=== PATIENT | male | born 1935 | race Caucasian/White ===

== ENCOUNTER → 2023-07-17 14:04 | Outpatient (REF) | payer OTHER, SELFPAY | LOC: HWRAD 14:04 | PROVIDERS: ATTENDING PHYSICIAN Family Medicine | DX: R06.02 Shortness of breath (principal) | CPT/HCPCS: 71046 ==

== ENCOUNTER → 2024-05-07 13:21 | Outpatient (REF) | payer OTHER, SELFPAY | LOC: RCS 13:21 | PROVIDERS: ATTENDING PHYSICIAN Internal Medicine Cardiovascular Disease; FAMILY PHYSICIAN Internal Medicine | DX: I50.20 Unspecified systolic (congestive) heart failure (principal); Z98.890 Other specified postprocedural states | CPT/HCPCS: 93306 ==

== ENCOUNTER → 2024-06-01 07:47 | Outpatient (REF) | payer OTHER, SELFPAY | LOC: HWRCS 07:47 | PROVIDERS: ATTENDING PHYSICIAN Internal Medicine Cardiovascular Disease; FAMILY PHYSICIAN Internal Medicine | DX: I42.8 Other cardiomyopathies (principal); I50.20 Unspecified systolic (congestive) heart failure; I48.21 Permanent atrial fibrillation | CPT/HCPCS: 78452; 93017; A9500; J2785 ==

== ENCOUNTER 2024-06-17 12:55 | Inpatient (IN) | payer OTHER, SELFPAY ==
[2024-06-17] VITALS (11 sets, daily range): BP systolic 91–136; BP diastolic 64–96; BMI 28.8; BMI 28.4
[2024-06-17 09:03] LABS: Urine Albumin 4+ (Neg - Trace); Urine Bilirubin Negative (Negative); Urine Character Bloody (Clear); Urine Color Red; Urine Glucose Negative (Negative); Urine Ketone Negative (Negative); Urine Leukocyte Negative (Negative); Urine Nitrite Negative (Negative); Urine Occult Blood 4+ (Negative); Urine Specific Gravity 1.015 (<1.030); Urine Urobilinogen Negative (Neg - 1+)
[2024-06-17 09:25] LABS: Urine Squamous Cell 0-2 /LPF (Few)
[2024-06-17 09:26] LABS: Urine Red Blood Cell >100 /HPF (0-2); Urine White Cell 0-2 /HPF (0-5)
--- NOTE | 2024-06-17 09:29 | ED.GENMED ---
History of Present Illness
General
Chief Complaint: Urinary Symptoms
Source: patient
Exam Limitations: none
Time Seen by Provider: 06/17/24 08:15
History of Present Illness
History of Present Illness:
89-year-old male with a history of prostate cancer and A-fib on Eliquis who presents with difficulty urinating. Patient admits that 2 days ago had a little bit of blood in the urine but it seemed to clear up. He saw his urologist and was put on
antibiotics. The patient states that today he then noticed blood again. No abdominal pain. On my evaluation he feels like he is comfortable. He was able to urinate on arrival. Urine at bedside is bloody
Past History
Past History
ED Past Medical History: Arrthythmia (Atrial fibrillation on Eliquis), Cancer (Prostate), CHF, HTN, Hypercholesterolemia, NIDDM and Valvular disease
ED Past Surgical History: Cardiac (Mitral valve repair) and Orthopedic
Social History
Tobacco: Non-smoker
Personal:
Living: with family
Family History
Family History: Other (No significant)
Phy Exam
Physical Exam
Physical Exam:
CONSTITUTIONAL Patient alert and oriented to person, place and time. Well-appearing. Vital signs reviewed.
HEAD atraumatic, normocephalic.
EYES eyelids normal to inspection, Extraocular muscles intact, Conjunctiva normal, Sclera normal.
NECK normal range of motion, Trachea midline, no jugular venous distention.
RESPIRATORY CHEST No respiratory distress noted, Chest expansion equal
ABDOMEN abdomen nontender, Bowel sounds normal. No distention.
BACK normal inspection, no obvious deformities
UPPER EXTREMITY range of motion normal, Motor strength normal, no cyanosis, no edema.
LOWER EXTREMITY range of motion normal, Motor strength normal, no cyanosis, no edema.
NEURO Speech normal, No focal motor deficits, Shiloh coma scale 15, Memory normal, Cranial Nerves intact to screening exam.
SKIN skin warm, dry, and normal in color.
Course
Orders/Labs/Results
Orders:
Orders
06/17/24 08:31
Urinalysis Reflex To Culture Urgent
Date Specimen was Collected: 06/17/24
Time Specimen was Collected: 08:30
Urine Microscopic Reflex Cult Urgent
06/17/24 08:33
Lucas Placement- Treatment ONCE
Reason for insertion: Acute Retention
06/17/24 08:36
Lidocaine 2% [Lidocaine Uro-Jet 2%] 1 syringe .ROUTE .STK-MED ONE
06/17/24 10:45
Complete Blood Count/With Diff Urgent
Comprehensive Metabolic Panel Urgent
Prothrombin Time Urgent
06/17/24 10:51
CBI- Treatment PRN
Solution: NSS
Abnormal Lab Results
06/17/24
08:31
Ur Occult Blood Reflex 4+ A
(Negative)
Urine RBC >100 A /HPF
(0-2)
Urine Albumin (Reflex) 4+ A
(Neg - Trace)
Vital Signs
Initial and Last Documented VS:
Initial Vital Signs
Temp Pulse Resp BP Pulse Ox
98.0 F 99 16 136/96 98
06/17/24 08:00 06/17/24 08:00 06/17/24 08:00 06/17/24 08:00 06/17/24 08:00
Last Documented Vital Signs
Temp Pulse Resp BP Pulse Ox
98.0 F 75 15 114/64 96
06/17/24 08:00 06/17/24 10:00 06/17/24 10:00 06/17/24 10:00 06/17/24 10:00
MDM/Problems Addressed
MDM/Problems Addressed:
Acute hematuria, therapeutic coagulopathy
Chronic conditions affecting care:
Atrial fibrillation
*Pulse Oximetry
Patient hypoxic: no
*Critical Care Note
Total Time (30-74mins, 75-104mins- exclusive of procedures): Not Applicable
Data Reviewed
Source: patient
Prescriptions/Medications Considered But Not Given:
Consider Kcentra but patient stable
Patient Management
Escalation/DeEscalation of care consider admission/obs:
Reassessed several times and continues to have bleeding despite hand irrigation. Initiate CBI. Stable. Check labs and admit in light of Eliquis
ED Attending Note
-
Portions of this chart may have been created with voice recognition software.� Occasional wrong word or��sound alike� substitutions may have occurred due to the inherent limitations of voice recognition software.
Discharge Plan
Departure
Patient Disposition: Admit
Date of Disposition: 06/17/24
Time of Disposition: :
Admit to: Med/Surg
Presentation/result/management discussed w/ accepting MD/DO: Hospitalist
Discharge Problem:
Hematuria, therapeutic coagulopathy
Prescriptions:
No Action
furosemide 40 MG tablet
40 mg PO .5XWEEK
carvedilol [Coreg] 25 MG tablet
25 mg PO BID
atorvastatin [Lipitor] 10 MG tablet
10 mg PO DAILY
levothyroxine 200 MCG tablet
200 mcg PO DAILY
leuprolide 1 MG/0.2 ML kit
5 mg SQ [id number]
omeprazole magnesium [Prilosec OTC] 20 MG tablet,delayed release (DR/EC)
20 mg PO DAILY PRN (Reason: heartburn)
glimepiride 2 MG tablet
2 mg PO DAILY
Januvia 50 MG tablet
50 mg PO DAILY
sacubitril-valsartan [Entresto] 1 EACH tablet
1 ea PO DAILY
spironolactone 25 mg Tablet
25 mg PO DAILY
acetaminophen [Pain Reliever ES(acetaminophn)] 500 mg Tablet
500 mg PO Q6HPRN PRN (Reason: mild pain) Qty: 1 0RF
Eliquis 2.5 mg Tablet
2.5 mg PO BID
ubiquinone
200 mg PO .ASDIRECTED
Referrals:
Vitaly Landin MD [Family Provider] -
Interventions
Interventions:
*Risk Screen - Suicide Last Done: 06/17/24 08:00
*Neglect/Abuse Screening Last Done: 06/17/24 08:00
ED- Fall Risk Assessment Last Done: 06/17/24 08:13
*ED COVID-19 Vaccine History Last Done: 06/17/24 08:12
ED-Male Genitourinary Assessment Last Done: 06/17/24 08:20
Discharge Date and Time
Print Language: [place]
[2024-06-17 11:54] LABS: % Basophils 0.4 % (0-2); % Eosinophils 2.7 % (0-6); % Immature Granulocytes 0.5 % (0-0.5); % Lymphocytes 13.4 % (20.5-51.1); % Monocytes 10.9 % (1.7-9.3); % Neutrophils 72.1 % (42.2-75.2); Absolute Eosinophils 0.2 10^3/uL (0-0.7); Absolute Lymphocytes 0.8 10^3/uL (1.2-3.4); Absolute Monocytes 0.6 10^3/uL (0.1-0.6); Absolute Neutrophils 4.1 10^3/uL (1.4-6.5); Hematocrit 37.6 % (39.0-52.0); Hemoglobin 11.8 g/dL (13.0-18.0); Mean Corp Hgb Conc. 31.4 g/dL (33.0-37.0); Mean Corpuscular Volume 89.1 fL (80.0-94.0); Mean Platelet Volume 10.8 fL (7.4-10.4); Nucleated Red Blood Cells % 0 % (-); Platelet Count 144 10^3/uL (130-400); Red Blood Cell Count 4.22 10^6/uL (4.70-6.10); Red Cell Dist. Width 14.8 % (11.5-14.5); White Blood Cell Count 5.6 10^3/uL (4.8-10.8)
[2024-06-17 11:56] LABS: ALT (SGPT) 11 U/L (0-50); AST (SGOT) 16 U/L (17-59); Albumin 3.5 g/dl (3.5-5.0); Alkaline Phosphatase 64 U/L (38-126); Blood Urea Nitrogen 49 mg/dl (9-20); Calcium 9.6 mg/dl (8.4-10.2); Carbon Dioxide 26 mmol/L (22-30); Chloride 106 mmol/L (98-107); Estimated Creatinine Clearance 47 ml/min; Glucose 111 mg/dl (70-99); Potassium 4.8 mmol/L (3.5-5.1); Sodium 137 mmol/L (135-145); Total Bilirubin 0.6 mg/dl (0.2-1.3); Total Protein 5.7 g/dl (6.3-8.2); eGFR 58.17
[2024-06-17 12:03] LABS: INR 1.28; PT 16.5 Sec (11.4-14.6)
--- NOTE | 2024-06-17 12:19 | HPS.HSE ---
Family Physician
-
Family Physician: Vitaly Landin
Chief Complaint
-
recurrent blood in urine
History of Present Illness
HPI
89M HX prostate cancer and A-fib on Eliquis seen at ER:
- presents with difficulty urinating
- 2 days ago had a little bit of blood in the urine but it seemed to clear up.
- He saw his urologist and was put on antibiotics.
- today he then noticed blood again.
- No abdominal pain.
- able to urinate on arrival.
- Urine at bedside is bloody
Medical History
Past Medical History
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
Past Surgical History: Reports Cardiac (HX MVR 2015 for MR , IDC implant )
Social History
Tobacco: Non-smoker
Personal:
Living: With Family
Family History
Family History: Not pertinent
Allergies / Home Medications
Allergies reflects when Allergies were last updated in [employer].
Home Medications with original date entered in [employer]
Allergy/Medication List:
Allergies
Allergy/AdvReac Type Severity Reaction Status Date / Time
No Known Allergies Allergy Verified 06/17/24 08:02
Home Medications
atorvastatin 10 mg tablet (Lipitor) 10 mg PO DAILY High cholesterol 05/05/17
carvedilol 25 mg tablet (Coreg) 25 mg PO BID Heart Failure 05/05/17
furosemide 40 mg tablet 40 mg PO .5XWEEK Fluid retention/Swelling 05/05/17
leuprolide 1 mg/0.2 mL subcutaneous kit 5 mg SQ [id number] Prostate Cancer 05/05/17
levothyroxine 200 mcg tablet 200 mcg PO DAILY Thyroid 05/05/17
omeprazole magnesium 20 mg tablet,delayed release (Prilosec OTC) 20 mg PO DAILY PRN heartburn 05/05/17
glimepiride 2 mg tablet 2 mg PO DAILY Diabetes 06/14/19
sacubitril 97 mg-valsartan 103 mg tablet (Entresto) 1 ea PO DAILY Heart Failure 06/14/19
sitagliptin phosphate 50 mg tablet (Januvia) 50 mg PO DAILY Diabetes 06/14/19
spironolactone 25 mg tablet 25 mg PO DAILY Heart Failure 01/26/22
acetaminophen 500 mg tablet (Pain Reliever Extra Strength (acetaminophen)) 500 mg PO Q6HPRN PRN mild pain #1 tab 02/02/22
apixaban 2.5 mg tablet (Eliquis) 2.5 mg PO BID 06/17/24
ubiquinone 200 mg PO .ASDIRECTED 06/17/24
Review of Systems
-
Constitutional: Reports No Symptoms
EENT: Reports No Symptoms
Respiratory: Reports No Symptoms
Cardiac: Reports No Symptoms
Abdomen/GI: Reports No Symptoms
: Reports Bleeding
Musculoskeletal: Reports No Symptoms
Skin: Reports No Symptoms
Neurological: Reports No Symptoms
Endocrine: Reports No Symptoms
Hematologic/Lymphatic: Reports No Symptoms
Psych: Reports No Symptoms
Physical Exam
Vital Signs
Vital Signs
Temp Pulse Resp BP Pulse Ox
98.0 F 75 15 114/64 96
06/17/24 08:00 06/17/24 10:00 06/17/24 10:00 06/17/24 10:00 06/17/24 10:00
Physical Exam
General: Well Developed, Well Nourished and No Apparent Distress
HEENT: NormoCephalic, Moist mucous membranes and Atraumatic
Respiratory: Clear
Cardiac: S1/S2 and Regular Rhythm; No Murmur or Rub
GI: Soft, Non Tender, Non Distended and Normal Bowel Sounds; No Organomegaly
Rectal: Deferred by Provider
Genito-urinary: Bloody Urine and Continuous Bladder Irrigation
Musculoskeletal: No Clubbing, No Cyanosis and No Edema
Skin: No Rash
Neuro: Nonfocal/grossly intact
Laboratory Results
-
06/17/24 11:35
06/17/24 11:35
Laboratory Results
PT 16.5 Sec (11.4-14.6) H 06/17/24 11:35
INR 1.28 06/17/24 11:35
Total Bilirubin 0.6 mg/dl (0.2-1.3) 06/17/24 11:35
AST 16 U/L (17-59) L 06/17/24 11:35
ALT 11 U/L (0-50) 06/17/24 11:35
Alkaline Phosphatase 64 U/L (38-126) 06/17/24 11:35
Data Reviewed
-
Lab Data: Labs Reviewed by me
Old Records: Reviewed
Impression/Plan
-
Reviewed VS: unremarkable except mild hypotensive 90/70 --> 115/65
Data
Laboratory Tests
02/01/22 02/02/22 06/17/24
06:59 05:42 08:31
Hgb 11.3 L 10.5 L
BUN
Creatinine 1.3
eGFR
Urine RBC >100 A
Urine WBC (Reflex) 0-2
06/17/24
11:35
Hgb 11.8 L
BUN 49 H
Creatinine 1.2
eGFR 58.17
Urine RBC
Urine WBC (Reflex)
Last hospitalist admission:
Date of Admission: 01/26/22 -Date of Discharge: 02/13/22 DC Dx: Lower GI bleed suspected diverticula
ASSESSMENT & PLAN
Persistent hematuria.
on eliquis
Hgb 11.8( baseline Hgb were low 11s)
UA not c/w UTI
- c/w CBI
- Hold Eliquis
- hold Frusemide for now
- c/w Carvedilol with hold index for SBP < 105
- hold Aldactone
- Uro consult
HX RCCa
HX prostate cancer he follows urologist
Primary urologist Dr. Lemus in [facility]
Benign HTN
- c/w Carvedilol and hold index for SBP < 105
- c/w Entresto with hold index for SBP <105
- Hold Aldactone
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
HX s/p ICD placement
Mild Pul HTN HX
S/P Mitral valve repair in 2015 for MR
- On combination of Coreg/Lasix/Entresto/asa/statin at home
- currently on hold Frusemide
- c/w Carvedilol with hold index for SBP < 105
T2DM
- c/w Glimepiride and Januvia
- add ISS low
- ADA 1800 diogenes diet
HX Prx AF
HLD
- Holding Eliquis to hematuria
- c/w APPLICATION PENETRATION TESTER Atorvastatin
Hypothyroidism
- c/w LT4 200 mcg daily
DVT Px: SCD
Code: Full code
IP TLM
--- NOTE | 2024-06-17 15:30 | PTCARENOTE ---
Received pt from ED via stretcher. Stretcher placed next to bed, pt able to stand and pivot into bed with assist x1. Telemetry placed. CBI running. Assessed and oriented to room. Pt verbalized understanding of call macario. Call macario within close
reach. Will continue to monitor.
[2024-06-17 16:53] LABS: Glucose - Point of Care 169 mg/dl (70-99)
[2024-06-17] MEDS: NOVOLOG FLEXPEN-LOW RESISTANCE 1 UNITS SC (17:53)
[2024-06-17] MEDS: COREG 25 MG PO (20:05)
[2024-06-17 21:36] LABS: Glucose - Point of Care 123 mg/dl (70-99)
[2024-06-18 03:50] VITALS: BP 130/76
[2024-06-18 05:14] VITALS: BMI 28.7
[2024-06-18 06:18] LABS: Hematocrit 38.4 % (39.0-52.0); Hemoglobin 12.4 g/dL (13.0-18.0); Mean Corp Hgb Conc. 32.3 g/dL (33.0-37.0); Mean Corpuscular Hgb 28.3 pg (27.0-31.0); Mean Corpuscular Volume 87.7 fL (80.0-94.0); Platelet Count 144 10^3/uL (130-400); Red Blood Cell Count 4.38 10^6/uL (4.70-6.10); Red Cell Dist. Width 14.6 % (11.5-14.5); White Blood Cell Count 7.8 10^3/uL (4.8-10.8)
[2024-06-18 06:21] LABS: Blood Urea Nitrogen 42 mg/dl (9-20); Calcium 9.7 mg/dl (8.4-10.2); Carbon Dioxide 28 mmol/L (22-30); Chloride 102 mmol/L (98-107); Estimated Creatinine Clearance 51 ml/min; Glucose 114 mg/dl (70-99); Potassium 4.6 mmol/L (3.5-5.1); Sodium 137 mmol/L (135-145); eGFR > 60.00
[2024-06-18 07:31] VITALS: BP 123/77
[2024-06-18 07:43] LABS: Glucose - Point of Care 127 mg/dl (70-99)
[2024-06-18] MEDS: NOVOLOG FLEXPEN-LOW RESISTANCE SC ×2 (07:59→12:16)
[2024-06-18] MEDS: SYNTHROID 200 MCG PO (07:59)
[2024-06-18] MEDS: ENTRESTO 97 MG/103 MG 1 TAB PO (08:41)
[2024-06-18] MEDS: LIPITOR 10 MG PO (08:42)
[2024-06-18] MEDS: COREG 25 MG PO (08:42)
[2024-06-18] MEDS: JANUVIA 50 MG PO (08:42)
[2024-06-18] MEDS: AMARYL 2 MG PO (08:42)
--- NOTE | 2024-06-18 10:50 | W.PN.HOSP.TC ---
Today's Communication/Plan
-
see outlined plan
await Urology input
Assessment / Plan
Assessment / Plan
Assessment:
Gross hematuria
- exacerbated by Eliquis
- holding Eliquis
- on CBI - urine clear
- Urine culture pending - UA not suggestive of UTI
- await Urology consult
Hx of RCC and prostate cancer
- planned for CT scan next week and f/u with Dr. Lemus Urology
Benign HTN
Chronic HFrEF (also hx of mild pulm HTN)
- resume Lasix/Coreg/Aldactone/Entresto
Type 2 DM
- continue home meds; SSI
- ADA diet
Hx of Parox A.Fib
- continue Coreg
- holding Eliquis
HLD - continue statin
Hypothyroidism
- continue levothyroxine daily
DVT ppx: SCDs
Code: Full
Anticipated Discharge: Within 24 hours
Subjective/Interval History
-
Date of Service: June 18, 2024
urine clear on CBI
1 small clot per RN
Objective Data
-
Labs:
Laboratory Results
06/18/24
05:13
WBC 7.8
Hgb 12.4 L
Hct 38.4 L
Plt Count 144
Sodium 137
Potassium 4.6
Chloride 102
Carbon Dioxide 28
BUN 42 H
Creatinine 1.1
Glucose 114 H
Calcium 9.7
Vital Signs:
Vital Signs
Temp Pulse Resp BP Pulse Ox
97.9 F 83 16 123/77 95
06/18/24 07:31 06/18/24 07:31 06/18/24 07:31 06/18/24 07:31 06/18/24 07:31
I&O
06/17/24 06/18/24 06/19/24
06:59 06:59 06:59
Intake Total 940 / 940
Output Total 1949
Balance -1010 / -1010
Physical Exam
-
General: No Apparent Distress
HEENT: Normocephalic and Atraumatic
Respiratory: Negative Wheezes
Cardiac: Regular Rhythm and S1/S2
GI: Soft and Nontender
Genito-urinary: No Costovertebral Tender and Lucas
Neuro: AO x 3
Hematologic / Lymphatic: No Lymphadenopathy
Psych: Calm
Data Reviewed
-
Total Time Spent with Patient (in minutes): 41
Labs: Labs Reviewed by me
--- NOTE | 2024-06-18 11:10 | CONS.URO ---
Medical History
History of Present Illness
89M HX prostate cancer s/p IMRT noted blood in urine mid-week.
- He saw his urologist, Artie Lemus, who prescribed antibiotics.
He was instructed to 'go to ER if bleeding continues' -- he presented to ED yesterday
Past Medical History
Past Medical History: Other (Arrhythmia (Prx AF on Eliquis ), CHF ([facility] HFrEF with LVEF 30 %), HTN, Hypercholesterolemia, Hypothyroidism, NIDDM, Valvular Disease (HX MVR 2016 for MR )
Allergies/Home Medications
Allergies
Allergy/AdvReac Type Severity Reaction Status Date / Time
No Known Allergies Allergy Verified 06/17/24 08:02
Home Medications
�Medication �Instructions �Recorded �Confirmed �Type
atorvastatin 10 mg tablet (Lipitor) 10 mg PO DAILY High cholesterol 05/05/17 06/17/24 History
carvedilol 25 mg tablet (Coreg) 25 mg PO BID Heart Failure 05/05/17 06/17/24 History
furosemide 40 mg tablet 40 mg PO .5XWEEK Fluid 05/05/17 06/17/24 History
retention/Swelling
leuprolide 1 mg/0.2 mL 5 mg SQ [id number] Prostate Cancer 05/05/17 06/17/24 History
subcutaneous kit
levothyroxine 200 mcg tablet 200 mcg PO DAILY Thyroid 05/05/17 06/17/24 History
omeprazole magnesium 20 mg 20 mg PO DAILY PRN heartburn 05/05/17 06/17/24 History
tablet,delayed release (Prilosec
OTC)
glimepiride 2 mg tablet 2 mg PO DAILY Diabetes 06/14/19 06/17/24 History
sacubitril 97 mg-valsartan 103 mg 1 ea PO DAILY Heart Failure 06/14/19 06/17/24 History
tablet (Entresto)
sitagliptin phosphate 50 mg tablet 50 mg PO DAILY Diabetes 06/14/19 06/17/24 History
(Januvia)
spironolactone 25 mg tablet 25 mg PO DAILY Heart Failure 01/26/22 06/17/24 History
acetaminophen 500 mg tablet (Pain 500 mg PO Q6HPRN PRN mild pain #1 02/02/22 06/17/24 Rx
Reliever Extra Strength tab
(acetaminophen))
apixaban 2.5 mg tablet (Eliquis) 2.5 mg PO BID 06/17/24 06/17/24 History
ubiquinone 200 mg PO .ASDIRECTED 06/17/24 06/17/24 History
Physical Exam
Vital Signs
Vital Signs
Temp Pulse Resp BP Pulse Ox
97.9 F 83 16 123/77 95
06/18/24 07:31 06/18/24 07:31 06/18/24 07:31 06/18/24 07:31 06/18/24 07:31
Lab / Testing Results
Laboratory Results
06/18/24 05:13
06/18/24 05:13
Physical Exam
elderly male in bed
General: Well Nourished
GI: Soft
Genito-urinary: Lucas Catheter (3-way with CBI: clear outflow)
Neuro: Awake, Alert and Oriented
Psych: Calm and Intact Judgement
Assessment / Plan
-
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
possible UTI
Rec: stop CBI and remove Lucas
pt to f/u with Dr Lemus next week
[2024-06-18 11:22] VITALS: BP 118/66
[2024-06-18 11:53] LABS: Glycohemoglobin (HgbA1c) 6.3 % (4.0-5.6)
[2024-06-18 11:57] LABS: Glucose - Point of Care 100 mg/dl (70-99)
[2024-06-18] MEDS: ALDACTONE 25 MG PO (12:12)
--- NOTE | 2024-06-18 13:24 | W.DS.TRANS ---
DC Summary - Manager Registration
-
Discharge Instructions:
Sleep Apnea Risk Intermediate
Diet Low Cholesterol,2 Gram Sodium,Diabetic, Carb
Controlled
Activity As tolerated
Bathing Restrictions None
Instructions:
Stand-Alone Forms:
Changes to Home Medications: No
Discharge Medications:
DC Medications w/original date entered in [employer]
atorvastatin 10 mg tablet (Lipitor) 10 mg PO DAILY High cholesterol 05/05/17
carvedilol 25 mg tablet (Coreg) 25 mg PO BID Heart Failure 05/05/17
furosemide 40 mg tablet 40 mg PO .5XWEEK Fluid retention/Swelling 05/05/17
leuprolide 1 mg/0.2 mL subcutaneous kit 5 mg SQ [id number] Prostate Cancer 05/05/17
levothyroxine 200 mcg tablet 200 mcg PO DAILY Thyroid 05/05/17
omeprazole magnesium 20 mg tablet,delayed release (Prilosec OTC) 20 mg PO DAILY PRN heartburn 05/05/17
glimepiride 2 mg tablet 2 mg PO DAILY Diabetes 06/14/19
sacubitril 97 mg-valsartan 103 mg tablet (Entresto) 1 ea PO DAILY Heart Failure 06/14/19
sitagliptin phosphate 50 mg tablet (Januvia) 50 mg PO DAILY Diabetes 06/14/19
spironolactone 25 mg tablet 25 mg PO DAILY Heart Failure 01/26/22
acetaminophen 500 mg tablet (Pain Reliever Extra Strength (acetaminophen)) 500 mg PO Q6HPRN PRN mild pain #1 tab 02/02/22
apixaban 2.5 mg tablet (Eliquis) 2.5 mg PO BID 06/17/24
ubiquinone 200 mg PO .ASDIRECTED 06/17/24
Home Medication Changes
Pending Results: No
Total time spent discharging patient (in min): 41
--- NOTE | 2024-06-18 14:08 | CM ---
Alert awake oriented pt who lives with his Lisbeth. He is independent in all ADLs.He uses a cane .Offered VN he declined need.
Pt said he was ready for discharge.He said he is using an Uber to get home.
No VN/SNF hx
Pharmacy [facility] [place]
PCP Dr Landin
PLAN Home no needs
== END 2024-06-18 14:11 | disposition home or self-care (01) | DRG 699 ==
LOC: 3 WEST ACU 12:55
PROVIDERS: ADMITTING PHYSICIAN Internal Medicine; ATTENDING PHYSICIAN Internal Medicine; CONSULT PHYSICIAN Specialist; EMERGENCY PHYSICIAN Emergency Medicine; FAMILY PHYSICIAN Internal Medicine
DX: N30.41 Irradiation cystitis with hematuria (principal); D68.32 Hemorrhagic disorder due to extrinsic circulating anticoagulants; I50.22 Chronic systolic (congestive) heart failure; I42.8 Other cardiomyopathies; T45.515A Adverse effect of anticoagulants, initial encounter; I48.0 Paroxysmal atrial fibrillation; I10 Essential (primary) hypertension; E78.00 Pure hypercholesterolemia, unspecified; E11.9 Type 2 diabetes mellitus without complications; E03.9 Hypothyroidism, unspecified; Z95.810 Presence of automatic (implantable) cardiac defibrillator; Z95.2 Presence of prosthetic heart valve; Z85.528 Personal history of other malignant neoplasm of kidney; Z85.46 Personal history of malignant neoplasm of prostate; Z79.84 Long term (current) use of oral hypoglycemic drugs; Z79.01 Long term (current) use of anticoagulants; Z79.890 Hormone replacement therapy
CPT/HCPCS: 51702; 51798; 80048; 80053; 81003; 81015; 82962; 83036; 85025; 85027; 85610; 87086; 99285

== ENCOUNTER → 2024-06-21 14:27 | Outpatient (REF) | payer OTHER, SELFPAY | LOC: HWRAD 14:27 | PROVIDERS: ATTENDING PHYSICIAN Urology; FAMILY PHYSICIAN Internal Medicine | DX: R31.0 Gross hematuria (principal) | CPT/HCPCS: 74176 ==

== ENCOUNTER → 2024-12-28 12:58 | Outpatient (REF) | payer OTHER, SELFPAY | LOC: RAD 12:58 | PROVIDERS: ATTENDING PHYSICIAN Internal Medicine; FAMILY PHYSICIAN Specialist | DX: R60.0 Localized edema (principal) | CPT/HCPCS: 93971 ==

== ENCOUNTER 2025-01-09 17:46 | Inpatient (IN) | payer OTHER, SELFPAY ==
[2025-01-09] VITALS (57 sets, daily range): BP systolic 55–135; BP diastolic 33–105; BMI 31.4
[2025-01-09 15:13] LABS: Hematocrit 23.0 % (39.0-52.0); Hemoglobin 7.5 g/dL (13.0-18.0); Mean Corp Hgb Conc. 32.6 g/dL (33.0-37.0); Mean Corpuscular Volume 92.7 fL (80.0-94.0); Nucleated Red Blood Cells % 0.3 % (-); Platelet Count 139 10^3/uL (130-400); Red Cell Dist. Width 17.2 % (11.5-14.5)
[2025-01-09] MEDS: ZOSYN 100 IV (15:16)
[2025-01-09 15:30] LABS: ALT (SGPT) 23 U/L (0-50); AST (SGOT) 28 U/L (17-59); Albumin 2.5 g/dl (3.5-5.0); Alkaline Phosphatase 44 U/L (38-126); Blood Urea Nitrogen 67 mg/dl (9-20); Calcium 8.5 mg/dl (8.4-10.2); Carbon Dioxide 30 mmol/L (22-30); Chloride 106 mmol/L (98-107); Estimated Creatinine Clearance 28 ml/min; Glucose 117 mg/dl (70-99); Potassium 5.6 mmol/L (3.5-5.1); Sodium 135 mmol/L (135-145); Total Protein 4.7 g/dl (6.3-8.2); eGFR 26.64
[2025-01-09] MEDS: LEVOPHED 250 IV ×2 (15:34→20:37)
[2025-01-09] MEDS: VANCOCIN 540 MG IV (15:41)
--- NOTE | 2025-01-09 16:01 | ED.GENMED ---
History of Present Illness
General
Chief Complaint: Weakness
Source: patient and family
Time Seen by Provider: 01/09/25 14:59
History of Present Illness
History of Present Illness:
Patient presents with weakness. Started this morning. Being treated for bladder CA with chemotherapy and radiation. Denies chest pain or shortness of breath. Has had ongoing diarrhea per family. Constipated per patient.
Past History
Past History
ED Past Medical History: Arrthythmia (Atrial fibrillation on Eliquis), Cancer (Prostate), CHF, HTN, Hypercholesterolemia, NIDDM and Valvular disease
ED Past Surgical History: Cardiac (Mitral valve repair) and Orthopedic
Social History
Tobacco: Non-smoker
Personal:
Living: with family
Family History
Family History: Other (No significant)
Review of Systems
Review of Systems
All Other Systems: Not applicable
Constitutional: Denies fever
Respiratory: Reports no symptoms
Cardiac: Reports no symptoms
Phy Exam
Physical Exam
Physical Exam:
GENERAL: Alert and oriented. Chronically ill-appearing. Hypotensive. Port upper chest wall
EYE: Orbits normal.
NECK: Supple, no significant adenopathy.
ENT: Pharynx without erythema
CARDIAC: Irregular irregular
LUNGS: Few rhonchi in the bases. No respiratory distress
ABDOMEN: Soft, without focal tenderness or distention
NEUROLOGICAL: Alert and oriented , grossly non-focal
SKIN: Warm and dry, no rash or lesion, no discoloration, skin intact.
MUSCULOSKELETAL: Swelling and erythematous changes in the left lower extremity with underlying hyperpigmentation changes
PSYCH: Normal and appropriate interaction.
Course
Orders/Labs/Results
Orders:
Orders
01/09/25 15:02
EKG [Electrocardiogram (*1)] Urgent
Reason for Study: Fatigue / Weakness
01/09/25 15:03
EKG- Treatment ONCE
01/09/25 15:04
IV Insert/Care/Rem.- Treatment PRN
01/09/25 15:06
Complete Blood Count/With Diff Urgent
Comprehensive Metabolic Panel Urgent
01/09/25 15:11
Lactic Acid Q4H
Comment: CANCEL 2nd LACTIC ACID IF 1st LACTIC ACID IS LESS THAN 2
Blood Culture Q30M
THOMAS Source: Blood/Venous
Specimen Description:
Blood Culture Q30M
THOMAS Source: Blood/Venous
Specimen Description:
01/09/25 15:12
Piperacillin/Tazo 4.5 Gram [Zosyn] 4.5 gram in 100 ml IV NOW
CXR Port [CR Chest Portable - 1 View] Urgent
Comment:
Reason For Exam: Hypotension/hypoxia
Reason Study Needs to be Portable: Patient Unstable
01/09/25 15:13
US Periph Venous LOWER Ext LT Urgent
Comment:
Reason For Exam: Swelling/redness
01/09/25 15:17
Type And Crossmatch [Type+Screen] Urgent
01/09/25 15:24
Vancomycin [Vancocin] 2,000 mg 0.9% Sodium Chloride 500 ml [Nss] 500 ml IV NOW
01/09/25 15:28
NORepinephrine 4 MG/250 ML [Levophed] 4 mg in 250 ml .ROUTE .STK-MED
01/09/25 15:30
NORepinephrine 4 MG/250 ML [Levophed] 4 mg in 250 ml IV NOW
Initial dose in mcg/min, then titrate:: 2
Titrate to keep:: MAP > 65 mmHg
Titrate by mcg/min:: 1-2 mcg/min
Frequency of titrations (minutes):: 5
Maximum dose in ICU in mcg/min:: 30
Maximum dose in IMU in mcg/min:: 8
Maximum dose in IVU in mcg/min:: 4
Begin to taper infusion when:: Remained at goal for 4hrs
Taper by mcg/min:: 1-2 mcg/min
Frequency of taper (minutes) if patient maintains goal:: 30
Taper to off?: Yes
If infusion off & no longer maintaining goal:: Contact Provider
01/09/25 15:36
Troponin I Urgent
01/09/25 16:19
Straight cath- Treatment ONCE
01/09/25 16:28
Urinalysis Reflex To Culture Urgent
Date Specimen was Collected: 01/09/25
Time Specimen was Collected: 16:21
Urine Microscopic Reflex Cult Urgent
Urine Culture Urgent
THOMAS Source: U
Specimen Description:
Date Specimen was Collected: 01/09/25
Time Specimen was Collected: 16:21
01/09/25 16:38
* Blood Bank Products Urgent
Blood Bank Products: *Packed RBC Leuko(PRBC's)
Quantity: 1
Transfuse Today: Yes
Reason: Anemia
IV Insert/Care/Rem.- Treatment PRN
Abnormal Lab Results
01/09/25 01/09/25 01/09/25
15:06 15:36 16:28
RBC 2.48 L 10^6/uL
(4.70-6.10)
Hgb 7.5 L g/dL
(13.0-18.0)
Hct 23.0 L %
(39.0-52.0)
MCHC 32.6 L g/dL
(33.0-37.0)
RDW 17.2 H %
(11.5-14.5)
Abs Immat Gran (auto) 0.1 H 10^3/uL
(0-0.05)
Absolute Neuts (auto) 6.6 H 10^3/uL
(1.4-6.5)
Absolute Lymphs (auto) 0.1 L 10^3/uL
(1.2-3.4)
Immature Gran % 1.0 H %
(0-0.5)
Neutrophils % 94.8 H %
(42.2-75.2)
Lymphocytes % 1.6 L %
(20.5-51.1)
Monocytes % 1.4 L %
(1.7-9.3)
Potassium 5.6 H mmol/L
(3.5-5.1)
BUN 67 H mg/dl
(9-20)
Creatinine 2.3 H mg/dL
(0.7-1.3)
Glucose 117 H mg/dl
(70-99)
Troponin I 0.105 H* ng/ml
Total Protein 4.7 L g/dl
(6.3-8.2)
Albumin 2.5 L g/dl
(3.5-5.0)
Leukocyte Esterase Rfl 1+ A
(Negative)
Urine Albumin (Reflex) 2+ A
(Neg - Trace)
01/09/25 15:06
01/09/25 15:06
Vital Signs
Initial and Last Documented VS:
Initial Vital Signs
BP
132/105
01/09/25 14:58
Last Documented Vital Signs
Temp Pulse Resp BP Pulse Ox
97.6 F 86 22 83/57 99
01/09/25 14:59 01/09/25 16:45 01/09/25 16:30 01/09/25 16:40 01/09/25 16:45
MDM/Problems Addressed
Differential Diagnosis Includes:
Patient in shock. Etiologies would include cardiogenic, septic. Highly doubt PE. Patient is on Eliquis and faithful. Leg ultrasound negative. Possibly secondary to cellulitis along with dehydration and chemo related. Hemoglobin is 7.5. Was
slightly over 8 his last visit. Not describing acute melena or GI bleed. We will transfuse 1 unit given the drop in hemoglobin. This was discussed with the patient and family. Antibiotics ordered. Pressors ordered. Blood pressure currently up
to 88/58. Multiple rechecks. Multiple family updates. They are discussing status of intubation and resuscitation issues. They have not made a decision on this
*Pulse Oximetry
SaO2: 96
Oxygen Mode of Delivery: Room air
Patient hypoxic: no
*EKG
Interpretation: abnormal
Comparison EKG: changes noted
Heart Rate: 92
Rate: normal
Rhythm: a-fib
[place]: left axis deviation
Interval: normal interval
QRS Pattern: poor R-wave progression
Ischemia: non-specific ST changes
*Office Auditor Interpretation
Rate: normal
Interpretation: abnormal
Heart Rate: 81
Rhythm: a-fib
*Critical Care Note
Total Time (30-74mins, 75-104mins- exclusive of procedures): Not Applicable (50)
Update Note
Update Note:
1600... Patient and family updated. Remains hypotensive. Anemia is likely ongoing. Suspect sepsis. Most likely source would be the left leg. Discussed CODE STATUS with patient and family. They are unsure where they would want to turn for this.
ED Attending Note
-
Portions of this chart may have been created with voice recognition software.� Occasional wrong word or��sound alike� substitutions may have occurred due to the inherent limitations of voice recognition software.
Discharge Plan
Departure
Patient Disposition: Admit
Date of Disposition: 01/09/25
Time of Disposition: 16:40
Admit to: ICU
Presentation/result/management discussed w/ accepting MD/DO: Hospitalist
Discharge Problem:
Shock/suspect septic, Cellulitis left lower extremity, Possible pneumonia/heart failure, Renal insufficiency, Bladder CA
Prescriptions:
No Action
furosemide 40 MG tablet
40 mg PO .5XWEEK
carvedilol [Coreg] 25 MG tablet
25 mg PO BID
atorvastatin [Lipitor] 10 MG tablet
10 mg PO DAILY
levothyroxine 200 MCG tablet
200 mcg PO DAILY
leuprolide 1 MG/0.2 ML kit
5 mg SQ [id number]
omeprazole magnesium [Prilosec OTC] 20 MG tablet,delayed release (DR/EC)
20 mg PO DAILY PRN (Reason: heartburn)
glimepiride 2 MG tablet
2 mg PO DAILY
Januvia 50 MG tablet
50 mg PO DAILY
sacubitril-valsartan [Entresto] 1 EACH tablet
1 ea PO DAILY
spironolactone 25 mg Tablet
25 mg PO DAILY
acetaminophen [Pain Reliever ES(acetaminophn)] 500 mg Tablet
500 mg PO Q6HPRN PRN (Reason: mild pain) Qty: 1 0RF
Eliquis 2.5 mg Tablet
2.5 mg PO BID
ubiquinone
200 mg PO .ASDIRECTED
Referrals:
Vitaly Landin MD [Family Provider, Internal Medicine]
Interventions
Interventions:
*Risk Screen - Suicide Last Done: 01/09/25 14:59
*General Assessment Last Done: 01/09/25 14:59
*Neglect/Abuse Screening Last Done: 01/09/25 14:59
*ED- Fall Risk Assessment Last Done: 01/09/25 14:59
*ED COVID-19 Vaccine History Last Done: 01/09/25 14:59
ED- Cardiac Assessment Last Done: 01/09/25 14:59
ED- Neurological Assessment Last Done: 01/09/25 14:59
ED- Pulmonary Assessment Last Done: 01/09/25 14:59
Discharge Date and Time
Print Language: FRENCH
[2025-01-09 16:13] LABS: Troponin I 0.105 ng/ml
[2025-01-09 16:46] LABS: Urine Character Clear (Clear)
[2025-01-09 17:23] LABS: Reticulocyte Count 1.2 % (0.4-2.8)
--- NOTE | 2025-01-09 17:25 | HPS.HSE ---
Family Physician
-
Family Physician: Vitaly Landin
Chief Complaint
-
Fatigue
History of Present Illness
89-year-old male with a past medical history of bladder cancer currently being treated at [facility] with both radiation and chemotherapy, permanent A-fib, heart failure with reduced ejection fraction comes to the hospital due to increased fatigue.
As per the patient's son, patient has been receiving radiation therapy and chemotherapy at [facility], his most recent appointment being this past Friday. Patient's hemoglobin levels had recently been dropping from 8.5-7.5. He has been feeling a
lot more fatigued following his chemotherapy sessions. He has been having increased shortness of breath and cough but does not report any fever or chest pain. This morning the fatigue was so bad that the patient ended up calling his son to ask him
to bring him to the hospital. He also has nausea at the time as well as feeling like fainting and ended up pressing his EMS button which got him to come to the hospital via ambulance. He has been very compliant with his medications however he has
been off of the Lasix at times due to symptomatic control. Mentions that his had around 2 to 3 weeks ago after which she has been fairly depressed but does not mention not eating or drinking. In the ED, patient was found to be
very hypotensive and was started on pressors. Was given 1 unit of blood and admitted to the ICU for further management.
Medical History
Past Medical History
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
Past Surgical History: Reports Cardiac (HX MVR 2016 for MR , IDC implant )
Social History
Tobacco: Non-smoker
Personal:
Living: With Family
Family History
Family History: Not pertinent
Allergies / Home Medications
Allergies reflects when Allergies were last updated in [employer].
Home Medications with original date entered in [employer]
Allergy/Medication List:
Allergies
Allergy/AdvReac Type Severity Reaction Status Date / Time
No Known Allergies Allergy Verified 01/09/25 14:57
Home Medications
atorvastatin 10 mg tablet (Lipitor) 10 mg PO DAILY High cholesterol 05/05/17
carvedilol 25 mg tablet (Coreg) 25 mg PO BID Heart Failure 05/05/17
furosemide 40 mg tablet 40 mg PO MOWEFR Fluid retention/Swelling 05/05/17
leuprolide 1 mg/0.2 mL subcutaneous kit 5 mg SQ [id number] Prostate Cancer 05/05/17
levothyroxine 200 mcg tablet 200 mcg PO DAILY Thyroid 05/05/17
omeprazole magnesium 20 mg tablet,delayed release (Prilosec OTC) 20 mg PO DAILY PRN heartburn 05/05/17
glimepiride 2 mg tablet 2 mg PO DAILY Diabetes 06/14/19
sitagliptin phosphate 50 mg tablet (Januvia) 50 mg PO DAILY Diabetes 06/14/19
spironolactone 25 mg tablet 25 mg PO DAILY Heart Failure 01/26/22
apixaban 2.5 mg tablet (Eliquis) 2.5 mg PO BID 01/09/25
coenzyme Q10 100 mg capsule (CoQ-10) 100 mg PO DAILY 01/09/25
lidocaine-prilocaine 2.5 %-2.5 % topical cream 1 applic topical DAILYPRN PRN port access 01/09/25
ondansetron HCl 8 mg tablet 8 mg PO Q8HPRN PRN n/v 01/09/25
prochlorperazine maleate 10 mg tablet 10 mg PO Q6HPRN PRN n/v 01/09/25
sacubitril 97 mg-valsartan 103 mg tablet (Entresto) 1 tab PO BID 01/09/25
Review of Systems
-
History Source: Patient and Family
A 12 point ROS was completed and negative except as noted: Yes
Constitutional: Reports Weight Loss and Fatigue; Denies Fever
EENT: Reports No Symptoms
Respiratory: Reports Other (Shortness of breath)
Cardiac: Reports No Symptoms
Abdomen/GI: Reports Nausea
: Reports No Symptoms
Musculoskeletal: Reports Edema (Bilateral lower extremity edema)
Skin: Reports Other (Left leg erythema)
Neurological: Reports No Symptoms
Endocrine: Reports No Symptoms
Hematologic/Lymphatic: Reports No Symptoms
Psych: Reports No Symptoms
Physical Exam
Vital Signs
Vital Signs
Temp Pulse Resp BP Pulse Ox
97.6 F 112 22 83/70 95
01/09/25 14:59 01/09/25 17:10 01/09/25 16:30 01/09/25 17:10 01/09/25 17:10
Physical Exam
General: No Apparent Distress, Appears in Distress and Appears Chronically Ill
HEENT: NormoCephalic, Anicteric, Moist mucous membranes and Atraumatic
Respiratory: Clear, Non Labored Respirations and Decreased Breath Sounds
Cardiac: S1/S2 and Irregular Rhythm
GI: Soft, Non Tender and Non Distended
Musculoskeletal: No Clubbing, No Cyanosis and Other (Bilateral lower extremity 1+ pitting edema)
Skin: Warm, Dry and Other (Left lower extremity erythema)
Neuro: Awake, Alert, Oriented and AO x 3
Psych: Calm, Intact Judgment/Insight and Other (Somnolent)
Laboratory Results
-
01/09/25 15:06
01/09/25 15:06
Laboratory Results
Lactic Acid Cancelled 01/09/25 19:15
Total Bilirubin 0.8 mg/dl (0.2-1.3) 01/09/25 15:06
AST 28 U/L (17-59) 01/09/25 15:06
ALT 23 U/L (0-50) 01/09/25 15:06
Alkaline Phosphatase 44 U/L (38-126) 01/09/25 15:06
Troponin I 0.105 ng/ml H* 01/09/25 15:36
Data Reviewed
-
Ultrasound: Report Reviewed by me, Discussed with Physician, Discussed with Patient and Discussed with Family
Lab Data: Labs Reviewed by me, Discussed with Physician, Discussed with Patient and Discussed with Family
Impression/Plan
-
Assessment:
89-year-old male with a past medical history of bladder cancer currently being treated at [facility] with both radiation and chemotherapy, permanent A-fib, heart failure with reduced ejection fraction comes to the hospital due to increased fatigue.
As per the patient's son, patient has been receiving radiation therapy and chemotherapy at [facility], his most recent appointment being this past Friday. Patient's hemoglobin levels had recently been dropping from 8.5-7.5. He has been feeling a
lot more fatigued following his chemotherapy sessions. He has been having increased shortness of breath and cough but does not report any fever or chest pain. This morning the fatigue was so bad that the patient ended up calling his son to ask him
to bring him to the hospital. He also has nausea at the time as well as feeling like fainting and ended up pressing his EMS button which got him to come to the hospital via ambulance. He has been very compliant with his medications however he has
been off of the Lasix at times due to symptomatic control. Mentions that his had around 2 to 3 weeks ago after which she has been fairly depressed but does not mention not eating or drinking. In the ED, patient was found to be
very hypotensive and was started on pressors. Was given 1 unit of blood and admitted to the ICU for further management.
PLAN:
# Circulatory shock most likely hypovolemic versus septic
- Patient has left lower extremity likely cellulitis however no leukocytosis and lactate levels normal
- Blood cultures drawn in the ED, starting vancomycin+Zosyn empirically until cultures come back
- Following up on UA, urine cultures
- Continue to trend CBC and temperatures
- Will admit to the ICU for further management, napper grinder services consulted, input appreciated
- Will continue pressors as needed to keep MAP above 65
- Holding antihypertensives and diuretics, will restart carvedilol as hypotension resolves, Lopressor 5 mg IV as needed added for heart rate above 120
# DEEDEE on chronic kidney disease
- Probably prerenal, due to sepsis
- Continue IV fluids, holding home meds including Entresto, carvedilol, spironolactone, Lasix
- Continue monitoring CMP
# Hyperkalemia
- Most likely due to DEEDEE, will give IV fluids
- Continue monitoring
# Normocytic anemia
- Hemoglobin has dropped from his previous labs 8.5 at [facility] to 7.5 today
- No recent bleeding reported, will check Hemoccult stool
- 1 unit of blood transfused in the ED
- Continue to trend the hemoglobin, transfuse as necessary to keep hemoglobin above 7
- Continue Eliquis for now as there is no concern for acute bleed
# Elevated troponin
- EKG continues to show A-fib, no concern for myocardial infarction
- Will continue to trend troponins and serial EKGs
- Most likely suspect to be nonischemic myocardial injury in the context of shock
- Continuing home Eliquis and statin and will continue to monitor on telemetry
# NIDDM
- Continue insulin sliding scale, HbA1c in the morning
- Holding home Januvia and glimepiride
# Permanent A-fib
- Continue Eliquis, holding carvedilol until blood pressure recovers
- IV Lopressor 5 mg for sustained RVR above 120
- Continue telemetry
DVT prophylaxis: Eliquis
Full code following discussion with family and patient
--- NOTE | 2025-01-09 17:26 | W.PN.UPDATE ---
Update Note
Progress Note Update
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
AICD presenting to the hospital with a complaint of weakness. Hypotensive on arrival with BP 77/56 mmHg, HR 101/min, afebrile and on room air. Labs with hemoglobin 7.5, normal WBC with neutrophilic predominance, potassium 5.6, creatinine 2.3 with
BUN 67, albumin 2.5, troponin 0.105. Urinalysis pending. ECG showed atrial fibrillation with LAFB though no acute ischemic findings. Chest x-ray showed signs consistent with mild bibasilar atelectasis and mild pulmonary interstitial edema.
Venous US of the LLE was without signs of DVT. Was given IV fluids in the ED though remained hypotensive. Was started on Levophed while in the ED. Blood and urine culture ordered, was started on IV vancomycin and cefepime empirically. Ordered 1U
PRBC in ED.
Lethargic, NAD, nontoxic. Well-nourished. Tachycardic, irregularly irregular though no murmurs, normal S1 and 2. Lungs clear bilaterally. Abdomen benign. No suprapubic tenderness or CVA tenderness. LLE with erythema and swelling though no
signs of purulence. Skin otherwise warm and dry to peripheral extremities. No focal deficits on neurologic exam
#Circulatory shock. Suspect septic etiology from nonpurulent LLE cellulitis superimposed on his GDMT and diuretics for CHF though may be hypovolemic as he has not eaten much since passed 2 weeks ago. Agree with broad-spectrum antibiotics and
cultures. Continue IV vancomycin and Zosyn empirically. Follow-up UA, urine culture and blood cultures. Trend CBC and temperature curve. Monitor LLE. Hold antihypertensives and diuretics, plan to resume carvedilol first when hemodynamics allow.
Judicious IVF. Continue Levophed with MAP goal >65, wean as appropriate. ICU consult, likely will need central venous catheter. Check procal.
#Nonoliguric DEEDEE with hyperkalemia. Suspect prerenal/septic ATN. Potassium retention with reduced excretory capacity. Will continue with judicious IV fluids and hold ARNI, carvedilol, MRA, Lasix for now. Trend UOP closely. Strict avoidance of
nephrotoxic agents
#Normocytic anemia. Unclear cause, possibly related to hemorrhagic cystitis versus AOCD versus GIB. Hgb 7.5, previous baseline closer to 12. No recent bleeding reported. Ordered 1U PRBC in ED. Check iron studies, B12, folate, reticulocyte count
added on to labs prior to blood transfusion. Check Hemoccult. Continue to trend CBC, plan for supportive transfusion if hemoglobin <7.0 or anemic symptoms present. Plan to hold DOAC if hemoglobin downtrends or he developes bleed
#Elevated troponin. No history of obstructive CAD. Suspect nonischemic myocardial injury in the context of circulatory shock as well as retention with DEEDEE, cardiomyopathy. ECG without acute ischemic findings, no chest pain reported. Will trend
serial ECG and troponins for now. Continue home statin and Eliquis. Monitor on telemetry
#NIDDM. Home regimen includes Januvia, glimepiride. Will transition to ISS with Accu-Cheks and hold oral agents for now. BG goal 140-180
#Permanent AF. Continue with Eliquis hold carvedilol for circulatory shock. Will start as needed IV Lopressor 5 mg for sustained RVR >120/min. Monitor telemetry
Diet -- No added salt
DVT PPHx -- Home DOAC for now
CODE STATUS -- Full
Dispo -- ICU, PT consulted
I have independently evaluated the patient at the bedside in the ED. I will be admitting Mk De La Paz to the ICU. He is at high risk for worsening morbidity due to circulatory shock. He will require intensive monitoring of his hemodynamic
parameters and infectious markers. He will require readjustment of his antihypertensive regimen and antimicrobial agents. I have discussed his case with the ED attending and knife blade polisher. I reviewed the case with the resident and agree with all
documentation unless otherwise specified.
Please see resident H&P for more details once available
[2025-01-09 17:36] LABS: Iron 56 ug/dl (49-181)
--- NOTE | 2025-01-09 17:40 | CM ---
CM reviewed chart and met with son bedside in ED. Pt sleeping.
Pt lives alone in 2 story home, 1 IVETTE from garage, first floor half bath, full flight to second floor bedroom and full bath.
Independent in ADLs, personal care and ambulation at baseline, uses cane, has RW. Per family has fallen several times recently.
Pt receiving chemotherapy for renal cell cancer, receiving blood in the ED.
Pt's 3 weeks ago. Family does not think he can remain at home alone, have encouraged him to live with them but he has refused.
Confirms prescription coverage.
Hx VN years ago after surgery, no hx SNF
PCP: Vitaly Ladnin
Pharmacy: [facility]
CM will continue to follow for all discharge planning needs.
[2025-01-09 17:45] LABS: Total Iron Binding Capacity 244 ug/dl (261-462)
[2025-01-09 18:03] LABS: Urine Squamous Cell >30 /LPF (Few)
[2025-01-09 18:05] LABS: Urine Red Blood Cell 0-2 /HPF (0-2); Urine White Cell 21-25 /HPF (0-5)
[2025-01-09 18:10] LABS: Ferritin 379.0 ng/ml (17.9-464.0)
[2025-01-09 18:32] LABS: Procalcitonin 1.39 ng/ml (0.0-0.25)
[2025-01-09 18:50] LABS: Folate > 20.0 ng/ml (2.76-20); Vitamin B12 249 pg/ml (239-931)
--- NOTE | 2025-01-09 20:15 | PTCARENOTE ---
Rec'd pt from ER via bed on monitor , on 4 liters nc & levo at 14 sherri; pt oriented to ICU routine, CHG bath done on adm, pt oriented, [place], cooperative, weak, Afib, Levophed gtt to keep MAP > 65- see flow sheet for titrations, weak distal pulses, +
LE edema, Left leg red,warm, scat ecchy areas over body, skin warm/dry, O2 4 liters nc, lungs decr in bases, coarse, sat 99, hypo bowel sounds, no bm, abd pbese, soft, no n/v, arleen fluids, voided jasmeet urine in urinal
[2025-01-09 20:42] LABS: Glucose - Point of Care 160 mg/dl (70-99)
[2025-01-09] MEDS: LR 1000 IV (20:55)
--- NOTE | 2025-01-09 20:55 | PHA.VAN.IN ---
Assessment
- Assessment
Renal Function: SCR Appears Elevated from baseline
Maximum Temperature: 97.6
Minimum Temperature: 97.4
Concomitant Antimicrobials: piperacillin-tazobactam
Plan
- Plan
Initial / Loading Dose: vancomycin 2000mg (19 mg/kg) 01/09 15:41
Maintenance Regimen: dose by level
Monitoring: random 01/10 am
MRSA Screen: Ordered per protocol
Pharmacokinetics Vancomycin I
- -
Patient Age: 89
Patient Sex: Male
Vancomycin Day #: 1
Indication: Skin And Soft Tissue
Requesting Provider: Dr Fabiano Arias, PGY2 Resident; Dr Pate
Pertinent Antimicrobial Allergies:
no known allergies
Height / Weight:
Height 6 ft
Actual Weight 105 kg
Pertinent Past Medical History: bladder cancer on current treatment and radiation; HFrEF
- Vital Signs / Lab Results
Temp Pulse Resp BP Pulse Ox
97.6 F 136 22 135/78 96
01/09/25 20:03 01/09/25 20:19 01/09/25 20:19 01/09/25 20:19 01/09/25 20:03
Lab Results - Hematology
01/09/25
15:06
WBC 7.0
Lab Results - Chemistry
01/09/25
15:06
BUN 67 H
Creatinine 2.3 H
Estimated Creat Clear 28
Albumin 2.5 L
01/09/25 01/09/25
15:11 19:15
Lactic Acid 1.3 Cancelled
Lab Results - Urine
01/09/25
16:28
Urine Nitrite (Reflex) Negative
Leukocyte Esterase Rfl 1+ A
Urine WBC (Reflex) 21-25 A
Ur Squamous Epith Cells >30
Urine Bacteria (Reflex) Few A
[2025-01-09] MEDS: ELIQUIS 2.5 MG PO (21:23)
--- NOTE | 2025-01-09 22:00 | W.PN.SEPSIS ---
Sepsis
Vital Signs
Temp Pulse Resp BP Pulse Ox
97.7 F 85 11 99/84 94
01/09/25 22:17 01/09/25 22:30 01/09/25 22:30 01/09/25 22:30 01/09/25 22:15
Physical Exam
Physical Exam:
A focused exam was performed after fluid resuscitation.
Capillary Refill
Bilateral Upper Extremity:
Renu Time: Less than 3 sec
Bilateral Lower Extremity:
Renu Time: Less than 3 sec
Pulse Evaluation
Bilateral Radial:
Pulse Evaluation: Present
Bilateral Dorsalis Pedis:
Pulse Evaluation: Present
[2025-01-09 22:43] LABS: INR 1.23; PT 15.8 Sec (11.4-14.6)
[2025-01-09 22:44] LABS: APTT 38.8 Sec (23.4-35.0); Hematocrit 28.5 % (39.0-52.0); Hemoglobin 9.6 g/dL (13.0-18.0)
[2025-01-09 22:49] LABS: Blood Urea Nitrogen 63 mg/dl (9-20); Calcium 8.4 mg/dl (8.4-10.2); Carbon Dioxide 28 mmol/L (22-30); Chloride 106 mmol/L (98-107); Estimated Creatinine Clearance 30 ml/min; Glucose 159 mg/dl (70-99); Magnesium 2.0 mg/dl (1.6-2.3); Potassium 5.4 mmol/L (3.5-5.1); Sodium 136 mmol/L (135-145); eGFR 29.72
[2025-01-09 23:03] LABS: Troponin I 0.074 ng/ml
[2025-01-09] MEDS: NOVOLIN R 10 UNITS IV (23:10)
[2025-01-09] MEDS: NSS 1000 IV (23:10)
[2025-01-09] MEDS: LOKELMA 10 GRAM PO (23:12)
[2025-01-09] MEDS: DEXTROSE 50% SYRINGE 25 GRAMS IV (23:12)
[2025-01-09 23:14] LABS: Glucose - Point of Care 158 mg/dl (70-99)
--- NOTE | 2025-01-09 23:15 | PTCARENOTE ---
IVF changed to NSS at 70/hr, 10 units Reg ins IV, 1 amp D50 IV, lokelma 10 gm po given for elevated K per order
[2025-01-09] MEDS: ZOSYN 50 IV (23:19)
[2025-01-10] VITALS (95 sets, daily range): BP systolic 78–129; BP diastolic 42–103; PULSE 80; O2SAT 98; BMI 30.5
[2025-01-10 00:09] LABS: Glucose - Point of Care 168 mg/dl (70-99)
[2025-01-10] MEDS: ZOFRAN 4 MG IV ×2 (00:59→13:08)
--- NOTE | 2025-01-10 01:00 | PTCARENOTE ---
zofran 4mg iv given for nausea
[2025-01-10 01:06] LABS: Glucose - Point of Care 133 mg/dl (70-99)
[2025-01-10 01:42] LABS: Potassium 5.1 mmol/L (3.5-5.1)
[2025-01-10] MEDS: LEVOPHED 250 IV ×2 (02:21→15:13)
[2025-01-10 03:03] LABS: Glucose - Point of Care 129 mg/dl (70-99)
[2025-01-10 03:48] LABS: Potassium 4.8 mmol/L (3.5-5.1)
--- NOTE | 2025-01-10 03:52 | PTCARENOTE ---
Addendum entered by Eliz Fleming RN 01/10/25 05:08:
pt w/ crackles left base, decr in bases, coarse
Original Note:
sys reviewed, pt noted to have sleep apnea- desats to 80, quickly rebounds to mid 90's
[2025-01-10 04:55] LABS: Glucose - Point of Care 169 mg/dl (70-99)
[2025-01-10] MEDS: SYNTHROID 200 MCG PO (05:07)
[2025-01-10] MEDS: ZOSYN 50 IV ×4 (05:07→23:05)
[2025-01-10 05:14] LABS: Hematocrit 27.3 % (39.0-52.0); Hemoglobin 9.1 g/dL (13.0-18.0); Mean Corp Hgb Conc. 33.3 g/dL (33.0-37.0); Mean Corpuscular Volume 93.2 fL (80.0-94.0); Nucleated Red Blood Cells % 0.3 % (-); Platelet Count 173 10^3/uL (130-400); Red Cell Dist. Width 16.9 % (11.5-14.5)
[2025-01-10 06:05] LABS: Troponin I 0.067 ng/ml
[2025-01-10 06:08] LABS: ALT (SGPT) 15 U/L (0-50); AST (SGOT) 18 U/L (17-59); Albumin 1.6 g/dl (3.5-5.0); Alkaline Phosphatase 35 U/L (38-126); Blood Urea Nitrogen 41 mg/dl (9-20); Calcium 5.7 mg/dl (8.4-10.2); Carbon Dioxide 20 mmol/L (22-30); Chloride 119 mmol/L (98-107); Estimated Creatinine Clearance 53 ml/min; Glucose 90 mg/dl (70-99); Potassium 3.8 mmol/L (3.5-5.1); Sodium 140 mmol/L (135-145); Total Protein 3.4 g/dl (6.3-8.2); eGFR 58.17
[2025-01-10] MEDS: FLEXBUMIN 100 IV (06:26)
[2025-01-10] MEDS: CALCIUM GLUCONATE 290 MG IV (06:27)
--- NOTE | 2025-01-10 06:33 | PTCARENOTE ---
Traci Gaines NP notified of critical Nelson;25%albumin/100 hung at 60/hr and 4 gm calcium gluc /250 over 1h hung per order
[2025-01-10] MEDS: LIPITOR 10 MG PO (07:09)
[2025-01-10] MEDS: ELIQUIS 2.5 MG PO ×2 (07:09→19:47)
[2025-01-10 07:23] LABS: Glucose - Point of Care 107 mg/dl (70-99)
[2025-01-10] MEDS: NOVOLOG FLEXPEN-LOW RESISTANCE SC ×2 (07:23→17:03)
--- NOTE | 2025-01-10 08:07 | W.PN.HOSP.TC ---
Addendum entered and electronically signed by Andrea Crouch MD 01/10/25 20:34:
Attending Addendum-
I saw and evaluated the patient. I reviewed the resident�s note and agree with findings and plan as documented in the resident�s note. Sub: Seen with nurse present. Patient feels weak. has mild cough and SOB. Afebrile overnight. Denies chills
urinary complaints. Full 12 point ROS reviewed and negative except as documented Exam: Vitals reviewed in chart GEN-chronically ill appearing heart irreg irreg lungs rhonchi at bases abd soft NT ND pos BS LE 2+ pitting edema B/L
Plan:
# Septic Shock
- unclear source possible PNA
- cont vancomycin+Zosyn day #2
- Follow blood and urine cultures
- Continue to trend CBC
- titrate Levophed to keep MAP above 65
- DC IVF due to volume overload
- cont care in ICU, appreciate wire tinner input
# DEEDEE
- improving with IVF
- hold home meds -Entresto, carvedilol, spironolactone, Lasix
- repeat BMP in am
# Acute Hypoxemic Respiratory Failure
- wean o2 for sats > 92%
# Hyperkalemia
- resolved
# Anemia of chronic disease
- 1 unit PRBC transfused in ED
- tx for HB < 7
- Continue Eliquis for now as there is no concern for acute bleed
- repeat CBC in am
# NIMI
- EKG - non ischemic
- trops trending down
- echo 04/2024-Normal left ventricular size with severely reduced systolic function. LVEF 20-25%
# NIDDM
- Continue insulin sliding scale
- Holding home Januvia and glimepiride
# Permanent A-fib
- Continue Eliquis, holding carvedilol
- IV Lopressor 5 mg prn
# Hypocalcemia
- corrected 7.6
- ctm
# Bladder ca
- received chemo rads 2 weeks ago
- f/u as OP with onc
# HFrEF
- not in AE
- last EF 20-25% 04/2004
- GDMT on hold reinitiate when able
# Hypothyroid- cont levothyroxine
# H/O MV Repair
# HLD- cont atorvastatin
DVT prophylaxis: Eliquis
Full code
Dispo- from home
ACP
Patient consented to discuss, was alone, time spent explanation of advance directives, changes in health status, patient�s health care wishes if the patient becomes unable to make health decisions, goals of care, code status, and prognosis, patient
AAO x 3 requesting to be full code- 16 minutes
CC Note
Due to a high probability of clinically significant, life-threatening deterioration, the patient required a high level of preparedness to intervene emergently. I personally spent this critical care time directly and personally managing the patient.
This critical care time included obtaining a history; examining the patient; ordering and review of studies and STAT labs; arranging urgent treatment with development of a management plan; evaluation of patient's response to treatment; reassessment;
and, discussions with other providers.
This critical care time was performed to assess and manage the high probability of imminent, life-threatening deterioration that could result in multi-organ failure. It was exclusive of separately billable procedures and treating other patients and
teaching time. Total time documented is also exclusive of any additional time listed that was spent in advance care planning discussion
Total critical care time: Approximately 32 minutes
Original Note:
Today's Communication/Plan
-
Continue vasopressors to maintain MAP above 65. Replete calcium. Consider supplementation of albumin since he is suffering from hypoalbuminemia. Consideration of weaning off of Levophed and switching over to midodrine when hemodynamically stable.
Follow CBC and CMP. Continue IV antibiotics.
Assessment / Plan
Assessment / Plan
Assessment/Plan:
-Circulatory shock due to hypovolemia and relative adrenal insufficiency: Unresolved
-Prerenal acute kidney injury secondary to hypovolemia and relative adrenal insufficiency: Unresolved
-Hypoalbuminemia: Unresolved
On presentation to the emergency department the patient's blood pressure was 74/44, pulse was elevated at 105, respiratory rate was 23, creatinine of 2.3, and albumin of 2.5
Levophed and titrate to maintain MAP greater than 65
Follow serum cortisol -if lower than 19 begin stress dose steroids
Blood cultures drawn�awaiting result
Serum albumin 1.6 on 01/10/2025 indicating hypoalbuminemia
Urine analysis with reflex to culture�greater than 30 squamous epithelial cells found indicating poor collection
Continue vancomycin and Zosyn
Continue to hold antihypertensives and diuretics until patient hemodynamically stable
-Acute on chronic anemia: Monitoring
On admission the patient's hemoglobin had dropped to 7.5 from his outpatient labs which were 8.5 at [facility].
Patient had no recent bleeding reported
Patient received 1 unit of PRBCs in the emergency department
Trending H&H -will transfuse again if hemoglobin dips below 7.
Keep platelets greater than 20,000
Continue Eliquis but may need to discontinue if acute bleed found
- Elevated troponin level:
Patient had a troponin of 0.105 on presentation to the emergency department possibly secondary to demand ischemia with type 2 diabetes mellitus
Trending troponin
Most recent troponin is 0.056 on 01/10/2025 with a downward trend - will discontinue trending
-Hypocalcemia: Resolved
Patient had a calcium of 5.7 on 01/10/2025
Calcium supplementation given and follow-up calcium score is 9.2 on 01/10/2025
Continue to trend
-Hyperkalemia: Resolved
Patient had a potassium of 5.6 on 01/09/2025
Potassium repleted
Potassium is 5.1 on 01/10/2025
-Type 2 diabetes mellitus:
Continue insulin sliding scale
Hemoglobin A1c is 6.4 on current outpatient management
Holding home Januvia and glimepiride
-Permanent atrial fibrillation:
Continue Eliquis, holding carvedilol until hemodynamically stable
IV Lopressor 5 mg for sustained RVR above 120
Ongoing telemetry monitoring
FULL CODE STATUS
DVT Prophylaxis: Eliquis
Imaging:
- Chest x-ray conducted on 01/09/2025:
Mild bibasilar atelectasis and/or pneumonia. Suspect mild pulmonary interstitial edema.
- Peripheral vascular ultrasound of the left lower extremity conducted on 01/09/2025:
No evidence of deep venous thrombosis in the visualized left lower extremity
Procedures: Not applicable
Anticipated Discharge: > 48 hours
Subjective/Interval History
-
Date of Service: January 10, 2025
Met with patient at the bedside. Overall, he states that he is doing better than he did yesterday. He still feels very fatigued and struggles to sit up in bed during auscultation. Kind and pleasant in conversation and updates shared at the
bedside.
Objective Data
-
Labs:
Laboratory Results
01/09/25 01/10/25 01/10/25
22:18 01:22 03:20
WBC
Hgb 9.6 L D
Hct 28.5 L
Plt Count
PT 15.8 H
INR 1.23
APTT 38.8 H
Sodium 136
Potassium 5.4 H 5.1 4.8
Chloride 106
Carbon Dioxide 28
BUN 63 H
Creatinine 2.1 H
Glucose 159 H
Calcium 8.4
Total Bilirubin
AST
ALT
Alkaline Phosphatase
01/10/25 01/10/25
04:56 12:00
WBC 6.3
Hgb 9.1 L
Hct 27.3 L
Plt Count 173 D
PT
INR
APTT
Sodium 140 Pending
Potassium 3.8 Pending
Chloride 119 H Pending
Carbon Dioxide 20 L Pending
BUN 41 H Pending
Creatinine 1.2 Pending
Glucose 90 Pending
Calcium 5.7 L* D Pending
Total Bilirubin 0.5
AST 18
ALT 15
Alkaline Phosphatase 35 L
Vital Signs:
Vital Signs
Temp Pulse Resp BP Pulse Ox
97.5 F 89 25 113/88 98
01/10/25 07:19 01/10/25 07:15 01/10/25 07:15 01/10/25 07:15 01/10/25 07:24
I&O
01/09/25 01/10/25 01/11/25
06:59 06:59 06:59
Intake Total 1517.5 / 2007.5 490 / 490
Output Total 900 / 925
Balance 617.5 / 1082.5 465 / 465
Review of Systems
-
History Source: Patient
Constitutional: Reports Fatigue
EENT: Reports No Symptoms Reported
Respiratory: Reports No Symptoms
Cardiac: Reports No Symptoms
Abdomen/GI: Reports No Symptoms
Breast: Reports No Symptoms
Genitourinary: Reports No Symptoms
Musculoskeletal: Reports No Symptoms
Skin: Reports No Symptoms
Physical Exam
-
General: Well Developed, Well Nourished, No Apparent Distress and Obese
HEENT: Normocephalic and Atraumatic
Respiratory: Decreased Breath Sounds (On the right lower lung base)
Cardiac: Regular Rhythm and S1/S2; Negative Murmur or Rub
Breast: Deferred by me
GI: Soft, Nontender, Nondistended and Normal Bowel Sounds
Musculoskeletal: No Clubbing, No Cyanosis, Edema, Right Lower Extrem (2+) and Edema, Left Lower Extrem (2+)
Skin: Warm and Dry
Neuro: Awake, Alert, Oriented and AO x 3
Psych: Calm
--- NOTE | 2025-01-10 08:18 | CON.INTV ---
Consultation
Consultation Request
Date/Time Consultation Requested: 01/09/2025 - 1713
Date/Time Consultation Performed: 01/10/2025 - 810
Requesting Provider: Dr. Arias
Performing Provider: Dr. Garcia
Reason for Consultation: Hypotension/Shock
Medical History
-
Chief Complaint: Weakness
History of Present Illness:
89-year-old male with a past medical history of chronic HFrEF, NICM, paroxysmal A-fib on Eliquis, prostate cancer, left-sided renal cell carcinoma, DM type II, hypothyroidism and GERD who presents for weakness. Per EMS, initially found to have
significant hypotension down to 66/40. He was started on fluids and oxygen via EMS and route here to the hospital. He has a history of bladder cancer and is currently receiving radiation therapy and chemotherapy at [facility] with most recent
appointment this past Friday. He has been anemic with downtrending hemoglobins. His fatigue has been increasing after his chemotherapy sessions with increased SOB + cough. Also having episodes of nausea. He pressed his EMS button while at home
and this is how he ended up here at the hospital. His recently around 2-3 weeks ago and the patient has basically been very depressed since that time and not eating or drinking. In the ER he was 74/44, afebrile, pulse rate 95,
respiratory rate 16 and saturating 86% on room air. Initial labs showed Hb 7.5, WBC 7, platelet count 139, potassium 5.6, creatinine 2.3, troponin 0.105, albumin 2.5, and urinalysis with +1 leukocyte esterase and 21�25 urine WBC. Blood cultures
collected, and CXR shows bibasilar atelectasis with possible pneumonia vs pulmonary edema. He was given Vanco/Zosyn in the ER, and 1L NS 0.9% + 1L LR, however BP remained low hence Levophed was started and he was admitted to the ICU for further
care. [employer] consulted for additional management/recommendations.
Pt was seen and evaluated this AM. Drinking this AM. IVF were stopped this AM given Hx of CHF. Heart rate 86, BP 86/63 on Levophed at 2 mcg/min, and saturating 94% on 2 L/min. Pt admits that he stopped taking care of himself about 2-3 weeks ago
after his . He is on chemo/XRT for prostate cancer, with last chemo given this past Friday. He currently denies shortness of breath, cough, BERNABE, fevers or chills. He does endorse nausea.
PMHx: NICM, paroxysmal A-fib on Eliquis, history of prostate cancer, left-sided renal cell carcinoma, right knee osteoarthritis s/p TKA (2007), DM type II, chronic HFrEF, hypothyroidism, GERD
PSHx: Right TKA (02/22/2008), mitral valve repair ([facility] -07/2017), ICD implantation (05/2019), laparoscopic cholecystectomy (02/01/2022), cataract surgery (02/2023)
Past Medical History
Past Medical History: Other (Above as per HPI)
Past Surgical History: Other (Above as per HPI)
Social History
Tobacco: Former Smoker
Alcohol: None
Drug: None
Personal:
Living: Alone
Family History
Family History: CAD (Father + mother)
Allergies / Home Medications
Allergies
Allergy/AdvReac Type Severity Reaction Status Date / Time
No Known Allergies Allergy Verified 01/09/25 14:57
Home Medications
�Medication �Instructions �Recorded �Confirmed �Last Taken �Type
atorvastatin 10 mg tablet (Lipitor) 10 mg PO DAILY High cholesterol 05/05/17 01/09/25 09/11/22 08:00 History
carvedilol 25 mg tablet (Coreg) 25 mg PO BID Heart Failure 05/05/17 01/09/25 09/11/22 18:00 History
furosemide 40 mg tablet 40 mg PO MOWEFR Fluid 05/05/17 01/09/25 09/10/22 History
retention/Swelling
leuprolide 1 mg/0.2 mL 5 mg SQ [id number] Prostate Cancer 05/05/17 01/09/25 05/08/22 History
subcutaneous kit
levothyroxine 200 mcg tablet 200 mcg PO DAILY Thyroid 05/05/17 01/09/25 09/11/22 08:00 History
omeprazole magnesium 20 mg 20 mg PO DAILY PRN heartburn 05/05/17 01/09/25 03/18/22 08:00 History
tablet,delayed release (Prilosec
OTC)
glimepiride 2 mg tablet 2 mg PO DAILY Diabetes 06/14/19 01/09/25 09/12/22 08:00 History
sitagliptin phosphate 50 mg tablet 50 mg PO DAILY Diabetes 06/14/19 01/09/25 09/11/22 08:00 History
(Januvia)
spironolactone 25 mg tablet 25 mg PO DAILY Heart Failure 01/26/22 01/09/25 09/11/22 08:00 History
apixaban 2.5 mg tablet (Eliquis) 2.5 mg PO BID 01/09/25 01/09/25 Unknown History
coenzyme Q10 100 mg capsule 100 mg PO DAILY 01/09/25 01/09/25 Unknown History
(CoQ-10)
lidocaine-prilocaine 2.5 %-2.5 % 1 applic topical DAILYPRN PRN port 01/09/25 01/09/25 Unknown History
topical cream access
ondansetron HCl 8 mg tablet 8 mg PO Q8HPRN PRN n/v 01/09/25 01/09/25 Unknown History
prochlorperazine maleate 10 mg 10 mg PO Q6HPRN PRN n/v 01/09/25 01/09/25 Unknown History
tablet
sacubitril 97 mg-valsartan 103 mg 1 tab PO BID 01/09/25 01/09/25 Unknown History
tablet (Entresto)
Review of Systems
-
History Source: Patient
All other systems: Negative unless noted
Vitals / Labs / Diagnostic Testing
Vital Signs
Temp Pulse Resp BP Pulse Ox
97.5 F 94 14 94/68 98
01/10/25 07:19 01/10/25 08:15 01/10/25 08:15 01/10/25 08:15 01/10/25 08:00
Lab Data
01/10/25 04:56
Laboratory Results
01/09/25
22:18
PT 15.8 H
INR 1.23
APTT 38.8 H
Diagnostic Testing:
Physical Exam
-
HEENT: Normocephalic and Anicteric
Cardiovascular: Irregular Rhythm (Irregularly irregular) and Peripheral Edema (+3 lower extremity pitting edema bilaterally)
Respiratory: Wheeze (negative), Rales (Bibasilar), Rhonchi (negative) and Non-Labored Respirations
GI: Soft, Distended (Abdominal obesity), Non Tender and Normal Bowel Sounds
Neurology: Awake, Alert and Tremors (negative)
Skin: Warm and Dry
General: Respiratory Distress (negative), Comfortable, Fever (negative) and Chills (negative)
Assessment
-
Assessment: 89-year-old male with a past medical history of chronic HFrEF, NICM, paroxysmal A-fib on Eliquis, prostate cancer, left-sided renal cell carcinoma, DM type II, hypothyroidism and GERD who presents for weakness. Per EMS, initially found
to have significant hypotension down to 66/40. He was started on fluids and oxygen via EMS and route here to the hospital. He has a history of bladder cancer and is currently receiving radiation therapy and chemotherapy at [facility] with most
recent appointment this past Friday. He has been anemic with downtrending hemoglobins. His fatigue has been increasing after his chemotherapy sessions with increased SOB + cough. Also having episodes of nausea. He pressed his EMS button while at
home and this is how he ended up here at the hospital. His recently around 2-3 weeks ago and the patient has basically been very depressed since that time and not eating or drinking. In the ER he was 74/44, afebrile, pulse rate
95, respiratory rate 16 and saturating 86% on room air. Initial labs showed Hb 7.5, WBC 7, platelet count 139, potassium 5.6, creatinine 2.3, troponin 0.105, albumin 2.5, and urinalysis with +1 leukocyte esterase and 21�25 urine WBC. Blood
cultures collected, and CXR shows bibasilar atelectasis with possible pneumonia vs pulmonary edema. He was given Vanco/Zosyn in the ER, and 1L NS 0.9% + 1L LR, however BP remained low hence Levophed was started and he was admitted to the ICU for
further care. [employer] services consulted for additional management/recommendations.
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
Impression:
#Circulatory shock -multifactorial from hypovolemia, and relative adrenal insufficiency
#Acute on chronic anemia (baseline Hb 10.5-12 g/dL)
#DEEDEE (baseline creatinine 1.1)
#Hypocalcemia
#DM type II
#Elevate troponin likely due to demand ischemia with type II CA
#Hypoalbuminemia
#Abnormal urinalysis (however >30 urine squamous epithelial cells indicating poor sample collection versus effect from current chemo/XRT from prostate/bladder cancer)
Plan:
- Given possible interstitial edema seen on imaging, IVF were stopped. He remains on Levophed although dose is low currently at 4 mcg/min
- Titrate vasopressors to maintain MAP >65
- Check random cortisol and if <19 then would start stress dose steroids
- Consider starting midodrine to help wean off Levophed
- Also consider supplemental albumin given his level is <2g/dL
- Replete calcium and trend iCa++ levels
- Encourage PO intake; Tx with anti-emetics prn (monitor QTc if getting Zofran)
- HR control with goal <110
- Replete electrolytes with K>4, Mg>2
- Trend sCr and UOP
- If sCr continues to rise then consult nephrology
- Continue with broad-spectrum antibiotics, currently on IV vancomycin + Zosyn
- Follow-up blood cultures and urine culture
- Follow-up MRSA screen and if negative then DC IV vancomycin
- Check sputum culture if patient can produce a decent sample
- prn nebulized bronchodilators (patient currently not bronchospastic)
- Maintain SpO2 >90-94%
- Maintain euglycemia with goal BG 140-180; HbA1c 6.4 on 01/10/2025
- Trend H/H and transfuse if needed to keep Hb>7-8g/dL; keep plt>20k, unless there is concern for bleeding then keep plt>50k
- Incentive spirometer encouraged 10x per hour for at least 4 hrs a day
- DVT ppx: Eliquis
Code status: Full code
Continue ICU level of care for this critically ill patient.
Critical care statement: A total of 38 minutes of critical care time was provided for this patient today. This includes management of unstable vital signs, evaluation of the patient at bedside, reviewing the patient's pertinent medical records
including radiographs, microbiology, laboratory evaluations, and discussion with primary team, consultants, pharmacy, nutrition, physical therapy, case management, charge nurse, critical care nursing, and respiratory therapy.
--- NOTE | 2025-01-10 08:33 | PTCARENOTE ---
Received pt @ change of shift. Pt. AAOx3, denies pain; flat affect. A fib on monitor w PVC's. +2LLE, skin warm/red; +1 RLE and b/l UE; palpable pulses. SpO2 98% on 2LNC, weaned down from 4LNC and tolerating. +BS, abd soft/round/obese; tolerating
diet. Cont b/b. Frequency w urination; urinal w in reach; jasmeet urine. R SC port w IVF, levo gtt (tapered to keep MAP >65- see flow sheet), and Ca+ rider; #20 R FA w Albumin x1 dose. Pt. assisted w active repositioning and placed in chair
position in bed. Instructed on how to report care concerns and call macario w in reach.
--- NOTE | 2025-01-10 09:39 | PHA.VAN.FU ---
Addendum entered and electronically signed by Yenny Navarro [facility] 01/10/25 15:28:
Noted Scr on repeat labs. Will change to dose by level for now. Random level ordered for 01/11 with AM labs.
Original Note:
Vancomycin Assessment / Plan
- Assessment
Renal Function: SCR Decreasing (Scr 2.3-->2.1-->1.2, repeat labs scheduled for 1200)
WBC's are: WNL
In the past 24 hrs, patient has been: Afebrile
Concomitant Antimicrobials: piperacillin/tazobactam
- Assessment - Therapeutic Drug Monitoring
Random Level: 12- drawn ~13.5 hours after vanc 2000mg loading dose
- Dosing Plan
Adjust Regimen to: Vancomycin 1500mg IV Q24h
New Regimen Predicts: AUC (450), Peak (30.6), Trough (10.3)
- Monitoring Plan
No level(s) ordered at this time: Consider levels prior to steady state.
- Follow Up
Pharmacy will continue to follow.
Vancomycin Follow UP
- -
Patient Age: 89
Patient Sex: Male
Vancomycin Day #: 2
Indication: Skin And Soft Tissue
Requesting Provider: Dr Fabiano Arias, PGY2 Resident; Dr Pate
Pertinent Antimicrobial Allergies:
no known allergies
Height / Weight:
Height 6 ft
Actual Weight 102 kg
Pertinent Past Medical History: bladder cancer on current treatment and radiation; HFrEF
- Vital Signs / Lab Results
Temp Pulse Resp BP Pulse Ox
97.5 F 94 14 94/68 98
01/10/25 07:19 01/10/25 08:15 01/10/25 08:15 01/10/25 08:15 01/10/25 08:00
Lab Results - Hematology
01/09/25 01/10/25
15:06 04:56
WBC 7.0 6.3
Lab Results - Chemistry
01/09/25 01/09/25 01/10/25
15:06 22:18 04:56
BUN 67 H 63 H 41 H
Creatinine 2.3 H 2.1 H 1.2
Estimated Creat Clear 28 30 53
Albumin 2.5 L 1.6 L
01/09/25 01/09/25
15:11 19:15
Lactic Acid 1.3 Cancelled
Lab Results - Urine
01/09/25
16:28
Urine Nitrite (Reflex) Negative
Leukocyte Esterase Rfl 1+ A
Ur Squamous Epith Cells >30
Therapeutic Drug Monitoring
Random Vancomycin 12.0 ug/ml 01/10/25 04:56
[2025-01-10] MEDS: VANCOCIN 530 MG IV (09:53)
[2025-01-10 10:20] LABS: Glycohemoglobin (HgbA1c) 6.4 % (4.0-5.6)
[2025-01-10 11:49] LABS: Glucose - Point of Care 183 mg/dl (70-99)
[2025-01-10] MEDS: NOVOLOG FLEXPEN-LOW RESISTANCE 1 UNITS SC (12:21)
--- NOTE | 2025-01-10 12:45 | PTCARENOTE ---
Pt assisted OOB to chair x 2 w RW, steady gait, generalized weakness @ approx 1000. Remains in chair @ this time; levo gtt tapered per orders to keep MAP >65- see flow sheet. Blood work drawn and sent to lab; awaiting results. Call renaldo neil w
in reach.
[2025-01-10 13:08] LABS: Blood Urea Nitrogen 50 mg/dl (9-20); Calcium 9.2 mg/dl (8.4-10.2); Carbon Dioxide 27 mmol/L (22-30); Chloride 107 mmol/L (98-107); Estimated Creatinine Clearance 39 ml/min; Glucose 157 mg/dl (70-99); Potassium 5.1 mmol/L (3.5-5.1); Sodium 136 mmol/L (135-145); eGFR 41.19
[2025-01-10 13:12] LABS: Troponin I 0.056 ng/ml
[2025-01-10] MEDS: NSS IV (13:12)
[2025-01-10 13:56] LABS: Cortisol, Random 10.8 ug/dl
[2025-01-10] MEDS: SOLU-CORTEF 50 MG IV ×3 (15:13→23:04)
--- NOTE | 2025-01-10 15:40 | CM ---
Circulatory shock. IV/pressors, IV/Solu-Cortf, IV/Zosyn. Discharge POC: Therapy recommendation for HH. Will get preference.
[2025-01-10 17:03] LABS: Glucose - Point of Care 149 mg/dl (70-99)
[2025-01-10] MEDS: TUMS CHEWABLE TABLET 400 MG PO (19:53)
--- NOTE | 2025-01-10 20:00 | PTCARENOTE ---
rec'd pt sitting on chair, family at bedside, denies pain, [place], cooperative, Afib, to keep MAP > 65 w/ levo- presently at 4 sherri, see flow sheet for titrations, + LE edeam, left lower extremitiy warm/red, weak distal pulses, O2 2 liters nc, lungs w/
crackles in bases, decr throughout, sat 99, + bowel sounds, no bm abd obese, soft, c/o indigestion- tums given w/ relief, voiding jasmeet urine using urinal
[2025-01-10 20:20] LABS: Blood Urea Nitrogen 51 mg/dl (9-20); Calcium 8.9 mg/dl (8.4-10.2); Carbon Dioxide 26 mmol/L (22-30); Chloride 105 mmol/L (98-107); Estimated Creatinine Clearance 39 ml/min; Glucose 214 mg/dl (70-99); Potassium 5.5 mmol/L (3.5-5.1); Sodium 133 mmol/L (135-145); eGFR 41.19
--- NOTE | 2025-01-10 20:35 | PTCARENOTE ---
K- 5.5 accu 253- per pharmacist ok to give d50, 1 amp d50 , 10 units reg insulin IV given, 10 gm lokelma given per order
[2025-01-10] MEDS: NOVOLIN R 10 UNITS IV (20:36)
[2025-01-10] MEDS: DEXTROSE 50% SYRINGE 25 GRAMS IV (20:37)
[2025-01-10] MEDS: LOKELMA 10 GRAM PO (20:39)
[2025-01-10 20:46] LABS: Glucose - Point of Care 253 mg/dl (70-99)
[2025-01-10 21:37] LABS: Glucose - Point of Care 294 mg/dl (70-99)
[2025-01-10 22:47] LABS: Glucose - Point of Care 303 mg/dl (70-99)
[2025-01-10 23:24] LABS: Potassium 5.4 mmol/L (3.5-5.1)
[2025-01-11] VITALS (55 sets, daily range): BP systolic 83–124; BP diastolic 39–90; PULSE 88; O2SAT 96; BMI 31.2
--- NOTE | 2025-01-11 | PTCARENOTE ---
assisted back to bed at 2300, CHG bath done, lungs w/ fine bibas crackles, decr in basesB; B Roxi Thomas of k-5.4, CHG bath done, linens changed
[2025-01-11 00:45] LABS: Glucose - Point of Care 238 mg/dl (70-99)
[2025-01-11 02:47] LABS: Glucose - Point of Care 236 mg/dl (70-99)
--- NOTE | 2025-01-11 04:00 | PTCARENOTE ---
sys reviewed, changes noted
[2025-01-11 04:10] LABS: Hematocrit 26.1 % (39.0-52.0); Hemoglobin 8.8 g/dL (13.0-18.0); Mean Corp Hgb Conc. 33.7 g/dL (33.0-37.0); Mean Corpuscular Volume 93.2 fL (80.0-94.0); Platelet Count 174 10^3/uL (130-400); Red Cell Dist. Width 16.8 % (11.5-14.5)
[2025-01-11 04:33] LABS: Blood Urea Nitrogen 48 mg/dl (9-20); Calcium 9.0 mg/dl (8.4-10.2); Carbon Dioxide 28 mmol/L (22-30); Chloride 106 mmol/L (98-107); Estimated Creatinine Clearance 42 ml/min; Glucose 201 mg/dl (70-99); Magnesium 1.8 mg/dl (1.6-2.3); Potassium 5.0 mmol/L (3.5-5.1); Sodium 137 mmol/L (135-145); eGFR 44.50
[2025-01-11] MEDS: ZOSYN 50 IV (05:25)
[2025-01-11] MEDS: SOLU-CORTEF 50 MG IV ×4 (05:25→23:55)
[2025-01-11] MEDS: SYNTHROID 200 MCG PO (05:25)
[2025-01-11] MEDS: TUMS CHEWABLE TABLET 400 MG PO ×2 (05:35→22:41)
--- NOTE | 2025-01-11 05:37 | PTCARENOTE ---
2 tabs tums given for indigestion
--- NOTE | 2025-01-11 07:19 | W.PN.HOSP.TC ---
Addendum entered and electronically signed by Andrea Crouch MD 01/11/25 20:31:
Attending Addendum-
I saw and evaluated the patient. I reviewed the resident�s note and agree with findings and plan as documented in the resident�s note. Sub: Patient feels much improved. Less weak. Afebrile overnight. Mildly SOB less cough. Denies chills urinary
complaints. Full 12 point ROS reviewed and negative except as documented Exam: Vitals reviewed in chart GEN-NAD heart irreg irreg lungs mild rhonchi at bases abd soft NT ND pos BS LE +1 pitting edema LLE mildly red not warm pulses intact
Plan:
# Septic Shock
- unclear source, possibly cellulitis vs rxn to rads and chemo
- DC vancomycin/Zosyn-> Ancef per lsat instructor
- Follow blood and urine cultures-NGTD
- Continue to trend CBC
- Levophed weaned off
- cont midodrine for now
- wean stress dose steroids quickly
- DC IVF due to volume overload
- transfer to tele
# DEEDEE
- improving with IVF
- hold home meds -Entresto, carvedilol, spironolactone, Lasix
- restart wehn able
- repeat BMP in am
# Acute Hypoxemic Respiratory Failure
- wean o2 for sats > 92%
# Hyperkalemia
- resolved
# Anemia of chronic disease
- 1 unit PRBC transfused in ED
- tx for HB < 7
- Continue Eliquis for now as there is no concern for acute bleed
- repeat CBC in am
# NIMI
- EKG - non ischemic
- trops trending down
- echo 04/2024-Normal left ventricular size with severely reduced systolic function. LVEF 20-25%
# NIDDM
- uncontrolled due to steroids
- Continue insulin sliding scale
- restart Januvia and glimepiride
# Permanent A-fib
- Continue Eliquis, holding carvedilol- restart when able
- IV Lopressor 5 mg prn
# Hypocalcemia
- corrected 7.6
- ctm
# Bladder ca
- received chemo rads 2 weeks ago
- f/u as OP with onc
# HFrEF
- not in AE
- last EF 20-25% 04/2004
- GDMT on hold reinitiate when able
# Hypothyroid- cont levothyroxine
# H/O MV Repair
# HLD- cont atorvastatin
DVT prophylaxis: Eliquis
Full code
Dispo- from home, PT OT may need SNF on [place]
Time spent coordinating care, review of plan of care with resident, personally reviewed records in EMR, med rec, consults, notes, labs, radiology, d/w nursing and lsat instructor � 52 mins
Original Note:
Today's Communication/Plan
-
Patient is hemodynamically stable off of pressors. Downgrading patient to telemetry
Continue to monitor hemodynamics, trend CBC and CMP
Patient back on room air with adequate oxygen saturation
Will restart home medications when patient approaching baseline
Antibiotic adjusted to cefazolin
Assessment / Plan
Assessment / Plan
Assessment/Plan:
-Circulatory shock due to hypovolemia and relative adrenal insufficiency: Unresolved
-Prerenal acute kidney injury secondary to hypovolemia and relative adrenal insufficiency: Unresolved
-Hypoalbuminemia: Unresolved
On presentation to the emergency department the patient's blood pressure was 74/44, pulse was elevated at 105, respiratory rate was 23, creatinine of 2.3, and albumin of 2.5
Levophed and titrate to maintain MAP greater than 65
Follow serum cortisol -if lower than 19 begin stress dose steroids
Blood cultures drawn�awaiting result
Serum albumin 1.6 on 01/10/2025 indicating hypoalbuminemia
Urine analysis with reflex to culture�greater than 30 squamous epithelial cells found indicating poor collection
Antibiotic adjusted to cefazolin sodium
Continue to hold antihypertensives and diuretics until patient hemodynamically stable -ICU level of care�appreciate lsat instructor recommendations
Creatinine continues to steadily improve. On 01/11/2025 the creatinine was 1.5 as compared to on 01/10/2025 the creatinine was 1.6 and on admission on 01/09/2025 the creatinine was 2.3
-Acute on chronic anemia: Monitoring
On admission the patient's hemoglobin had dropped to 7.5 from his outpatient labs which were 8.5 at [facility].
Patient had no recent bleeding reported
Patient received 1 unit of PRBCs in the emergency department
Trending H&H -will transfuse again if hemoglobin dips below 7.
Keep platelets greater than 20,000
Continue Eliquis but may need to discontinue if acute bleed found
- Elevated troponin level:
Patient had a troponin of 0.105 on presentation to the emergency department possibly secondary to demand ischemia with type 2 diabetes mellitus
Troponin trended downwards
Most recent troponin is 0.056 on 01/10/2025 with a downward trend - will discontinue trending
-Hypocalcemia: Resolved
Patient had a calcium of 5.7 on 01/10/2025, calcium is 9.0 on 01/11/2025
Calcium supplementation given and follow-up calcium score is 9.2 on 01/10/2025
Continue to trend
-Hyperkalemia: Resolved
Patient had a potassium of 5.6 on 01/09/2025
Potassium repleted
Potassium is 5.0 on 01/11/2025
-Type 2 diabetes mellitus:
Continue insulin sliding scale
Hemoglobin A1c is 6.4 on current outpatient management
Holding home Januvia and glimepiride
-Permanent atrial fibrillation:
Continue Eliquis, holding carvedilol until hemodynamically stable
IV Lopressor 5 mg for sustained RVR above 120
Ongoing telemetry monitoring
FULL CODE STATUS
DVT Prophylaxis: Eliquis
Imaging:
- Chest x-ray conducted on 01/09/2025:
Mild bibasilar atelectasis and/or pneumonia. Suspect mild pulmonary interstitial edema.
- Peripheral vascular ultrasound of the left lower extremity conducted on 01/09/2025:
No evidence of deep venous thrombosis in the visualized left lower extremity
Procedures: Not applicable
Anticipated Discharge: > 48 hours
Subjective/Interval History
-
Date of Service: January 11, 2025
Met with patient at the bedside. He was out of bed and waiting to eat breakfast. He is kind and pleasant in discussion and asked about the discoloration of his legs along with the swelling. Discussed how the patient received fluids during his
time in the hospital and due to the fluids that he received it possibly caused his lower extremity edema. Education provided about hemostasis and the discoloration of his legs (Hemosiderin staining) due to hemostasis. Patient has no complaints at
the present time.
Objective Data
-
Labs:
Laboratory Results
01/10/25 01/10/25 01/10/25
19:44 21:00 22:59
WBC
Hgb
Hct
Plt Count
Sodium 133 L Cancelled
Potassium 5.5 H Cancelled 5.4 H
Chloride 105 Cancelled
Carbon Dioxide 26 Cancelled
BUN 51 H Cancelled
Creatinine 1.6 H Cancelled
Glucose 214 H Cancelled
Calcium 8.9 Cancelled
01/11/25
03:50
WBC 5.9
Hgb 8.8 L
Hct 26.1 L
Plt Count 174
Sodium 137
Potassium 5.0
Chloride 106
Carbon Dioxide 28
BUN 48 H
Creatinine 1.5 H
Glucose 201 H
Calcium 9.0
Vital Signs:
Vital Signs
Temp Pulse Resp BP Pulse Ox
97.6 F 92 24 99/62 94
01/11/25 04:00 01/11/25 06:15 01/11/25 06:30 01/11/25 06:30 01/11/25 06:30
I&O
01/10/25 01/11/25 01/12/25
06:59 06:59 06:59
Intake Total 1517.5 / 2007.5 2226.4 / 2226.4
Output Total 900 / 950 1300 / 1300
Balance 617.5 / 1057.5 926.4 / 926.4
Review of Systems
-
History Source: Patient
Constitutional: Reports Fatigue
EENT: Reports No Symptoms Reported
Respiratory: Reports No Symptoms
Cardiac: Reports No Symptoms
Abdomen/GI: Reports No Symptoms
Breast: Reports No Symptoms
Genitourinary: Reports No Symptoms
Musculoskeletal: Reports No Symptoms
Skin: Reports No Symptoms
Physical Exam
-
General: Well Developed, Well Nourished, No Apparent Distress and Obese
HEENT: Normocephalic and Atraumatic
Respiratory: Decreased Breath Sounds (On the right lower lung base)
Cardiac: Regular Rhythm and S1/S2; Negative Murmur or Rub
Breast: Deferred by me
GI: Soft, Nontender, Nondistended and Normal Bowel Sounds
Musculoskeletal: No Clubbing, No Cyanosis, Edema, Right Lower Extrem (2+ skin with hemosiderin pigmentation, slightly increased redness along the medial side) and Edema, Left Lower Extrem (2+ skin with hemosiderin pigmentation)
Skin: Warm and Dry
Neuro: Awake, Alert, Oriented and AO x 3
Psych: Calm
--- NOTE | 2025-01-11 07:28 | W.PN.INTV ---
Today's Communication / Plan
Recommendations
ABx for 7 days total
Up OOB as tolerated
PT/OT
MAP>65
Continue midodrine with goal to wean off prior to discharge
Continue hydrocortisone with plans to wean off in next 48 - 72 hrs (wean as tolerated)
Stable for TRX out of ICU to telemetry. No additional recommendations at this time. [employer] [facility]/Pulmonary service will now sign off. Please reconsult if there are any additional questions/concerns, or if patient's respiratory status deteriorates.
Assessment
-
Assessment: 89-year-old male with a past medical history of chronic HFrEF, NICM, paroxysmal A-fib on Eliquis, prostate cancer, left-sided renal cell carcinoma, DM type II, hypothyroidism and GERD who presents for weakness. Per EMS, initially found
to have significant hypotension down to 66/40. He was started on fluids and oxygen via EMS and route here to the hospital. He has a history of bladder cancer and is currently receiving radiation therapy and chemotherapy at [place] with most
recent appointment this past Friday. He has been anemic with downtrending hemoglobins. His fatigue has been increasing after his chemotherapy sessions with increased SOB + cough. Also having episodes of nausea. He pressed his EMS button while at
home and this is how he ended up here at the hospital. His recently around 2-3 weeks ago and the patient has basically been very depressed since that time and not eating or drinking. In the ER he was 74/44, afebrile, pulse rate
95, respiratory rate 16 and saturating 86% on room air. Initial labs showed Hb 7.5, WBC 7, platelet count 139, potassium 5.6, creatinine 2.3, troponin 0.105, albumin 2.5, and urinalysis with +1 leukocyte esterase and 21�25 urine WBC. Blood
cultures collected, and CXR shows bibasilar atelectasis with possible pneumonia vs pulmonary edema. He was given Vanco/Zosyn in the ER, and 1L NS 0.9% + 1L LR, however BP remained low hence Levophed was started and he was admitted to the ICU for
further care. [employer] [facility] services consulted for additional management/recommendations.
Chronic conditions MEDIA SPECIALIST: NICM, paroxysmal A-fib on Eliquis, history of prostate cancer, left-sided renal cell carcinoma, right knee osteoarthritis s/p TKA (2007), DM type II, chronic HFrEF, hypothyroidism, GERD
Impression:
#Circulatory shock -multifactorial from hypovolemia, and relative adrenal insufficiency - shock state now resolved
#Acute on chronic anemia (baseline Hb 10.5-12 g/dL)
#LLE non-purulent cellulitis
#DEEDEE (baseline creatinine 1.1)
#Hypocalcemia - resolved
#DM type II
#Elevate troponin likely due to demand ischemia with type II OH
#Hypoalbuminemia
#Abnormal urinalysis (however >30 urine squamous epithelial cells indicating poor sample collection versus effect from current chemo/XRT from prostate/bladder cancer)
Plan:
- Given possible interstitial edema seen on imaging, IVF were stopped. Levophed now off since overnight
- Maintain MAP >65
- Random cortisol is 10.8 on 01/10/2025 --> suspect relative adrenal insufficiency with critical illness related corticosteroid insufficiency - stress dose steroids started
- Wean steroids as he clinically improves --> will change to 50mg IV q8hr starting tomorrow
- Start midodrine - hopefully this can be weaned off in the next few days
- Also consider supplemental albumin given his level is <2g/dL
- Replete calcium and trend iCa++ levels
- Encourage PO intake; Tx with anti-emetics prn (monitor QTc if getting Zofran)
- HR control with goal <110
- Replete electrolytes with K>4, Mg>2
- Trend sCr and UOP
- If sCr continues to rise then consult nephrology
- Continue with antibiotics --> start narrowing today from IV vancomycin + Zosyn to Ancef given low likelihood he has pneumonia and UA was poor sample (>30 sq epith cells)
- Follow-up blood cultures and urine culture
- MRSA screen negative --> DC IV vancomycin
- Check sputum culture if patient can produce a decent sample
- prn nebulized bronchodilators (patient currently not bronchospastic)
- Maintain SpO2 >90-94%
- Maintain euglycemia with goal BG 140-180; HbA1c 6.4 on 01/10/2025
- Trend H/H and transfuse if needed to keep Hb>7-8g/dL; keep plt>20k, unless there is concern for bleeding then keep plt>50k
- Incentive spirometer encouraged 10x per hour for at least 4 hrs a day
- DVT ppx: Eliquis (renally dosed)
Code status: Full code
Stable for TRX out of ICU to telemetry. No additional recommendations at this time. [employer] [facility]/Pulmonary service will now sign off. Thank you for allowing us to be involved in the care of this patient. Please reconsult if there are any
additional questions/concerns, or if patient's respiratory status deteriorates.
Total time spent today was 57 minutes for this encounter. Time includes reviewing laboratory test/imaging results, reviewing pertinent medical records, obtaining and reviewing medical history, performing an appropriate exam, ordering medications,
tests and procedures. Time also includes documentation of this encounter, coordinating patient care and communicating with other healthcare professionals. Total time does not include separately billed tests performed on this date of service.
Subjective Dataa
Subjective Data
Date of Service:
Date of Service: January 11, 2025
Chief Complaint: [employer] [facility] Follow Up
Subjective:
Patient was seen and evaluated this morning. Sitting in chair no acute distress. Current heart rate 77, BP 109/73 and saturating 97% on 2L/min. No acute overnight events reported. Patient currently denies SOB or cough.
Review of Systems
General: Other (Negative unless mentioned above)
Objective Data
Data Reviewed
Vital Signs / I&O / Oxygen:
Vital Signs
Temp Pulse Resp BP Pulse Ox
97.6 F 93 20 97/55 97
01/11/25 04:00 01/11/25 06:00 01/11/25 06:00 01/11/25 06:00 01/11/25 06:00
Intake and Output
01/09/25 01/10/25 01/11/25
06:59 06:59 06:59
Intake Total 1517.5 / 2007.5 2226.4 / 2226.4
Output Total 900 / 950 1300 / 1300
Balance 617.5 / 1057.5 926.4 / 926.4
SaO2 97
Nasal Cannula flow liters per 2
minute
Physical Exam
General: Respiratory Distress (negative), Comfortable, Chills (negative) and Sweats (negative)
HEENT: Normocephalic and Anicteric
Cardiovascular: Irregular Rhythm (Irregularly irregular) and Peripheral Edema (+2 lower extremity pitting edema bilaterally)
Respiratory: Wheeze (negative), Crackles (Bibasilar), Rhonchi (negative), Non-Labored Respirations and Other (Reduced inspiratory effort)
GI: Soft, Non Distended, Non Tender and Normal Bowel Sounds
Neurology: Awake, Alert and Tremors (negative)
Skin: Warm, Dry, Cyanosis (negative) and Jaundice (negative)
Labs/Micro/Reports
Lab Data
01/11/25 03:50
01/11/25 03:50
Microbiology
01/09/25 15:11 Blood/Venous Blood Culture - Preliminary
No Growth in 24 hours- Final report to follow
01/09/25 15:11 Blood/Venous Blood Culture - Preliminary
No Growth in 24 hours- Final report to follow
[2025-01-11 07:53] LABS: Glucose - Point of Care 190 mg/dl (70-99)
--- NOTE | 2025-01-11 07:58 | PHA.VAN.FU ---
Vancomycin Assessment / Plan
- Assessment
Renal Function: Stable
WBC's are: WNL
In the past 24 hrs, patient has been: Afebrile
Concomitant Antimicrobials: Zosyn
- Assessment - Therapeutic Drug Monitoring
Random Level: 15.8 mcg/mL (drawn 18 hours post-dose)
- Dosing Plan
Dosing by Level: Hold off on dosing today
- Monitoring Plan
Random Level: 01/12/25 with AM labs
- Follow Up
Pharmacy will continue to follow.
Vancomycin Follow UP
- -
Patient Age: 89
Patient Sex: Male
Vancomycin Day #: 3
Indication: Skin And Soft Tissue
Requesting Provider: Dr Fabiano Arias, PGY2 Resident; Dr Pate
Pertinent Antimicrobial Allergies:
no known allergies
Height / Weight:
Height 6 ft
Actual Weight 104.2 kg
Pertinent Past Medical History: bladder cancer on current treatment and radiation; HFrEF
- Vital Signs / Lab Results
Temp Pulse Resp BP Pulse Ox
97.6 F 92 24 99/62 94
01/11/25 04:00 01/11/25 06:15 01/11/25 06:30 01/11/25 06:30 01/11/25 06:30
Lab Results - Hematology
01/09/25 01/10/25 01/11/25
15:06 04:56 03:50
WBC 7.0 6.3 5.9
Lab Results - Chemistry
01/09/25 01/09/25 01/10/25
15:06 22:18 04:56
BUN 67 H 63 H 41 H
Creatinine 2.3 H 2.1 H 1.2
Estimated Creat Clear 28 30 53
Albumin 2.5 L 1.6 L
01/10/25 01/10/25 01/10/25
12:31 19:44 21:00
BUN 50 H 51 H Cancelled
Creatinine 1.6 H 1.6 H Cancelled
Estimated Creat Clear 39 39 Cancelled
Albumin
01/11/25
03:50
BUN 48 H
Creatinine 1.5 H
Estimated Creat Clear 42
Albumin
01/09/25 01/09/25
15:11 19:15
Lactic Acid 1.3 Cancelled
Microbiology Results
01/09/25 15:11 Blood Culture - Preliminary
Blood/Venous No Growth in 24 hours- Final report to follow
01/09/25 15:11 Blood Culture - Preliminary
Blood/Venous No Growth in 24 hours- Final report to follow
Therapeutic Drug Monitoring
Random Vancomycin 15.8 ug/ml 01/11/25 03:50
[2025-01-11] MEDS: ELIQUIS 2.5 MG PO ×2 (08:19→19:06)
[2025-01-11] MEDS: LIPITOR 10 MG PO (08:19)
[2025-01-11] MEDS: NOVOLOG FLEXPEN-MODERATE RESISTANCE 1 UNITS SC (08:19)
[2025-01-11] MEDS: JANUVIA 50 MG PO (10:38)
[2025-01-11] MEDS: AMARYL 2 MG PO (10:38)
[2025-01-11 11:46] LABS: Glucose - Point of Care 212 mg/dl (70-99)
[2025-01-11] MEDS: NOVOLOG FLEXPEN-MODERATE RESISTANCE 3 UNITS SC (12:43)
[2025-01-11] MEDS: ANCEF 10 IV ×2 (13:09→23:56)
[2025-01-11 16:53] LABS: Glucose - Point of Care 141 mg/dl (70-99)
[2025-01-11] MEDS: FLEXBUMIN 100 IV (16:54)
[2025-01-11] MEDS: NOVOLOG FLEXPEN-MODERATE RESISTANCE SC (16:56)
--- NOTE | 2025-01-11 17:02 | CM ---
Spoke with patient and son concerning therapy recommendation for HH. They are in agreement and preference is HH for RN, PT/OT and CLINICAL PROJECT COORDINATOR. Referral will be placed.
--- NOTE | 2025-01-11 20:19 | PTCARENOTE ---
Rec'd pt sitting on chair, son at bedside, oriented, cooperative, afib w/ occas pvc, bp stable, + edema, weak lower pulses, RA, lungs decr in bases, sat 95, + bowel sounds, abd obese, soft, no n/v, uses urinal prn
[2025-01-11 21:18] LABS: Glucose - Point of Care 182 mg/dl (70-99)
[2025-01-12] VITALS (9 sets, daily range): BP systolic 105–130; BP diastolic 68–82; BMI 31.5
--- NOTE | 2025-01-12 | PTCARENOTE ---
sys reviewed, CHG bath done, assisted to bathroom w/ rolling walker, had bm, bleeding noted when wiping- pt states he has hemmroids
2 tabs tums given at 2300 for indigestion
--- NOTE | 2025-01-12 04:30 | PTCARENOTE ---
no changes in assessment
[2025-01-12 04:56] LABS: Hematocrit 15.7 % (39.0-52.0); Hemoglobin 5.2 g/dL (13.0-18.0); Mean Corp Hgb Conc. 33.1 g/dL (33.0-37.0); Mean Corpuscular Volume 92.4 fL (80.0-94.0); Platelet Count 95 10^3/uL (130-400); Red Cell Dist. Width 16.4 % (11.5-14.5)
--- NOTE | 2025-01-12 05:10 | PTCARENOTE ---
Guille Beltre NP notified of K- 5.8
[2025-01-12 05:36] LABS: Hematocrit 24.6 % (39.0-52.0); Hemoglobin 8.1 g/dL (13.0-18.0); Mean Corp Hgb Conc. 32.9 g/dL (33.0-37.0); Mean Corpuscular Volume 90.4 fL (80.0-94.0); Platelet Count 165 10^3/uL (130-400); Red Cell Dist. Width 17.1 % (11.5-14.5)
[2025-01-12] MEDS: SYNTHROID 200 MCG PO (05:42)
[2025-01-12 05:45] LABS: ALT (SGPT) 20 U/L (0-50); AST (SGOT) 31 U/L (17-59); Albumin 3.1 g/dl (3.5-5.0); Alkaline Phosphatase 43 U/L (38-126); Blood Urea Nitrogen 47 mg/dl (9-20); Calcium 9.3 mg/dl (8.4-10.2); Carbon Dioxide 28 mmol/L (22-30); Chloride 107 mmol/L (98-107); Estimated Creatinine Clearance 46 ml/min; Glucose 153 mg/dl (70-99); Potassium 4.9 mmol/L (3.5-5.1); Sodium 137 mmol/L (135-145); Total Protein 5.2 g/dl (6.3-8.2); eGFR 48.34
--- NOTE | 2025-01-12 06:30 | PTCARENOTE ---
pt trying to climb oob, assisted to chair w/ walker, chair alarm on
[2025-01-12 07:23] LABS: Glucose - Point of Care 154 mg/dl (70-99)
--- NOTE | 2025-01-12 07:30 | PTCARENOTE ---
Received patient A&Ox3, on RA, Afib w/ PVCs, BP WNL, GI/ continent, can go to the bathroom independently w/ a walker.
[2025-01-12] MEDS: NOVOLOG FLEXPEN-MODERATE RESISTANCE 1 UNITS SC (07:58)
[2025-01-12] MEDS: SOLU-CORTEF 50 MG IV ×2 (08:13→21:04)
[2025-01-12] MEDS: AMARYL 2 MG PO (08:14)
[2025-01-12] MEDS: LIPITOR 10 MG PO (08:15)
[2025-01-12] MEDS: ELIQUIS 2.5 MG PO ×2 (08:15→19:54)
[2025-01-12] MEDS: JANUVIA 50 MG PO (08:15)
[2025-01-12] MEDS: PREPARATION H MAX STRENGTH PAIN RELIEF CREAM 1 APPLIC RECTAL (11:01)
--- NOTE | 2025-01-12 11:23 | W.PN.HOSP.TC ---
Addendum entered and electronically signed by Andrea Crouch MD 01/12/25 22:38:
Attending Addendum-
I saw and evaluated the patient. I reviewed the resident�s note and agree with findings and plan as documented in the resident�s note. Sub: Patient feels greatly improved. much less weak. Afebrile overnight. mild SOB but overall improved. Denies
chills urinary complaints. Full 12 point ROS reviewed and negative except as documented Exam: Vitals reviewed in chart GEN-NAD heart irreg irreg lungs mild rhonchi at bases abd soft NT ND pos BS LE b/l +1 pitting edema LLE discolored not warm pulses
intact
Plan:
# Multifactorial shock Hypovolemic and Septic
- possibly cellulitis
- vancomycin/Zosyn-> cont Ancef 7 day course
- blood and urine cultures-NGTD
- Continue to trend CBC
- Levophed weaned off
- cont midodrine for now
- wean stress dose steroids to off
- DC IVF due to volume overload
- transferred to tele
# DEEDEE
- resolving
- hold home meds -Entresto, carvedilol, spironolactone,
- restart Lasix
- repeat BMP in am
# Acute Hypoxemic Respiratory Failure
- wean o2 for sats > 92%
# Hyperkalemia
- resolved
# Anemia of chronic disease
- 1 unit PRBC transfused in ED
- tx for HB < 7
- Continue Eliquis for now as there is no concern for acute bleed
- repeat CBC in am
# NIMI
- EKG - non ischemic
- trops trending down
- echo 04/2024-Normal left ventricular size with severely reduced systolic function. LVEF 20-25%
# NIDDM
- uncontrolled due to steroids - DC steroids omar
- Continue insulin sliding scale
- restarted Januvia and glimepiride
# Permanent A-fib
- Continue Eliquis, holding carvedilol- restart when able
- IV Lopressor 5 mg prn
# Hypocalcemia
- corrected 7.6
- ctm
# Bladder ca, immunocompromised
- received chemo rads 2 weeks ago
- f/u as OP with onc
# HFrEF
- not in AE
- last EF 20-25% 04/2004
- GDMT on hold reinitiate slowly
- start with lasix
# Hypothyroid- cont levothyroxine
# H/O MV Repair
# HLD- cont atorvastatin
DVT prophylaxis: Eliquis
Full code
Dispo- from home, DC in 24-48hrs home with HC
Time spent coordinating care, review of plan of care with resident, personally reviewed records in EMR, med rec, consults, notes, labs, radiology, d/w nursing� 51 mins
Original Note:
Today's Communication/Plan
-
PT rec home health; possible dc tmrw
Restart PO Lasix - 40mg
Continue on tele
Assessment / Plan
Assessment / Plan
Assessment/Plan:
#Circulatory shock due to hypovolemia and relative adrenal insufficiency
- NGTD on blood and urine cultures
- S/p vancomycin and Zosyn, continue Ancef 01/11-01/17
- Continue midodrine with plan to wean off before DC
- Cortisol .: continue IV hydrocortisone 50 mg every 12 hours with last dose tonight 01/12
- PT/OT
- Continue MAP> 65
#DEEDEE, resolving
- S/p IVF
- Restart PO Lasix 40 mg (Home dose 20mg)
- Hold home carvedilol 25 mg, Entresto, and spironolactone 25 mg
- Follow BMP
#Hypoalbuminemia, resolving
- 3.2 01/12: CTM
#Anemia of chronic disease
- S/p 1u pRBC in ED; tx Hgb<7
- Continue home Eliquis 5 mg twice daily
- CTM
#NIMI
Most recent troponin is 0.056 on 01/10 with a downward trend - will discontinue trending
- Nonischemic EKG
- Echo 04/2024 showing normal left ventricular size with severely reduced systolic function and LVEF 20-25%
#Hypocalcemia
Patient had a calcium of 5.7 on 01/10, calcium is 9.0 on 01/11. Calcium supplementation given and follow-up calcium score is 9.2 on 01/10.
- Continue to trend
#Hyperkalemia
Patient had a potassium of 5.6 on 01/09, 5.0 on 01/11.
#Type 2 diabetes mellitus:
Hemoglobin A1c is 6.4 on current outpatient management
- Continue insulin sliding scale
- Holding home Januvia and glimepiride
#Permanent atrial fibrillation:
- Continue Eliquis, holding carvedilol
- s/p IV Lopressor 5 mg for sustained RVR above 120
- Ongoing telemetry monitoring
FULL CODE STATUS
DVT Prophylaxis: Eliquis
Dispo: PT rec home health
Imaging:
- Chest x-ray conducted on 01/09/2025:
Mild bibasilar atelectasis and/or pneumonia. Suspect mild pulmonary interstitial edema.
- Peripheral vascular ultrasound of the left lower extremity conducted on 01/09/2025:
No evidence of deep venous thrombosis in the visualized left lower extremity
Anticipated Discharge: Within 24 hours
Subjective/Interval History
-
Date of Service: January 12, 2025
- This morning, had a painful BM that exacerbated his chronic external hemorrhoids - ordered prep H for pain.
- Continues on tele, otherwise NAEON.
Objective Data
-
Labs:
Laboratory Results
01/12/25 01/12/25
04:09 05:08
WBC 5.3 8.2
Hgb 5.2 L* D 8.1 L D
Hct 15.7 L* 24.6 L
Plt Count 95 L D 165 D
Sodium Cancelled 137
Potassium Cancelled 4.9
Chloride Cancelled 107
Carbon Dioxide Cancelled 28
BUN Cancelled 47 H
Creatinine Cancelled 1.4 H
Glucose Cancelled 153 H
Calcium Cancelled 9.3
Total Bilirubin Cancelled 0.4
AST Cancelled 31
ALT Cancelled 20
Alkaline Phosphatase Cancelled 43
Vital Signs:
Vital Signs
Temp Pulse Resp BP Pulse Ox
97.3 F 87 33 118/68 94
01/12/25 07:26 01/12/25 10:00 01/12/25 06:00 01/12/25 08:14 01/12/25 08:06
I&O
01/11/25 01/12/25 01/13/25
06:59 06:59 06:59
Intake Total 2226.4 / 2226.4 650 / 650 480 / 480
Output Total 1300 / 1300 800 / 800
Balance 926.4 / 926.4 -150 / -150 480 / 480
Review of Systems
-
History Source: Patient
All other systems: Reviewed and negative
Musculoskeletal: Reports Edema (BLEE, 2+ on left, 1+ right)
Skin: Reports Other (left leg with erythema iso cellulitis)
Physical Exam
-
General: No Apparent Distress, Comfortable, Obese and Other (sitting up in chair eating breakfast)
HEENT: Normocephalic, Atraumatic and Moist Mucous Membranes
Respiratory: Clear to Auscultation and Non Labored Respirations
Cardiac: Irregular Rhythm (known AFib)
GI: Soft, Nontender and Nondistended
Musculoskeletal: Edema, Right Lower Extrem (1+) and Edema, Left Lower Extrem (2+)
Psych: Calm
[2025-01-12 12:04] LABS: Glucose - Point of Care 138 mg/dl (70-99)
[2025-01-12] MEDS: NOVOLOG FLEXPEN-MODERATE RESISTANCE SC ×2 (12:21→17:27)
[2025-01-12] MEDS: LASIX PO (12:22)
[2025-01-12] MEDS: ANCEF 10 IV (12:23)
--- NOTE | 2025-01-12 12:29 | PN.CDI ---
Addendum entered and electronically signed by Guido Larry MD, Resident 01/13/25 07:38:
Addressed in progress note on 01/12. Thank you.
Original Note:
CDI
- -
CDI:
Physician Documentation Request
Admit Date: 01/09/25 17:46
Dear Doctor Laron,
Patient admitted for sepsis.
01/11 [employer] Developer PN: 'He has a history of bladder cancer and is currently receiving radiation therapy and chemotherapy at [facility] with most recent appointment this past Friday...His fatigue has been increasing after his chemotherapy sessions with
increased SOB + cough.'
Based on the above, could you clarify in the progress notes, the appropriate diagnosis, if significant, that supports the above abnormalities and additional evaluation, monitoring and/or treatment rendered:
Immunocompromised
Normal immunity
Other
Use of terms such as suspected, likely, concern for, or probable (associated with a specific diagnosis that is being evaluated, monitored, or treated as if it exists) are acceptable and can be coded in the inpatient setting, when documented at the
time of discharge.
Thank you,
Juanita Beatty RN, BSN
CDI Specialist
Available via [place] text
Please use your independent medical judgment in providing your response.
[2025-01-12] MEDS: LASIX 40 MG PO (12:32)
--- NOTE | 2025-01-12 12:39 | PN.CDI ---
Addendum entered and electronically signed by Guido Larry MD, Resident 01/13/25 07:38:
Addressed in progress note on 01/12. Thank you.
Original Note:
CDI
- -
CDI:
Physician Documentation Request
Admit Date: 01/09/25 17:46
Dear Doctor Laron,
01/11 Customer Development Representative PN: 'Circulatory shock -multifactorial from hypovolemia, and relative adrenal insufficiency - shock state now resolved'
01/11 Hospitalist PN: 'Septic Shock - unclear source, possibly cellulitis vs rxn to rads and chemo...Levophed weaned off - cont midodrine for now...Circulatory shock due to hypovolemia and relative adrenal insufficiency: Unresolved'
Please clarify which of the following is the most likely etiology of the above symptoms and treatment rendered:
Shock multifactorial hypovolemic and septic
Hypovolemic shock
Septic shock
Other
Use of terms such as suspected, likely, concern for, or probable (associated with a specific diagnosis that is being evaluated, monitored, or treated as if it exists) are acceptable and can be coded in the inpatient setting, when documented at the
time of discharge.
Thank you,
Juanita Beatty RN, BSN
CDI Specialist
Available via [place] text
Please use your independent medical judgment in providing your response.
[2025-01-12 17:28] LABS: Glucose - Point of Care 100 mg/dl (70-99)
[2025-01-12] MEDS: TUMS CHEWABLE TABLET 400 MG PO (18:37)
[2025-01-12] MEDS: FLUSH (NSS) 2 FLUSH IV (21:05)
[2025-01-12 21:55] LABS: Glucose - Point of Care 112 mg/dl (70-99)
[2025-01-13] VITALS (8 sets, daily range): BP systolic 93–127; BP diastolic 55–81; PULSE 53–110; O2SAT 96; BMI 31.4
[2025-01-13] MEDS: ANCEF 10 IV ×3 (00:03→23:47)
[2025-01-13] MEDS: SYNTHROID 200 MCG PO (05:21)
[2025-01-13 06:00] LABS: Hematocrit 24.7 % (39.0-52.0); Hemoglobin 8.4 g/dL (13.0-18.0); Mean Corp Hgb Conc. 34.0 g/dL (33.0-37.0); Mean Corpuscular Volume 92.2 fL (80.0-94.0); Platelet Count 177 10^3/uL (130-400); Red Cell Dist. Width 17.3 % (11.5-14.5)
[2025-01-13 06:12] LABS: ALT (SGPT) 18 U/L (0-50); AST (SGOT) 41 U/L (17-59); Albumin 3.2 g/dl (3.5-5.0); Alkaline Phosphatase 47 U/L (38-126); Blood Urea Nitrogen 58 mg/dl (9-20); Calcium 9.7 mg/dl (8.4-10.2); Carbon Dioxide 27 mmol/L (22-30); Chloride 106 mmol/L (98-107); Estimated Creatinine Clearance 40 ml/min; Glucose 104 mg/dl (70-99); Potassium 4.5 mmol/L (3.5-5.1); Sodium 138 mmol/L (135-145); Total Protein 5.3 g/dl (6.3-8.2); eGFR 41.19
[2025-01-13] MEDS: AMARYL 2 MG PO (08:07)
[2025-01-13] MEDS: JANUVIA 50 MG PO (08:07)
[2025-01-13] MEDS: LASIX 40 MG PO (08:07)
[2025-01-13] MEDS: ELIQUIS 2.5 MG PO ×2 (08:07→20:19)
[2025-01-13] MEDS: LIPITOR 10 MG PO (08:07)
[2025-01-13 08:28] LABS: Glucose - Point of Care 102 mg/dl (70-99)
[2025-01-13] MEDS: NOVOLOG FLEXPEN-MODERATE RESISTANCE SC ×3 (08:30→17:29)
--- NOTE | 2025-01-13 09:07 | W.PN.HOSP.TC ---
Addendum entered and electronically signed by Andrea Crouch MD 01/13/25 21:56:
Attending Addendum-
I saw and evaluated the patient. I reviewed the resident�s note and agree with findings and plan as documented in the resident�s note. Sub: Patient feels good. much less weak. Afebrile overnight. 'i walked down the [place] and back and dont feel SOB'
Denies chills urinary complaints. Full 12 point ROS reviewed and negative except as documented Exam: Vitals reviewed in chart GEN-NAD heart irreg irreg lungs mild rhonchi at bases abd soft NT ND pos BS LE b/l +1 pitting edema LLE discolored not warm
pulses intact right upper chest port
Plan:
# Multifactorial shock Hypovolemic and Septic
- possibly cellulitis
- vancomycin/Zosyn-> cont Ancef 7 day course
- blood and urine cultures-NGTD
- Continue to trend CBC
- Levophed weaned off
- cont midodrine for now
- DC stress dose steroids
- DC midodrine
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
- prerenal from hypervolemia
- hold home meds -Entresto, carvedilol, spironolactone,
- cont Lasix
- repeat BMP in am
# Acute Hypoxemic Respiratory Failure
- wean o2 for sats > 92%
- check CXR
# Hyperkalemia
- resolved
# Anemia of chronic disease
- 1 unit PRBC transfused in ED
- tx for HB < 7
- Continue Eliquis for now as there is no concern for acute bleed
- repeat CBC in am
# NIMI
- EKG - non ischemic
- trops trending down
- echo 04/2024-Normal left ventricular size with severely reduced systolic function. LVEF 20-25%
# NIDDM
- better controlled off steroids
- Continue insulin sliding scale
- cont home Januvia and glimepiride
# Permanent A-fib
- Continue Eliquis, restart 1/2 dose carvedilol
# Bladder ca, immunocompromised
- received chemo rads 2 weeks ago
- f/u as OP with onc
# HFrEF
- not in AE
- last EF 20-25% 04/2004
- restart coreg 1/2 dose hold entresto and spironolactone for now
- cont lasix
# Hypothyroid- cont levothyroxine
# H/O MV Repair
# HLD- cont atorvastatin
DVT prophylaxis: Eliquis
Full code
Dispo- from home, DC in AM
Time spent coordinating care, review of plan of care with resident, personally reviewed records in EMR, med rec, consults, notes, labs, radiology, d/w nursing� 52 mins
Original Note:
Today's Communication/Plan
-
Lasix 20mg M,W,
Start home coreg 25
Stop Midodrine
Assessment / Plan
Assessment / Plan
Assessment/Plan:
#Circulatory shock due to hypovolemia and relative adrenal insufficiency
- NGTD on blood and urine cultures
- S/p vancomycin and Zosyn, continue Ancef 01/11-01/17
- Stop midodrine with plan to wean off before DC
- Cortisol 10.: continue IV hydrocortisone 50 mg every 12 hours with last dose tonight 01/12
- PT/OT
- Continue MAP> 65
#DEEDEE
Creatinine 1.6 from 1.4 ISO restarting Lasix.
- S/p IVF
- S/p PO Lasix 40mg x1 01/10; change to PO Lasix 20 mg M,W,Fri
--Follow-up CXR
- Start home carvedilol 25 mg
- Hold Entresto and spironolactone 25 mg
- Follow BMP
#Hypoalbuminemia, resolving
- 3.2 01/13: CTM
#Anemia of chronic disease
- S/p 1u pRBC in ED; tx Hgb<7
- Continue home Eliquis 2.5 mg twice daily
- CTM
#NIMI
Most recent troponin is 0.056 on 01/10 with a downward trend - will discontinue trending
- Nonischemic EKG
- Echo 04/2024 showing normal left ventricular size with severely reduced systolic function and LVEF 20-25%
#Hypocalcemia
Albumin 3.2, calcium 9.7. Corrected calcium 9.9.
- Continue to trend
#Hyperkalemia, resolved
Patient had a potassium of 5.6 on 01/09, 5.0 on 01/11, 4.5 on 01/13.
#Type 2 diabetes mellitus:
Hemoglobin A1c is 6.4 on current outpatient management
- Continue insulin sliding scale
- Home Januvia and glimepiride
#Permanent atrial fibrillation:
- Continue Eliquis, holding carvedilol
- IV Lopressor 5 mg as needed for sustained RVR above 120
- Ongoing telemetry monitoring
FULL CODE STATUS
DVT Prophylaxis: Eliquis
Dispo: PT rec home health
Anticipated Discharge: Within 24 hours
Subjective/Interval History
-
Date of Service: January 13, 2025
-This morning, he reports feeling much better than prior. He reports he woke up a few times to pee and is feeling like his belly is full of fluid. He sounds 'gurgly' when he speaks, however denies SOB or any new symptoms.
-CXR ordered
Objective Data
-
Labs:
Laboratory Results
01/13/25
05:28
WBC 7.0
Hgb 8.4 L
Hct 24.7 L
Plt Count 177
Sodium 138
Potassium 4.5
Chloride 106
Carbon Dioxide 27
BUN 58 H
Creatinine 1.6 H
Glucose 104 H
Calcium 9.7
Total Bilirubin 0.5
AST 41
ALT 18
Alkaline Phosphatase 47
Vital Signs:
Vital Signs
Temp Pulse Resp BP Pulse Ox
97.4 F 102 18 111/78 94
01/13/25 08:02 01/13/25 08:02 01/13/25 08:02 01/13/25 08:08 01/13/25 08:02
I&O
01/12/25 01/13/25 01/14/25
06:59 06:59 06:59
Intake Total 650 / 650 900 / 900
Output Total 800 / 800 450 / 450
Balance -150 / -150 450 / 450
Review of Systems
-
All other systems: Reviewed and negative
Constitutional: Reports Weight Loss
Respiratory: Reports Cough
Physical Exam
-
General: Well Developed, Well Nourished and No Apparent Distress
HEENT: Normocephalic, Atraumatic and Moist Mucous Membranes
Respiratory: Crackles and Non Labored Respirations
Cardiac: S1/S2 and Irregular Rhythm (Known A-fib)
GI: Soft, Nontender and Distended
Musculoskeletal: Edema, Right Lower Extrem (1+) and Edema, Left Lower Extrem (1+)
Skin: Warm, Dry and Other (Left leg with erythema, likely chronic discoloration)
Psych: Calm
--- NOTE | 2025-01-13 10:51 | CM ---
Addendum entered by Columba Burnett RN 01/13/25 16:04:
IMM reviewed.
Original Note:
Reviewed the chart notes and spoke with the patient at the bedside. Patient ambulate in room ad marlin. CM continues to be available to patient/family and is monitoring medical plan for needs at discharge.
Plan: Discharge to home with [facility] services.
[2025-01-13 12:16] LABS: Glucose - Point of Care 78 mg/dl (70-99)
[2025-01-13] MEDS: COREG 25 MG PO ×2 (13:18→20:19)
[2025-01-13] MEDS: FLUSH (NSS) 2 FLUSH IV (13:19)
--- NOTE | 2025-01-13 16:10 | PTCARENOTE ---
BP at 1500 vital signs 2 hours after restarting coreg is 93/56, MD and resident made aware.
[2025-01-13 17:19] LABS: Glucose - Point of Care 74 mg/dl (70-99)
[2025-01-13 21:33] LABS: Glucose - Point of Care 108 mg/dl (70-99)
[2025-01-14] MEDS: FLUSH (NSS) 2 FLUSH IV (00:01)
[2025-01-14 03:32] VITALS: BP 116/77
[2025-01-14] MEDS: SYNTHROID 200 MCG PO (05:42)
[2025-01-14 06:10] VITALS: BMI 31.3
[2025-01-14 06:15] LABS: Hematocrit 27.0 % (39.0-52.0); Hemoglobin 8.9 g/dL (13.0-18.0); Mean Corp Hgb Conc. 33.0 g/dL (33.0-37.0); Mean Corpuscular Volume 93.8 fL (80.0-94.0); Platelet Count 172 10^3/uL (130-400); Red Cell Dist. Width 18.5 % (11.5-14.5)
[2025-01-14 06:40] LABS: ALT (SGPT) 11 U/L (0-50); AST (SGOT) 42 U/L (17-59); Albumin 3.2 g/dl (3.5-5.0); Alkaline Phosphatase 50 U/L (38-126); Blood Urea Nitrogen 60 mg/dl (9-20); Calcium 9.2 mg/dl (8.4-10.2); Carbon Dioxide 29 mmol/L (22-30); Chloride 106 mmol/L (98-107); Estimated Creatinine Clearance 40 ml/min; Glucose 71 mg/dl (70-99); Potassium 4.6 mmol/L (3.5-5.1); Sodium 139 mmol/L (135-145); Total Protein 5.4 g/dl (6.3-8.2); eGFR 41.19
[2025-01-14 07:28] VITALS: BP 124/74
[2025-01-14 07:31] LABS: Glucose - Point of Care 87 mg/dl (70-99)
[2025-01-14] MEDS: NOVOLOG FLEXPEN-MODERATE RESISTANCE SC ×2 (08:24→13:18)
[2025-01-14] MEDS: JANUVIA 50 MG PO (08:24)
[2025-01-14] MEDS: ELIQUIS 2.5 MG PO (08:25)
[2025-01-14] MEDS: COREG 12.5 MG PO (08:25)
[2025-01-14] MEDS: AMARYL 2 MG PO (08:25)
[2025-01-14] MEDS: LIPITOR 10 MG PO (08:25)
[2025-01-14 11:41] VITALS: BP 110/70
[2025-01-14] MEDS: ANCEF 10 IV (13:17)
[2025-01-14 13:19] LABS: Glucose - Point of Care 107 mg/dl (70-99)
--- NOTE | 2025-01-14 13:27 | CM ---
Patient has been medically cleared for discharge to home with CLAUDY RN, PT/OT services. Patient has arranged for transport home.
--- NOTE | 2025-01-14 13:57 | W.PN.HOSP.TC ---
Addendum entered and electronically signed by Andrea Crouch MD 01/14/25 22:19:
Attending Addendum-
I saw and evaluated the patient. I reviewed the resident�s note and agree with findings and plan as documented in the resident�s note. Sub: Patient frustrated and wants to go home omar. 'i missed my radiation' Consoled and discussed need to review
plan of care and med changes. Patient very pleasant after explanation. Denies chills urinary complaints. Full 12 point ROS reviewed and negative except as documented Exam: Vitals reviewed in chart GEN-NAD heart irreg irreg lungs mild rhonchi at
bases abd soft NT ND pos BS LE b/l +1 pitting edema LLE discolored not warm pulses intact right upper chest port
Plan:
# Multifactorial shock Hypovolemic and Septic
- possibly cellulitis
- vancomycin/Zosyn->Ancef->keflex x 5 days total
- blood and urine cultures-NGTD
- Levophed weaned off
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
- likely new baseline @ 1.6
- prerenal from hypervolemia
- hold home meds -Entresto, spironolactone
- cont Lasix
- repeat BMP as OP
# Acute Hypoxemic Respiratory Failure
- weaned off o2
# Hyperkalemia
- resolved
# Anemia of chronic disease
- 1 unit PRBC transfused in ED
- tx for HB < 7
- Continue Eliquis for now as there is no concern for acute bleed
# NIMI
- EKG - non ischemic
- trops trending down
- echo 04/2024-Normal left ventricular size with severely reduced systolic function. LVEF 20-25%
# NIDDM
- better controlled off steroids
- Continue insulin sliding scale
- cont home Januvia and glimepiride
# Permanent A-fib
- Continue Eliquis, restarted 1/2 dose carvedilol
# Bladder ca, immunocompromised
- received chemo rads 2 weeks ago
- f/u as OP with onc
# HFrEF
- not in AE
- last EF 20-25% 04/2004
- restarted coreg 1/2 dose hold entresto and spironolactone for now
- cont lasix
# Hypothyroid- cont levothyroxine
# H/O MV Repair
# HLD- cont atorvastatin
DVT prophylaxis: Eliquis
Full code
Dispo- from home, DC home with son
Time spent coordinating care, DC planning, review of DC plan of care with resident, transition of care, review of records, med rec/scripts sent electronically, consults, notes, d/w consultants, nursing, and CM� 33 mins >50% of this time was devoted
to counseling and coordination of care
Original Note:
Today's Communication/Plan
-
discharge home with home health
Assessment / Plan
Assessment / Plan
Assessment/Plan:
#Circulatory shock due to hypovolemia and relative adrenal insufficiency
- NGTD on blood and urine cultures
- S/p vancomycin and Zosyn,
- Ancef 01/11-01/14, transition to PO Keflex 500mg BID through tomorrow 01/15 for a 5 day course
- Stop midodrine with plan to wean off before DC
- Cortisol 10.: s/p IV hydrocortisone 50 mg every 12 hours with last dose 01/12
- PT/OT
- Continue MAP> 65
#DEEDEE
Creatinine 1.6 from 1.4 ISO restarting Lasix.
- S/p IVF
- S/p PO Lasix 40mg x1 01/10; change to PO Lasix 40 mg M,W,Fri as per home regimen
- Carvedilol 12.5 mg BID (home dose 25 mg BID)
- Hold Entresto and spironolactone 25 mg; resume outpatient per Dr. Quarles
-- Check BMP 1 week after discharge
#Hypoalbuminemia, resolving
- CTM
#Anemia of chronic disease
- S/p 1u pRBC in ED; tx Hgb<7
- Continue home Eliquis 2.5 mg twice daily
- CTM
#NIMI
Most recent troponin is 0.056 on 01/10 with a downward trend - will discontinue trending
- Nonischemic EKG
- Echo 04/2024 showing normal left ventricular size with severely reduced systolic function and LVEF 20-25%
#Hypocalcemia
- Continue to trend
#Hyperkalemia, resolved
Patient had a potassium of 5.6 on 01/09, 5.0 on 01/11, 4.5 on 01/13.
#Type 2 diabetes mellitus:
Hemoglobin A1c is 6.4 on current outpatient management
- Continue insulin sliding scale
- Home Januvia and glimepiride
#Permanent atrial fibrillation:
- Continue Eliquis, holding carvedilol
- IV Lopressor 5 mg as needed for sustained RVR above 120
--dc on discharge
- Ongoing telemetry monitoring
FULL CODE STATUS
DVT Prophylaxis: Eliquis
Dispo: PT rec home health
Anticipated Discharge: Today
Subjective/Interval History
-
Date of Service: January 14, 2025
- This morning, Mr. De La Paz states he feels really good and ready to go home.
Objective Data
-
Labs:
Laboratory Results
01/14/25
05:53
WBC 7.6
Hgb 8.9 L
Hct 27.0 L
Plt Count 172
Sodium 139
Potassium 4.6
Chloride 106
Carbon Dioxide 29
BUN 60 H
Creatinine 1.6 H
Glucose 71
Calcium 9.2
Total Bilirubin 0.6
AST 42
ALT 11
Alkaline Phosphatase 50
Vital Signs:
Vital Signs
Temp Pulse Resp BP Pulse Ox
97.5 F 88 16 110/70 96
01/14/25 11:41 01/14/25 11:41 01/14/25 11:41 01/14/25 11:41 01/14/25 11:41
I&O
01/13/25 01/14/25 01/15/25
06:59 06:59 06:59
Intake Total 900 / 900 490 / 490
Output Total 450 / 450 150 / 150
Balance 450 / 450 340 / 340
Physical Exam
-
General: Well Developed, Well Nourished, No Apparent Distress, Comfortable and Other (sitting up in chair comfortably)
HEENT: Normocephalic, Atraumatic and Moist Mucous Membranes
Respiratory: Clear to Auscultation and Non Labored Respirations
Cardiac: Regular Rhythm and S1/S2
GI: Soft, Nontender and Nondistended
Musculoskeletal: Edema, Right Lower Extrem and Edema, Left Lower Extrem
Skin: Warm and Dry
Neuro: AO x 3
Psych: Calm
[2025-01-14 15:00] VITALS: BP 108/69
--- NOTE | 2025-01-14 17:03 | W.DCSUMMARY ---
Addendum entered and electronically signed by Andrea Crouch MD 01/14/25 22:19:
Read, reviewed, and agree. See same day progress note for additional details.
Dmitriy Crouch MD
Original Note:
Documented by User: Acacia Wynne MD, Resident 01/14/25 17:19
Discharge Summary
Discharge Data
Date of Admission: 01/09/25
Date of Discharge: 01/14/25
-
Pending Results: No
Hospital Course
Discharging Physician : Acacia Wynne
Disposition : Home with Home Health
Principal Discharge diagnosis : Circulatory/Septic shock due to hypovolemia iso chemo/rad vs cellulitis
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
radiation cystitis, s/p mitral valve repair, s/p AICD presented to the hospital with increased fatigue, nausea, SOB, and weight loss iso grievance from 's passing a few weeks prior. In the ED, he was found to be hypotensive (88/58), was started
on pressors, given 1 unit of blood (Hbg 7.5), and admitted to the ICU for further management. The cause of his septic shock was thought to be due to left leg cellulitis vs reaction to chemo/radiation. He continued to improve through hospital course,
was downgraded to the floors on 01/11, and stable for discharge on 01/14. He was discharged on new medication Keflex 500mg q6h through 01/15 (5 day total course s/p Ancef 01/11-01/14). His carvedilol dose was decreased from 25mg BID to 12.5mg BID and
Entresto + Spironolactone were held until further management by his unpaid intern Dr. Willam mckeon. See below for his hospital course by problem.
#Circulatory shock likely due to hypovolemia iso infection vs chemo/rad reaction
#Relative adrenal insufficiency
- NGTD on blood and urine cultures
- S/p vancomycin and Zosyn
- Ancef 01/11-01/14, transitioned to PO Keflex 500mg BID through 01/15 for a 5 day course total
- s/p midodrine
- Cortisol 10.8 01/10: s/p IV hydrocortisone 50 mg every 12 hours with last dose 01/12
- PT/OT
#DEEDEE
Creatinine 1.6 from 1.4 ISO restarting Lasix.
- S/p IVF
- S/p PO Lasix 40mg x1 01/10; change to PO Lasix 40 mg ,,Fri as per home regimen
- Carvedilol 12.5 mg BID (home dose 25 mg BID)
- Hold Entresto and spironolactone 25 mg; resume outpatient per Dr. Quarles
-- Check BMP 1 week after discharge
#Anemia of chronic disease
- S/p 1u pRBC in ED; tx Hgb<7
- Continue home Eliquis 2.5 mg twice daily
#NIMI
Most recent troponin is 0.056 on 01/10 with a downward trend - will discontinue trending
- Nonischemic EKG
- Echo 04/2024 showing normal left ventricular size with severely reduced systolic function and LVEF 20-25%
#Hyperkalemia, resolved
Patient had a potassium of 5.6 on 01/09, 5.0 on 01/11, 4.5 on 01/13.
#Type 2 diabetes mellitus:
Hemoglobin A1c is 6.4 on current outpatient management
- Continue insulin sliding scale
- Home Januvia and glimepiride
#Permanent atrial fibrillation:
- Continue Eliquis, holding carvedilol
- s/p IV Lopressor 5 mg as needed for sustained RVR above 120
Important imaging findings :
CXR 01/09: Mild bibasilar atelectasis and/or pneumonia. Suspect mild pulmonary interstitial edema.
Left DVU 01/09: No evidence of deep venous thrombosis in the visualized left lower extremity as described above.
CXR 01/13:
Prominence of the bilateral pulmonary vascular markings, again suggesting a mild degree of interstitial pulmonary edema.
Small right and possible trace left pleural fluid.
No pneumothorax. Bibasilar atelectasis. Stable cardiomediastinal silhouette. Stable position of a right-sided Port-A-Cath, cardiac valve prosthesis, and external defibrillator.
Discharge Plan
-
Patient Disposition: Home with Home Care
Discharge Diagnosis/Procedures: Circulatory shock due to hypovolemia and relative adrenal insufficiency
DEEDEE
Condition: Good
Diet: Low Cholesterol
Activity: As tolerated
Driving Restrictions: As prior to admission
Bathing Restrictions: None
Blood Work: BMP in a week
Other Services: VN, PT and OT
Referrals:
Vitaly Landin MD [Family Provider, Internal Medicine] - in less than 1 week
Referral Note: Follow-up with your PCP regarding this hospitalization, getting a BMP check, and restarting your home meds of Entresto and Spironolactone.
Matt Quarles MD [Active, Cardiology] - in one to two weeks
Referral Note: Follow-up with regarding your new dose of carvedilol (12.5mg BID from 25mg BID) and restarting your home meds of Entresto and Spironolactone.
Additional Discharge Medication Instructions: Take Cephalexin (antibiotic) 500 mg every 6 hours starting today through tomorrow, 01/15 (last dose tomorrow evening).
Your carvedilol dose was changed from 25mg twice daily to 12.5mg twice daily.
Take Lasix 20mg M,W,Fr.
Do not take Entresto or Spironolactone until you see Dr. Quarles and get his input.
Follow-up with Dr. Quarles in 1-2 weeks and your PCP within a week.
Prescriptions:
New
carvedilol 12.5 mg Tablet
12.5 mg PO BID 30 Days Qty: 60 0RF
furosemide 20 mg Tablet
20 mg PO MoWeFr@0800 30 Days Qty: 13 0RF
cephalexin 500 mg capsule
500 mg PO Q6H 2 Days Qty: 8 0RF
Rx Instructions:
Take Keflex 500mg every 6 hours through 01/15.
Continued
atorvastatin [Lipitor] 10 MG tablet
10 mg PO DAILY
levothyroxine 200 MCG tablet
200 mcg PO DAILY
leuprolide 1 MG/0.2 ML kit
5 mg SQ [id number]
omeprazole magnesium [Prilosec OTC] 20 MG tablet,delayed release (DR/EC)
20 mg PO DAILY PRN (Reason: heartburn)
glimepiride 2 MG tablet
2 mg PO DAILY
Januvia 50 MG tablet
50 mg PO DAILY
Eliquis 2.5 mg Tablet
2.5 mg PO BID
ondansetron HCl 8 mg tablet
8 mg PO Q8HPRN PRN (Reason: n/v)
prochlorperazine maleate 10 mg tablet
10 mg PO Q6HPRN PRN (Reason: n/v)
coenzyme Q10 [CoQ-10] 100 mg Capsule
100 mg PO DAILY
Held
spironolactone 25 mg Tablet
25 mg PO DAILY
Hold Instructions: Hold until further instructions from Dr. Quarles (cardiology)
sacubitril-valsartan [Entresto] 97-103 mg Tablet
1 tab PO BID
Hold Instructions: hold until further instructions from Dr. Quarles (cardiology)
Discontinued
furosemide 40 MG tablet
40 mg PO MOWEFR
carvedilol [Coreg] 25 MG tablet
25 mg PO BID
lidocaine-prilocaine 2.5-2.5 % cream
1 applic topical DAILYPRN PRN (Reason: port access)
Discharge Orders:
Discharge Patient (As Directed); Ordered 01/14/25
Ordered By: Acacia Wynne
Discharge Date and Time
Discharge Date/Time: 01/14/25 16:12
Print Language: MALAWIAN

Documented by User: Andrea Crouch MD 01/14/25 22:14
Discharge Summary
Discharge Data
Date of Admission: 01/09/25
Date of Discharge: 01/14/25
Discharge Plan
-
Patient Disposition: Home with Home Care
Discharge Diagnosis/Procedures: Circulatory shock due to hypovolemia and relative adrenal insufficiency
DEEDEE
Condition: Good
Diet: Low Cholesterol
Activity: As tolerated
Driving Restrictions: As prior to admission
Bathing Restrictions: None
Blood Work: BMP in a week
Other Services: VN, PT and OT
Referrals:
Vitaly Landin MD [Family Provider, Internal Medicine] - in less than 1 week
Referral Note: Follow-up with your PCP regarding this hospitalization, getting a BMP check, and restarting your home meds of Entresto and Spironolactone.
Matt Quarles MD [Active, Cardiology] - in one to two weeks
Referral Note: Follow-up with regarding your new dose of carvedilol (12.5mg BID from 25mg BID) and restarting your home meds of Entresto and Spironolactone.
Additional Discharge Medication Instructions: Take Cephalexin (antibiotic) 500 mg every 6 hours starting today through tomorrow, 01/15 (last dose tomorrow evening).
Your carvedilol dose was changed from 25mg twice daily to 12.5mg twice daily.
Take Lasix 20mg M,W,Fr.
Do not take Entresto or Spironolactone until you see Dr. Quarles and get his input.
Follow-up with Dr. Quarles in 1-2 weeks and your PCP within a week.
Prescriptions:
New
carvedilol 12.5 mg Tablet
12.5 mg PO BID 30 Days Qty: 60 0RF
furosemide 20 mg Tablet
20 mg PO MoWeFr@0800 30 Days Qty: 13 0RF
cephalexin 500 mg capsule
500 mg PO Q6H 2 Days Qty: 8 0RF
Rx Instructions:
Take Keflex 500mg every 6 hours through 01/15.
Continued
atorvastatin [Lipitor] 10 MG tablet
10 mg PO DAILY
levothyroxine 200 MCG tablet
200 mcg PO DAILY
leuprolide 1 MG/0.2 ML kit
5 mg SQ [id number]
omeprazole magnesium [Prilosec OTC] 20 MG tablet,delayed release (DR/EC)
20 mg PO DAILY PRN (Reason: heartburn)
glimepiride 2 MG tablet
2 mg PO DAILY
Januvia 50 MG tablet
50 mg PO DAILY
Eliquis 2.5 mg Tablet
2.5 mg PO BID
ondansetron HCl 8 mg tablet
8 mg PO Q8HPRN PRN (Reason: n/v)
prochlorperazine maleate 10 mg tablet
10 mg PO Q6HPRN PRN (Reason: n/v)
coenzyme Q10 [CoQ-10] 100 mg Capsule
100 mg PO DAILY
Held
spironolactone 25 mg Tablet
25 mg PO DAILY
Hold Instructions: Hold until further instructions from Dr. Quarles (cardiology)
sacubitril-valsartan [Entresto] 97-103 mg Tablet
1 tab PO BID
Hold Instructions: hold until further instructions from Dr. Quarles (cardiology)
Discontinued
furosemide 40 MG tablet
40 mg PO MOWEFR
carvedilol [Coreg] 25 MG tablet
25 mg PO BID
lidocaine-prilocaine 2.5-2.5 % cream
1 applic topical DAILYPRN PRN (Reason: port access)
Discharge Orders:
Discharge Patient (As Directed); Ordered 01/14/25
Ordered By: Acacia Wynne
Discharge Date and Time
Discharge Date/Time: 01/14/25 16:12
Print Language: MALAWIAN
== END 2025-01-14 16:12 | disposition home health service (06) | DRG 871 ==
LOC: 2 NORTH 17:46
PROVIDERS: Internal Medicine; Nurse Practitioner Family; Nurse Practitioner Primary Care; ADMITTING PHYSICIAN Internal Medicine; ATTENDING PHYSICIAN Family Medicine; EMERGENCY PHYSICIAN Emergency Medicine; FAMILY PHYSICIAN Internal Medicine; OTHER PHYSICIAN Internal Medicine Critical Care Medicine
PROC: 30233N1 Transfusion of Nonautologous Red Blood Cells into Peripheral Vein, Percutaneous Approach (ICD-10-PCS; 2025-01-09)
DX: A41.9 Sepsis, unspecified organism (principal); J96.01 Acute respiratory failure with hypoxia; R57.1 Hypovolemic shock; R65.21 Severe sepsis with septic shock; I42.8 Other cardiomyopathies; I50.22 Chronic systolic (congestive) heart failure; I48.21 Permanent atrial fibrillation; N17.9 Acute kidney failure, unspecified; L03.116 Cellulitis of left lower limb; C64.2 Malignant neoplasm of left kidney, except renal pelvis; N30.40 Irradiation cystitis without hematuria; E27.40 Unspecified adrenocortical insufficiency; I5A Non-ischemic myocardial injury (non-traumatic); D84.9 Immunodeficiency, unspecified; C67.9 Malignant neoplasm of bladder, unspecified; E03.9 Hypothyroidism, unspecified; I12.9 Hypertensive chronic kidney disease with stage 1 through stage 4 chronic kidney disease, or unspecified chronic kidney disease; N18.32 Chronic kidney disease, stage 3b; C61 Malignant neoplasm of prostate; D63.0 Anemia in neoplastic disease; E87.5 Hyperkalemia; E83.51 Hypocalcemia; E11.22 Type 2 diabetes mellitus with diabetic chronic kidney disease; E88.09 Other disorders of plasma-protein metabolism, not elsewhere classified; E86.1 Hypovolemia; E78.00 Pure hypercholesterolemia, unspecified; Y84.2 Radiological procedure and radiotherapy as the cause of abnormal reaction of the patient, or of later complication, without mention of misadventure at the time of the procedure; Z96.651 Presence of right artificial knee joint; Z95.810 Presence of automatic (implantable) cardiac defibrillator; Z87.891 Personal history of nicotine dependence; Z79.899 Other long term (current) drug therapy; Z79.890 Hormone replacement therapy; Z79.84 Long term (current) use of oral hypoglycemic drugs; Z79.01 Long term (current) use of anticoagulants
CPT/HCPCS: 71045; 80048; 80053; 80202; 81003; 81015; 82330; 82533; 82607; 82728; 82746; 82962; 83036; 83540; 83550; 83605; 83735; 84100; 84132; 84145; 84484; 85014; 85018; 85025; 85027; 85045; 85610; 85730; 86850; 86900; 86901; 86920; 87040; 87070; 87086; 93005; 93971; 96365; 96375; 97110; 97116; 97163; 97167; 97535; 99291; P9016; P9047

== ENCOUNTER 2025-01-19 18:05 | Inpatient (IN) | payer OTHER, SELFPAY ==
[2025-01-19 14:35] VITALS: BP 121/82
--- NOTE | 2025-01-19 15:16 | ED.GENMED ---
History of Present Illness
General
Chief Complaint: Breathing Problem
Source: patient and family
Exam Limitations: none
Time Seen by Provider: 01/19/25 15:07
Nursing documentation reviewed up to this point in time: agreed with
History of Present Illness
History of Present Illness:
Note:
CHIEF COMPLAINT(S)
Shortness of breath and edema.
HISTORY OF PRESENT ILLNESS
The patient is an 89-year-old male with a history of cancer treatment, presenting with shortness of breath and lower extremity edema. The patient reported undergoing chemotherapy and radiation therapy, during which they experienced an infection.
Since the recent discharge from the hospital about a week ago, the symptoms, including difficulty breathing and swelling, have worsened. The patient notes significant fluid buildup, especially in the legs, which was observed to have edema.
Upon arrival in the emergency department, the patient had an oxygen saturation of 83% on room air, which improved to 100% with supplemental oxygen. Positional changes, such as leaning forward and transitioning from sitting to standing, have become
notably challenging. The patient has difficulty lying flat due to dyspnea.
The patients medication includes Furosemide (Lasix) with a dosing schedule of 40 mg on Mondays and Fridays, and 20 mg on other days. The patient confirmed being discharged with this regimen last Friday.
Additional discomfort is noted in the left leg, which corresponds with visible leg swelling. The patient underwent a recent chest X-ray before the current visit, and a follow-up X-ray is ordered for comparison. A blood test will also be performed to
assess the need to address the fluid overload further. The plan to access the patients existing port for these procedures is in place.
PAST MEDICAL AND SURIGICAL HISTORY
History of cancer treatment with chemotherapy and radiation.
ADDITIONAL HISTORY OBTAINED FROM SOURCES OTHER THAN THE PATIENT
According to the patients family member, the patients condition has deteriorated since discharge, with increased shortness of breath and weakness.
SOCIAL DETERMINANTS AFFECTING HEALTH
The patient has recently lost their spouse about a month ago, and a family member has been staying with the patient to offer support and care.
PHYSICAL EXAM
General: Alert, no acute distress.
Skin: Warm, dry.
Head: Normocephalic, atraumatic.
Neck: Supple, trachea midline.
Eye, Ears, Nose, Mouth, and Throat: Oral mucosa moist.
Cardiovascular: Normal peripheral perfusion, moderate bilateral edema noted.
Respiratory: Respirations are non-labored with supplemental oxygen.
Gastrointestinal : Abdomen nondistended.
Back: Normal range of motion, Normal alignment.
Musculoskeletal: Normal range of motion, reduced strength noted.
Neurological: Alert and oriented to person, place, time, and situation, No focal neurological deficit observed.
Psychiatric: Cooperative, appropriate mood & affect.
PROBLEM LIST
Acute Problems:
- Shortness of breath
- Bilateral lower extremity edema
Chronic Problems:
- History of cancer treatment (chemotherapy and radiation)
PLAN
1. Administer supplemental oxygen to maintain adequate oxygenation.
2. Perform blood tests and a chest X-ray to assess fluid overload and compare with prior imaging.
3. Hospital admission for oxygen level monitoring and fluid management.
4. Access existing port for necessary interventions.
5. Family support and counseling regarding recent familial loss and continued care at home.
DIFFERENTIAL DIAGNOSIS
The Differential Diagnosis includes, in no particular order and is not limited to:
1. Congestive heart failure
2. Pulmonary edema
3. Chronic obstructive pulmonary disease exacerbation
4. Pneumonia
5. Pleural effusion
6. Deep vein thrombosis
7. Anemia
8. Medication side effects (e.g., cardiotoxicity from chemotherapy)
9. Renal insufficiency
10. Malnutrition or cachexia related to cancer therapy
Note:
EKG
My independent EKG interpretation is:
- Time of EKG: Not specified
- Rhythm: Atrial fibrillation
- Heart Rate: Not specified
- [place]: Left axis deviation
- Notable Intervals: Not specified
- Abnormalities Observed:
- Non-specific intraventricular conduction block
- Left ventricular hypertrophy (LVH)
- No ischemic changes detected
CARE-UPDATE
01/19/25 - 16:35
- Bilateral pulmonary edema noted.
- Differential diagnosis includes domestic health syndrome (DHS) and potential foreign or overland factors.
Disposition:
SUMMARY OF ENCOUNTER
The patient, an 89-year-old male with a history of cancer treatment, presented to the emergency department with shortness of breath and bilateral lower extremity edema, which worsened since his recent hospital discharge. Upon arrival, the patient�s
oxygen saturation was 83% on room air but improved to 100% with supplemental oxygen. Positional changes were particularly challenging for the patient, and he reported difficulty lying flat due to dyspnea. Considering these symptoms and recent
deterioration condition, the patient was assessed for potential fluid overload and other complications. The diagnosis of congestive heart failure exacerbation and atrial fibrillation was made. Management included continuation of supplemental oxygen
and diuretics for fluid management. The plan involved following up with the hospitalist team for further evaluation and management given the complex history of overlapping cardiac and oncological issues.
DISPOSITION
Admit.
ASSESSMENT
The patient is experiencing a suspected congestive heart failure exacerbation with atrial fibrillation.
PLAN
1. Continue diuretics for diuresis to manage fluid overload.
2. Administer supplemental oxygen at 2 liters via nasal cannula.
3. Admit to hospital for further evaluation and management by the hospitalist team.
INDEPENDENT REVIEW OF LABS AND INTERPRETATION OF TESTS
- My independent EKG interpretation indicates atrial fibrillation and left ventricular hypertrophy.
- Bilateral pulmonary edema noted from imaging studies.
MEDICATION RECONCILIATION
- Furosemide (Lasix) was ordered for management of fluid overload.
- Continue current home medications unless contraindicated during hospital stay.
MEDICAL DECISION MAKING
Number and Complexity of Problems Addressed: Chronic conditions affecting care include a history of cancer treatment. Differential diagnosis considerations are congestive heart failure, pulmonary edema, COPD exacerbation, pneumonia, pleural
effusion, deep vein thrombosis, anemia, medication side effects, renal insufficiency, and malnutrition/cachexia related to cancer therapy.
Data:
Category 1
- Independent EKG interpretation indicating atrial fibrillation and LVH.
- Reviewed imaging findings indicating bilateral pulmonary edema.
Category 2
- Clinical information obtained from the patient�s family member assisting with the history.
CRITICAL CARE TIME
I provided 30 minutes of critical care time. Due to a high probability of clinically significant, life-threatening deterioration, the patient required my highest level of preparedness to intervene emergently. I personally spent this critical care
time directly managing the patient. This critical care time included obtaining a history; examining the patient; reviewing pulse oximetry; ordering and reviewing studies; arranging urgent treatment and developing of a management plan; evaluation of
patients response to treatment; frequent reassessment; and discussions with other providers. This critical care time was performed to assess and manage the high probability of imminent, life-threatening deterioration that could result in multiorgan
failure. It was exclusive of separately billable procedures.
DIAGNOSIS
- Congestive Heart Failure Exacerbation, ICD-10 I50.9
- Atrial Fibrillation, ICD-10 I48.91
Past History
Past History
ED Past Medical History: Arrthythmia (Atrial fibrillation on Eliquis), Cancer (Prostate), CHF, HTN, Hypercholesterolemia, NIDDM and Valvular disease
ED Past Surgical History: Cardiac (Mitral valve repair) and Orthopedic
Social History
Tobacco: Non-smoker
Personal:
Living: with family
Family History
Family History: Other (No significant)
Phy Exam
Physical Exam
Physical Exam:
.
Scores
Heart Failure Risk
Heart Failure Risk Score: Yes
History of Stroke or TIA: No
History of intubation for respiratory distress: No
Heart rate on ED arrival >/= 110: No
SaO2 <90% on arrival on room air: Yes
HR >/=110 during 3min walk test (or too ill to perform test): Yes
ECG has acute ischemic changes: No
Urea >/=12mmol/L (BUN 33.6mg/dL): Yes
Serum CO2>/=35mmol/L: No
Troponin I or T elevated to [place] Level (0.4mg/dL): No
NT-proBNP >/=5,000ng/L (5,000pg/ml): Yes
HF Risk Score: 5
Admission Status: VERY HIGH RISK 39.8% Consider admission to hospital
Course
Orders/Labs/Results
Orders:
Orders
01/19/25 Dinner
2000 calorie (17 carb) Diabetic
At Your Request: Full Participation
Diabetic Diet: Sodium, 2 Gram
01/19/25 15:08
Electrocardiogram (*1) Stat
Reason for Study: Other
Other Reason for Exam: pneumonia
Cardiac Monitoring- Treatment ONCE
EKG- Treatment ONCE
IV Insert/Care/Rem.- Treatment PRN
CR Chest - 2 Views Urgent
Comment:
Reason For Exam: short of breath
01/19/25 15:46
Complete Blood Count/With Diff Urgent
Comprehensive Metabolic Panel Urgent
NT-proBNP Urgent
Troponin I Urgent
01/19/25 16:00
Heparin Pf [Heparin Lock Flush] 500 unit IV PER PROTOCOL
01/19/25 16:32
Furosemide [Lasix] 40 mg IV NOW STA
01/19/25 17:07
Admit/Transfer Patient As Directed
Co-Sign Provider:
Level of Care: Inpatient admission
Assign to:: Telemetry
Physician / Group: Htay
Diagnosis: CHF
Reason for Telemetry: Acute Heart Failure
Date to Stop Telemetry: 01/22/25
Time to Stop Telemetry: 11:00
Reason for Hospitalization: IV diuretics
Expected length of stay greater than two midnights?: Yes
ELOS- Estimated Length of Stay in days: 3
I certify the patient meets the requirements for IP care: Yes
01/19/25 17:08
PRN Pain Medication Management As Directed
May give lesser potent ordered pain med per pt: Yes
preference::
Protocol:: Medication orders for pain may be administered in a
manner that supports deferring to patient preference
when the pt is:
- Requesting an ordered lesser potent pain medication.
Least to most potent pain medications are defined
as: acetaminophen < NSAID < tramadol < opioids
(morphine, oxycodone, hydromorphone).
- Requesting a lesser dose of the same medication IF
ORDERED.
- Requesting a less intrusive route of administration
if both routes are prescribed by the provider (PO <
IV).
01/19/25 17:09
Code Status As Directed
Resuscitation Status: Full Code
01/19/25 18:33
Dextrose 50%-Water [Dextrose 50% Syringe] 12.5 grams IV [id number] PRN
Glucagon [GlucaGen] 1 mg IM PRN PRN
01/19/25 18:33
CARDIOLOGY CONSULT Routine
Consulting Provider: Antony Retana
Was physician already notified: Yes
HF DIETARY CONSULT Routine
HF EDUCATOR CONSULT Routine
Comment:
Activity As Directed
Activity Level: Out of Bed-Early Mobility
Bedside Glucose Monitoring As Directed
Frequency: AC&HS
Additional Instructions:: Change to q6h if pt on TPN, tube feeding or not eating
Intake/ Output As Directed
Frequency: Per unit guidelines
Patient Education As Directed
Type: CHF folder
Comment: give on admission. Document in Interdisciplinary Education record
Sleep Apnea Assessment by RN As Directed
Comment:
Physician Instructions:
Vital Signs As Directed
Frequency: Other
Additional Instructions:: Q12 or per unit guidelines if more frequent.
Weight As Directed
Frequency: Daily
Type of Scale: Standing Scale
Comment: Daily morning weight. If unable to stand, use balanced bed scale.
Weight As Directed
Frequency: Once
Type of Scale: Standing Scale
Comment: Upon Admission. If unable to stand, use balanced bed scale.
O2 Therapy [RESP] Routine
Titrate/Wean O2 to maintain O2 sat greater than (%): 92
Pulse Ox/cont/shift [RESP] Routine
Quantity: 1
Special Instructions: Daily pulse oximetry at rest. If greater than 92% at rest also obtain pulse oximetry
while ambulating as tolerated.
Ot Eval And Treat Routine
Pt Eval And Treat Routine
Activity Level: Out of Bed-Early Mobility
01/19/25 18:56
Pantoprazole [Protonix] 40 mg PO DAILYPRN PRN
01/19/25 20:00
Apixaban [Eliquis] 2.5 mg PO BID
Carvedilol [Coreg] 12.5 mg PO BID
01/19/25 21:00
Furosemide [Lasix] 40 mg IV ONCE ONE
01/20/25 06:00
Basic Metabolic Panel IN AM
Complete Blood Count/No Diff IN AM
Glycohemoglobin (HgbA1c) IN AM
Magnesium IN AM
01/20/25 07:30
Insulin Aspart Corrective Low [Novolog Flexpen-Low Resistance] See Protocol SC AC
01/20/25 08:00
Atorvastatin [Lipitor] 10 mg PO DAILY
Furosemide [Lasix] 40 mg IV BID AT 0800,1600
Levothyroxine [Synthroid] 200 mcg PO DAILY
Sitagliptin Phosphate [Januvia] 50 mg PO DAILY
01/21/25 06:00
Basic Metabolic Panel IN AM
01/22/25 06:00
Basic Metabolic Panel IN AM
01/22/25 11:00
DC Protocol for Telemetry ONCE
Abnormal Lab Results
01/19/25
15:46
RBC 2.85 L 10^6/uL
(4.70-6.10)
Hgb 8.8 L g/dL
(13.0-18.0)
Hct 27.9 L %
(39.0-52.0)
MCV 97.9 H fL
(80.0-94.0)
MCHC 31.5 L g/dL
(33.0-37.0)
RDW 21.8 H %
(11.5-14.5)
MPV 10.5 H fL
(7.4-10.4)
Abs Immat Gran (auto) 0.1 H 10^3/uL
(0-0.05)
Absolute Lymphs (auto) 0.2 L 10^3/uL
(1.2-3.4)
Absolute Monos (auto) 1.0 H 10^3/uL
(0.1-0.6)
Immature Gran % 2.0 H %
(0-0.5)
Lymphocytes % 3.9 L %
(20.5-51.1)
Monocytes % 16.9 H %
(1.7-9.3)
Carbon Dioxide 33 H mmol/L
(22-30)
BUN 40 H mg/dl
(9-20)
Glucose 181 H mg/dl
(70-99)
Total Protein 5.6 L g/dl
(6.3-8.2)
Albumin 3.4 L g/dl
(3.5-5.0)
01/19/25 15:46
01/19/25 15:46
Vital Signs
Initial and Last Documented VS:
Initial Vital Signs
Temp Pulse Resp BP Pulse Ox
97.6 F 104 20 121/82 83
01/19/25 14:35 01/19/25 14:35 01/19/25 14:35 01/19/25 14:35 01/19/25 14:35
Last Documented Vital Signs
Temp Pulse Resp BP Pulse Ox
97.3 F 99 18 125/82 95
01/19/25 19:34 01/19/25 20:21 01/19/25 19:34 01/19/25 20:21 01/19/25 19:34
*Pulse Oximetry
SaO2: 100
Nasal Cannula flow liters per minute: 6
Oxygen Mode of Delivery: Room air
Patient hypoxic: yes
*Critical Care Note
Total Time (30-74mins, 75-104mins- exclusive of procedures): Not Applicable
ED Attending Note
-
Portions of this chart may have been created with voice recognition software.� Occasional wrong word or��sound alike� substitutions may have occurred due to the inherent limitations of voice recognition software.
Discharge Plan
Departure
Patient Disposition: Admit
Date of Disposition: 01/19/25
Time of Disposition: 16:34
Admit to: Telemetry
Presentation/result/management discussed w/ accepting MD/DO: Hospitalist
Patient with high blood pressure during this ER visit?: Yes
Condition: Fair
Discharge Problem:
Acute exacerbation of CHF (congestive heart failure), Hypoxia, Atrial fibrillation
Interventions
Interventions:
*Risk Screen - Suicide Last Done: 01/19/25 14:35
*General Assessment Last Done: 01/19/25 14:35
*ED COVID-19 Vaccine History Last Done: 01/19/25 19:34
*Nursing Disposition Last Done: 01/19/25 17:51
ED- Cardiac Assessment Last Done: 01/19/25 15:15
ED- Pulmonary Assessment Last Done: 01/19/25 15:15
Discharge Date and Time
Discharge Date/Time: 01/19/25 17:52
[2025-01-19 16:11] LABS: Hematocrit 27.9 % (39.0-52.0); Hemoglobin 8.8 g/dL (13.0-18.0); Mean Corp Hgb Conc. 31.5 g/dL (33.0-37.0); Mean Corpuscular Volume 97.9 fL (80.0-94.0); Nucleated Red Blood Cells % 0 % (-); Platelet Count 180 10^3/uL (130-400); Red Cell Dist. Width 21.8 % (11.5-14.5)
[2025-01-19 16:17] LABS: ALT (SGPT) 12 U/L (0-50); AST (SGOT) 23 U/L (17-59); Albumin 3.4 g/dl (3.5-5.0); Alkaline Phosphatase 63 U/L (38-126); Blood Urea Nitrogen 40 mg/dl (9-20); Calcium 9.2 mg/dl (8.4-10.2); Carbon Dioxide 33 mmol/L (22-30); Chloride 104 mmol/L (98-107); Glucose 181 mg/dl (70-99); Potassium 4.1 mmol/L (3.5-5.1); Sodium 139 mmol/L (135-145); Total Protein 5.6 g/dl (6.3-8.2); eGFR 52.84
[2025-01-19 16:25] LABS: Anisocytosis 1+; Macrocytosis 2+; Normal RBC Morphology No; Troponin I 0.027 ng/ml
[2025-01-19 16:26] LABS: Basophilic Stippling Occasional; Microcytosis 1+; Ovalocytes 1+
[2025-01-19 16:29] LABS: Hypochromasia 1+
--- NOTE | 2025-01-19 16:41 | HPS.HSE ---
Family Physician
-
Family Physician: Vitaly Landin
Chief Complaint
-
Edema
History of Present Illness
Patient is a 89 y/o male past medical history of CHF, A-fib, HTN, DM, Bladder Cancer and recent hospitalization who presents with edema. Patient was admitted from Jan 09- with multifactorial shock associated with DEEDEE. During that
hospitalization he received IVFs as well as a blood transfusion. Initially his diuretics were held. At time of discharge his Entresto and spironolactone remained on hold, and his Lasix dose was decreased to 20mg MWF. Patient reports he has gained
about 15lbs from his prior weight. He reports dyspnea on exertion as well as orthopnea. He has also noted worsen lower extremity edema and some swelling of his hands. He reports slight cough. He denies fevers, sweats or chills. He denies any
chest pains.
Medical History
Past Medical History
Past Medical History: Reports Other
Additional Past Medical History:
Chronic HFrEF
Non-Ischemic Cardiomyopathy
Permanent Atrial Fibrillation
Essential Hypertension
Hyperlipidemia
Diabetes Mellitus, Type II
CKD Stage IIIB
Anemia of Chronic Disease
Hypothyroidism
Left Renal Cell Carcinoma
Prostate Cancer
Bladder Cancer
Past Surgical History: Reports Other
Additional Past Surgical History:
ICD
Mitral Valve Repair
Right Knee Replacement
Hernia Repair
Cholecystectomy
Social History
Tobacco: Non-smoker
Personal:
Living: Alone
Family History
Family History: Not pertinent
Allergies / Home Medications
Allergies reflects when Allergies were last updated in [facility].
Home Medications with original date entered in [facility]
Allergy/Medication List:
Allergies
Allergy/AdvReac Type Severity Reaction Status Date / Time
No Known Allergies Allergy Verified 01/09/25 14:57
Home Medications
atorvastatin 10 mg tablet (Lipitor) 10 mg PO DAILY High cholesterol 05/05/17
leuprolide 1 mg/0.2 mL subcutaneous kit 5 mg SQ [id number] Prostate Cancer 05/05/17
levothyroxine 200 mcg tablet 200 mcg PO DAILY Thyroid 05/05/17
omeprazole magnesium 20 mg tablet,delayed release (Prilosec OTC) 20 mg PO DAILYPRN PRN heartburn 05/05/17
glimepiride 2 mg tablet 2 mg PO DAILY Diabetes 06/14/19
sitagliptin phosphate 50 mg tablet (Januvia) 50 mg PO DAILY Diabetes 06/14/19
spironolactone 25 mg tablet 25 mg PO DAILY Heart Failure 01/26/22
Held on 01/14/25. Instructions: Hold until further instructions from Dr. Quarles (cardiology)
apixaban 2.5 mg tablet (Eliquis) 2.5 mg PO BID Blood Clot Prevention/Tx 01/09/25
coenzyme Q10 100 mg capsule (CoQ-10) 100 mg PO DAILY Supplement 01/09/25
ondansetron HCl 8 mg tablet 8 mg PO Q8HPRN PRN n/v 01/09/25
prochlorperazine maleate 10 mg tablet 10 mg PO Q6HPRN PRN n/v 01/09/25
sacubitril 97 mg-valsartan 103 mg tablet (Entresto) 1 tab PO BID Heart Disease/Condition 01/09/25
Held on 01/14/25. Instructions: hold until further instructions from Dr. Quarles (cardiology)
carvedilol 12.5 mg tablet 12.5 mg PO BID 30 days #60 tabs 01/14/25
furosemide 20 mg tablet 20 mg PO MoWeFr@0800 30 days #13 tabs 01/14/25
Review of Systems
-
A 12 point ROS was completed and negative except as noted: Yes
Constitutional: Denies Fever or Chills
Respiratory: Reports Cough and Trouble Breathing
Cardiac: Denies Chest Pain or Palpitations
Abdomen/GI: Denies Abdominal Pain, Nausea or Vomiting
Physical Exam
Vital Signs
Vital Signs
Temp Pulse Resp BP Pulse Ox
97.6 F 97 19 121/82 100
01/19/25 14:35 01/19/25 15:30 01/19/25 15:30 01/19/25 14:35 01/19/25 15:30
Physical Exam
General: Comfortable and Conversant
HEENT: Anicteric, Moist mucous membranes and Oxygen (Nasal Cannula)
Respiratory: Rales (Bilaterally), Non Labored Respirations and Decreased Breath Sounds (Right base)
Cardiac: S1/S2, Irregular Rhythm and Murmur; No Tachycardia
GI: Soft, Non Tender and Other (Protuberant)
Rectal: Deferred by Provider
Musculoskeletal: No Clubbing, No Cyanosis and Other (+3 pitting edema bilateral lower extremities)
Skin: Warm and Dry
Neuro: Awake, Alert, Oriented and Nonfocal/grossly intact
Psych: Calm
Laboratory Results
-
01/19/25 15:46
01/19/25 15:46
Laboratory Results
Total Bilirubin 0.5 mg/dl (0.2-1.3) 01/19/25 15:46
AST 23 U/L (17-59) 01/19/25 15:46
ALT 12 U/L (0-50) 01/19/25 15:46
Alkaline Phosphatase 63 U/L (38-126) 01/19/25 15:46
Troponin I 0.027 ng/ml 01/19/25 15:46
Data Reviewed
-
Diagnostic Radiology: Report Reviewed by me
Lab Data: Labs Reviewed by me
Old Records: Reviewed
Impression/Plan
-
Acute Hypoxic Respiratory Insufficiency secondary to Acute on Chronic HFrEF
-Consult Cardiology
-Continue supplemental oxygen
-Continue Lasix 40mg IV BID
-Monitor Is&Os and Daily Weights
CKD Stage IIIB
-Patient with recent DEEDEE
-Monitor renal function with increased diuretics
-Entresto and Spironolactone remain on hold - Consider resuming base on renal function
-Consult Nephrology
Permanent Atrial Fibrillation
-Continue Eliquis for anticoagulation
-Continue Coreg for rate control
Essential Hypertension
-Continue Coreg
Diabetes Mellitus, Type II
-HgbA1c 6.4 - Dec 2024
-Continue Januvia
-Hold Glipizide
-Monitor sugars and continue coverage insulin
Anemia of Chronic Disease
-Hgb stable from prior hospitalization
-Continue to trend
Hypothyroidism
-Continue levothyroxine
Bladder Cancer
-Patient has not received chemotherapy or radiation since before his prior admission on Spet 21
HX Left Renal Cell Carcinoma
HX Prostate Cancer on Leuprolide
DVT proph: Eliquis
Code Status: Full Code
--- NOTE | 2025-01-19 16:42 | W.PN.UPDATE ---
Update Note
Progress Note Update
This note serves as an addendum to the H&P by acting teacher Becky MUNOZ
HPI
89M HFrEF due to NICM with LVEF 25%), Perm AF on Eliquis,,L RCCaon chemotherapy and XRT at [place], prostate CA on leuprolide, XRT cystitis , hypothyroidism, T2DM,s/p mitral valve repair, s/p AICD seen at ER , sent in by CBC card AP:
- SoB and [place] edema + Wt gain 15 lbs
- undergoing chemotherapy and XRT before the last admission ( 01/09/25 - 01/14/25 )
- Just DC'd on 01/14 since SoB and edema worsened with significant fluid buildup, especially in the legs
- at ER POx 83% which improved to 100% with supplemental O2 6 L
- difficulty lying flat due to dyspnea
- Medication includes Furosemide (Lasix) with a dosing schedule of 40 mg on Mondays and Fridays, and 20 mg on other days.
PHX; see above
Relevant VS
Temp Pulse Resp BP Pulse Ox
97.6 F 97 19 121/82 100
01/19/25 14:35 01/19/25 15:30 01/19/25 15:30 01/19/25 14:35 01/19/25 15:30
01/19/25
14:39 01/19/25
15:16
SaO2 84 100
Nasal Cannula flow liters per minute 6 6
Selected Entries
06/18/24
01/10/25
01/14/25
Actual Weight 95.765 kg 102 kg 104.689 kg
PE
Obese
Gen: looks chronically ill
HEENT: anicteric
Neck: supple
Lungs:fine rales at the base
Cor: irrgegular
Abdomen:�obese
[employer]CHITECT: lethargic
MS: b/llEx edema
Relevant Data
01/14/25 01/19/25
05:53 15:46
WBC 7.6 5.9
Hgb 8.9 L 8.8 L
Plt Count 180
01/14/25 01/19/25
05:53 15:46
Carbon Dioxide 29 33 H
BUN 60 H 40 H
Creatinine 1.6 H 1.3
eGFR 41.19 52.84
AST 23
ALT 12
Troponin I 0.027
Dgc-B-Qanjpnuqmuw Pept > 87811
Albumin 3.4 L
TTE 04/2024: LVEF 20-25%
Last hospitalist admission: Date of Admission: 01/09/25 - Date of Discharge: 01/14/25
DC Dx: Circulatory shock due to hypovolemia and relative adrenal insufficiency, DEEDEE
ASSESSMENT & PLAN
Anasarca due to volume overload - Gained about 16 lbs over last 6 - 7 months
Decompensated chr HFrEF -Underlying severe LV disfunction with EF 20-25 of NIMI
Acute hypoxic RF - currently wean down to 3 L from 6 L
HX s/p ICD placement
Mild Pul HTN HX
S/P Mitral valve repair in 2015 for MR
- agree IV Lasix 40 BID
- On GDMT : Entresto and Spranolactone were on hold due to DEEDEE since last admission , cont Coreg/Lasix
- c/w Carvedilol with hold index for SBP < 105
- daily Wt, IOs and BMP
Perm AF
- c/w [employer] Eliquis and carvedilol
Anemia of chronic disease
- Observe Hgb
T2DM
- Hold Glimepiride
- c/w Januvia
- add ISS low
HX RC Ca
HX prostate cancer he follows urologist
Primary urologist Dr. Lemus in [facility]
Hypothyroidism
- c/w LT4 200 mcg daily
DVT Px: Eliquis
Full code per Son at bed side
IP TLM
[2025-01-19 16:43] VITALS: BP 121/107
[2025-01-19] MEDS: LASIX 40 MG IV ×2 (16:44→20:21)
[2025-01-19 17:10] VITALS: BP 100/87
[2025-01-19 18:58] LABS: Glucose - Point of Care 120 mg/dl (70-99)
[2025-01-19 19:34] VITALS: BP 125/82; BMI 31.1
[2025-01-19] MEDS: ELIQUIS 2.5 MG PO (20:20)
[2025-01-19] MEDS: COREG 12.5 MG PO (20:20)
[2025-01-19 21:05] LABS: Glucose - Point of Care 167 mg/dl (70-99)
[2025-01-19 23:43] VITALS: BP 129/69
[2025-01-20] VITALS (8 sets, daily range): BP systolic 108–136; BP diastolic 61–86; PULSE 78–86; O2SAT 94–99; BMI 30.1
[2025-01-20 05:49] LABS: Hematocrit 27.9 % (39.0-52.0); Hemoglobin 8.7 g/dL (13.0-18.0); Mean Corp Hgb Conc. 31.2 g/dL (33.0-37.0); Mean Corpuscular Volume 102.2 fL (80.0-94.0); Platelet Count 182 10^3/uL (130-400); Red Cell Dist. Width 22.2 % (11.5-14.5)
[2025-01-20 06:03] LABS: Blood Urea Nitrogen 41 mg/dl (9-20); Calcium 9.2 mg/dl (8.4-10.2); Carbon Dioxide 34 mmol/L (22-30); Chloride 103 mmol/L (98-107); Estimated Creatinine Clearance 45 ml/min; Glucose 137 mg/dl (70-99); Magnesium 1.5 mg/dl (1.6-2.3); Potassium 4.4 mmol/L (3.5-5.1); Sodium 140 mmol/L (135-145); eGFR 48.34
[2025-01-20 07:37] LABS: Glucose - Point of Care 108 mg/dl (70-99)
[2025-01-20] MEDS: NOVOLOG FLEXPEN-LOW RESISTANCE SC ×2 (07:56→12:01)
--- NOTE | 2025-01-20 08:32 | VNURNOTE ---
Chart reviewed. Patient is current with [facility]. Will continue to follow hospital course and DC plans.
[2025-01-20] MEDS: COREG PO ×3 (09:05→19:47)
[2025-01-20] MEDS: SYNTHROID PO (09:06)
[2025-01-20] MEDS: ELIQUIS PO (09:06)
[2025-01-20] MEDS: LIPITOR PO (09:06)
[2025-01-20] MEDS: JANUVIA PO (09:06)
[2025-01-20] MEDS: LASIX 40 MG IV ×2 (09:11→15:48)
[2025-01-20] MEDS: MAGNESIUM SULFATE 100 IV (09:12)
--- NOTE | 2025-01-20 10:16 | CON.CAR ---
Consultation
Consultation Request
Date/Time Consultation Requested: 01/21/2024 at 8:00AM
Date/Time Consultation Performed: 01/21/2024 10:20
Requesting Provider: Hospital
Performing Provider: Dr. Tolentino
Reason for Consultation: I told CHF
Medical History
-
History of Present Illness:
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
89-year-old history of nonischemic cardiomyopathy, HFrEF, mitral valve repair ([facility]), permanent atrial fibrillation, CAD,, history of left renal cell carcinoma, prostate CA , recent hospitalization with multifactorial shock suspected
to be related to reaction to chemotherapy, cellulitis and hypovolemia. At that time patient had DEEDEE and was taken off Entresto, spironolactone and Lasix. Patient was discharged from the hospital on 01/14. Patient was seen in our office yesterday
and has had significant weight gain increased lower extremity edema and hypoxemia. Patient had now admitted to the hospitalist service with acute on chronic left heart failure. Patient currently in no distress in bed on nasal cannula oxygen. He
denies having shortness of breath but appears a bit short of breath at the end of a sentence. No complaints of chest pain. No palpitations.
Echocardiogram 04/2024 ejection fraction 20 to 25%, reduced RV function, mitral valve repair and trace mitral regurgitation dilated aorta 4.8 cm
PMH
Cardiomyopathy with severely reduced left ventricular function. Ejection fraction 20 to 25%
Right ventricular dysfunction
Dilated aorta. Ascending aorta 4.8 cm by echo 05/07/2024
Permanent atrial fibrillation
Mitral valve repair
HFrEF
Subcutaneous ICD
CAD
Prostate CA
Renal cell CA
Hypertension
Diabetes
CKD
Hypothyroid
Anemia
Chest x-ray 01/19/2025 mild subtle ground glass opacity in mid to lower lung zones small bilateral effusions mild vascular prominence suspicious for CHF
Allergies / Home Medications
Allergy/AdvReac Type Severity Reaction Status Date / Time
No Known Allergies Allergy Verified 01/09/25 14:57
�Medication �Instructions �Recorded �Confirmed �Type
atorvastatin 10 mg tablet (Lipitor) 10 mg PO DAILY High cholesterol 05/05/17 01/19/25 History
leuprolide 1 mg/0.2 mL 5 mg SQ [id number] Prostate Cancer 05/05/17 01/19/25 History
subcutaneous kit
levothyroxine 200 mcg tablet 200 mcg PO DAILY Thyroid 05/05/17 01/19/25 History
omeprazole magnesium 20 mg 20 mg PO DAILYPRN PRN heartburn 05/05/17 01/19/25 History
tablet,delayed release (Prilosec
OTC)
glimepiride 2 mg tablet 2 mg PO DAILY Diabetes 06/14/19 01/19/25 History
sitagliptin phosphate 50 mg tablet 50 mg PO DAILY Diabetes 06/14/19 01/19/25 History
(Januvia)
spironolactone 25 mg tablet 25 mg PO DAILY Heart Failure 01/26/22 01/19/25 History
Held on 01/14/25.
Instructions: Hold until
further instructions from
Willam (cardiology)
apixaban 2.5 mg tablet (Eliquis) 2.5 mg PO BID Blood Clot 01/09/25 01/19/25 History
Prevention/Tx
coenzyme Q10 100 mg capsule 100 mg PO DAILY Supplement 01/09/25 01/19/25 History
(CoQ-10)
ondansetron HCl 8 mg tablet 8 mg PO Q8HPRN PRN n/v 01/09/25 01/19/25 History
prochlorperazine maleate 10 mg 10 mg PO Q6HPRN PRN n/v 01/09/25 01/19/25 History
tablet
sacubitril 97 mg-valsartan 103 mg 1 tab PO BID Heart 01/09/25 01/19/25 History
tablet (Entresto) Disease/Condition
Held on 01/14/25.
Instructions: hold until
further instructions from
Willam (cardiology)
carvedilol 12.5 mg tablet 12.5 mg PO BID 30 days #60 tabs 01/14/25 01/19/25 Rx
furosemide 20 mg tablet 20 mg PO MoWeFr@0800 30 days #13 01/14/25 01/19/25 Rx
tabs
Review of Systems
-
All other systems: Negative unless noted
Physical Exam
Vital Signs
Temp Pulse Resp BP Pulse Ox
98.6 F 82 18 130/82 91
01/20/25 07:50 01/20/25 07:50 01/20/25 07:50 01/20/25 07:50 01/20/25 07:50
Lab Results
01/20/25 05:08
01/20/25 05:08
Troponin I 0.027 ng/ml 01/19/25 15:46
Dbz-N-Piqzzjklepa Pept > 68977 pg/ml 01/19/25 15:46
Physical Exam
General: Other (Appears tired but awake alert cooperative following commands. Appears to be short of breath at the end of a sentence)
HEENT: Normocephalic, Anicteric and Other (External ear and oral exam unremarkable)
Respiratory: Other (Fine crackles at bases no wheezes or rhonchi)
Cardiac: Irregular Rhythm
GI: Soft, Non Tender, Non Distended and Normal Bowel Sounds
Musculoskeletal: No Clubbing, No Cyanosis and Edema (Bilateral lower extremity edema extending up through the thighs. Patient also has some mild upper extremity edema)
Neuro: Awake and Alert
Psych: Calm
Impression / Plan
-
Acute on chronic left heart failure
- Patient likely has biventricular failure. Previous echo 05/07/2024 with EF 20 to 25% and dilated RV with reduced right ventricular function.
- Decompensation likely due to combination of underlying cardiomyopathy, DEEDEE and discontinuation of medication and diuretics.
- Diuresis with IV Lasix with close monitoring of renal function.
- Will continue to assess the ability to reinitiate GDMT based on renal function and BP
.
Cardiomyopathy. Nonischemic by history. Last EF 20 to 25%
- Additional management as outlined above
.
Subcutaneous ICD.
- Note this is a subcutaneous ICD which does not provide pacing support.
.
Atrial fibrillation -permanent
- Continue rate control and anticoagulation
.
History of MV repair. Trace MR by last echo
.
CKD. Patient with recent hospitalization with DEEDEE which has since improved. Creatinine currently 1.4 it appears baseline is 1.2-1.3. Monitor closely with diuresis and consider reinitiation of Entresto
--- NOTE | 2025-01-20 10:18 | W.PN.HOSP.TC ---
Addendum entered and electronically signed by Andrea Crouch MD 01/20/25 21:16:
Attending Addendum-
I saw and evaluated the patient. I reviewed the resident�s note and agree with findings and plan as documented in the resident�s note. Sub: feels fatigued and SOB. Denies cough CP palps fevers chills. Full 12 point ROS reviewed and negative except
as documented Exam: Vitals reviewed in chart GEN-NAD heart irreg irreg lungs crackles at bases B/L abd soft NT ND pos BS LE 2+ pitting edema Neuro AAO x 3
Plan:
#Acute Hypoxic Respiratory Insufficiency
- secondary to AE HFrEF
- wean o2 for sats > 92%
#Acute on Chronic HFrEF
- cont IV lasix BID
- has ICD
- daily weights strict I and Os
- lexiscan 05/2024- EF 25%
- repeat echo 01/20
- appreciate cards input
- cont GDMT- Coreg, Entresto, spironolactone
# Hypomagnesemia- replete
#CKD Stage IIIB
-baseline cr @ 1.5
-Monitor renal function with increased diuretics
-restart Entresto and Spironolactone
-nephrology input appreciated
#Permanent Atrial Fibrillation
-Continue Eliquis for anticoagulation
-Continue Coreg for rate control
#Diabetes Mellitus, Type II
-HgbA1c 6.4 - Dec 2024
-Continue Januvia
-Hold Glipizide
-Monitor sugars and continue coverage insulin
#Anemia of Chronic Disease
-Hgb stable from prior hospitalization
-Continue to trend
#Hypothyroidism
-Continue levothyroxine
# HLD- cont atorvastatin
#Bladder Cancer
-Patient has not received chemotherapy or radiation since before his prior admission on Jan 09
HX Left Renal Cell Carcinoma
HX Prostate Cancer on Leuprolide
DVT proph: Eliquis
Time spent coordinating care, review of plan of care with resident, personally reviewed records in EMR, med rec, consults, notes, labs, radiology, d/w nursing � 53 mins
Original Note:
Today's Communication/Plan
-
IV Lasix 40mg BID
F/u echo
CTW O2 AT
Assessment / Plan
Assessment / Plan
Mr. De La Paz is an 89-year-old male with HFrEF due to nonischemic cardiomyopathy (LVEF 25%), CKD 3B, permanent AF on Eliquis,, left renal cell carcinoma on chemotherapy and radiation at [facility] (last in 12/2024), prostate cancer on leuprolide,
hypothyroidism, NIDDM, radiation cystitis, s/p mitral valve repair, s/p AICD presented to the hospital with BL LE edema and orthopnea. Patient was admitted from Jan 09- with multifactorial shock associated with DEEDEE. Cardiology and Nephrology
following.
#Acute Hypoxic Respiratory Insufficiency secondary to Acute on Chronic HFrEF
s/p ICD placement and MV repair in 2015. Last echo 04/2024 - 20-25% EF. CXR 01/19 showing volume overload vs acute HF. proBNP 50033. Trop x1 0.027. EKG unchanged from prior. Currently on 3L NC from 6L NC in ED. Not on home O2. Unsure per cards re: dry
weight, plan to dig in records and confirm goal weight.
- Cardiology consulted, follows with Dr. Quarles OP
-- IV Lasix 40mg BID��
-- On GDMT : Entresto and Spranolactone were on hold due to DEEDEE since last admission
--- If patient renal function remain stable with diuresis, then we would look to try to optimize GDMT by re-initiating Entresto.
-- Continue Carvedilol 12.5mg with hold index for SBP < 105
-- daily Wt, IOs and BMP
-Continue supplemental oxygen
- Follow-up echo
#DEEDEE on CKD Stage IIIB
Patient with recent DEEDEE last hospitalization. Baseline Cr unknown, likely new baseline 1.2. Cr today 1.4.
- Nephro consulted for further recs
- Monitor renal function with increased diuretics
- Entresto and Spironolactone remain on hold
-- Consider resuming base on renal function
#Permanent AF
- Continue Eliquis for anticoagulation
- Continue Coreg for rate control
#Essential Hypertension
- Continue Coreg
#Anemia of chronic disease
- CTM
#Diabetes Mellitus, Type II
- HgbA1c 6.4 - Dec 2024
- Continue Januvia
- Hold Glipizide
- POC and ISS low
#Hypothyroidism
- Home Levothyrxine 200 mcg daily
#History of Left Renal Cell Carcinoma
#History of Prostate Cancer on Leuprolide
Primary�urologist Dr. Lemus in [facility]
Patient has not received chemotherapy or radiation since before his prior admission on Spet 21
DVT proph: Eliquis
Code Status: Full Code
Anticipated Discharge: 24 - 48 hours
Subjective/Interval History
-
Date of Service: January 20, 2025
- This morning, on 3L NC, feels SOB and exhausted. States he needs to get the water off of him.
Objective Data
-
Labs:
Laboratory Results
01/20/25
05:08
WBC 6.8
Hgb 8.7 L
Hct 27.9 L
Plt Count 182
Sodium 140
Potassium 4.4
Chloride 103
Carbon Dioxide 34 H
BUN 41 H
Creatinine 1.4 H
Glucose 137 H
Calcium 9.2
Vital Signs:
Vital Signs
Temp Pulse Resp BP Pulse Ox
98.6 F 82 18 130/82 91
01/20/25 07:50 01/20/25 07:50 01/20/25 07:50 01/20/25 07:50 10/02/25 07:50
I&O
01/19/25 01/20/25 01/21/25
06:59 06:59 06:59
Intake Total 0 / 0
Output Total 425 / 425
Balance -425 / -425
Review of Systems
-
History Source: Patient
All other systems: Reviewed and negative
Constitutional: Reports Fatigue, Sleep Disturbance and Weakness
Respiratory: Reports Trouble Breathing
Abdomen/GI: Reports Bloated
Physical Exam
-
General: Well Nourished, Respiratory Distress, Appears Chronically Ill, Obese and Other (on 3L NC, eyes closed but answering appropriately)
HEENT: Normocephalic, Atraumatic and Moist Mucous Membranes
Respiratory: Crackles and Non Labored Respirations (on 3L NC)
Cardiac: S1/S2 and Irregular Rhythm (known AFib)
GI: Soft, Nontender and Distended
Musculoskeletal: Edema, Right Lower Extrem (1+) and Edema, Left Lower Extrem (1+)
Skin: Warm and Dry
Neuro: AO x 3
Psych: Intact Judgement/Insight
[2025-01-20] MEDS: JANUVIA 50 MG PO (11:32)
[2025-01-20] MEDS: LIPITOR 10 MG PO (11:33)
[2025-01-20] MEDS: ELIQUIS 2.5 MG PO ×2 (11:33→19:55)
[2025-01-20] MEDS: SYNTHROID 200 MCG PO (11:34)
[2025-01-20 11:59] LABS: Glucose - Point of Care 116 mg/dl (70-99)
--- NOTE | 2025-01-20 13:10 | PTOTSP ---
Speech Therapy Swallowing Assessment
Patient tolerated oral trials this am without overt signs of aspiration. However, patient with risk factors for dysphagia including acute on chronic CHF.
Recommend
1. Regular solids and thin liquids -
2. Meds whole in applesauce
3. Aspiration precautions. Feed only when alert. Fully upright with any oral intake.
4. Oral care at least 3x/daily.
ST will follow up to assess for diet tolerance and determine need for instrumental testing.
--- NOTE | 2025-01-20 13:55 | W.CON.NEPH ---
Consultation
-
Date/Time Consultation Requested: January 20, 2025 7:30 AM
Date/Time Consultation Performed: January 20, 2025 2:00
Requesting Provider:
Performing Provider: Dr. Lizarraga
Reason for Consultation: Chronic kidney disease
Medical History
-
Chief Complaint: Chronic kidney disease stage IIIb
History of Present Illness:
Mr. De La Paz is an 89-year-old male with HFrEF due to nonischemic cardiomyopathy (LVEF 25%), maintained on lasix 20mg three times a week,CKD 3B 2.3 01/09/23, permanent AF on Eliquis,, left renal cell carcinoma on chemotherapy and radiation at [facility] (last in 12/2024), prostate cancer on leuprolide, hypothyroidism, NIDDM, radiation cystitis, s/p mitral valve repair, s/p AICD presented to the hospital with BL LE edema and orthopnea. Patient was admitted from Jan 09- with multifactorial
shock associated with DEEDEE. Patient was sent to the emergency room yesterday with significant weight gain and increased lower extremity edema and hypoxia. Nephrology was consulted for his creatinine of 1.4 which is his baseline in the setting of
congestive heart failure.
Past Medical History
Cardiomyopathy with severely reduced left ventricular function. Ejection fraction 20 to 25%
Right ventricular dysfunction
Dilated aorta. Ascending aorta 4.8 cm by echo 05/07/2024
Permanent atrial fibrillation
Mitral valve repair
HFrEF
Subcutaneous ICD
CAD
Prostate CA
Renal cell CA
Hypertension
Diabetes
CKD
Hypothyroid
Anemia
ICD
Mitral Valve Repair
Right Knee Replacement
Hernia Repair
Cholecystectomy
Social History
Tobacco: Non-Smoker
Personal:
Living: Alone
Family History
Family History: Not Pertinent
Allergies / Home Medications
Allergy/AdvReac Type Severity Reaction Status Date / Time
No Known Allergies Allergy Verified 01/09/25 14:57
�Medication �Instructions �Recorded �Confirmed �Type
atorvastatin 10 mg tablet (Lipitor) 10 mg PO DAILY High cholesterol 05/05/17 01/19/25 History
leuprolide 1 mg/0.2 mL 5 mg SQ [id number] Prostate Cancer 05/05/17 01/19/25 History
subcutaneous kit
levothyroxine 200 mcg tablet 200 mcg PO DAILY Thyroid 05/05/17 01/19/25 History
omeprazole magnesium 20 mg 20 mg PO DAILYPRN PRN heartburn 05/05/17 01/19/25 History
tablet,delayed release (Prilosec
OTC)
glimepiride 2 mg tablet 2 mg PO DAILY Diabetes 06/14/19 01/19/25 History
sitagliptin phosphate 50 mg tablet 50 mg PO DAILY Diabetes 06/14/19 01/19/25 History
(Januvia)
spironolactone 25 mg tablet 25 mg PO DAILY Heart Failure 01/26/22 01/19/25 History
Held on 01/14/25.
Instructions: Hold until
further instructions from
Willam (cardiology)
apixaban 2.5 mg tablet (Eliquis) 2.5 mg PO BID Blood Clot 01/09/25 01/19/25 History
Prevention/Tx
coenzyme Q10 100 mg capsule 100 mg PO DAILY Supplement 01/09/25 01/19/25 History
(CoQ-10)
ondansetron HCl 8 mg tablet 8 mg PO Q8HPRN PRN n/v 01/09/25 01/19/25 History
prochlorperazine maleate 10 mg 10 mg PO Q6HPRN PRN n/v 01/09/25 01/19/25 History
tablet
sacubitril 97 mg-valsartan 103 mg 1 tab PO BID Heart 01/09/25 01/19/25 History
tablet (Entresto) Disease/Condition
Held on 01/14/25.
Instructions: hold until
further instructions from
Willam (cardiology)
carvedilol 12.5 mg tablet 12.5 mg PO BID 30 days #60 tabs 01/14/25 01/19/25 Rx
furosemide 20 mg tablet 20 mg PO MoWeFr@0800 30 days #13 01/14/25 01/19/25 Rx
tabs
Review of Systems
-
History Source: Patient
All other systems: Negative unless noted
Constitutional: Weight Gain
Respiratory: Cough and Trouble Breathing
Musculoskeletal: Edema
Physical Exam
Vital Signs
Vital Signs
Temp Pulse Resp BP Pulse Ox
98.6 F 90 20 117/64 96
01/20/25 11:15 01/20/25 11:15 01/20/25 11:15 01/20/25 12:22 01/20/25 11:15
Lab Results
01/20/25 05:08
01/20/25 05:08
WBC 6.8 10^3/uL (4.8-10.8) 01/20/25 05:08
RBC 2.73 10^6/uL (4.70-6.10) L 01/20/25 05:08
Hgb 8.7 g/dL (13.0-18.0) L 01/20/25 05:08
Hct 27.9 % (39.0-52.0) L 01/20/25 05:08
Plt Count 182 10^3/uL (130-400) 01/20/25 05:08
Sodium 140 mmol/L (135-145) 01/20/25 05:08
Potassium 4.4 mmol/L (3.5-5.1) 01/20/25 05:08
Chloride 103 mmol/L (98-107) 01/20/25 05:08
Carbon Dioxide 34 mmol/L (22-30) H 01/20/25 05:08
BUN 41 mg/dl (9-20) H 01/20/25 05:08
Creatinine 1.4 mg/dL (0.7-1.3) H 01/20/25 05:08
eGFR 48.34 01/20/25 05:08
Glucose 137 mg/dl (70-99) H 01/20/25 05:08
Calcium 9.2 mg/dl (8.4-10.2) 01/20/25 05:08
Phc-P-Cwoyngulftj Pept > 37651 pg/ml 01/19/25 15:46
Albumin 3.4 g/dl (3.5-5.0) L 01/19/25 15:46
Physical Exam
General: Awake alert and orient x 3, mild respiratory distress, obese
HEENT: Normocephalic, Anicteric and Other (External ear and oral exam unremarkable)
Neck: No thyromegaly no carotid bruit
Respiratory: Other (Fine crackles at bases no wheezes or rhonchi) with normal lung excursion
Cardiac: Irregular irregular rhythm
GI: Soft, Non Tender, Non Distended and Normal Bowel Sounds
Musculoskeletal: No Clubbing, No Cyanosis a (Bilateral lower +2 extremity edema extending up through the thighs. Patient also has some mild upper extremity edema)
Neuro: Cranial nerves II through XII appear to be grossly intact no asterixis
Psych: Calm. Answers questions
Vascular: +1 pedal +1 radial pulse
Data Reviewed
-
Radiology: Image Personally Visualized and interpreted (Chest x-ray personally reviewed: Bilateral effusions congestive heart failure)
Labs: Labs Reviewed by me ([facility] CBC urinalysis)
Old Records: Reviewed (Reviewed old records in EMR from 01/09/2025 creatinine 2.3)
Assessment/Plan
-
Impression:
Congestive heart failure decompensation
Cardiomyopathy EF of 20 to 25%
CKD stage III A (1.4)
Diabetes with associated proteinuria
Atrial fibrillation
History of mitral valve repair
Plan:
- Diurese with IV Lasix for decompensated congestive heart failure
-Creatinine at baseline
-Hemodynamically stable
-Accurate I's and O's check postvoid bladder scan if urine output faltered
[2025-01-20 16:52] LABS: Glucose - Point of Care 160 mg/dl (70-99)
[2025-01-20] MEDS: NOVOLOG FLEXPEN-LOW RESISTANCE 1 UNITS SC (17:26)
[2025-01-20] MEDS: ENTRESTO 97 MG/103 MG 1 TAB PO (19:55)
[2025-01-20 21:12] LABS: Glucose - Point of Care 197 mg/dl (70-99)
[2025-01-21] VITALS (8 sets, daily range): BP systolic 89–121; BP diastolic 52–69; PULSE 74–100; O2SAT 97
[2025-01-21 05:36] LABS: Blood Urea Nitrogen 42 mg/dl (9-20); Calcium 9.0 mg/dl (8.4-10.2); Carbon Dioxide 37 mmol/L (22-30); Chloride 102 mmol/L (98-107); Estimated Creatinine Clearance 43 ml/min; Glucose 126 mg/dl (70-99); Potassium 4.7 mmol/L (3.5-5.1); Sodium 140 mmol/L (135-145); eGFR 52.84
[2025-01-21 07:34] LABS: Glucose - Point of Care 129 mg/dl (70-99)
--- NOTE | 2025-01-21 08:13 | W.PN.CD ---
Today's Communication / Plan
-
hold am lasix and meds
monitor bp and check orthostatic vs this afternoon
hopefully will tolerate pm lasix
tubigrips
Impression / Plan
-
Acute on chronic left heart failure
- Patient likely has biventricular failure. Previous echo 05/07/2024 with EF 20 to 25% and dilated RV with reduced right ventricular function.
- Decompensation likely due to combination of underlying cardiomyopathy, DEEDEE and discontinuation of medication and diuretics.
- This am, bp is low when sitting up in chair. Will hold am meds and lasix
-check formal orthostatic as he is still volume overloaded and would likely benefit from pm lasix if able
-tubigrips
-new oxygen requirement, may need it on discharge.
- Will continue to assess the ability to reinitiate GDMT based on renal function and BP
.
Cardiomyopathy. Nonischemic by history. Last EF 20 to 25%--> 35-40%, PASP 59
- Additional management as outlined above
.
Subcutaneous ICD.
- Note this is a subcutaneous ICD which does not provide pacing support.
.
Atrial fibrillation -permanent
- Continue rate control and anticoagulation
.
History of MV repair. Trace MR by last echo
.
CKD. Patient with recent hospitalization with DEEDEE which has since improved. Creatinine currently 1.4 it appears baseline is 1.2-1.3. Monitor closely with diuresis and consider reinitiation of Entresto
Subjective:
He is feeling ok, no sob, no cp. No dizziness, he is feeling better.
TTE 01/20/2025:
1. Ejection fraction is 35-40% by Sutton's method of discs. Left ventricular wall motion is diffusely hypokinetic.
2. Right ventricular systolic function is at the lower limits of normal. The right ventricular cavity size is moderately dilated.
3. Severely dilated right atrium.
4. Right atrial size is severely dilated.
5. Aortic valve sclerosis of multiple aortic cusps; but no aortic stenosis.
6. Status post mitral valve repair. Mean gradient 4 mmHg. Trace mitral regurgitation.
7. Moderate tricuspid regurgitation. Estimated pulmonary artery pressure of 59 mmHg assuming a right atrial pressure of 15 mmHg.
8. Compared to a prior transthoracic echocardiogram study from 05/07/2024, there is a slight improvement in LVEF (previously 20-25%). Slightly progressive tricuspid regurgitation is noted with a significant increase in PASP (previously 20-25 mmHg).
Physical Exam
Vital Signs/Labs
Vital Signs
Temp Pulse Resp BP Pulse Ox
100.2 F 100 18 121/64 92
01/21/25 03:02 01/21/25 03:02 01/21/25 03:02 01/21/25 03:02 01/21/25 03:02
01/20/25 01/21/25 01/22/25
06:59 06:59 06:59
Actual Weight 222 lb 221 lb
01/20/25 05:08
01/21/25 04:27
Magnesium 1.5 mg/dl (1.6-2.3) L 01/20/25 05:08
01/19/25
15:46
Qxe-P-Icxdhhnrlvx Pept > 77569
LAB Results
01/19/25
15:46
Troponin I 0.027
Physical Exam
Constitutional: No acute distress
Cardiovascular: Rhythm/rate is irregular, Pedal edema present (1+ bl), JVD present, Systolic murmur present, Diastolic murmur present and S1S2 is normal
Respiratory: Respiratory effort normal, Lungs clear to auscul., Wheeze Absent, Crackles Absent, Rhonchi Absent and Other (decreased on both sides)
Neuro/Psych: AO x 3
Data Reviewed
-
Date of Service: January 21, 2025
Medical Decision Making: Review of Case with other Provider (Dr Crouch holding nurse Annetta horan, checking orhtostatics prior to next dose. )
[2025-01-21] MEDS: NOVOLOG FLEXPEN-LOW RESISTANCE SC ×2 (08:19→16:57)
[2025-01-21] MEDS: SYNTHROID 200 MCG PO (08:24)
[2025-01-21] MEDS: ELIQUIS 2.5 MG PO (08:25)
[2025-01-21] MEDS: DESENEX/MITRAZOL/ZEASORB 1 APPLIC TOPICAL ×2 (08:25→20:43)
[2025-01-21] MEDS: LIPITOR 10 MG PO (08:25)
[2025-01-21] MEDS: JANUVIA 50 MG PO (08:25)
[2025-01-21 08:26] LABS: Magnesium 1.9 mg/dl (1.6-2.3)
[2025-01-21] MEDS: LASIX IV (08:55)
[2025-01-21] MEDS: ENTRESTO 97 MG/103 MG PO (08:55)
[2025-01-21] MEDS: COREG PO (08:55)
--- NOTE | 2025-01-21 09:08 | W.PN.HOSP.TC ---
Addendum entered and electronically signed by Andrea Crouch MD 01/21/25 20:15:
Attending Addendum-
I saw and evaluated the patient. I reviewed the resident�s note and agree with findings and plan as documented in the resident�s note. Sub: Complains of [place]. Denies cough CP palps fevers chills. Full 12 point ROS reviewed and negative except as
documented Exam: Vitals reviewed in chart GEN-NAD heart irreg irreg lungs crackles at bases B/L abd soft NT ND pos BS LE 2+ pitting edema Neuro AAO x 3
Plan:
#Acute Hypoxic Respiratory Insufficiency
- secondary to AE HFrEF
- wean o2 for sats > 92%
#Acute on Chronic HFrEF
- cont IV lasix BID (help due to low BP in am)
- add diamox
- has ICD
- daily weights strict I and Os
- lexiscan 05/2024- EF 25%
- echo 01/20-Ejection fraction is 35-40% Left ventricular wall motion is diffusely hypokinetic.
-Status post mitral valve repair
-significant increase in PASP
- appreciate cards input
- cont GDMT- Coreg, Entresto, spironolactone
- appreciate cards and nephro input
#CKD Stage IIIB
-baseline cr @ 1.5
-Monitor renal function with increased diuretics
-nephrology input appreciated
#Permanent Atrial Fibrillation
-increase Eliquis and continue Coreg
#Diabetes Mellitus, Type II
-HgbA1c 6.4 - Dec 2024
-Continue Januvia
-Hold Glipizide
-Monitor sugars and continue coverage insulin
#Anemia of Chronic Disease
-Hgb stable from prior hospitalization
-Continue to trend
#Hypothyroidism-Continue levothyroxine
#HLD- cont atorvastatin
#Bladder Cancer-Patient has not received chemotherapy or radiation since before his prior admission on Jan 09
HX Left Renal Cell Carcinoma
HX Prostate Cancer on Leuprolide
HX MV repair
DVT proph: Eliquis
CODE-Full
Dispo-eventual DC to SNF (from home)
Time spent coordinating care, review of plan of care with resident, personally reviewed records in EMR, med rec, consults, notes, labs, radiology, d/w nursing and cards � 53 mins
Original Note:
Today's Communication/Plan
-
am meds and lasix held iso hypotension
PT recommending SNF; CM aware
Continue diuresing this pm
Follow-up orthostatics
Restarted Entresto and Spironolactone
Assessment / Plan
Assessment / Plan
Mr. De La Paz is an 89-year-old male with HFrEF due to nonischemic cardiomyopathy (LVEF 25%), CKD 3B, permanent AF on Eliquis,, left renal cell carcinoma on chemotherapy and radiation at [place] (last in 12/2024), prostate cancer on leuprolide,
hypothyroidism, NIDDM, radiation cystitis, s/p mitral valve repair, s/p AICD presented to the hospital with BL LE edema and orthopnea. Patient was admitted from Jan 09- with multifactorial shock associated with DEEDEE. Cardiology and Nephrology
following.
#Acute Hypoxic Respiratory Insufficiency secondary to Acute on Chronic HFrEF
s/p ICD placement and MV repair in 2015. Last echo 04/2024 - 20-25% EF. CXR 01/19 showing volume overload vs acute HF. proBNP 53195. Trop x1 0.027. EKG unchanged from prior. Currently on 3L NC from 6L NC in ED. Not on home O2. Unsure per cards re: dry
weight, plan to dig in records and confirm goal weight.
- Cardiology consulted, follows with Dr. Quarles OP
-- IV Lasix 40mg BID��
---am dose held iso hypotension
-- Tubigrips
-- On GDMT:
--- Restarted Entresto and Spranolactone today given good kidney function
-- Continue Carvedilol 12.5mg with hold index for SBP < 105
-- daily Wt, IOs and BMP
- Continue supplemental oxygen
- Follow-up orthostatics
- Echo 01/20 as above
#DEEDEE on CKD Stage IIIB
Patient with recent DEEDEE last hospitalization. Baseline Cr unknown, likely new baseline 1.2. Cr today 1.4.
- Nephro consulted for further recs
- Monitor renal function with increased diuretics
- Entresto and Spironolactone remain on hold
-- Consider resuming base on renal function
#Permanent AF
- Increase Eliquis from 2.5mg to 5mg po BID
- Continue Coreg for rate control
#Essential Hypertension
- Continue Coreg
#Anemia of chronic disease
- CTM
#Diabetes Mellitus, Type II
- HgbA1c 6.4 - Dec 2024
- Continue Januvia
- Hold Glipizide
- POC and ISS low
#Hypothyroidism
- Home Levothyrxine 200 mcg daily
#History of Left Renal Cell Carcinoma
#History of Prostate Cancer on Leuprolide
Primary�urologist Dr. Lemus in [facility]
Patient has not received chemotherapy or radiation since before his prior admission on Spet 21
DVT proph: Eliquis
Code Status: Full Code
Dispo: PT recs skilled rehab SNF
Anticipated Discharge: 24 - 48 hours
Subjective/Interval History
-
Date of Service: January 21, 2025
- This morning, hypotensive and as such, am lasix and meds were held per cards
- He was sitting in chair eating breakfast and conversant this morning. He reports feeling a lot better since admission and having a reduction in extremity edema. He reports his dry weight is 210lbs.
- PT recommending SNF and patient is amenable to it.
Objective Data
-
Labs:
Laboratory Results
01/21/25 01/21/25
04:27 08:47
WBC Pending
Hgb Pending
Hct Pending
Plt Count Pending
Sodium 140
Potassium 4.7
Chloride 102
Carbon Dioxide 37 H
BUN 42 H
Creatinine 1.3
Glucose 126 H
Calcium 9.0
Vital Signs:
Vital Signs
Temp Pulse Resp BP Pulse Ox
100.2 F 100 18 121/64 92
01/21/25 03:02 01/21/25 03:02 01/21/25 03:02 01/21/25 03:02 01/21/25 03:02
I&O
01/20/25 01/21/25 01/22/25
06:59 06:59 06:59
Intake Total 0 / 0 780 / 780
Output Total 425 / 425 800 / 800
Balance -425 / -425 -20 / -20
Physical Exam
-
General: Well Developed, Well Nourished, Conversant and Other (sitting in chair eating breakfast with NC)
HEENT: Normocephalic, Atraumatic and Moist Mucous Membranes
Respiratory: Crackles and Non Labored Respirations
Cardiac: S1/S2 and Irregular Rhythm (known AFib)
GI: Soft and Nontender
Musculoskeletal: Edema, Left Upper Extrem and Edema, Right Lower Extrem
Skin: Warm and Dry
Neuro: AO x 3
Psych: Calm and Intact Judgement/Insight
[2025-01-21 10:23] LABS: Hematocrit 28.8 % (39.0-52.0); Hemoglobin 8.9 g/dL (13.0-18.0); Mean Corp Hgb Conc. 30.9 g/dL (33.0-37.0); Mean Corpuscular Volume 100.3 fL (80.0-94.0); Platelet Count 206 10^3/uL (130-400); Red Cell Dist. Width 22.0 % (11.5-14.5)
[2025-01-21 11:48] LABS: Glucose - Point of Care 163 mg/dl (70-99)
[2025-01-21] MEDS: NOVOLOG FLEXPEN-LOW RESISTANCE 1 UNITS SC (11:56)
--- NOTE | 2025-01-21 12:15 | CM ---
Addendum entered by Bernadine Caputo 01/21/25 16:42:
[facility] from [facility] just called; they are unable to accept SNF referral
[facility] referral has not been reviewed yet; Case Management will follow up on Friday
Original Note:
Met with patient at bedside; spoke with patient's son, Óscar via phone
IMM benefit explained; form signed @ 1210
Pharmacy verified: [facility]
Lives alone; multilevel home; recently ; half bath 1st floor; 2nd floor bath w/ shower
PLOF: ambulated with cane or rolling walker; driving; independent w/ personal care; Home Health Aid assists w/ ADLs and in the home 6 hours/day - 3 times/week
NO SNF or recent Home Health utilization history
PT recommends SNF when stable for discharged; patient and son agreeable; list of SNF options reviewed; preferences: #1 [facility]; #2 [facility]
Plan: Discharge to SNF when medically stable via ambulance; pending bed availability and Authorization approval
[2025-01-21] MEDS: LASIX 40 MG IV (16:40)
--- NOTE | 2025-01-21 16:40 | W.PN.NEPH.PH ---
Today's Communication / Plan
-
diamox course and cont lasix
Assessment/Plan
-
Impression:
Congestive heart failure decompensation
Cardiomyopathy EF of 20 to 25%
CKD stage III A (1.4)
Diabetes with associated proteinuria
Atrial fibrillation
History of mitral valve repair
Plan:
- Diurese with IV Lasix for decompensated congestive heart failure
-Creatinine at baseline 1.3
evolving met alkalosis-will give course of diamox
-Hemodynamically stable
echo noted EF 35-40%mod TR wiht PHTN
-Accurate I's and O's check postvoid bladder scan if urine output faltered
-
-
Date of Service: January 21, 2025
CC / HPI / ROS
-
Chief Complaint:
CKD
History of Present Illness:
cr stable 1.3
bicarb up at 37
wt no change
bp soft, no orthostatics
Review of Systems:
no cp or sob at rest
no n/v
Labs
-
Labs:
WBC 6.3 10^3/uL (4.8-10.8) 01/21/25 10:07
RBC 2.87 10^6/uL (4.70-6.10) L 01/21/25 10:07
Hgb 8.9 g/dL (13.0-18.0) L 01/21/25 10:07
Hct 28.8 % (39.0-52.0) L 01/21/25 10:07
Plt Count 206 10^3/uL (130-400) 01/21/25 10:07
Sodium 140 mmol/L (135-145) 01/21/25 04:27
Potassium 4.7 mmol/L (3.5-5.1) 01/21/25 04:27
Chloride 102 mmol/L (98-107) 01/21/25 04:27
Carbon Dioxide 37 mmol/L (22-30) H 01/21/25 04:27
BUN 42 mg/dl (9-20) H 01/21/25 04:27
Creatinine 1.3 mg/dL (0.7-1.3) 01/21/25 04:27
eGFR 52.84 01/21/25 04:27
Glucose 126 mg/dl (70-99) H 01/21/25 04:27
Calcium 9.0 mg/dl (8.4-10.2) 01/21/25 04:27
Hpx-A-Paflcjmlrsb Pept > 80920 pg/ml 01/19/25 15:46
Albumin 3.4 g/dl (3.5-5.0) L 01/19/25 15:46
Physical Exam
-
Vital Signs:
Vital Signs
Temp Pulse Resp BP Pulse Ox
97.6 F 85 18 107/61 94
01/21/25 15:30 01/21/25 15:30 01/21/25 15:30 01/21/25 15:30 01/21/25 15:30
Cardiovascular:: Regular rate and rhythm
Respiratory:: Bilateral: Coarse
Lung Excursion:: Normal
Abdomen:: Nontender and Soft
Extremity Edema:: +2: Bilateral:
Lucas Catheter: No
[2025-01-21 16:55] LABS: Glucose - Point of Care 133 mg/dl (70-99)
[2025-01-21] MEDS: DIAMOX 125 MG PO (16:58)
[2025-01-21] MEDS: COREG 12.5 MG PO (20:41)
[2025-01-21] MEDS: ELIQUIS 5 MG PO (20:42)
[2025-01-21] MEDS: ENTRESTO 97 MG/103 MG 1 TAB PO (20:42)
[2025-01-21 21:07] LABS: Glucose - Point of Care 162 mg/dl (70-99)
[2025-01-22] VITALS (8 sets, daily range): BP systolic 87–109; BP diastolic 50–70; PULSE 80–90; BMI 30.3
[2025-01-22 04:28] LABS: Blood Urea Nitrogen 44 mg/dl (9-20); Calcium 8.8 mg/dl (8.4-10.2); Carbon Dioxide 37 mmol/L (22-30); Chloride 100 mmol/L (98-107); Estimated Creatinine Clearance 40 ml/min; Glucose 128 mg/dl (70-99); Potassium 4.3 mmol/L (3.5-5.1); Sodium 138 mmol/L (135-145); eGFR 48.34
[2025-01-22 07:23] LABS: Glucose - Point of Care 122 mg/dl (70-99)
--- NOTE | 2025-01-22 07:51 | W.PN.HOSP.TC ---
Today's Communication/Plan
-
Per cards, stop coreg and start Toprol; midodrine trial
Hypotensive this am, cardiac meds and IV lasix skipped; reattempt this evening
Nephro completed 1 diamox course for met alk
Assessment / Plan
Assessment / Plan
Mr. De La Paz is an 89-year-old male with HFrEF due to nonischemic cardiomyopathy (LVEF 25%), CKD 3B, permanent AF on Eliquis,, left renal cell carcinoma on chemotherapy and radiation at [place] (last in 12/2024), prostate cancer on leuprolide,
hypothyroidism, NIDDM, radiation cystitis, s/p mitral valve repair, s/p AICD presented to the hospital with BL LE edema and orthopnea. Patient was admitted from Jan 09- with multifactorial shock associated with DEEDEE. Cardiology and Nephrology
following.
#Acute Hypoxic Respiratory Insufficiency secondary to Acute on Chronic HFrEF
s/p ICD placement and MV repair in 2015. Last echo 04/2024 - 20-25% EF. CXR 01/19 showing volume overload vs acute HF. proBNP 00380. Trop x1 0.027. EKG unchanged from prior. Currently on 3L NC from 6L NC in ED. Not on home O2. Unsure per cards re: dry
weight, plan to dig in records and confirm goal weight.
- Cardiology consulted, follows with Dr. Quarles OP
-- IV Lasix 40mg BID��
---01/21 and 01/22 am dose held iso hypotension
---DC Carvedilol 6.25mg BID and start Toprol XL 12.5mg qhs
---Midodrine trial
-- Tubigrips
-- On GDMT:
--- Hold Entresto
--- Continue Spironolactone today given good kidney function
-- STOP Carvedilol 12.5mg with hold index for SBP < 105
-- daily Wt, IOs and BMP
- Continue supplemental oxygen; on 2LNC 01/22, HU
- Echo 01/20 as above
#DEEDEE on CKD Stage IIIB
Patient with recent DEEDEE last hospitalization. Baseline Cr 1.3. 01/22 Cr 1.4.
- Nephro consulted for further recs
--Diurese with IV Lasix for decompensated congestive heart failure
--Course of diamox for evolving met alkalosis
--Accurate I's and O's check postvoid bladder scan if urine output faltered
- Monitor renal function with increased diuretics
- Stop Entresto 1 tab daily
- Continue Spironolactone 25mg daily
#Permanent AF
- Increased Eliquis from 2.5mg to 5mg po BID 01/21
- DC Coreg 01/22 per cards
- Start Toprol XL 12.5 qhs
#Essential Hypertension
Multiple episodes of hypotension this hospitalization with fluid overload. Cardiology consulted. Stopped Coreg on 01/22.
- DC Coreg 01/22 per cards
- Start Toprol XL 12.5 qhs
#Anemia of chronic disease
- CTM
#Diabetes Mellitus, Type II
- HgbA1c 6.4 - Dec 2024
- Continue Januvia
- Hold Glipizide
- POC and ISS low
#Hypothyroidism
- Home Levothyrxine 200 mcg daily
#History of Left Renal Cell Carcinoma
#History of Prostate Cancer on Leuprolide
Primary�urologist Dr. Lemus in [facility]
Patient has not received chemotherapy or radiation since before his prior admission on Spet
DVT proph: Eliquis
Code Status: Full Code
Dispo: PT recs skilled rehab SNF - earliest possible bed at [facility] would be on Wednesday 01/24 per CM
Anticipated Discharge: > 48 hours (pending diuresis, O2 weaning, to [facility] )
Subjective/Interval History
-
Date of Service: January 22, 2025
- Hypotensive to SBP 90s without symptoms this am, nurse held morning lasix and cardiac meds. I spoke with cardiology -- per orders, they dc'd his Coreg 6.25mg BID and added Toprol XL 12.5 qhs. I held Entresto -- cards updated for more recs.
- On 2LNC, unable to wean further at this time. Doesn't have any new complaints this morning.
Objective Data
-
Labs:
Laboratory Results
01/22/25
03:38
Sodium 138
Potassium 4.3
Chloride 100
Carbon Dioxide 37 H
BUN 44 H
Creatinine 1.4 H
Glucose 128 H
Calcium 8.8
Vital Signs:
Vital Signs
Temp Pulse Resp BP Pulse Ox
98.5 F 81 18 92/53 93
01/22/25 03:47 01/22/25 04:35 01/22/25 03:47 01/22/25 04:35 01/22/25 03:47
I&O
01/21/25 01/22/25 01/23/25
06:59 06:59 06:59
Intake Total 780 / 780 480 / 480
Output Total 800 / 800 900 / 900
Balance -20 / -20 -420 / -420
Physical Exam
-
General: Well Developed, Well Nourished, No Apparent Distress, Comfortable, Conversant and Other (sitting in chair eating breakfast, 2L NC)
HEENT: Normocephalic, Atraumatic and Moist Mucous Membranes
Respiratory: Crackles (at BL lung bases)
Cardiac: S1/S2 and Irregular Rhythm (known AFib)
GI: Soft, Nontender and Nondistended
Musculoskeletal: Edema, Right Lower Extrem (2+) and Edema, Left Lower Extrem (2+)
Skin: Warm and Dry
Neuro: AO x 3
Psych: Calm and Intact Judgement/Insight
[2025-01-22] MEDS: NOVOLOG FLEXPEN-LOW RESISTANCE SC ×2 (08:42→16:46)
--- NOTE | 2025-01-22 09:09 | W.PN.CD ---
Addendum entered and electronically signed by Alexandro Moore MD 01/22/25 13:21:
Patient seen and evaluated personally. I agree with the plan of care and documentation as below.
89-year-old gentleman with severe MR status post mitral valve repair, luminal coronary artery disease and nonischemic cardiomyopathy with permanent A-fib and has a history of subcutaneous ICD placement with LVEF of 20 to 25% presented with
biventricular failure with fluid overload. We are trying to diurese for his acute hypoxic respiratory failure. Hypotension is limiting aggressive diuresis. At this time we will hold patient's Coreg, Entresto and spironolactone. I would start him
on midodrine and increase as tolerated. We will give Lasix if blood pressure allows.
Original Note:
Today's Communication / Plan
-
Carvedilol has had to be held due to blood pressure limitations. Changed to metoprolol succinate 12.5 mg every afternoon with holding parameters.
Diuresis per nephrology.
Treatment has been limited due to hypotension. Trial of midodrine.
Impression / Plan
-
I/P: 89M with MVP with severe MR (surgical repair at [facility]), luminal coronary artery disease, nonischemic cardiomyopathy, HFrEF, permanent atrial fibrillation, SQ ICD, and memory impairment who presented to the outpatient cardiology office in
acute on chronic heart failure. He was referred to the ER.
Primary anatomic pathologist: Dr. Quarles
Acute hypoxic respiratory failure, in the setting of decompensated HFrEF
- Trend SaO2 with diuresis
- This may be a chronic issue and he may require oxygen at discharge
HFrEF, acute on chronic - severe requiring hospitalization
Nonischemic cardiomyopathy
- Patient likely has biventricular failure. Previous echo 05/07/2024 with EF 20 to 25% and dilated RV with reduced right ventricular function.
- Decompensation likely due to combination of underlying cardiomyopathy, DEEDEE and discontinuation of medication and diuretics.
- Diuresis challenging with orthostatic hypotension in the setting of severe volume overload - Tubigrips added
- GDMT as tolerated:
-CARLOS ALBERTO/ARB/ARNI: Can consider the reinitiation of sacubitril/valsartan pending renal function
-SGLT2 inhibitor: Can consider if approved by nephrology
-Aldosterone agonist: Limited by BP/renal function
-Beta cameron: Carvedilol 12.5 mg has needed to be held due to hypotension, transitioned to Metoprolol succinate 12.5mg HS with holding parameters
-Isosorbide/Hydralazine:�Not currently indicated
-ICD: Implanted (SQ ICD)
- Trend daily weight, I/O, BMP with diuresis
- Heart failure occasion
Orthostatic hypotension
- Improved yesterday afternoon, he was able to get afternoon dose of furosemide after morning dose had to be held
Subcutaneous ICD
- Note this is a subcutaneous ICD which does not provide pacing support.
Atrial fibrillation, permanent
- Continue rate control with carvedilol
- Oral Anticoagulation: Apixaban 5 mg twice daily (age 89, creatinine <1.5)
- [id number]: Score at least 6 (Heart failure, HTN, age 75 or more, Diabetes Mellitus, Vascular disease)
Severe MR s/p surgical repair, MG 4 mmHg by TTE
CKD, stage IIIa
- Nephrology following, evolving metabolic alkalosis, course of Diamox
- Baseline creatinine ~1.3
Type 2 diabetes mellitus, with proteinuria, per primary/nephrology
Anemia of chronic disease
Subjective:
He is feeling ok, no sob, no cp. No dizziness, he is feeling better.
DATA:
TTE 01/20/2025:
1. Ejection fraction is 35-40% by Sutton's method of discs. Left ventricular wall motion is diffusely hypokinetic.
2. Right ventricular systolic function is at the lower limits of normal. The right ventricular cavity size is moderately dilated.
3. Severely dilated right atrium.
4. Right atrial size is severely dilated.
5. Aortic valve sclerosis of multiple aortic cusps; but no aortic stenosis.
6. Status post mitral valve repair. Mean gradient 4 mmHg. Trace mitral regurgitation.
7. Moderate tricuspid regurgitation. Estimated pulmonary artery pressure of 59 mmHg assuming a right atrial pressure of 15 mmHg.
8. Compared to a prior transthoracic echocardiogram study from 05/07/2024, there is a slight improvement in LVEF (previously 20-25%). Slightly progressive tricuspid regurgitation is noted with a significant increase in PASP (previously 20-25 mmHg).
Physical Exam
Vital Signs/Labs
Vital Signs
Temp Pulse Resp BP Pulse Ox
97.7 F 80 18 97/69 95
01/22/25 07:44 01/22/25 07:44 01/22/25 07:44 01/22/25 07:44 01/22/25 07:44
01/21/25 01/22/25 01/23/25
06:59 06:59 06:59
Actual Weight 100.244 kg 101.406 kg
01/21/25 10:07
01/22/25 03:38
Magnesium 1.9 mg/dl (1.6-2.3) 01/21/25 04:27
01/19/25
15:46
Osc-R-Uanjvfposes Pept > 39173
LAB Results
01/19/25
15:46
Troponin I 0.027
Physical Exam
Constitutional: No acute distress and Comfortable
EENT: Anicteric and Moist mucous membranes
Cardiovascular: Rhythm/rate is irregular, Pedal edema present and S1S2 is normal
Respiratory: Respiratory effort normal and Crackles Present
GI: Soft, Distention absent, Flat, Non tender and Normal bowel sounds
Neuro/Psych: Alert and Oriented
Other: Skin (Warm and dry)
Data Reviewed
-
Date of Service: January 22, 2025
Medical Tests (PFT, Pathology etc): Report Reviewed by me
Labs: Labs Reviewed by me
Old Records: Reviewed
[2025-01-22] MEDS: ENTRESTO 97 MG/103 MG PO (09:21)
[2025-01-22] MEDS: LASIX IV (09:21)
[2025-01-22] MEDS: JANUVIA 50 MG PO (09:22)
[2025-01-22] MEDS: ELIQUIS 5 MG PO ×2 (09:22→21:27)
[2025-01-22] MEDS: LIPITOR 10 MG PO (09:22)
[2025-01-22] MEDS: DESENEX/MITRAZOL/ZEASORB 1 APPLIC TOPICAL ×2 (09:22→21:14)
[2025-01-22] MEDS: SYNTHROID 200 MCG PO (09:22)
[2025-01-22] MEDS: COREG PO (09:25)
[2025-01-22 12:07] LABS: Glucose - Point of Care 251 mg/dl (70-99)
[2025-01-22] MEDS: NOVOLOG FLEXPEN-LOW RESISTANCE 3 UNITS SC (12:42)
[2025-01-22] MEDS: LASIX 40 MG IV (16:32)
[2025-01-22 16:41] LABS: Glucose - Point of Care 132 mg/dl (70-99)
--- NOTE | 2025-01-22 17:01 | W.PN.NEPH.PH ---
Today's Communication / Plan
-
cont lasix, add diamox
Assessment/Plan
-
Impression:
Congestive heart failure decompensation
Cardiomyopathy EF of 20 to 25%
CKD stage III A (1.4)
Diabetes with associated proteinuria
Atrial fibrillation
History of mitral valve repair
Plan:
-Creatinine at baseline 1.4
met alkalosis-course of diamox
-Hemodynamically stable
cont lasix still need more vol off
Bp soft, off spironolactone, entresto, coreg changed to metoprolol
prn midodrine per cards
echo noted EF 35-40%mod TR wiht PHTN
-
-
Date of Service: January 22, 2025
CC / HPI / ROS
-
Chief Complaint:
CKD
History of Present Illness:
cr stable 1.4
bicarb no change at 37
wt is uup
bp soft,
Review of Systems:
no cp or sob at rest
no n/v
Labs
-
Labs:
WBC 6.3 10^3/uL (4.8-10.8) 01/21/25 10:07
RBC 2.87 10^6/uL (4.70-6.10) L 01/21/25 10:07
Hgb 8.9 g/dL (13.0-18.0) L 01/21/25 10:07
Hct 28.8 % (39.0-52.0) L 01/21/25 10:07
Plt Count 206 10^3/uL (130-400) 01/21/25 10:07
Sodium 138 mmol/L (135-145) 01/22/25 03:38
Potassium 4.3 mmol/L (3.5-5.1) 01/22/25 03:38
Chloride 100 mmol/L (98-107) 01/22/25 03:38
Carbon Dioxide 37 mmol/L (22-30) H 01/22/25 03:38
BUN 44 mg/dl (9-20) H 01/22/25 03:38
Creatinine 1.4 mg/dL (0.7-1.3) H 01/22/25 03:38
eGFR 48.34 01/22/25 03:38
Glucose 128 mg/dl (70-99) H 01/22/25 03:38
Calcium 8.8 mg/dl (8.4-10.2) 01/22/25 03:38
Yya-D-Zimdrjoadvs Pept > 04411 pg/ml 01/19/25 15:46
Albumin 3.4 g/dl (3.5-5.0) L 01/19/25 15:46
Physical Exam
-
Vital Signs:
Vital Signs
Temp Pulse Resp BP Pulse Ox
98.5 F 80 18 102/53 93
01/22/25 15:22 01/22/25 16:32 01/22/25 15:22 01/22/25 16:32 01/22/25 15:22
Cardiovascular:: Regular rate and rhythm
Respiratory:: Bilateral: Coarse
Lung Excursion:: Normal
Abdomen:: Nontender and Soft
Extremity Edema:: +2: Bilateral:
Lucas Catheter: No
[2025-01-22 21:15] LABS: Glucose - Point of Care 201 mg/dl (70-99)
[2025-01-22] MEDS: DIAMOX 125 MG PO (21:27)
[2025-01-22] MEDS: TOPROL XL 12.5 MG PO (21:27)
[2025-01-23] VITALS (10 sets, daily range): BP systolic 92–115; BP diastolic 57–88; BMI 30.3
[2025-01-23] MEDS: LASIX 40 MG IV ×2 (05:43→17:43)
[2025-01-23 06:32] LABS: Hematocrit 28.9 % (39.0-52.0); Hemoglobin 8.9 g/dL (13.0-18.0); Mean Corp Hgb Conc. 30.8 g/dL (33.0-37.0); Mean Corpuscular Volume 98.6 fL (80.0-94.0); Platelet Count 209 10^3/uL (130-400); Red Cell Dist. Width 21.4 % (11.5-14.5)
[2025-01-23 06:40] LABS: ALT (SGPT) < 10 U/L (0-50); AST (SGOT) 14 U/L (17-59); Albumin 2.9 g/dl (3.5-5.0); Alkaline Phosphatase 67 U/L (38-126); Blood Urea Nitrogen 45 mg/dl (9-20); Calcium 8.7 mg/dl (8.4-10.2); Carbon Dioxide 35 mmol/L (22-30); Chloride 100 mmol/L (98-107); Estimated Creatinine Clearance 52 ml/min; Glucose 134 mg/dl (70-99); Potassium 4.4 mmol/L (3.5-5.1); Sodium 138 mmol/L (135-145); Total Protein 5.1 g/dl (6.3-8.2); eGFR 58.17
[2025-01-23 08:13] LABS: Glucose - Point of Care 129 mg/dl (70-99)
--- NOTE | 2025-01-23 08:18 | W.PN.UPDATE ---
Update Note
Progress Note Update
I have independently evaluated the patient at the bedside. I reviewed the case with the resident and agree with all documentation unless otherwise specified.
AFVSS on 3 L O2, blood pressure slightly better today. Weight stable, only net -300 mL overnight. Denies any complaints including chest pain or shortness of breath
AO x 4, NAD, chronically ill frail appearing. Irregularly irregular rhythm without tachycardia, no murmur or gallop, normal S1-2, unable to assess JVD. Reduced sounds at bilateral bases, otherwise CTA and nonlabored. 2+ LE edema, palpable pulses.
Distal extremities slightly cool. No obvious FND
#Acute hypoxemic respiratory insufficiency due to BiV heart failure (LVEF 35%). Nonischemic cardiomyopathy. GDMT with beta-cameron; currently holding ARNI, MRA. Currently on IV Lasix twice daily and acetazolamide per nephrology. Will continue
with diuretics as blood pressure allows. Check albumin level, consider Lasix with albumin if low to try and optimize diuresis. May need to consider RHC and possibly milrinone. Trend BMP, I's and O's, daily weights. Monitor telemetry. Wean
oxygen for SpO2 goal >90%
#Acute metabolic encephalopathy. Differentials include low flow cardiac state versus hospital delirium. Intermittently with confusion though appears mentating adequately at time of my eval today. May need to check RHC as above. Continue with
delirium precautions for now. Monitor MSE and avoid sedating agent
#Hypotension. Discussed with cardiology, will hold off on ARNI, carvedilol, MRA and trial midodrine as needed. Continue with diuresis as tolerated as per above
Diet -- Na-restricted
Thromboprophylaxis -- Eliquis
CODE STATUS -- Full
Disposition -- SNF when medically stable, likely >48 hours. Upgrade to IMU today
GOC -- Patient wants to remain full code, has capacity to make this decision. If encephalopathy worsens will need to defer to his son on further goals of care. Son at bedside provided updates
[2025-01-23] MEDS: NOVOLOG FLEXPEN-LOW RESISTANCE SC (08:19)
--- NOTE | 2025-01-23 08:32 | W.PN.CD ---
Today's Communication / Plan
-
- Diuresis
- Midodrine 5 mg BID
- Will assess need for RHC tomorrow.
Impression / Plan
-
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
acute on chronic heart failure. He was referred to the ER.
Primary salvager: Dr. Quarles
Acute hypoxic respiratory failure, in the setting of decompensated HFrEF
- Trend SaO2 with diuresis
- This may be a chronic issue and he may require oxygen at discharge
HFrEF, acute on chronic - severe requiring hospitalization
Nonischemic cardiomyopathy
- Patient likely has biventricular failure. Previous echo 05/07/2024 with EF 20 to 25% and dilated RV with reduced right ventricular function.
- ECHO 01/20/25: LVEF 35%. Severe RV dilation.
- Decompensation likely due to combination of underlying cardiomyopathy, DEEDEE and discontinuation of medication and diuretics.
- Diuresis challenging with orthostatic hypotension in the setting of severe volume overload - Tubigrips added
- Holding GDMT at this time due to hypotension. Will give more Midodrine to improve BP for diuresis.
- If unable to diurese, may need RHC to assess the CO/CI to assess need for inotrope
- Will assess need for RHC tomorrow.
- GDMT as tolerated:
-CARLOS ALBERTO/ARB/ARNI: Can consider the reinitiation of sacubitril/valsartan pending renal function
-SGLT2 inhibitor: Can consider if approved by nephrology
-Aldosterone agonist: Limited by BP/renal function
-Beta cameron: Carvedilol 12.5 mg has needed to be held due to hypotension, transitioned to Metoprolol succinate 12.5mg HS with holding parameters
-Isosorbide/Hydralazine:�Not currently indicated
-ICD: Implanted (SQ ICD)
- Trend daily weight, I/O, BMP with diuresis
- Heart failure occasion
Orthostatic hypotension
- Difficult to assess today due to waxing and waning mentation.
Acute delirium
- Acute delirium on baseline dementia.
-
Subcutaneous ICD
- Note this is a subcutaneous ICD which does not provide pacing support.
Atrial fibrillation, permanent
- Continue rate control with carvedilol
- Oral Anticoagulation: Apixaban 5 mg twice daily (age 89, creatinine <1.5)
- [id number]: Score at least 6 (Heart failure, HTN, age 75 or more, Diabetes Mellitus, Vascular disease)
Severe MR s/p surgical repair, MG 4 mmHg by TTE
CKD, stage IIIa
- Nephrology following, evolving metabolic alkalosis, course of Diamox
- Baseline creatinine ~1.3
Type 2 diabetes mellitus, with proteinuria, per primary/nephrology
Anemia of chronic disease
Subjective:
Waxing and waning mentation. Diuresis for now.
DATA:
TTE 01/20/2025:
1. Ejection fraction is 35-40% by Sutton's method of discs. Left ventricular wall motion is diffusely hypokinetic.
2. Right ventricular systolic function is at the lower limits of normal. The right ventricular cavity size is moderately dilated.
3. Severely dilated right atrium.
4. Right atrial size is severely dilated.
5. Aortic valve sclerosis of multiple aortic cusps; but no aortic stenosis.
6. Status post mitral valve repair. Mean gradient 4 mmHg. Trace mitral regurgitation.
7. Moderate tricuspid regurgitation. Estimated pulmonary artery pressure of 59 mmHg assuming a right atrial pressure of 15 mmHg.
8. Compared to a prior transthoracic echocardiogram study from 05/07/2024, there is a slight improvement in LVEF (previously 20-25%). Slightly progressive tricuspid regurgitation is noted with a significant increase in PASP (previously 20-25 mmHg).
Physical Exam
Vital Signs/Labs
Vital Signs
Temp Pulse Resp BP Pulse Ox
98.4 F 99 30 105/78 97
01/23/25 03:42 01/23/25 05:43 01/23/25 03:42 01/23/25 05:43 01/23/25 04:17
01/22/25 01/23/25 01/24/25
06:59 06:59 06:59
Actual Weight 101.406 kg 101.35 kg
01/23/25 06:03
01/23/25 06:03
Magnesium 1.9 mg/dl (1.6-2.3) 01/21/25 04:27
01/19/25
15:46
[id number] Pept > 43525
Physical Exam
Constitutional: No acute distress, Comfortable and Confusion
EENT: Anicteric and Moist mucous membranes
Cardiovascular: Rhythm & rate is regular and Pedal edema is absent
Respiratory: Respiratory effort normal, Lungs clear to auscul. and Wheeze Absent
GI: Soft, Non tender and Normal bowel sounds
Neuro/Psych: Alert and Oriented
Data Reviewed
-
Date of Service: January 23, 2025
Medical Decision Making: Reviewed Test Results, Test Interpretation and Review of Case with other Provider
Labs: Labs Reviewed by me
Old Records: Reviewed
[2025-01-23] MEDS: DIAMOX 125 MG PO ×2 (08:45→20:49)
[2025-01-23] MEDS: ELIQUIS 5 MG PO ×2 (08:45→20:48)
[2025-01-23] MEDS: LIPITOR 10 MG PO (08:45)
[2025-01-23] MEDS: JANUVIA 50 MG PO (08:45)
[2025-01-23] MEDS: SYNTHROID 200 MCG PO (08:46)
[2025-01-23] MEDS: DESENEX/MITRAZOL/ZEASORB 1 APPLIC TOPICAL ×2 (08:46→23:01)
[2025-01-23 10:05] LABS: Albumin 3.1 g/dl (3.5-5.0)
--- NOTE | 2025-01-23 10:27 | W.PN.HOSP.TC ---
Today's Communication/Plan
-
Transferred to IMU iso waxing/waning AMS and unstable BP + need for diuresis
f/u UA, CXR
Speech to eval for swallowing; diet changed to puree until then
Per cards, continue midodrine trial, possible right heart cath tomorrow, sarthak if inotrope need
Assessment / Plan
Assessment / Plan
Mr. De La Paz is an 89-year-old male with HFrEF due to nonischemic cardiomyopathy (LVEF 25%), CKD 3B, permanent AF on Eliquis,, left renal cell carcinoma on chemotherapy and radiation at [facility] (last in 12/2024), prostate cancer on leuprolide,
hypothyroidism, NIDDM, radiation cystitis, s/p mitral valve repair, s/p AICD presented to the hospital with BL LE edema and orthopnea. Patient was admitted from Jan 09- with multifactorial shock associated with DEEDEE. Cardiology and Nephrology
following.
#Acute Hypoxic Respiratory Insufficiency secondary to Acute on Chronic HFrEF
#AMS 2/2 acute hypoxic respiratory insufficiency vs aspiration vs delirium
s/p ICD placement and MV repair in 2015. Last echo 04/2024 - 20-25% EF. CXR 01/19 showing volume overload vs acute HF. proBNP 90175. Trop x1 0.027. EKG unchanged from prior. Currently on 3L NC from 6L NC in ED. Not on home O2. Unsure per cards re: dry
weight, plan to dig in records and confirm goal weight. On 01/23 morning, nursing concerned about AMS and worsening SOB. On exam, Mr. De La Paz in and out of confusion, answering questions appropriately but unable to keep eyes open. Son at bedside
endorsing this is new. CXR, UA, and transfer to IMU initiated. Cardiology updated, they recommend continuing with diuresis and Midodrine. If need for inotropes, they will take him for a RHC tomorrow 01/24.
- Cardiology consulted, follows with Dr. Willam SHOEMAKER
-- IV Lasix 40mg BID��Albumin 12.5% today with pm Lasix
---10 and 10/ am dose held iso hypotension
---DC Carvedilol 6.25mg BID and start Toprol XL 12.5mg qhs 01/22
---Midodrine trial 01/22; BP improved s/p 1 dose
----If needing inotrope like milrinone, cardiology to perform right heart cath tomorrow 01/24
-- Tubigrips
-- On GDMT:
--- Hold Entresto
--- Continue Spironolactone today given good kidney function
-- Daily Wt, IOs and BMP
- Continue supplemental oxygen; on 3LNC 01/23, HU
- Echo 01/20 as above
- F/u CXR and UA
-- c/f aspiration, speech eval requested again; diet changed to puree until eval completed
- Transfer to IMU
#DEEDEE on CKD Stage IIIB
Patient with recent DEEDEE last hospitalization. Baseline Cr 1.3. 01/22 Cr 1.4.
- Nephro consulted for further recs; updated, f/u recs
--Diurese with IV Lasix for decompensated congestive heart failure
--Course of diamox for evolving met alkalosis
--Accurate I's and O's check postvoid bladder scan if urine output faltered
- Monitor renal function with increased diuretics
- Stop Entresto 1 tab daily
- Continue Spironolactone 25mg daily
#Permanent AF
- Increased Eliquis from 2.5mg to 5mg po BID 01/21
- DC Coreg 01/22 per cards
- Start Toprol XL 12.5 qhs
#Essential Hypertension
Multiple episodes of hypotension this hospitalization with fluid overload. Cardiology consulted. Stopped Coreg on 01/22.
- DC Coreg 01/22 per cards
- Start Toprol XL 12.5 qhs
#Anemia of chronic disease
- CTM
#Diabetes Mellitus, Type II
- HgbA1c 6.4 - Dec 2024
- Continue Januvia
- Hold Glipizide
- POC and ISS low
#Hypothyroidism
- Home Levothyroxine 200 mcg daily
#History of Left Renal Cell Carcinoma
#History of Prostate Cancer on Leuprolide
Primary�urologist Dr. Lemus in [facility]
Patient has not received chemotherapy or radiation since before his prior admission on Jan 09
DVT proph: Eliquis
Code Status: Full Code; Patient has capacity and reiterated this today. Son at bedside updated.
Dispo: PT recs skilled rehab SNF - earliest possible bed at [facility] would be on Wednesday 01/24 per CM
Anticipated Discharge: > 48 hours
Subjective/Interval History
-
Date of Service: January 23, 2025
- ON, nursing concerned about AMS, reporting that he tried to pull out his port. This morning, he's fatigued, in and out of sleep, son is at bedside, concerned and endorsing that the AMS is new for his dad.
- A&Ox3 and answering questions appropriately but unable to keep eyes open, on 3LNC, slumped over. 2+ pitting edema waist down. He would like to stay Full Code.
- Blood pressure improved from yesterday s/p 1 midodrine dose. Able to get his cardiac meds and IV Lasix this morning per nursing. Cardiology updated; pt transferred to IMU. CXR, UA, and Albumin check ordered.
Objective Data
-
Labs:
Laboratory Results
01/23/25
06:03
WBC 5.4
Hgb 8.9 L
Hct 28.9 L
Plt Count 209
Sodium 138
Potassium 4.4
Chloride 100
Carbon Dioxide 35 H
BUN 45 H
Creatinine 1.2
Glucose 134 H
Calcium 8.7
Total Bilirubin 0.7
AST 14 L
ALT < 10
Alkaline Phosphatase 67
Vital Signs:
Vital Signs
Temp Pulse Resp BP Pulse Ox
98.2 F 84 18 103/63 98
01/23/25 07:09 01/23/25 08:45 01/23/25 07:09 01/23/25 08:45 01/23/25 07:09
I&O
01/22/25 01/23/25 01/24/25
06:59 06:59 06:59
Intake Total 480 / 480 780 / 780
Output Total 900 / 900 1150 / 1150
Balance -420 / -420 -370 / -370
[2025-01-23 13:04] LABS: Glucose - Point of Care 199 mg/dl (70-99)
[2025-01-23] MEDS: NOVOLOG FLEXPEN-LOW RESISTANCE 1 UNITS SC ×2 (13:52→17:42)
--- NOTE | 2025-01-23 15:03 | PTOTSP ---
ST Re-Evaluation
It is difficult to discern to what extent pt is protecting his airway with PO intake given the minimal PO trials that he accepted during this evaluation. However, given the pt's recent upgrade to the IMU for increased respiratory concerns, coarse
upper airway prior to PO intake, weak throat clearing response, weak coughing when prompted (despite verbal encouragement), and the clinical signs observed during this re-evaluation, would recommend pt remain NPO at this time with only critical meds
in puree at this time. HAND ASSEMBLER will continue to follow-up at a high frequency to re-evaluation pt's candidacy for PO diet re-initiation.
It is important to note that during this re-evaluation, RN was in the room during part of the exam, inquiring about pt's overall emotional disposition. Pt admitted to his sadness about his passing. It is difficult to differentiate if pt's
current cognitive and physical presentation of reduced level of alertness, cooperation, participation, and strength that is negatively contributing to his airway protection for PO intake is 2/2 acute encephalopathy vs grief/sadness, or a combination
of both. Consider psych consult for more information/differentiation.
--- NOTE | 2025-01-23 15:10 | VATNOTE ---
Patient self d/c'd port access/dressing for second time today in 12hrs. Discussed care with primary RN, decision made to place peripheral access.
--- NOTE | 2025-01-23 15:27 | W.PN.UPDATE ---
Update Note
Progress Note Update
Reassessed Mr. De La Paz at 3:15pm. He was alert and oriented sitting up in bed eating pudding. From this morning, he was much improved in terms of mentation and cognition. He asked what the plan was and if his son had been updated. I reassured him
that I spoke to his son at bedside this morning and would call him with another update today. He also underwent a CLOTH FINISHING RANGE OPERATOR swallow eval and speech recommended he remains NPO at this time with only critical meds in puree at this time. I have placed this
order and updated Mr. De La Paz about this. We will also consult psych for more differentiation on his symptoms and acute cognitive decline iso having lost his less than a month ago/grieving currently vs acute encephalopathy 2/2 hypoxia.
--- NOTE | 2025-01-23 15:57 | W.PN.NEPH.PH ---
Today's Communication / Plan
-
cont Lasix and diamox
Assessment/Plan
-
Impression:
Congestive heart failure decompensation
Cardiomyopathy EF of 20 to 25%
CKD stage III A (1.4)
Diabetes with associated proteinuria
Atrial fibrillation
History of mitral valve repair
Plan:
noted events moved to U
-Creatinine at baseline 1.2
met alkalosis improving cont course of diamox
Bp soft , prn midodrine
cont lasix still need more vol off
off spironolactone, entresto, coreg changed to metoprolol
echo noted EF 35-40%mod TR wiht PHTN
considering RHC per cards
-
-
Date of Service: January 23, 2025
CC / HPI / ROS
-
Chief Complaint:
CKD
History of Present Illness:
cr stable 1.2
bicarb better at 35
wt no cahnge
bp soft,
Review of Systems:
no cp or sob at rest
no n/v
waxing waning MS today
eating during visit
Labs
-
Labs:
WBC 5.4 10^3/uL (4.8-10.8) 01/23/25 06:03
RBC 2.93 10^6/uL (4.70-6.10) L 01/23/25 06:03
Hgb 8.9 g/dL (13.0-18.0) L 01/23/25 06:03
Hct 28.9 % (39.0-52.0) L 01/23/25 06:03
Plt Count 209 10^3/uL (130-400) 01/23/25 06:03
Sodium 138 mmol/L (135-145) 01/23/25 06:03
Potassium 4.4 mmol/L (3.5-5.1) 01/23/25 06:03
Chloride 100 mmol/L (98-107) 01/23/25 06:03
Carbon Dioxide 35 mmol/L (22-30) H 01/23/25 06:03
BUN 45 mg/dl (9-20) H 01/23/25 06:03
Creatinine 1.2 mg/dL (0.7-1.3) 01/23/25 06:03
eGFR 58.17 01/23/25 06:03
Glucose 134 mg/dl (70-99) H 01/23/25 06:03
Calcium 8.7 mg/dl (8.4-10.2) 01/23/25 06:03
Mcz-P-Ssduftvvhrf Pept > 08506 pg/ml 01/19/25 15:46
Albumin 3.1 g/dl (3.5-5.0) L 01/23/25 09:15
Physical Exam
-
Vital Signs:
Vital Signs
Temp Pulse Resp BP Pulse Ox
97.4 F 81 26 92/57 97
01/23/25 12:18 01/23/25 12:45 01/23/25 12:45 01/23/25 12:25 01/23/25 12:45
Cardiovascular:: Regular rate and rhythm
Respiratory:: Bilateral: Coarse
Lung Excursion:: Normal
Abdomen:: Nontender and Soft
Extremity Edema:: +2: Bilateral:
Lucas Catheter: No
--- NOTE | 2025-01-23 16:04 | CM ---
Following up on Patient. RN Stated that patient came to the IMU due to high BP and OIL DISTRIBUTOR TENDER made him NPO so will perform a swallow study tomorrow. KIMANI Nicholas saw referrals made for SNF.
PLAN: SNF when ready.
--- NOTE | 2025-01-23 17:06 | PTCARENOTE ---
Patient transferred to IMU level of care due to low BPs and need for continued diuresis, decreased LOC. Pt arrived, he is drowsy but arousable-it has been a challenge to determine if he is drowsy or withdrawn and ignoring staff at times. When spoken
to and given simple directions the pt will follow them appropriately, but then shortly after arriving to unit he de-accessed his Subq port and removed all his monitoring wires. He tells me he 'doesn't want to be here'. He is inconsistent in telling
me which hospital he is at. He can tell me that his 2 weeks ago, he was 66 years, he has one living son and one son. He admits to feeling sad and unsure of his future living alone. Emotional support provided and pt
encouraged to share feelings.
[2025-01-23 17:42] LABS: Glucose - Point of Care 164 mg/dl (70-99)
[2025-01-23] MEDS: FLEXBUMIN 50 IV (17:44)
--- NOTE | 2025-01-23 19:45 | PTCARENOTE ---
Patient received lying in bed with eyes closed. Rouses easily to name called. Oriented to self, place and event. Disoriented to time. See cut off machine helper charted on worklist flowsheet. BUL clear anteriorly. Bilateral bases diminished with fine
crackles. RML and RLL with intermittent wheezes. S1S2 irregular, Afib on CM with occasional PVCs. Abdomen obese, round and soft, non tender. Male Purewick catheter in place with large amount clear yellow urine output. Mild generalized edema. BLE
edema 2+, stasis dermatitis discoloration. Skin pale, warm and dry. Oral mucous membranes dry. Oral care rendered. Patient is very withdrawn with poor eye contact. Answers questions but is not conversational. Meds crushed and given in applesauce,
aspiration precautions with HOB up 90 degrees. Repositioned every 2 hours. Bed in low and locked position, bed alarm on, call macario within reach.
[2025-01-23] MEDS: TOPROL XL 12.5 MG PO (20:47)
[2025-01-24] VITALS (38 sets, daily range): BP systolic 93–132; BP diastolic 49–111; BMI 29.0
[2025-01-24] MEDS: NOVOLOG FLEXPEN-LOW RESISTANCE 1 UNITS SC (00:12)
[2025-01-24 00:20] LABS: Glucose - Point of Care 152 mg/dl (70-99)
[2025-01-24 06:06] LABS: Glucose - Point of Care 135 mg/dl (70-99)
[2025-01-24] MEDS: NOVOLOG FLEXPEN-LOW RESISTANCE SC ×2 (06:16→13:19)
--- NOTE | 2025-01-24 07:23 | PTCARENOTE ---
Report given verbally to oncoming shelbie, Shelbie GUERIN. Questions answered.
[2025-01-24] MEDS: ELIQUIS 5 MG PO ×2 (08:03→19:53)
[2025-01-24] MEDS: JANUVIA 50 MG PO (08:03)
[2025-01-24] MEDS: SYNTHROID 200 MCG PO (08:04)
[2025-01-24] MEDS: LASIX 40 MG IV (08:04)
[2025-01-24] MEDS: DESENEX/MITRAZOL/ZEASORB 1 APPLIC TOPICAL ×2 (08:04→19:54)
[2025-01-24] MEDS: DIAMOX 125 MG PO (08:04)
[2025-01-24] MEDS: LIPITOR 10 MG PO (08:04)
--- NOTE | 2025-01-24 08:09 | W.PN.CD ---
Today's Communication / Plan
-
RHC today
diuresis as able
Impression / Plan
-
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
acute on chronic heart failure. He was referred to the ER.
Primary marine pipe welder: Dr. Quarles
Acute hypoxic respiratory failure, in the setting of decompensated HFrEF
- Trend SaO2 with diuresis
- This may be a chronic issue and he may require oxygen at discharge
HFrEF, acute on chronic - severe requiring hospitalization
Nonischemic cardiomyopathy
- Patient likely has biventricular failure. Previous echo 05/07/2024 with EF 20 to 25% and dilated RV with reduced right ventricular function.
- ECHO 01/20/25: LVEF 35%. Severe RV dilation.
- Decompensation likely due to combination of underlying cardiomyopathy, DEEDEE and discontinuation of medication and diuretics.
- Diuresis challenging with orthostatic hypotension in the setting of severe volume overload - Tubigrips added
- BP BORDERLINE midodrine prn
- If unable to diurese, may need RHC to assess the CO/CI to assess need for inotrope
- RHC today
- GDMT as tolerated:
-CARLOS ALBERTO/ARB/ARNI: likely would not tolerate cont to reassess
-SGLT2 inhibitor: Can consider if approved by nephrology
-Aldosterone agonist: Limited by BP/renal function
-Beta cameron: Carvedilol 12.5 mg has needed to be held due to hypotension, transitioned to Metoprolol succinate 12.5mg HS with holding parameters
-Isosorbide/Hydralazine:�Not currently indicated
-ICD: Implanted (SQ ICD)
- Trend daily weight, I/O, BMP with diuresis
- Heart failure occasion
Orthostatic hypotension
- ongoing
Acute delirium
- improving
-
Subcutaneous ICD
- Note this is a subcutaneous ICD which does not provide pacing support.
Atrial fibrillation, permanent
- Continue rate control with carvedilol
- Oral Anticoagulation: Apixaban 5 mg twice daily (age 89, creatinine <1.5)
- [id number]: Score at least 6 (Heart failure, HTN, age 75 or more, Diabetes Mellitus, Vascular disease)
Severe MR s/p surgical repair, MG 4 mmHg by TTE
CKD, stage IIIa
- Nephrology following, evolving metabolic alkalosis, course of Diamox
- Baseline creatinine ~1.3
Type 2 diabetes mellitus, with proteinuria, per primary/nephrology
Anemia of chronic disease
Subjective:
Diuresis; RHC today
DATA:
TTE 01/20/2025:
1. Ejection fraction is 35-40% by Sutton's method of discs. Left ventricular wall motion is diffusely hypokinetic.
2. Right ventricular systolic function is at the lower limits of normal. The right ventricular cavity size is moderately dilated.
3. Severely dilated right atrium.
4. Right atrial size is severely dilated.
5. Aortic valve sclerosis of multiple aortic cusps; but no aortic stenosis.
6. Status post mitral valve repair. Mean gradient 4 mmHg. Trace mitral regurgitation.
7. Moderate tricuspid regurgitation. Estimated pulmonary artery pressure of 59 mmHg assuming a right atrial pressure of 15 mmHg.
8. Compared to a prior transthoracic echocardiogram study from 05/07/2024, there is a slight improvement in LVEF (previously 20-25%). Slightly progressive tricuspid regurgitation is noted with a significant increase in PASP (previously 20-25 mmHg).
Physical Exam
Vital Signs/Labs
Vital Signs
Temp Pulse Resp BP Pulse Ox
97.4 F 84 15 97/65 100
01/24/25 07:34 01/24/25 06:00 01/24/25 06:00 01/24/25 08:03 01/24/25 06:00
1001/24/25 01/25/25
06:59 06:59 06:59
Actual Weight 223 lb 7 oz 220 lb 10.923 oz
Magnesium 1.9 mg/dl (1.6-2.3) 01/21/25 04:27
01/19/25
15:46
Gzx-[id number]-Luqydqxucye Pept > 30538
Physical Exam
Constitutional: No acute distress and Confusion (appears mildly confused )
EENT: Anicteric
Cardiovascular: Rhythm/rate is irregular and Pedal edema present
Respiratory: Respiratory effort normal and Lungs clear to auscul.
GI: Soft
Neuro/Psych: Alert and Oriented
Data Reviewed
-
Date of Service: January 24, 2025
EKG: Tracing Personally Visualized and interpreted (af)
Echo: Report Reviewed by me
Labs: Labs Reviewed by me
[2025-01-24 09:07] LABS: Hematocrit 31.0 % (39.0-52.0); Hemoglobin 9.7 g/dL (13.0-18.0); Mean Corp Hgb Conc. 31.3 g/dL (33.0-37.0); Mean Corpuscular Volume 100.6 fL (80.0-94.0); Nucleated Red Blood Cells % 0 % (-); Platelet Count 211 10^3/uL (130-400); Red Cell Dist. Width 21.1 % (11.5-14.5)
[2025-01-24 09:59] LABS: ALT (SGPT) < 10 U/L (0-50); AST (SGOT) 15 U/L (17-59); Albumin 3.3 g/dl (3.5-5.0); Alkaline Phosphatase 68 U/L (38-126); Blood Urea Nitrogen 39 mg/dl (9-20); Calcium 9.1 mg/dl (8.4-10.2); Carbon Dioxide 38 mmol/L (22-30); Chloride 97 mmol/L (98-107); Estimated Creatinine Clearance 47 ml/min; Glucose 125 mg/dl (70-99); Potassium 4.5 mmol/L (3.5-5.1); Sodium 139 mmol/L (135-145); Total Protein 5.4 g/dl (6.3-8.2); eGFR 58.17
--- NOTE | 2025-01-24 09:59 | W.PN.HOSP.TC ---
Addendum entered and electronically signed by Ga Castro MD 01/24/25 17:33:
Seen and examined the patient independently. Plan formulated with the resident-agree. See changes in my documentation.
89-year-old male with shortness of breath and left lower extremity edema and 15 pound weight gain. Patient was admitted to [facility] from 01/09/2025 to 01/14/2025 for septic shock, hypovolemia and cellulitis
Echo 01-20-25-EF 35 to 40%. LV wall motion is diffusely hypokinetic. RV SF is at lower limits of normal. RV is moderately dilated. Severe LA dilated RA, status post MVR, trace MR, moderate TR, PA pressure 59 mmHg
Chest x-ray 01/23/2025-persistent congestive changes likely CHF, atelectasis
Patient was seen earlier today. Late documentation
Cardiovascular stones most appreciated
Chest clear to auscultation
Pedal edema
# Acute hypoxic respiratory failure due to CHF
Wean oxygen as tolerated
# Acute on chronic HFrEF
Nonischemic cardiomyopathy
proBNP-
Continue Lasix 40 mg IV twice daily
Hypotension
History of for diuresis status post albumin supplementation
Coreg switched to Toprol-XL on 01/22/2025
Continue midodrine
Goal-directed medical therapy difficult secondary to hypotension-hold Entresto. Continue spironolactone. Renal function has to stabilize before considering SGLT2 inhibitors
Cardiology following
Cardiac cath-severely elevated filling pressures wedge pressure 26 mmHg. Indicative of pulmonary vascular congestion.
[place]-Mohsen catheter still in-monitor pressures
Bumex drip started. Inotropic agents considered
# Encephalopathy secondary to hypoxia
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
Nephrology consulted and following as patient needs dialysis
Course of Diamox for metabolic alkalosis
# Permanent atrial fibrillation-continue Toprol and Eliquis
# History of mitral valve repair at [facility] in 2018 and ICD placement
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
# Orthostatic hypotension-Midodrine
# Nonobstructive coronary disease
# Type 2 diabetes-hemoglobin A1c 6.23 December 2024. Continue Januvia, hold glipizide. Continue sliding scale coverage
# Hypothyroidism-continue levothyroxine 200 mcg daily
# Hyperlipidemia-continue statin
# History of renal cell carcinoma on the left side-on chemotherapy and radiation treatment at [place] last treatment was December 2024
# History of prostate cancer. Follows up with Dr. eLmus in [place]-continue leuprolide
# Anemia of chronic disease
# Cognitive impairment
# GERD-continue PPI
# Hypoalbuminemia
# DVT prophylaxis-on Eliquis
# Full code
Part of this note was created using voice recognition system. Occasional wrong word or��sound alike� substitutions may have inadvertently occurred due to the inherent limitations of voice recognition software. If noted kindly bring it to my
attention for correction.
Original Note:
Today's Communication/Plan
-
RHC at 12:10pm today; follow-up cardiology plan
speech to re-evaluate after RHC; update diet accordingly
Assessment / Plan
Assessment / Plan
Mr. De La Paz is an 89-year-old male with HFrEF due to nonischemic cardiomyopathy (LVEF 25%), CKD 3B, permanent AF on Eliquis,, left renal cell carcinoma on chemotherapy and radiation at [place] (last in 12/2024), prostate cancer on leuprolide,
hypothyroidism, NIDDM, radiation cystitis, s/p mitral valve repair, s/p AICD presented to the hospital with BL LE edema and orthopnea. Patient was admitted from Jan 09- with multifactorial shock associated with DEEDEE. Cardiology and Nephrology
following.
CXR 01/23:
Relatively stable examination. Persistent congestive changes, likely congestive heart failure. Mild right perihilar atelectasis.
#Acute Hypoxic Respiratory Insufficiency secondary to Acute on Chronic HFrEF
#AMS 2/2 acute hypoxic respiratory insufficiency vs aspiration vs delirium
s/p ICD placement and MV repair in 2015. Last echo 04/2024 - 20-25% EF. CXR 01/19 showing volume overload vs acute HF. proBNP 33731. Trop x1 0.027. EKG unchanged from prior. Currently on 3L NC from 6L NC in ED. Not on home O2. Unsure per cards re: dry
weight, plan to dig in records and confirm goal weight. On 01/23 morning, nursing concerned about AMS and worsening SOB. On exam, Mr. De La Paz in and out of confusion, answering questions appropriately but unable to keep eyes open. Son at bedside
endorsing this is new. CXR, UA, and transfer to IMU initiated. Cardiology updated, they recommend continuing with diuresis and Midodrine. If need for inotropes, they will take him for a RHC tomorrow 01/24.
- Cardiology consulted, follows with Dr. Willam SHOEMAKER
-- IV Lasix 40mg BID��Albumin 12.5% 01/23 with pm Lasix
---01/21 and 01/22 am dose held iso hypotension
---DC Carvedilol 6.25mg BID and start Toprol XL 12.5mg qhs 01/22
---Midodrine trial 01/22; BP improved s/p 1 dose; static since then
----Cardiology to perform right heart cath today 01/24; follow-up for updated plan
-- Tubigrips
-- On GDMT:
--- Hold Entresto
--- Continue Spironolactone today given good kidney function
-- Daily Wt, IOs and BMP
- Continue supplemental oxygen; on 2LNC 01/24, HU
- Echo 01/20 as above
CXR as above
-- c/f aspiration, speech eval requested again; diet changed to puree until eval completed
- Transfer to IMU 01/23
#DEEDEE on CKD Stage IIIB, resolving
Patient with recent DEEDEE last hospitalization. Baseline Cr 1.3. 01/24 Cr 1.3.
- Nephro consulted for further recs
--Diurese with IV Lasix for decompensated congestive heart failure
--Course of diamox for evolving met alkalosis
--Accurate I's and O's check postvoid bladder scan if urine output faltered
- Monitor renal function with increased diuretics
- Stop Entresto 1 tab daily
- Continue Spironolactone 25mg daily
#AMS, resolving
- psych consulted
#Permanent AF
- Increased Eliquis from 2.5mg to 5mg po BID 01/21
- DC Coreg 01/22 per cards
- Start Toprol XL 12.5 qhs
#Essential Hypertension
Multiple episodes of hypotension this hospitalization with fluid overload. Cardiology consulted. Stopped Coreg on 01/22.
- DC Coreg 01/22 per cards
- Start Toprol XL 12.5 qhs
#Anemia of chronic disease
- CTM
#Diabetes Mellitus, Type II
- HgbA1c 6.4 - Dec 2024
- Continue Januvia
- Hold Glipizide
- POC and ISS low
#Hypothyroidism
- Home Levothyroxine 200 mcg daily
#History of Left Renal Cell Carcinoma
#History of Prostate Cancer on Leuprolide
Primary�urologist Dr. Lemus in [facility]
Patient has not received chemotherapy or radiation since before his prior admission on Jan 09
DVT proph: Eliquis
Code Status: Full Code; Patient has capacity and reiterated this today. Son at bedside updated.
Dispo: PT recs skilled rehab SNF - earliest possible bed at [facility] would be on Wednesday 01/24 per CM
Anticipated Discharge: > 48 hours
Subjective/Interval History
-
Date of Service: January 24, 2025
- This morning, he's laying in bed, sitting up and asleep on 2L NC. Awake upon hearing my voice but right back to sleep. RHC scheduled for 12:10pm today.
Objective Data
-
Labs:
Laboratory Results
10/06/25
08:50
WBC 5.0
Hgb 9.7 L
Hct 31.0 L
Plt Count 211
Sodium Pending
Potassium Pending
Chloride Pending
Carbon Dioxide Pending
BUN Pending
Creatinine Pending
Glucose Pending
Calcium Pending
Total Bilirubin Pending
AST Pending
ALT Pending
Alkaline Phosphatase Pending
Vital Signs:
Vital Signs
Temp Pulse Resp BP Pulse Ox
97.4 F 84 15 97/65 100
01/24/25 07:34 01/24/25 06:00 01/24/25 06:00 01/24/25 08:03 01/24/25 06:00
I&O
01/23/25 01/24/25 01/25/25
06:59 06:59 06:59
Intake Total 780 / 780 410 / 410
Output Total 1150 / 1150 2550 / 2550
Balance -370 / -370 -2140 / -2140
Physical Exam
-
General: Well Developed, No Apparent Distress, Comfortable and Other (laying asleep in bed on 2LNC)
HEENT: Normocephalic, Atraumatic and Moist Mucous Membranes
Respiratory: Clear to Auscultation
Cardiac: S1/S2 and Irregular Rhythm (known AFib)
GI: Soft and Nontender
Musculoskeletal: Edema, Right Lower Extrem and Edema, Left Lower Extrem
Skin: Warm and Dry
Psych: Calm and Intact Judgement/Insight
--- NOTE | 2025-01-24 10:46 | W.PN.NEPH.PH ---
Today's Communication / Plan
-
diurese
Assessment/Plan
-
Impression:
Congestive heart failure decompensation
Cardiomyopathy EF of 20 to 25%
CKD stage III A (1.4)
Diabetes with associated proteinuria
Atrial fibrillation
History of mitral valve repair
Plan:
follow alkalosis, may need diamox again
follow BMP
continue IV lasix
off spironolactone, entresto, coreg changed to metoprolol
continue midodrine
for RHC
-
-
Date of Service: January 24, 2025
CC / HPI / ROS
-
Chief Complaint:
CKD
History of Present Illness:
cr stable 1.2
bicarb better at 39
wt lower
BP low, on midodrine
diuresing with IV lasix for decompensated HF
Review of Systems:
no cp or sob at rest
no n/v
Labs
-
Labs:
WBC 5.0 10^3/uL (4.8-10.8) 01/24/25 08:50
RBC 3.08 10^6/uL (4.70-6.10) L 01/24/25 08:50
Hgb 9.7 g/dL (13.0-18.0) L 01/24/25 08:50
Hct 31.0 % (39.0-52.0) L 01/24/25 08:50
Plt Count 211 10^3/uL (130-400) 01/24/25 08:50
Sodium 139 mmol/L (135-145) 01/24/25 08:50
Potassium 4.5 mmol/L (3.5-5.1) 01/24/25 08:50
Chloride 97 mmol/L (98-107) L 01/24/25 08:50
Carbon Dioxide 38 mmol/L (22-30) H 01/24/25 08:50
BUN 39 mg/dl (9-20) H 01/24/25 08:50
Creatinine 1.2 mg/dL (0.7-1.3) 01/24/25 08:50
eGFR 58.17 01/24/25 08:50
Glucose 125 mg/dl (70-99) H 01/24/25 08:50
Calcium 9.1 mg/dl (8.4-10.2) 01/24/25 08:50
Qya-A-Qyppmansrma Pept > 50013 pg/ml 01/19/25 15:46
Albumin 3.3 g/dl (3.5-5.0) L 01/24/25 08:50
Physical Exam
-
Vital Signs:
Vital Signs
Temp Pulse Resp BP Pulse Ox
97.4 F 84 15 97/65 100
01/24/25 07:34 01/24/25 06:00 01/24/25 06:00 01/24/25 08:03 01/24/25 06:00
Cardiovascular:: Regular rate and rhythm
Respiratory:: Bilateral: Coarse
Lung Excursion:: Normal
Abdomen:: Nontender and Soft
Bowel Sounds:: Normal
Extremity Edema:: +2: Bilateral:
--- NOTE | 2025-01-24 12:02 | ITS.CL.CATH ---
Sap Data Analyst - Catheterization
Cardiac Catheterization
Procedure Report:
RIGHT HEART CATHETERIZATION
Date of Procedure: 01/24/2025
Referring: Issa Cm M.D.
INDICATION: Hypoxic respiratory failure, concern for cardiogenic shock.
ACCESS:
8 [place] right internal jugular vein using a modified Seldinger technique with a micropuncture kit under ultrasound guidance.
CATHETERS:
7.5 [place]-Mohsen.
PROCEDURE:
The patient was prepped and draped in standard sterile fashion. The area for right internal jugular venous access was anesthetized with 1% lidocaine. The right internal jugular vein was identified on ultrasound and punctured using a micropuncture
needle. The micropuncture wire was inserted into the right IJ and into the SVC under fluoroscopic guidance. The needle was removed and a micropuncture sheath was advanced over the micropuncture wire. The inner dilator and wire were withdrawn,
leaving the outer dilator in place. A 0.035 wire was advanced into the right atrium under fluoroscopic guidance and the outer micropuncture sheath was removed. A 8 [place] sheath was inserted into the right internal jugular vein and sutured in
place. A 7.5 [place]-Mohsen catheter was advanced through the sheath into the superior vena cava. An SVC oxygen saturation was drawn. The balloon wedge catheter was advanced into the pulmonary artery and a pulmonary artery oxygen saturation was
drawn. Arterial oxygen saturation was assumed from pulse oximetry. Cardiac output was calculated using both the Justine equation and thermodilution. The PA, wedge, RV and RA pressures were measured. The [place]-Mohsen catheter was locked in place using
the sterile cover.
Weight (kg): 99.8
PA (s/d/x mmHg): 53/21/32
PCWP (a/v/x mmHg): 3233/
RV (s/x mmHg): 56/15
RA (a/v/x mmHg): 17//16
Ao (s/d/x mmHg): 100/61/76 (non-invasive)
SVC SvO2 (%): 71.2
IVC SvO2 (%): Not obtained.
RA SvO2 (%): Not obtained.
RV SvO2 (%): Not obtained.
PA SvO2 (%): 64.9
SaO2 (%): 98.0 (assumed, on 4 L nasal cannula)
Hbg (g/dL): 9.7
Justine
CO (liters/minute): 6.35
CI (liters/minute/m2): 2.86
Thermodilution
CO (liters/minute): 3.92
CI (liters/minute/m2): 1.77
TPG (mmHg): 6
PVR (Wang Units): 1.53
AVO2 Difference (Volume %): 4.37
Cardiac Power Output (tucker): 0.66 (MAP * CO)/451 (normal 0.5 - 0.7; 0.4 - 0.6 in the elderly)
Cardiac Power Index (tucker/m2): 0.30 (MAP * CI)/451
Cesar: 2 (PAs-PAd)/RA
Radiation (mGy): 16.62
DAP (cm2.Gy): 2.1353
Fluoroscopy time (minutes): 1.0
CONCLUSION:
1. Severely elevated filling pressures (PCWP = 26 mmHg at 99.8 kg).
2. Persistent hypoxic respiratory failure requiring supplemental oxygen (4 L nasal cannula).
3. Discrepant cardiac index, 1.77 L/min/m� by thermodilution, 2.86 L/min/m� by Justine equation. Given persistent oxygen requirement, the Justine equation is questionable and is accuracy.
4. Mild, postcapillary pulmonary hypertension (mean PA = 32 mmHg, PCWP = 26 mmHg, cardiac output = 3.92 L/min/m�, PVR = 1.53 Wang units), WHO group 2.
5. Probably normal cardiac power output 0.66 W).
6. Normal Cesar.
RECOMMENDATIONS:
1. Expectant management after right heart catheterization via right internal jugular approach.
2. Discontinue furosemide 40 mg IV daily. Start bumetanide 0.5 mg/h drip.
3. Consider addition of inotropic agents, such as milrinone 0.125 mcg/kg/min to improve forward flow and decongest the lungs.
Copy to: Issa Cm M.D., Vitaly Landin M.D.
Arnulfo Weinstein D.O., [facility], FACP
--- NOTE | 2025-01-24 13:00 | PTCARENOTE ---
Assumed care of patient post cath. Patient is drowsy but wakes up to verbal stimuli and answers appropriately. [place] Mohsen catheter in place at 55, 8 Chinese sheath with 7.5 Chinese [place] Mohsen.
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
Patient is in NSR with good blood pressures, easily palpable pulses.
Patient is on 4L NC with diminished lung sounds in the bases.
Abdomen is soft and nontender, positive bowel sounds
Male purewick in place from previous place, light yellow urine output with 600ml out at time of arrival
IVs c/d/i and patent
skin assessed, foam placed on coccyx
[2025-01-24 13:04] LABS: Glucose - Point of Care 127 mg/dl (70-99)
[2025-01-24] MEDS: NSS 500 VEN SHEATH (13:48)
[2025-01-24] MEDS: BUMEX 100 IV (13:48)
--- NOTE | 2025-01-24 13:52 | CON.INTV ---
Consultation
Consultation Request
Date/Time Consultation Requested: 01/24/2025
Date/Time Consultation Performed: 01/24/2025
Requesting Provider: Dr. Castro
Performing Provider: Dr. Oscar Wilkins
Reason for Consultation: Acute hypoxemic respiratory failure due to acute on chronic heart failure
Medical History
-
Chief Complaint: Exertional/Edema
History of Present Illness:
89-year-old man with nonischemic cardiomyopathy-heart failure with reduced ejection fraction, mitral valve repair, permanent atrial fibrillation, coronary artery disease, history of left renal cell carcinoma, prostate cancer, recently admitted to
the hospital with shock which was due to multiple mechanisms including septic and cardiogenic. During that hospital stay he was taken off cardiac medications due to acute kidney injury.
He was discharged from the hospital 01/14/2025.
Due to worsening edema, weight gain and shortness of breath he was sent to the hospital for reevaluation.
Most recent echocardiogram showed ejection fraction 20 to 25%.
He was admitted on 01/20/2025.
To my evaluation in the critical care unit he offers no complaints. Denies cough, wheezing, phlegm production. Does have shortness of breath with activity but at rest mostly asymptomatic.
Past Medical History
Past Medical History: Other (See assessment and plan)
Past Surgical History: Other (Above as per HPI)
Social History
Tobacco: Former Smoker
Alcohol: None
Drug: None
Personal:
Living: Alone
Family History
Family History: CAD (Father + mother)
Allergies / Home Medications
Allergies
Allergy/AdvReac Type Severity Reaction Status Date / Time
No Known Allergies Allergy Verified 01/09/25 14:57
Home Medications
�Medication �Instructions �Recorded �Confirmed �Last Taken �Type
atorvastatin 10 mg tablet (Lipitor) 10 mg PO DAILY High cholesterol 05/05/17 01/19/25 01/19/25 History
leuprolide 1 mg/0.2 mL 5 mg SQ [id number] Prostate Cancer 05/05/17 01/19/25 05/08/22 History
subcutaneous kit
levothyroxine 200 mcg tablet 200 mcg PO DAILY Thyroid 05/05/17 01/19/25 01/19/25 History
omeprazole magnesium 20 mg 20 mg PO DAILYPRN PRN heartburn 05/05/17 01/19/25 03/18/22 08:00 History
tablet,delayed release (Prilosec
OTC)
glimepiride 2 mg tablet 2 mg PO DAILY Diabetes 06/14/19 01/19/25 01/19/25 History
sitagliptin phosphate 50 mg tablet 50 mg PO DAILY Diabetes 06/14/19 01/19/25 01/19/25 History
(Januvia)
spironolactone 25 mg tablet 25 mg PO DAILY Heart Failure 01/26/22 01/19/25 09/11/22 08:00 History
Held on 01/14/25.
Instructions: Hold until
further instructions from
Willam (cardiology)
apixaban 2.5 mg tablet (Eliquis) 2.5 mg PO BID Blood Clot 01/09/25 01/19/25 01/19/25 History
Prevention/Tx
coenzyme Q10 100 mg capsule 100 mg PO DAILY Supplement 01/09/25 01/19/25 01/19/25 History
(CoQ-10)
ondansetron HCl 8 mg tablet 8 mg PO Q8HPRN PRN n/v 01/09/25 01/19/25 Unknown History
prochlorperazine maleate 10 mg 10 mg PO Q6HPRN PRN n/v 01/09/25 01/19/25 Unknown History
tablet
sacubitril 97 mg-valsartan 103 mg 1 tab PO BID Heart 01/09/25 01/19/25 Unknown History
tablet (Entresto) Disease/Condition
Held on 01/14/25.
Instructions: hold until
further instructions from
Willam (cardiology)
carvedilol 12.5 mg tablet 12.5 mg PO BID 30 days #60 tabs 01/14/25 01/19/25 01/19/25 Rx
furosemide 20 mg tablet 20 mg PO MoWeFr@0800 30 days #13 01/14/25 01/19/25 01/19/25 Rx
tabs
Review of Systems
Vitals / Labs / Diagnostic Testing
Vital Signs
Temp Pulse Resp BP Pulse Ox
98 F 71 17 113/49 98
01/24/25 12:55 01/24/25 11:00 01/24/25 11:00 01/24/25 10:00 01/24/25 12:13
Lab Data
01/24/25 08:50
01/24/25 08:50
Diagnostic Testing:
Physical Exam
-
HEENT: Normocephalic
Cardiovascular: Irregular Rhythm and Peripheral Edema (Lower extremities)
Respiratory: Rales
GI: Soft and Non Distended
Neurology: Awake, Alert, Oriented and No Motor Deficits
Skin: Warm and Other
Assessment
-
Assessment: 89-year-old male with a past medical history of chronic HFrEF, NICM, paroxysmal A-fib on Eliquis, prostate cancer, left-sided renal cell carcinoma, DM type II, hypothyroidism and GERD who presents for weight gain, lower extremity
swelling, hypoxemia. Diagnosed with acute on chronic heart failure. Due to limitations with hemodynamics and renal insufficiency, right heart catheterization was performed on 01/24/2025. Confirmed ongoing volume overload-transferred to the
critical care unit for PA catheter management and diuretics drip on 01/24/2025.
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
, right knee osteoarthritis s/p TKA (2007), DM type II, chronic HFrEF, hypothyroidism, GERD.
Subcutaneous ICD, history of mitral valve repair, chronic kidney disease.
Discharged from the hospital 01/14/2025dmission for shock/heart failure.
Impression:
# Acute hypoxemic respiratory failure due to acute on chronic heart failure with reduced ejection fraction.(Biventricular)
Chest x-ray 01/23/2025: Reviewed persistent changes consistent with heart failure.
Echocardiogram 01/20/2025 reviewed: LVEF 35-40 %. Moderately RV dilatation. Reduced RV function. Moderate TR. Estimated pulmonary pressure 59 mmHg.
Cardiac catheterization report: 01/24/2025-pulmonary capillary wedge pressure 26/cardiac output 6.35/cardiac index 2.86 Justine
# Chronic kidney disease
# Anemia of chronic disease
#Toxic metabolic encephalopathy-improved
Plan:
-
Critically ill: Acute on chronic heart failure with reduced ejection fraction/right ventricular dysfunction:
Continue with goal-directed medical therapy per cardiology
Right heart catheterization noted with persistent indication of pulmonary vascular congestion due to heart failure-increased pulmonary capillary wedge pressure-despite diuresis, patient was having issues also with hemodynamics and inability to
titrate medications.
Transferred to the critical care unit for more aggressive diuresis.
-
Hemodynamic monitoring in the ICU: Will follow pulmonary artery catheter pressures.
Bumex drip started
Patient already on midodrine
At this point not on inotropes.
Daily weights
Follow electrolytes and renal function
-
- HR control with goal <110
- Replete electrolytes with K>4, Mg>2
- Trend sCr and UOP
Patient does have chronic kidney disease: During this hospital stay due to metabolic alkalosis with diuresis he has received acetazolamide
Nephrology continues to follow
-Continue oxygen supplementation to maintain pulse ox above 90%. Currently on 3 L.
-Usually not on oxygen therapy.
-Patient did have episode of delirium during this hospital stay. Improved-during my evaluation following commands and appears appropriate.
- Maintain euglycemia with goal BG 140-180; HbA1c 6.4 on 01/10/2025
- Trend H/H and transfuse if needed to keep Hb>7-8g/dL; keep plt>20k, unless there is concern for bleeding then keep plt>50k
- Incentive spirometer encouraged 10x per hour for at least 4 hrs a day
-Low-sodium diet
-Aspiration precaution
- DVT ppx: Eliquis (renally dosed)
Code status: Full code.
Prognosis is guarded
Total time spent today was 36 minutes for this encounter. Time includes reviewing laboratory test/imaging results, reviewing pertinent medical records, obtaining and reviewing medical history, performing an appropriate exam, ordering medications,
tests and procedures. Time also includes documentation of this encounter, coordinating patient care and communicating with other healthcare professionals. Total time does not include separately billed tests performed on this date of service.
--- NOTE | 2025-01-24 14:29 | CON.MD ---
Consultation - Medical
-
patient seen chart reviewed. this consult done today january 24 2025. patient is an 89 year old male with a host of serious medical illnesses see pmh below. he was admitted w c.o sob weakness lower extremity edema and found to be in heart failure.
he is currently undergoing chemo and radiation for gu cancer. he lost his of 64 years on december 16. he admitted he was grieving her loss and for that reason and that reason alone felt depressed. she had been dx with uterine ca and he feels
they missed a recurrence. her cancer had become untreatable and she . he was never depressed before although in the wake of one of his son's dying in a mva he struggled for a time. he was very aware of the medical illnesses he was being
treated for. he told me he wants to get well and return to his home and has been thinking of ways he could make his life easier eg a stair climber....having meals delivered. he did not sound like a man to me who has given up on life despite his
very significant loss. he was down for cath this am and was tf to icu as he has a ale.
past psych hx none
past medical hx patient here for cardiac illness hx chf a fib has a debillator hx thn hld dm gu cancer (kidney bladder prostate) ckd anemia hypothyroid hx mitral valve repair cholyahrf cardiomyopathy speech eval had him npo diet has since been
advanced
fh denied
substance abuse denied
social [place]. 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 had kids two sons one . has grands but son is div and his ex turned the kids against his family. 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 he and maintained an active social life. misses that
mse alert xo3 cooperative and pleasant. speech and thought process nl affect appropriate mood is sad and wistful no si aver intelligence no psychosis insight judgment good cognition seemed okay
dx bereavement
plan do not feel patient would benefit at this point from antidepressants. he is actively grieving having just lost his . he is also physically well and likely grieving the loss of health. would offer support. he seems to be thinking about his
future at this point which is a good thing and would continue to encourage interactions with those who remain in his [place]. will talk with him in the am and offer support
--- NOTE | 2025-01-24 16:16 | PTCARENOTE ---
Patient seen by speech therapist, cleared for regular diet and thin liquids. Patient is resting comfortably in bed. Bumex drip started at 1400. No change in assessment.
[2025-01-24] MEDS: NOVOLOG FLEXPEN-LOW RESISTANCE 5 UNITS SC (16:41)
[2025-01-24 16:51] LABS: Glucose - Point of Care 354 mg/dl (70-99)
[2025-01-24] MEDS: TOPROL XL 12.5 MG PO (21:50)
[2025-01-24 22:01] LABS: Glucose - Point of Care 183 mg/dl (70-99)
[2025-01-24] MEDS: NOVOLOG FLEXPEN 1 UNITS SC (22:04)
--- NOTE | 2025-01-24 22:32 | PTCARENOTE ---
Received patient at start of shift. Patient aaox 3, [place] b/l, affect flat, pleasant. Right IJ swan intact, good waveform, patient afib on the monitor with occasional PVCs. Positive pedal and radial pulses, +1 generalized anasarca. Lung sounds
diminished throughout, pox 99% on 4L o2 nc. Breathing shallow, no johns noted. BS active x4, patient had large, soft, brown bm earlier this shift with assist of bedpan. Male purewick intact, patient putting out large amounts of clear, yellow urine.
Foam on sacrum c/d/i, skin intact. Patient continues on Bumex gtt to right fa IV. Patient able to make needs known, call macario within reach. Will continue to monitor patient closely.
[2025-01-25] VITALS (32 sets, daily range): BP systolic 90–135; BP diastolic 56–96; BMI 28.3
--- NOTE | 2025-01-25 00:22 | PTCARENOTE ---
Patient removed o2 earlier, pox decreased to 88%. O2 n/c reapplied, patient rebounded quickly and pox currently 96%. Assessment otherwise unchanged. Will continue to monitor.
[2025-01-25] MEDS: NSS 500 VEN SHEATH ×2 (02:26→17:54)
[2025-01-25 03:43] LABS: Hematocrit 31.4 % (39.0-52.0); Hemoglobin 9.9 g/dL (13.0-18.0); Mean Corp Hgb Conc. 31.5 g/dL (33.0-37.0); Mean Corpuscular Volume 95.7 fL (80.0-94.0); Nucleated Red Blood Cells % 0 % (-); Platelet Count 220 10^3/uL (130-400); Red Cell Dist. Width 20.5 % (11.5-14.5)
[2025-01-25 03:52] LABS: INR 1.60; PT 19.2 Sec (11.4-14.6)
[2025-01-25 03:53] LABS: APTT 38.7 Sec (23.4-35.0)
[2025-01-25 04:07] LABS: Magnesium 1.6 mg/dl (1.6-2.3)
[2025-01-25 04:08] LABS: ALT (SGPT) < 10 U/L (0-50); AST (SGOT) 16 U/L (17-59); Albumin 3.2 g/dl (3.5-5.0); Alkaline Phosphatase 77 U/L (38-126); Blood Urea Nitrogen 42 mg/dl (9-20); Calcium 8.9 mg/dl (8.4-10.2); Chloride 93 mmol/L (98-107); Estimated Creatinine Clearance 37 ml/min; Glucose 148 mg/dl (70-99); Potassium 4.2 mmol/L (3.5-5.1); Sodium 137 mmol/L (135-145); Total Protein 5.4 g/dl (6.3-8.2); eGFR 44.50
--- NOTE | 2025-01-25 04:08 | PTCARENOTE ---
Patient assessment unchanged. Patient was incontinent of second bm this am. Hygiene provided. Call macario within reach, will continue to monitor patient closely.
[2025-01-25 04:19] LABS: Carbon Dioxide 38 mmol/L (22-30)
[2025-01-25] MEDS: SYNTHROID 200 MCG PO (06:09)
--- NOTE | 2025-01-25 07:39 | W.PN.HOSP.TC ---
Addendum entered and electronically signed by Ga Castro MD 01/27/25 14:59:
correction-
'Nephrology consulted and following as patient needs dialysis' should read as
'Nephrology consulted and following as patient needs diuresis'
Addendum entered and electronically signed by Ga Castro MD 01/25/25 17:39:
Seen and examined the patient independently. Plan formulated with the resident-agree. See changes in my documentation.
89-year-old male with shortness of breath and left lower extremity edema and 15 pound weight gain. Patient was admitted to [facility] from 01/09/2025 to 01/14/2025 for septic shock, hypovolemia and cellulitis
Echo 01-20-25-EF 35 to 40%. LV wall motion is diffusely hypokinetic. RV SF is at lower limits of normal. RV is moderately dilated. Severe LA dilated RA, status post MVR, trace MR, moderate TR, PA pressure 59 mmHg
Chest x-ray 01/23/2025-persistent congestive changes likely CHF, atelectasis
Patient was seen earlier today. Late documentation
Cardiovascular stones most appreciated
Chest clear to auscultation
Pedal edema
# Acute hypoxic respiratory failure due to CHF
Wean oxygen as tolerated
# Acute on chronic HFrEF
Nonischemic cardiomyopathy
proBNP-
Continue Lasix 40 mg IV twice daily
Hypotension
History of for diuresis status post albumin supplementation
Coreg switched to Toprol-XL on 01/22/2025
Continue midodrine
Goal-directed medical therapy difficult secondary to hypotension-hold Entresto. Continue spironolactone. Renal function has to stabilize before considering SGLT2 inhibitors
Cardiology following
Cardiac cath-severely elevated filling pressures wedge pressure 26 mmHg. Indicative of pulmonary vascular congestion. But at the same time [place]-Mohsen reading was not aligning with this.
[place]Mohsen catheter still in-PA diastolic pressures 11. But readings have been not consistent.
Cardiac output somewhat improved, cardiac index improved
Bumex drip started. changed to PO Bumex
# Encephalopathy secondary to hypoxia
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
Nephrology consulted and following as patient needs dialysis
Course of Diamox for metabolic alkalosis
# Permanent atrial fibrillation-continue Toprol and Eliquis
# History of mitral valve repair at [facility] in 2018 and ICD placement
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
# Orthostatic hypotension-Midodrine
# Nonobstructive coronary disease
# Type 2 diabetes-hemoglobin A1c 6.23 December 2024. Continue Januvia, hold glipizide. Continue sliding scale coverage
# Hypothyroidism-continue levothyroxine 200 mcg daily
# Hyperlipidemia-continue statin
# History of renal cell carcinoma on the left side-on chemotherapy and radiation treatment at [facility] last treatment was December 2024
# History of prostate cancer. Follows up with Dr. Lemus in [place]-continue leuprolide
# Anemia of chronic disease
# Cognitive impairment
# GERD-continue PPI
# Hypoalbuminemia
# DVT prophylaxis-on Eliquis
# Full code
Discussed with stringing machine operator and cardiology
Total Critical Care Time 35 minutes. I was immediately available to the patient and staff. I personally examined, reviewed labs, diagnostic images/reports, interpretations, treatment plans, discussed patient care with other providers , entered
orders as appropriate and documented the medical record.
Part of this note was created using voice recognition system. Occasional wrong word or��sound alike� substitutions may have inadvertently occurred due to the inherent limitations of voice recognition software. If noted kindly bring it to my
attention for correction.
Original Note:
Today's Communication/Plan
-
DC IV Bumex, start PO Bumex 1mg
2L NC, HU
Assessment / Plan
Assessment / Plan
Mr. De La Paz is an 89-year-old male with HFrEF due to nonischemic cardiomyopathy (LVEF 25%), CKD 3B, permanent AF on Eliquis,, left renal cell carcinoma on chemotherapy and radiation at [facility] (last in 12/2024), prostate cancer on leuprolide,
hypothyroidism, NIDDM, radiation cystitis, s/p mitral valve repair, s/p AICD presented to the hospital with BL LE edema and orthopnea. Patient was admitted from Jan 09- with multifactorial shock associated with DEEDEE. Cardiology and Nephrology
following.
CXR 01/23:
Relatively stable examination. Persistent congestive changes, likely congestive heart failure. Mild right perihilar atelectasis.
#Acute Hypoxic Respiratory Insufficiency secondary to Acute on Chronic HFrEF, resolving
s/p ICD placement and MV repair in 2015. Last echo 04/2024 - 20-25% EF. CXR 01/19 showing volume overload vs acute HF. proBNP 69001. Trop x1 0.027. EKG unchanged from prior. Currently on 3L NC from 6L NC in ED. Not on home O2. Unsure per cards re: dry
weight, plan to dig in records and confirm goal weight. On 01/23 morning, nursing concerned about AMS and worsening SOB. On exam, Mr. De La Paz in and out of confusion, answering questions appropriately but unable to keep eyes open. Son at bedside
endorsing this is new. CXR, UA, and transfer to IMU initiated. Cardiology updated, they recommend continuing with diuresis and Midodrine. Given static diuresis, cardiology performed RHC on 01/24 (report above). IV Lasix was stopped and IV Bumex was
started with marked improvement in Mr. De La Paz's SOB and a 6kg water weight loss (~5L off in 24 hrs). He was weaned from 4L NC to 2L NC. 01/25 am, per cards, dc'd IV Bumex and transitioned to PO 1 mg daily.
- Cardiology consulted, follows with Dr. Willam SHOEMAKER
-- s/p IV Lasix 40mg BID��Albumin 12.5% 01/23 with pm Lasix
--- 01/21 and 01/22 am dose held iso hypotension
-- DC Carvedilol 6.25mg BID and start Toprol XL 12.5mg qhs 01/22
-- Midodrine trial 01/22; BP improved s/p 1 dose
-- s/p right heart cath 01/24
--- IV Lasix stopped, IV Bumex 0.5mg/hr started 01/24
--- 01/25 D/C bumetanide gtt; Start bumetanide 1 mg PO daily; Consider investigating primary pulmonary disease component.
--- If he tolerates transition to PO bumetanide, will d/c [place]Mohsen catheter tomorrow.
-- Tubigrips
-- GDMT: Hold Entresto and Spironolactone
-- Daily Wt, IOs and BMP
- Continue supplemental oxygen; HU
- Echo and CXR as above
-- c/f aspiration, speech eval requested again; rec'd NPO prior to RHC; cleared for diabetic diet with thin liquids
#DEEDEE on CKD Stage IIIB
Patient with recent DEEDEE last hospitalization. Baseline Cr 1.3. 01/25 Cr 1.5.
- Nephro consulted for further recs
--Diamox for evolving met alkalosis
--Accurate I's and O's check postvoid bladder scan if urine output faltered
- Monitor renal function with increased diuretics
- Hold Entresto 1 tab daily and Spironolactone 25mg daily
#AMS 2/2 acute hypoxic respiratory insufficiency vs aspiration vs delirium, resolved
- psych consulted
-- rec CTM
#Permanent AF
- Increased Eliquis from 2.5mg to 5mg po BID 01/21
- DC Coreg 01/22 per cards
- Start Toprol XL 12.5 qhs
#Essential Hypertension
Multiple episodes of hypotension this hospitalization with fluid overload. Cardiology consulted. Stopped Coreg on 01/22.
- DC Coreg 01/22 per cards
- Start Toprol XL 12.5 qhs
#Anemia of chronic disease
- CTM
#Diabetes Mellitus, Type II
- HgbA1c 6.4 - Dec 2024
- Continue Januvia
- Hold Glipizide
- POC and ISS low
#Hypothyroidism
- Home Levothyroxine 200 mcg daily
#History of Left Renal Cell Carcinoma
#History of Prostate Cancer on Leuprolide
Primary�urologist Dr. Lemus in [facility]
Patient has not received chemotherapy or radiation since before his prior admission on Jan 09
DVT proph: Eliquis
Code Status: Full Code; Patient has capacity and reiterated this today. Son at bedside updated.
Diet: Diabetic with thin liquids
Dispo: PT recs skilled rehab SNF
Anticipated Discharge: 24 - 48 hours
Subjective/Interval History
-
Date of Service: January 25, 2025
- s/p IV Bumex; 6L UO ON, 4-->2LNC, wt 100kg-->94kg (baseline), this morning, alert and sitting up in bed eating breakfast. No acute complaints nor symptoms per him.
Objective Data
-
Labs:
Laboratory Results
01/25/25
03:26
WBC 6.8
Hgb 9.9 L
Hct 31.4 L
Plt Count 220
PT 19.2 H
INR 1.60
APTT 38.7 H
Sodium 137
Potassium 4.2
Chloride 93 L
Carbon Dioxide 38 H
BUN 42 H
Creatinine 1.5 H
Glucose 148 H
Calcium 8.9
Total Bilirubin 0.9
AST 16 L
ALT < 10
Alkaline Phosphatase 77
Vital Signs:
Vital Signs
Temp Pulse Resp BP Pulse Ox
98.1 F 98 17 90/58 100
01/25/25 04:09 01/25/25 06:00 01/25/25 06:00 01/25/25 06:00 01/25/25 06:00
I&O
01/24/25 01/25/2501/26/25
06:59 06:59 06:59
Intake Total 410 / 410 1534 / 1534
Output Total 2550 / 2550 5650 / 5650
Balance -2140 / -2140 -4116 / -4116
Physical Exam
-
General: Well Developed, Well Nourished, No Apparent Distress, Comfortable, Conversant and Other (sitting up in bed on 2LNC eating breakfast)
HEENT: Normocephalic, Atraumatic, Moist Mucous Membranes and PERRLA
Respiratory: Clear to Auscultation
Cardiac: S1/S2 and Irregular Rhythm (known AFib)
GI: Soft, Nontender and Nondistended
Musculoskeletal: No Clubbing, No Cyanosis and No Edema
Skin: Warm and Dry
Neuro: AO x 3
Psych: Calm and Intact Judgement/Insight
[2025-01-25 07:51] LABS: Glucose - Point of Care 162 mg/dl (70-99)
--- NOTE | 2025-01-25 07:58 | W.PN.CD ---
Today's Communication / Plan
-
D/C bumetanide gtt.
Start bumetanide 1 mg PO daily.
Consider investigating primary pulmonary disease component.
Midodrine PRN.
If he tolerates transition to PO bumetanide, we will d/c Opp-Mohsen catheter tomorrow.
Impression / Plan
-
Impression/Plan: 89M with MVP with severe MR (surgical repair at [facility]), luminal coronary artery disease, nonischemic cardiomyopathy, HFrEF, permanent atrial fibrillation, SQ ICD, and memory impairment who presented to the outpatient cardiology
office in acute on chronic heart failure. He was referred to the ER.
Primary director home: Dr. Quarles
#Acute hypoxic respiratory failure
-In the setting of decompensated HFrEF, though he is now diuresed aggressively with persistent O2 requirement.
-We may need to reassess primary pulmonary disease component.
-This may be a chronic issue and he may require oxygen at discharge.
#Nonischemic cardiomyopathy/HFrEF
-Acute on chronic.
-Severe requiring hospitalization.
-Patient likely has left ventricular failure. Previous echo 05/07/2024 with EF 20 to 25% and dilated RV with reduced right ventricular function (but Cesar is 2).
-ECHO 01/20/25: LVEF 35%. Severe RV dilation.
-Decompensation likely due to combination of underlying cardiomyopathy, DEEDEE and discontinuation of medication and diuretics.
-Diuresis challenging with orthostatic hypotension in the setting of severe volume overload - Tubigrips added.
-RHC showed borderline CI (1.77 by thermo) with severe filling pressure elevation.
- GDMT as tolerated:
-Diuretics: Furosemide changed to bumetanide gtt to avoid peaks/valley's of blood pressure with bolus dosing. Acetazolamide given previously. D/C gtt today and start bumetanide 1 mg daily.
-Beta cameron: Metoprolol succinate 12.5mg HS with holding parameters.
-CARLOS ALBERTO/ARB/ARNI: Likely would not tolerate due to hypotension. Continue to reassess.
-SGLT2 inhibitor: Can consider if approved by nephrology.
-Aldosterone agonist: Limited by BP/renal function.
-Isosorbide/Hydralazine: Not currently indicated.
-ICD: Subcutaneous ICD implanted, does not provide pacing support.
-If he tolerates transition to PO bumetanide, we will discontinue his Opp-Mohsen catheter tomorrow.
#Orthostatic hypotension
-Chronic, stable.
-Midodrine PRN. Patient given a dose on the evening of 01/24/2025.
#Acute delirium
-Improving.
#Atrial fibrillation, permanent
-Rate control with carvedilol.
-[id number]: Score at least 6 (Heart failure, HTN, age 75 or more, Diabetes Mellitus, Vascular disease).
-Oral Anticoagulation: Apixaban 5 mg twice daily (age 89, creatinine <1.5).
#Severe MR
-Chronic, stable.
-s/p surgical repair.
-Mean gradient 4 mmHg by TTE.
#CKD, stage IIIa
-Nephrology following, evolving metabolic alkalosis, course of Diamox.
-Baseline creatinine ~1.3.
-Creatinine up to 1.5 today.
-D/C bumetanide gtt today. Start bumetanide 1 mg PO daily.
#Type 2 diabetes mellitus
-Chronic, with proteinuria.
-Management per primary/nephrology.
#Anemia of chronic disease
#Dispo
-ICU.
-Full code.
-Depending on the patient's trajectory, it may be appropriate to consider a GOC discussion. Inability to tolerate GDMT (or the removal of previously tolerated GDMT therapy is an ominous sign).
Critical Care Time = 40 minutes.
Subjective/Interval History:
RHC showed borderline CI, severe filling pressure elevation.
Furosemide discontinued. Bumetanide gtt started at 0.5 mg/hour.
Weight down 2.6 kg from yesterday.
BP holding.
PAd now in the high single digits, low double digits.
CI improved to 1.87 L/min/m2.
Remains on 4LNC.
DATA:
TTE 01/20/2025:
1. Ejection fraction is 35-40% by Sutton's method of discs. Left ventricular wall motion is diffusely hypokinetic.
2. Right ventricular systolic function is at the lower limits of normal. The right ventricular cavity size is moderately dilated.
3. Severely dilated right atrium.
4. Right atrial size is severely dilated.
5. Aortic valve sclerosis of multiple aortic cusps; but no aortic stenosis.
6. Status post mitral valve repair. Mean gradient 4 mmHg. Trace mitral regurgitation.
7. Moderate tricuspid regurgitation. Estimated pulmonary artery pressure of 59 mmHg assuming a right atrial pressure of 15 mmHg.
8. Compared to a prior transthoracic echocardiogram study from 05/07/2024, there is a slight improvement in LVEF (previously 20-25%). Slightly progressive tricuspid regurgitation is noted with a significant increase in PASP (previously 20-25 mmHg).
RHC, 01/24/2025:
CONCLUSION:
1. Severely elevated filling pressures (PCWP = 26 mmHg at 99.8 kg).
2. Persistent hypoxic respiratory failure requiring supplemental oxygen (4 L nasal cannula).
3. Discrepant cardiac index, 1.77 L/min/m� by thermodilution, 2.86 L/min/m� by Justine equation. Given persistent oxygen requirement, the Justine equation is questionable and is accuracy.
4. Mild, postcapillary pulmonary hypertension (mean PA = 32 mmHg, PCWP = 26 mmHg, cardiac output = 3.92 L/min/m�, PVR = 1.53 Wang units), WHO group 2.
5. Probably normal cardiac power output 0.66 W).
6. Normal Cesar.
Physical Exam
Vital Signs/Labs
Vital Signs
Temp Pulse Resp BP Pulse Ox
36.7 C 98 17 90/58 100
01/25/25 04:09 01/25/25 06:00 01/25/25 06:00 01/25/25 06:00 01/25/25 06:00
01/23/25 01/24/25 01/25/25
11:59 11:59 11:59
Actual Weight 101.35 kg 100.1 kg 94.4 kg
01/25/25 03:26
01/25/25 03:26
PT 19.2 Sec (11.4-14.6) H 01/25/25 03:26
INR 1.60 01/25/25 03:26
APTT 38.7 Sec (23.4-35.0) H 01/25/25 03:26
Magnesium 1.6 mg/dl (1.6-2.3) 01/25/25 03:26
01/19/25
15:46
Ftm-N-Shiykifessi Pept > [id number]
Physical Exam
Constitutional: No acute distress and Comfortable
EENT: Anicteric, Moist mucous membranes and Other (Opp-Mohsen catheter in the RIJ.)
Cardiovascular: Rhythm/rate is irregular, S1S2 is normal and Murmur/rub/gallop absent
Respiratory: Respiratory effort normal, Lungs clear to auscul., Wheeze Absent, Crackles Absent and Rhonchi Absent
GI: Soft, Distention absent, Flat, Non tender and Normal bowel sounds
Neuro/Psych: AO x 3
Other: Cath Site (Right IJ access site is C/D/I, under tegaderm.)
Data Reviewed
-
Date of Service: January 25, 2025
Medical Decision Making: Reviewed Test Results, Independent Historian Assessment and Test Interpretation
EKG: Tracing Personally Visualized and interpreted and Report Reviewed by me
Echo: Report Reviewed by me
X-Ray/CT/US/MRI/NUC/PET: Image Personally Visualized and interpreted and Report Reviewed by me
Medical Tests (PFT, Pathology etc): Image Personally Visualized and interpreted and Report Reviewed by me
Labs: Labs Reviewed by me
Old Records: Reviewed
--- NOTE | 2025-01-25 08:00 | PTCARENOTE ---
Assumed care of patient who is resting comfortably in bed. Hand-off drip validation done with off-going nurse. Patient is aox3, fc, butcher, afebrile. Patient is in A-fib with rates around 80s-90s, occassional PVCs, with acceptable blood pressures.
Pulses easily palpable. Generalized trace edema. Page-Mohsen catheter in place @ 55. Patient is maintaining sats on 2L NC, lungs diminished in the bases. Abdomen is soft/nontender. Positive bowel sounds. Eating breakfast with no swallowing issues.
Patient has clear yellow urine. Foam in place on coccyx. IVs c/d/i. Skin c/d/i.
--- NOTE | 2025-01-25 08:00 | W.PN.INTV ---
Today's Communication / Plan
Recommendations
- Bumetanide 1mg PO daily
- Trend I&Os
- Continue midodrine 5mg bid
- Trend pulmonary artery catheter pressures, likely remove catheter tmrw
- Wean off O2 NC as tolerated, maintaining O2 sat>90%
- Incentive spirometry
- Cardiology consulted, appreciate recs
- Eliquis
- Downgrade tomorrow once cath removed
Assessment
-
Mk De La Paz is an 89yo M with a pmh notable for non-ischemic cardiomyopathy, HFrEF, paroxysmal A-fib (on eliquis), CAD (s/p ICD placement), MV repair, prostate cancer (on leuprolide), left-sided renal cell carcinoma (chemo/radiation at [facility]), T2DM, hypothyroidism and GERD who presented 01/19 with weight gain, JACQUELYN, & hypoxemia, found to have acute on chronic HFrEF, now s/p right heart catheterization (01/24/2025), which confirmed volume overload. Pt was transferred to the
critical care unit for PA catheter management and diuretics drip on 01/24. Plan as below.
Of note, patient was recently admitted (discharged 01/14/25) for septic shock was thought to be due to left leg cellulitis vs reaction to chemo/radiation. He was discharged on new medication Keflex 500mg q6h through 01/15 (5 day total course s/p Ancef
01/11-01/14). His carvedilol dose was decreased from 25mg BID to 12.5mg BID and Entresto + Spironolactone were held until further management by his principal hardware architect Dr. Quarles outpatient.
#Acute hypoxemic respiratory failure, elevated R-sided heart pressures
#Acute on chronic HFrEF (LVEF 35-40%)
Echo 01/20: 'LVEF 35-40 %. Moderately RV dilatation. Reduced RV function. Moderate TR. Estimated pulmonary pressure 59 mmHg.' CXR 01/23: persistent changes consistent with heart failure. RHC (01/24): 'pulmonary capillary wedge pressure 26/cardiac
output 6.35/cardiac index 2.86' Pt was discharged on 01/14 with instructions to decrease carvedilol from 25mg > 12.5mg bid, hold spironolactone, hold entresto, continue lasix 20mg daily.
Today: Fluid balance -4116mL; weight 94.4kg (dry weight ~94kg). BP 90/58, HR 98, RR 17, O2 sat >95% on 2L. Bumex IV converted to PO.
- Bumetanide 1mg PO daily
- Daily I&Os
- HR control with goal <110
- Continue midodrine 5mg bid
- Trend pulmonary artery catheter pressures, likely remove catheter tmrw
- Wean off O2 NC as tolerated, maintaining O2 sat>90%
- Incentive spirometry
- Cardiology consulted, appreciate recs
#Chronic kidney disease IIIa/b.
Known hx of CKD IIIa/b. eGFR 40-50 range. Pt developed metabolic alkalosis in s/o diuresis this admission. S/p acetazolamide. Cr baseline unknown, seemingly ~1.2.
Cr: 1.3>>1.5
- Trend Cr
- Replete electrolytes with K>4, Mg>2
- Nephrology consulted, appreciate recs
#Anemia of chronic disease
Hgb 8.8 on admission. MCV 95.7, RDW 20.5%. Plt 220. Ferritin 379.
Today: Hgb > 9.9
- Trend H&H, transfuse if hgb<7
#Chronic
- Afib: eliquis
- GERD: pantoprazole PRN
- Hypothyroid: levothyroxine
- T2DM (HbA1c 6.4 on 01/10/2025): glimepiride (holding), januvia (continuing) + insulin aspart
- Prostate ca: leuprolide
- Left-sided renal cell carcinoma: chemo/radiation at [facility]
- CAD: 10mg lipitor daily
#Global
- DVT ppx: eliquis (renal dose)
- Diet: low sodium diet w aspiration precaution
- Code: full
- Dispo: ICU level care today, downgrade tomorrow
Subjective Dataa
Subjective Data
Date of Service:
Date of Service: January 25, 2025
Chief Complaint: Diamond Sander Follow Up
Subjective:
Eating breakfast, sitting up in bed. Conversant. Denies SOB or CP.
Review of Systems
General: Satisfactory Appetite
Cardiopulmonary: Dyspnea (denies)
GI: Abdominal Pain (denies) and Nausea (denies)
Genitourinary: Lucas
Objective Data
Data Reviewed
Vital Signs / I&O / Oxygen:
Vital Signs
Temp Pulse Resp BP Pulse Ox
98.1 F 98 17 90/58 100
01/25/25 04:09 01/25/25 06:00 01/25/25 06:00 01/25/25 06:00 01/25/25 06:00
Intake and Output
01/24/25 01/25/25 01/26/25
06:59 06:59 06:59
Intake Total 410 / 410 1534 / 1534
Output Total 2550 / 2550 5650 / 5650
Balance -2140 / -2140 -4116 / -4116
SaO2 100
Nasal Cannula flow liters per 4
minute
Physical Exam
General: Comfortable and Good Appetite
HEENT: Normocephalic, Anicteric and Moist Mucous Membranes
Cardiovascular: S1-S2, Regular Rhythm and Peripheral Edema (none )
Respiratory: Clear, Non-Labored Respirations and Other (O2 NC )
GI: Soft, Non Distended and Non Tender
Neurology: Awake, Alert and Oriented
Skin: Warm, Dry and Good Color
Labs/Micro/Reports
Lab Data
01/25/25 03:26
01/25/25 03:26
Laboratory Results
01/25/25
03:26
PT 19.2 H
INR 1.60
APTT 38.7 H
[2025-01-25] MEDS: NOVOLOG FLEXPEN-MODERATE RESISTANCE 1 UNITS SC ×2 (08:43→17:00)
[2025-01-25] MEDS: BUMEX 1 MG PO (08:44)
[2025-01-25] MEDS: DESENEX/MITRAZOL/ZEASORB 1 APPLIC TOPICAL ×2 (08:44→20:22)
[2025-01-25] MEDS: JANUVIA 50 MG PO (08:45)
[2025-01-25] MEDS: LIPITOR 10 MG PO (08:45)
[2025-01-25] MEDS: ELIQUIS 5 MG PO ×2 (08:45→20:23)
--- NOTE | 2025-01-25 10:43 | PTCARENOTE ---
CO/CI numbers from 10:25am from 8:17am, numbers did not save from monitor.
--- NOTE | 2025-01-25 11:15 | W.PN.NEPH.PH ---
Today's Communication / Plan
-
po bumex
Assessment/Plan
-
Impression:
Congestive heart failure decompensation
Cardiomyopathy EF of 20 to 25%
CKD stage III A (1.4)
Diabetes with associated proteinuria
Atrial fibrillation
History of mitral valve repair
Plan:
follow alkalosis, no diamox today
follow BMP
switch to po bumex
off spironolactone, entresto
continue midodrine
-
-
Date of Service: January 25, 2025
CC / HPI / ROS
-
Chief Complaint:
CKD
History of Present Illness:
cr up to 1.5
bicarb stable 38
wt lower
BP low, on midodrine
diuresing with IV lasix for decompensated HF
weights down
Review of Systems:
no cp or sob at rest
no n/v
Labs
-
Labs:
WBC 6.8 10^3/uL (4.8-10.8) 01/25/25 03:26
RBC 3.28 10^6/uL (4.70-6.10) L 01/25/25 03:26
Hgb 9.9 g/dL (13.0-18.0) L 01/25/25 03:26
Hct 31.4 % (39.0-52.0) L 01/25/25 03:26
Plt Count 220 10^3/uL (130-400) 01/25/25 03:26
Sodium 137 mmol/L (135-145) 01/25/25 03:26
Potassium 4.2 mmol/L (3.5-5.1) 01/25/25 03:26
Chloride 93 mmol/L (98-107) L 01/25/25 03:26
Carbon Dioxide 38 mmol/L (22-30) H 01/25/25 03:26
BUN 42 mg/dl (9-20) H 01/25/25 03:26
Creatinine 1.5 mg/dL (0.7-1.3) H 01/25/25 03:26
eGFR 44.50 01/25/25 03:26
Glucose 148 mg/dl (70-99) H 01/25/25 03:26
Calcium 8.9 mg/dl (8.4-10.2) 01/25/25 03:26
Phosphorus 4.1 mg/dl (2.5-4.5) 01/25/25 03:26
Tns-Q-Ozonfnmwzhj Pept > 26896 pg/ml 01/19/25 15:46
Albumin 3.2 g/dl (3.5-5.0) L 01/25/25 03:26
Physical Exam
-
Vital Signs:
Vital Signs
Temp Pulse Resp BP Pulse Ox
97.9 F 87 15 98/66 97
01/25/25 08:12 01/25/25 10:30 01/25/25 10:30 01/25/25 10:30 01/25/25 10:30
Cardiovascular:: Regular rate and rhythm
Respiratory:: Bilateral: Coarse
Lung Excursion:: Normal
Abdomen:: Nontender and Soft
Bowel Sounds:: Normal
Extremity Edema:: None: Bilateral:
[2025-01-25] MEDS: NOVOLOG FLEXPEN-MODERATE RESISTANCE 5 UNITS SC (11:50)
[2025-01-25 12:00] LABS: Glucose - Point of Care 262 mg/dl (70-99)
--- NOTE | 2025-01-25 12:05 | PTCARENOTE ---
Patient resting comfortably in bed. No pain at this time. No change in assessment.
[2025-01-25] MEDS: MAGNESIUM SULFATE 100 IV (12:23)
--- NOTE | 2025-01-25 16:06 | W.PN.UPDATE ---
Update Note
Progress Note Update
patient seen chart reviewed. discussed with nursing. the patient was tired but he had eaten every morsel on his tray which was in front of him and he was happy with the diet change...pureed food delivered yesterday which i witnessed he did not find
appetizing and sent back!) he talked to me about his life prior to his 's . they were very active and he is acutely aware of missing her as he goes through this latest health ordeal. his son is attentive and he is in touch every day...his
brother called when i was here...he has some nieces and nephews who keep in touch. i asked him if there were activities he might do here in hospital to keep him engaged but we could not come up with much. he used to read the [employer] every day
.....there is in the record some mention of memory impairement. i checked with the two nurses who have cared for him today and yesterday. none see significant memory impairment nor did i. i would not say he is at the top of his cognitive form
given his weakened physical state but for his age it is my impression that his memory is not too bad. i do think he lacks energy secondary to medical and that slows him up significantly and he may appear to be suffering from memory issues but it
is not clear to me that there is a dementia process here. will continue to visit with him to offer support.
--- NOTE | 2025-01-25 16:12 | PTCARENOTE ---
Patient resting comfortably in bed. No complaints of pain at this time. No change in assessment.
--- NOTE | 2025-01-25 16:44 | CM ---
Midodrine, Transitioned IV to PO Bumex, following BMP, PA cath in place. Discharge POC: SNF. Referrals previously forwarded. Peer to Peer active...Obs offered.
[2025-01-25 16:54] LABS: Glucose - Point of Care 186 mg/dl (70-99)
--- NOTE | 2025-01-25 21:00 | PTCARENOTE ---
Pt A&O x3, no c/o pain, ROTHMAN helping turn in bed. Afebrile, Afib on monitor. Palpable pulses, trace edema. RIJ swan with cordis and KVO infusing. CO 4.44, CI 2.03. Bumex gtt off, changed to PO. 2L nc, 98%. 90% on room air. Right lower lobe crackles,
otherwise diminished throughout. Tolerating regular diet, great appetite. Critical I&Os. Sacral foam. Will monitor.
[2025-01-25 21:39] LABS: Glucose - Point of Care 182 mg/dl (70-99)
[2025-01-25] MEDS: TOPROL XL 12.5 MG PO (23:00)
[2025-01-25] MEDS: NOVOLOG FLEXPEN 2 UNITS SC (23:58)
[2025-01-26] VITALS (21 sets, daily range): BP systolic 84–128; BP diastolic 50–79; PULSE 104; O2SAT 95; BMI 28.5
--- NOTE | 2025-01-26 02:55 | W.PN.UPDATE ---
Addendum entered and electronically signed by FREDY Esqueda 01/26/25 03:03:
Patient pulled out�all of�his cordis and half of his swam. DC rest of malposition swan at 0250. Chest�xray�ordered�to rule/out�pneumothorax.
Original Note:
Update Note
Progress Note Update
Patient pulled out all of his cordis and hafl of his swam. Pulled rest of malposition swan at 0250. Chest ordered to rule out pneumothorax.
[2025-01-26 03:39] LABS: Hematocrit 31.2 % (39.0-52.0); Hemoglobin 10.1 g/dL (13.0-18.0); Mean Corp Hgb Conc. 32.4 g/dL (33.0-37.0); Mean Corpuscular Volume 95.1 fL (80.0-94.0); Nucleated Red Blood Cells % 0 % (-); Platelet Count 189 10^3/uL (130-400); Red Cell Dist. Width 20.8 % (11.5-14.5)
[2025-01-26 03:56] LABS: ALT (SGPT) 11 U/L (0-50); AST (SGOT) 18 U/L (17-59); Albumin 3.2 g/dl (3.5-5.0); Alkaline Phosphatase 79 U/L (38-126); Blood Urea Nitrogen 52 mg/dl (9-20); Calcium 8.7 mg/dl (8.4-10.2); Carbon Dioxide 39 mmol/L (22-30); Chloride 94 mmol/L (98-107); Estimated Creatinine Clearance 35 ml/min; Glucose 165 mg/dl (70-99); Potassium 4.0 mmol/L (3.5-5.1); Sodium 137 mmol/L (135-145); Total Protein 5.2 g/dl (6.3-8.2); eGFR 41.19
--- NOTE | 2025-01-26 04:00 | PTCARENOTE ---
Ectopy seen on monitor. Pt found picking at ale and ale dressing. Line noticeably pulled out some from previous location. PROPERTY INSPECTOR William called to bedside to continue taking ale out. Patient reinforced on importance of not pulling lines/tubes.
Xray completed as ordered.
[2025-01-26] MEDS: SYNTHROID 200 MCG PO (06:21)
[2025-01-26 06:46] LABS: Magnesium 1.8 mg/dl (1.6-2.3)
[2025-01-26 07:34] LABS: Glucose - Point of Care 145 mg/dl (70-99)
--- NOTE | 2025-01-26 08:00 | W.PN.CD ---
Today's Communication / Plan
-
Maintain bumetanide 1 mg PO daily.
Daily weights.
Pulmonary disease work up.
He is on maximum tolerated GDMT and requiring midodrine.
Adjust apixaban.
Ambulate/PT/OT.
Impression / Plan
-
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
office in acute on chronic heart failure. He was referred to the ER.
Primary promotional model: Dr. Quarles
#Acute hypoxic respiratory failure
-In the setting of decompensated HFrEF, though he is now diuresed aggressively with persistent O2 requirement.
-Significant improvement in filling pressures and CI with diuresis, but some hypoxia remains. Clearly this is not all related to heart failure.
-Reassess primary pulmonary disease component.
-This may be a chronic issue and he may require oxygen at discharge.
#Nonischemic cardiomyopathy/HFrEF
-Chronic.
-Severe requiring hospitalization.
-ECHO 01/20/25: LVEF 35%. Severe RV dilation.
-Diuresis challenging with orthostatic hypotension in the setting of severe volume overload - Tubigrips added.
-RHC showed borderline CI (1.77 by thermo) with severe filling pressure elevation.
-GDMT as tolerated:
-Diuretics: Bumetanide 1 mg PO daily.
-Beta cmaeron: Metoprolol succinate 12.5mg HS with holding parameters.
-CARLOS ALBERTO/ARB/ARNI: Likely would not tolerate due to hypotension. Continue to reassess.
-SGLT2 inhibitor: Can consider if approved by nephrology.
-Aldosterone agonist: Limited by BP/renal function.
-Isosorbide/Hydralazine: Not currently indicated.
-ICD: Subcutaneous ICD implanted, does not provide pacing support.
-He appears as compensated as he will ever be.
#Orthostatic hypotension
-Chronic, stable.
-Midodrine PRN. Patient given a dose on the evening of 01/24/2025.
#Acute delirium
-Improving.
#Atrial fibrillation, permanent
-Rate control with carvedilol.
-[id number]: Score at least 6 (Heart failure, HTN, age 75 or more, Diabetes Mellitus, Vascular disease).
-Oral Anticoagulation: Apixaban 2.5 mg twice daily (age 89, creatinine >1.5).
#Severe MR
-Chronic, stable.
-s/p surgical repair.
-Mean gradient 4 mmHg by TTE.
#CKD, stage IIIa
-Nephrology following, evolving metabolic alkalosis, course of Diamox.
-Baseline creatinine ~1.3.
-Creatinine up to 1.6 today.
#Type 2 diabetes mellitus
-Chronic, with proteinuria.
-Management per primary/nephrology.
#Anemia of chronic disease
#Dispo
-ICU.
-Full code.
-Depending on the patient's trajectory, it may be appropriate to consider a GOC discussion. Inability to tolerate GDMT (or the removal of previously tolerated GDMT therapy is an ominous sign).
Critical Care Time = 42 minutes.
Subjective/Interval History:
Patient pulled [place]-Mohsen.
Transitioned to PO bumetanide yesterday.
Weight up 0.9 kg from yesterday.
Patient continues to have transient hypotension.
CI up to 2.3 before losing access.
Cr 1.6 today.
DATA:
TTE 01/20/2025:
1. Ejection fraction is 35-40% by Sutton's method of discs. Left ventricular wall motion is diffusely hypokinetic.
2. Right ventricular systolic function is at the lower limits of normal. The right ventricular cavity size is moderately dilated.
3. Severely dilated right atrium.
4. Right atrial size is severely dilated.
5. Aortic valve sclerosis of multiple aortic cusps; but no aortic stenosis.
6. Status post mitral valve repair. Mean gradient 4 mmHg. Trace mitral regurgitation.
7. Moderate tricuspid regurgitation. Estimated pulmonary artery pressure of 59 mmHg assuming a right atrial pressure of 15 mmHg.
8. Compared to a prior transthoracic echocardiogram study from 05/07/2024, there is a slight improvement in LVEF (previously 20-25%). Slightly progressive tricuspid regurgitation is noted with a significant increase in PASP (previously 20-25 mmHg).
[facility], 01/24/2025:
CONCLUSION:
1. Severely elevated filling pressures (PCWP = 26 mmHg at 99.8 kg).
2. Persistent hypoxic respiratory failure requiring supplemental oxygen (4 L nasal cannula).
3. Discrepant cardiac index, 1.77 L/min/m� by thermodilution, 2.86 L/min/m� by Justine equation. Given persistent oxygen requirement, the Justine equation is questionable and is accuracy.
4. Mild, postcapillary pulmonary hypertension (mean PA = 32 mmHg, PCWP = 26 mmHg, cardiac output = 3.92 L/min/m�, PVR = 1.53 Wnag units), WHO group 2.
5. Probably normal cardiac power output 0.66 W).
6. Normal Cesar.
Physical Exam
Vital Signs/Labs
Vital Signs
Temp Pulse Resp BP Pulse Ox
36.8 C 93 17 85/74 95
01/26/25 07:17 01/26/25 06:15 01/26/25 06:15 01/26/25 06:00 01/26/25 06:15
01/24/25 01/25/25 01/26/25
11:59 11:59 11:59
Actual Weight 100.1 kg 94.4 kg 95.3 kg
01/26/25 03:14
01/26/25 03:14
PT 19.2 Sec (11.4-14.6) H 01/25/25 03:26
INR 1.60 01/25/25 03:26
APTT 38.7 Sec (23.4-35.0) H 01/25/25 03:26
Magnesium 1.8 mg/dl (1.6-2.3) 01/26/25 03:14
01/19/25
15:46
Gsu-X-Zirbjrwbath Pept > 62645
Physical Exam
Constitutional: No acute distress and Comfortable
EENT: Anicteric and Moist mucous membranes
Cardiovascular: Rhythm & rate is regular, Pedal edema is absent, JVD pressure is normal, S1S2 is normal and Murmur/rub/gallop absent
Respiratory: Respiratory effort normal, Lungs clear to auscul., Wheeze Absent, Crackles Absent and Rhonchi Absent
GI: Soft, Distention absent, Flat, Non tender and Normal bowel sounds
Neuro/Psych: AO x 3
Other: Cath Site (Right IJ site is C/D/I.)
Data Reviewed
-
Date of Service: January 26, 2025
Medical Decision Making: Reviewed Test Results, Independent Historian Assessment and Test Interpretation
EKG: Tracing Personally Visualized and interpreted and Report Reviewed by me
Echo: Report Reviewed by me
X-Ray/CT/US/MRI/NUC/PET: Image Personally Visualized and interpreted and Report Reviewed by me
Medical Tests (PFT, Pathology etc): Image Personally Visualized and interpreted and Report Reviewed by me
Labs: Labs Reviewed by me
Old Records: Reviewed
--- NOTE | 2025-01-26 08:29 | W.PN.INTV ---
Today's Communication / Plan
Recommendations
- Columbia-Mohsen catheter out (pulled out by patient), no need to replace
- Downgrade to telemetry today
- Continue p.o. Bumex 1 mg daily
- Continue midodrine
- Continue to monitor renal function
- Continue to monitor I's and O's and daily weights
- Cardiology and nephrology following, appreciate recs
Assessment
-
Mk De La Paz is an 89yo M with a pmh notable for non-ischemic cardiomyopathy, HFrEF, paroxysmal A-fib (on eliquis), CAD (s/p ICD placement), MV repair, prostate cancer (on leuprolide), left-sided renal cell carcinoma (chemo/radiation at [facility]), T2DM, hypothyroidism and GERD who presented 01/19 with weight gain, JACQUELYN, & hypoxemia, found to have acute on chronic HFrEF, now s/p right heart catheterization (01/24/2025), which confirmed volume overload. Pt was transferred to the
critical care unit for PA catheter management and diuretics drip on 01/24. Plan as below.
Of note, patient was recently admitted (discharged 01/14/25) for septic shock was thought to be due to left leg cellulitis vs reaction to chemo/radiation. He was discharged on new medication Keflex 500mg q6h through 01/15 (5 day total course s/p Ancef
01/11-01/14). His carvedilol dose was decreased from 25mg BID to 12.5mg BID and Entresto + Spironolactone were held until further management by his home day care provider Dr. Quarles outpatient.
#Acute hypoxemic respiratory failure, elevated R-sided heart pressures
#Acute on chronic HFrEF (LVEF 35-40%)
Echo 01/20: 'LVEF 35-40 %. Moderately RV dilatation. Reduced RV function. Moderate TR. Estimated pulmonary pressure 59 mmHg.' CXR 01/23: persistent changes consistent with heart failure. RHC (01/24): 'pulmonary capillary wedge pressure 26/cardiac
output 6.35/cardiac index 2.86' Pt was discharged on 01/14 with instructions to decrease carvedilol from 25mg > 12.5mg bid, hold spironolactone, hold entresto, continue lasix 20mg daily. Bumex IV converted to p.o. on 01/25.
Today: Fluid balance +200ml; weight 95.3kg (dry weight ~94kg). AVSS, O2 sat >95% on 2L. Patient pulled out Columbia-Mohsen catheter overnight 01/25. CXR without evidence of pneumothorax.
- Bumetanide 1mg PO daily
- Daily I&Os
- HR control with goal <110
- Continue midodrine 5mg bid
- Wean off O2 NC as tolerated, maintaining O2 sat>90%
- Incentive spirometry
- Cardiology consulted, appreciate recs
#Chronic kidney disease IIIa/b.
Known hx of CKD IIIa/b. eGFR 40-50 range. Pt developed metabolic alkalosis in s/o diuresis this admission. S/p acetazolamide. Cr baseline unknown, seemingly ~1.2.
Cr: 1.3>>1.5>1.6
- Trend Cr
- Replete electrolytes with K>4, Mg>2
- Nephrology consulted, appreciate recs
#Anemia of chronic disease, improving
Hgb 8.8 on admission. MCV 95.7, RDW 20.5%. Plt 220. Ferritin 379.
Today: Hgb 8.8> 9.9>10.1
- Trend H&H, transfuse if hgb<7
#Chronic
- Afib: eliquis
- GERD: pantoprazole PRN
- Hypothyroid: levothyroxine
- T2DM (HbA1c 6.4 on 01/10/2025): glimepiride (holding), januvia (continuing) + insulin aspart
- Prostate ca: leuprolide
- Left-sided renal cell carcinoma: chemo/radiation at [facility]
- CAD: 10mg lipitor daily
#Global
- DVT ppx: eliquis (renal dose)
- Diet: low sodium diet w aspiration precaution
- Code: full
- Dispo: Downgrade to telemetry
Subjective Dataa
Subjective Data
Date of Service:
Date of Service: January 26, 2025
Chief Complaint: Pharmacy Innovation Assistant Follow Up
Subjective:
Patient sitting up in bed, watching TV. Had just finished eating his breakfast. Denies any chest pain, shortness of breath, abdominal discomfort, leg swelling. States that the edema in his lower extremities has improved. States that he does not
remember pulling out the Columbia-Mohsen catheter last night. States that he does not know that he even had a catheter.
Review of Systems
General: Satisfactory Appetite
Cardiopulmonary: Dyspnea (None) and Edema (None)
GI: Abdominal Pain (None), Nausea (None) and Vomiting (None)
Objective Data
Data Reviewed
Vital Signs / I&O / Oxygen:
Vital Signs
Temp Pulse Resp BP Pulse Ox
98.2 F 93 17 85/74 95
01/26/25 07:17 01/26/25 06:15 01/26/25 06:15 01/26/25 06:00 01/26/25 06:15
Intake and Output
01/25/25 01/26/25 01/27/25
06:59 06:59 06:59
Intake Total 1534 / 1566 2452 / 2452
Output Total 5650 / 5650 2300 / 2300 200 / 200
Balance -4116 / -4084 152 / 152 -200 / -200
SaO2 95
Nasal Cannula flow liters per 2
minute
Physical Exam
General: Comfortable and Good Appetite
HEENT: Normocephalic, Anicteric and Moist Mucous Membranes
Cardiovascular: S1-S2, Regular Rhythm, Peripheral Edema (none ) and Other (Bandaging in right supraclavicular area at location of prior Columbia-Mohsen catheter; no surrounding erythema or edema)
Respiratory: Clear, Non-Labored Respirations and Other (O2 NC )
GI: Soft, Non Distended and Non Tender
Neurology: Awake, Alert and Oriented
Skin: Warm, Dry and Good Color
Labs/Micro/Reports
Lab Data
01/26/25 03:14
01/26/25 03:14
[2025-01-26] MEDS: JANUVIA 50 MG PO (08:58)
[2025-01-26] MEDS: ELIQUIS 5 MG PO (08:58)
[2025-01-26] MEDS: BUMEX 1 MG PO (08:58)
[2025-01-26] MEDS: LIPITOR 10 MG PO (08:58)
[2025-01-26] MEDS: DESENEX/MITRAZOL/ZEASORB 1 APPLIC TOPICAL ×2 (08:59→22:08)
[2025-01-26] MEDS: NOVOLOG FLEXPEN-HIGH RESISTANCE 1 UNITS SC (08:59)
--- NOTE | 2025-01-26 09:51 | W.PN.HOSP.TC ---
Addendum entered and electronically signed by Ga Castro MD 01/27/25 14:59:
correction-
'Nephrology consulted and following as patient needs dialysis' should read as
'Nephrology consulted and following as patient needs diuresis'
Addendum entered and electronically signed by Ga Castro MD 01/26/25 14:41:
Seen and examined the patient independently. Plan formulated with the resident-agree. See changes in my documentation.
89-year-old male with shortness of breath and left lower extremity edema and 15 pound weight gain. Patient was admitted to [facility] from 01/09/2025 to 01/14/2025 for septic shock, hypovolemia and cellulitis
Echo 01-20-25-EF 35 to 40%. LV wall motion is diffusely hypokinetic. RV SF is at lower limits of normal. RV is moderately dilated. Severe LA dilated RA, status post MVR, trace MR, moderate TR, PA pressure 59 mmHg
Chest x-ray 01/23/2025-persistent congestive changes likely CHF, atelectasis
Patient was seen earlier today. Late documentation
Cardiovascular stones most appreciated
Chest clear to auscultation
Pedal edema
# Acute hypoxic respiratory failure due to CHF
Wean oxygen as tolerated
# Acute on chronic HFrEF
Nonischemic cardiomyopathy
proBNP-over 27K
Continue Lasix 40 mg IV twice daily
Hypotension
History of for diuresis status post albumin supplementation
Coreg switched to Toprol-XL on 01/22/2025
Continue midodrine
Goal-directed medical therapy difficult secondary to hypotension-hold Entresto. Continue spironolactone. Renal function has to stabilize before considering SGLT2 inhibitors
Cardiology following
Cardiac cath-severely elevated filling pressures wedge pressure 26 mmHg. Indicative of pulmonary vascular congestion. But at the same time Silverhill-Mohsen reading was not aligning with this.
[place]-Mohsen catheter Out
Bumex drip changed to PO Bumex
# Encephalopathy secondary to hypoxia
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
Nephrology consulted and following as patient needs dialysis
S/P a Course of Diamox for metabolic alkalosis
# Permanent atrial fibrillation-continue Toprol and Eliquis
# History of mitral valve repair at [facility] in 2018 and ICD placement
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
# Orthostatic hypotension-Midodrine
# Nonobstructive coronary disease
# Type 2 diabetes-hemoglobin A1c 6.23 December 2024. Continue Januvia, hold Glimepiride. SGLT2 inhibitor expensive, we will see if the generic is covered. Continue sliding scale coverage if it is not covered we will consider starting glipizide 2.5
mg daily.
# Hypothyroidism-continue levothyroxine 200 mcg daily
# Hyperlipidemia-continue statin
# History of renal cell carcinoma on the left side-on chemotherapy and radiation treatment at [place] last treatment was December 2024
# History of prostate cancer. Follows up with Dr. Lemus in [place]-continue leuprolide
# Anemia of chronic disease
# Cognitive impairment
# GERD-continue PPI
# Hypoalbuminemia
# DVT prophylaxis-on Eliquis
# Full code
Discussed with embedded software manager
Part of this note was created using voice recognition system. Occasional wrong word or��sound alike� substitutions may have inadvertently occurred due to the inherent limitations of voice recognition software. If noted kindly bring it to my
attention for correction.
Original Note:
Today's Communication/Plan
-
Downgrade to tele from ICU
f/u nephro about SGLT2i iso high POC
Continue to wean O2 AT
Assessment / Plan
Assessment / Plan
Mr. De La Paz is an 89-year-old male with HFrEF due to nonischemic cardiomyopathy (LVEF 25%), CKD 3B, permanent AF on Eliquis,, left renal cell carcinoma on chemotherapy and radiation at [place] (last in 12/2024), prostate cancer on leuprolide,
hypothyroidism, NIDDM, radiation cystitis, s/p mitral valve repair, s/p AICD presented to the hospital with BL LE edema and orthopnea. Patient was admitted from Jan 09- with multifactorial shock associated with DEEDEE. Cardiology and Nephrology
following.
CXR 01/23:
Relatively stable examination. Persistent congestive changes, likely congestive heart failure. Mild right perihilar atelectasis.
#Acute Hypoxic Respiratory Insufficiency secondary to Acute on Chronic HFrEF, resolving
s/p ICD placement and MV repair in 2015. Last echo 04/2024 - 20-25% EF. CXR 01/19 showing volume overload vs acute HF. proBNP 77921. Trop x1 0.027. EKG unchanged from prior. Currently on 3L NC from 6L NC in ED. Not on home O2. Unsure per cards re: dry
weight, plan to dig in records and confirm goal weight. On 01/23 morning, nursing concerned about AMS and worsening SOB. On exam, Mr. De La Paz in and out of confusion, answering questions appropriately but unable to keep eyes open. Son at bedside
endorsing this is new. CXR, UA, and transfer to IMU initiated. Cardiology updated, they recommend continuing with diuresis and Midodrine. Given static diuresis, cardiology performed RHC on 01/24 (report above). IV Lasix was stopped and IV Bumex was
started with marked improvement in Mr. De La Paz's SOB and a 6kg water weight loss (~5L off in 24 hrs). He was weaned from 4L NC to 2L NC. 01/25 am, per cards, dc'd IV Bumex and transitioned to PO 1 mg daily.
- Cardiology consulted, follows with Dr. Willam SHOEMAKER
-- s/p IV Lasix 40mg BID��Albumin 12.5% 01/23 with pm Lasix
--- 01/21 and 01/22 am dose held iso hypotension
-- DC Carvedilol 6.25mg BID and start Toprol XL 12.5mg qhs 01/22
-- Midodrine trial 01/22; BP improved s/p 1 dose
-- s/p right heart cath 01/24 and Schwann catheter
---Downgrade to tele from ICU 01/26
--- IV Lasix stopped, IV Bumex 0.5mg/hr started 01/24, dc'd 01/25
--- Continue bumetanide 1 mg PO daily
-- Tubigrips
-- GDMT: Hold Entresto and Spironolactone
-- Daily Wt, IOs and BMP
- Continue supplemental oxygen; HU
- Echo and CXR as above
-- c/f aspiration, speech eval requested again; rec'd NPO prior to RHC; diabetic diet with thin liquids
#DEEDEE on CKD Stage IIIB
Patient with recent DEEDEE last hospitalization. Baseline Cr 1.3. 01/26 Cr 1.6.
- Nephro consulted for further recs
--Diamox for evolving met alkalosis
--Accurate I's and O's check postvoid bladder scan if urine output faltered
- Monitor renal function with increased diuretics
- Hold Entresto 1 tab daily and Spironolactone 25mg daily
- Awaiting Nephro recs for SGLT2i
#AMS 2/2 acute hypoxic respiratory insufficiency vs aspiration vs delirium, resolved
- psych consulted
-- Rec CTM
#Permanent AF
- Increased Eliquis from 2.5mg to 5mg po BID 01/21
- DC Coreg 01/22 per cards
- Start Toprol XL 12.5 qhs
#Essential Hypertension
Multiple episodes of hypotension this hospitalization with fluid overload. Cardiology consulted. Stopped Coreg on 01/22.
- DC Coreg 01/22 per cards
- Start Toprol XL 12.5 qhs
#Anemia of chronic disease
- CTM
#Diabetes Mellitus, Type II
POC been high this admission compared to prior. Unclear why. Pharmacy med review requested. Nephro consulted for SGLT2i consideration.
- HgbA1c 6.4 - Dec 2024
- Continue Januvia
- Hold Glipizide
- POC and ISS high
#Hypothyroidism
- Home Levothyroxine 200 mcg daily
#History of Left Renal Cell Carcinoma
#History of Prostate Cancer on Leuprolide
Primary�urologist Dr. Lemus in [facility]
Patient has not received chemotherapy or radiation since before his prior admission on Jan 09
DVT proph: Eliquis
Code Status: Full Code; Patient has capacity and reiterated this today. Son at bedside updated.
Diet: Diabetic with thin liquids
Dispo: PT recs skilled rehab SNF
Anticipated Discharge: 24 - 48 hours
Subjective/Interval History
-
Date of Service: January 26, 2025
- Overnight, he pulled out his Schwann and cordis. This morning, laying in bed sleeping. Awake on arousal and orientedx3. Does not remember last night. No complaints this morning. Continues on 2L NC.
Objective Data
-
Labs:
Laboratory Results
01/26/25
03:14
WBC 7.2
Hgb 10.1 L
Hct 31.2 L
Plt Count 189
Sodium 137
Potassium 4.0
Chloride 94 L
Carbon Dioxide 39 H
BUN 52 H
Creatinine 1.6 H
Glucose 165 H
Calcium 8.7
Total Bilirubin 0.7
AST 18
ALT 11
Alkaline Phosphatase 79
Vital Signs:
Vital Signs
Temp Pulse Resp BP Pulse Ox
98.2 F 99 18 107/66 97
01/26/25 07:17 01/26/25 09:30 01/26/25 09:30 01/26/25 09:04 01/26/25 09:30
I&O
01/25/25 01/26/25 01/27/25
06:59 06:59 06:59
Intake Total 1534 / 1566 2452 / 2452
Output Total 5650 / 5650 2300 / 2300 200 / 200
Balance -4116 / -4084 152 / 152 -200 / -200
Physical Exam
-
General: Well Developed, Well Nourished, No Apparent Distress, Comfortable, Conversant and Other (laying in bed, 2LNC)
HEENT: Normocephalic, Atraumatic, Moist Mucous Membranes and PERRLA
Respiratory: Clear to Auscultation and Non Labored Respirations
Cardiac: S1/S2 and Irregular Rhythm (known AFib)
GI: Soft, Nontender and Nondistended
Musculoskeletal: No Clubbing, No Cyanosis and No Edema
Skin: Warm and Dry
Neuro: AO x 3
Psych: Calm and Intact Judgement/Insight
--- NOTE | 2025-01-26 12:19 | W.PN.NEPH.PH ---
Today's Communication / Plan
-
diamox, keep bumex po
follow labs
Assessment/Plan
-
Impression:
Congestive heart failure decompensation
Cardiomyopathy EF of 20 to 25%
CKD stage III A (1.4)
Diabetes with associated proteinuria
Atrial fibrillation
History of mitral valve repair
Plan:
cr slightly up with diuresis at 1.6
cont po bumex for now, CXR is better
met alkalosis -dose diamox
remain off spironolactone, entresto
BP soft, continue midodrine
-
-
Date of Service: January 26, 2025
CC / HPI / ROS
-
Chief Complaint:
CKD
History of Present Illness:
cr up to 1.6
bicarb up at 39
wt slightly up today
BP soft, on midodrine
diuresing with po bumex for decompensated HF
Review of Systems:
no cp or sob at rest
no n/v
Labs
-
Labs:
WBC 7.2 10^3/uL (4.8-10.8) 01/26/25 03:14
RBC 3.28 10^6/uL (4.70-6.10) L 01/26/25 03:14
Hgb 10.1 g/dL (13.0-18.0) L 01/26/25 03:14
Hct 31.2 % (39.0-52.0) L 01/26/25 03:14
Plt Count 189 10^3/uL (130-400) 01/26/25 03:14
Sodium 137 mmol/L (135-145) 01/26/25 03:14
Potassium 4.0 mmol/L (3.5-5.1) 01/26/25 03:14
Chloride 94 mmol/L (98-107) L 01/26/25 03:14
Carbon Dioxide 39 mmol/L (22-30) H 01/26/25 03:14
BUN 52 mg/dl (9-20) H 01/26/25 03:14
Creatinine 1.6 mg/dL (0.7-1.3) H 01/26/25 03:14
eGFR 41.19 01/26/25 03:14
Glucose 165 mg/dl (70-99) H 01/26/25 03:14
Calcium 8.7 mg/dl (8.4-10.2) 01/26/25 03:14
Phosphorus 4.2 mg/dl (2.5-4.5) 01/26/25 03:14
Pmg-A-Cvzkcgtlugs Pept > 80285 pg/ml 01/19/25 15:46
Albumin 3.2 g/dl (3.5-5.0) L 01/26/25 03:14
Physical Exam
-
Vital Signs:
Vital Signs
Temp Pulse Resp BP Pulse Ox
98.2 F 99 18 107/66 97
01/26/25 07:17 01/26/25 09:30 01/26/25 09:30 01/26/25 09:04 01/26/25 09:30
Cardiovascular:: Regular rate and rhythm
Respiratory:: Bilateral: Coarse
Lung Excursion:: Normal
Abdomen:: Nontender and Soft
Bowel Sounds:: Normal
Extremity Edema:: None: Bilateral:
Lucas Catheter: No
[2025-01-26] MEDS: NOVOLOG FLEXPEN-HIGH RESISTANCE 2 UNITS SC ×2 (12:28→18:48)
--- NOTE | 2025-01-26 12:30 | PTCARENOTE ---
OOB with 2 assist and walker to chair at 1200. Attempted to wean off O2. SpO2 84-85% on room air while asleep. Now 94% on 1L NC.
[2025-01-26 12:39] LABS: Glucose - Point of Care 182 mg/dl (70-99)
[2025-01-26] MEDS: DIAMOX 125 MG PO ×2 (14:03→23:39)
--- NOTE | 2025-01-26 14:12 | W.PN.UPDATE ---
Update Note
Progress Note Update
patient seen chart reviewed. spoke with nursing. mr chavira had a difficult night. nursing tells me that he actually apologized for pulling out his ale not really understanding what he had removed or why. he also told me he was sorry and had no
idea why that happened. nursing reports since waking this am he had been back to his normal cognitively and is quite pleasant and cooperative and is being tf to fourth floor later today. i did find him much the same as he was yesterday. again
eating with gusto. he has a great appetite and admits as much. he remains forward thinking hoping he will go home soon at the same time acknowledging it will be hard for him without his . i continue to feel he is not in need of psychotropic
meds but he will need the support of family at [place]. psych will sign off.
--- NOTE | 2025-01-26 14:45 | PTCARENOTE ---
Pt's son, Óscar, notified about room change. Report given to 4th floor RN. Pt was OOB in chair for 1hr 45min and ambulated with PT/OT.
--- NOTE | 2025-01-26 15:31 | CM ---
Inpatient originally declined, Peer to Peer and overturned. Now inpatient. Transferred to Room 418-1. Patient pulled off PA catheter last night, On O2, will need O2 assessment and walk test prior to discharge, I/O, daily weights, Midodrine.
Discharge POC: SNF. Referrals previously forwarded.
[2025-01-26 17:44] LABS: Glucose - Point of Care 169 mg/dl (70-99)
[2025-01-26 21:19] LABS: Glucose - Point of Care 230 mg/dl (70-99)
[2025-01-26] MEDS: TOPROL XL PO (22:04)
[2025-01-26] MEDS: ELIQUIS 2.5 MG PO (22:08)
[2025-01-27] VITALS (8 sets, daily range): BP systolic 96–140; BP diastolic 59–73; PULSE 81; O2SAT 93; BMI 28.0
--- NOTE | 2025-01-27 02:24 | PTCARENOTE ---
Late note due to pt care:
2207: Pt VS reassessed prior to med administration. SBP found to be outside of metoprolol admin. med blessing. Provider made aware of held med and question about diamox. See mar and EMR for details.
2210: Pt was found to be on 6L NC. Pt was broguh back down to 2L NC ( as reported by off going RN). Spo2 checked and found to be @ 85%. Pt returned to 6L resulting in Spo2 @ 91%. Provider made aware of increased O2 demand.
2339: Diamox given per provider. VS checked prior to admin. BP 101/64 HR 90.
0158: Pt's tele showing in HR in 100-110s with short episodes in the 120s. BP 96/59. Provider informed. No new orders at this time.
--- NOTE | 2025-01-27 03:32 | PTCARENOTE ---
Assumed care of pt at this time. Pt resting in bed, O2 7L NC in place, sat 95%. Pt has been Afib 90's-110's on the monitor and EKG done at this time also shows AFib.
--- NOTE | 2025-01-27 03:45 | PTCARENOTE ---
House HUMAN RESOURCES MANAGER MANUFACTURING up to floor and made aware of pt's status - last BP 113/61, HR 90-110's, and HUMAN RESOURCES MANAGER [employer]FA[employer]ING saw EKG. Per HUMAN RESOURCES MANAGER [employer]UFACTURING, will notify her if HR sustains in the 120's.
--- NOTE | 2025-01-27 04:03 | PTCARENOTE ---
Resp therapy asked to add humidification to O2 - RT states he put O2 down to 6L w/ humidification and O2 sat is 92-93% at this time.
[2025-01-27] MEDS: SYNTHROID 200 MCG PO (05:52)
[2025-01-27 07:42] LABS: Glucose - Point of Care 154 mg/dl (70-99)
[2025-01-27 08:12] LABS: Hematocrit 28.3 % (39.0-52.0); Hemoglobin 9.1 g/dL (13.0-18.0); Mean Corp Hgb Conc. 32.2 g/dL (33.0-37.0); Mean Corpuscular Volume 96.6 fL (80.0-94.0); Nucleated Red Blood Cells % 0 % (-); Platelet Count 184 10^3/uL (130-400); Red Cell Dist. Width 20.5 % (11.5-14.5)
[2025-01-27 08:59] LABS: ALT (SGPT) 11 U/L (0-50); AST (SGOT) 17 U/L (17-59); Albumin 3.1 g/dl (3.5-5.0); Alkaline Phosphatase 72 U/L (38-126); Blood Urea Nitrogen 59 mg/dl (9-20); Calcium 8.5 mg/dl (8.4-10.2); Carbon Dioxide 37 mmol/L (22-30); Chloride 93 mmol/L (98-107); Estimated Creatinine Clearance 33 ml/min; Glucose 141 mg/dl (70-99); Potassium 3.6 mmol/L (3.5-5.1); Sodium 135 mmol/L (135-145); Total Protein 5.3 g/dl (6.3-8.2); eGFR 38.30
[2025-01-27] MEDS: NOVOLOG FLEXPEN-HIGH RESISTANCE 2 UNITS SC (09:34)
[2025-01-27] MEDS: GLUCOTROL XL (EXTENDED RELEASE) 2.5 MG PO (09:36)
[2025-01-27] MEDS: ELIQUIS 2.5 MG PO ×2 (09:41→21:13)
[2025-01-27] MEDS: LIPITOR 10 MG PO (09:41)
[2025-01-27] MEDS: BUMEX 1 MG PO (09:42)
[2025-01-27] MEDS: JANUVIA 50 MG PO (09:45)
--- NOTE | 2025-01-27 09:48 | W.PN.HOSP.TC ---
Addendum entered and electronically signed by Ga Castro MD 01/27/25 14:58:
Seen and examined the patient independently. Plan formulated with the resident-agree. See changes in my documentation.
89-year-old male with shortness of breath and left lower extremity edema and 15 pound weight gain. Patient was admitted to [facility] from 01/09/2025 to 01/14/2025 for septic shock, hypovolemia and cellulitis
Echo 01-20-25-EF 35 to 40%. LV wall motion is diffusely hypokinetic. RV SF is at lower limits of normal. RV is moderately dilated. Severe LA dilated RA, status post MVR, trace MR, moderate TR, PA pressure 59 mmHg
Chest x-ray 01/23/2025-persistent congestive changes likely CHF, atelectasis
Patient was seen earlier today.
Cardiovascular stones most appreciated
Chest clear to auscultation
Pedal edema, better
# Acute hypoxic respiratory failure due to CHF
Wean oxygen as tolerated
# Acute on chronic HFrEF
Nonischemic cardiomyopathy
proBNP-more than 27K
Hypotension improved
Coreg switched to Toprol-XL on 01/22/2025
Continue midodrine
Goal-directed medical therapy difficult secondary to hypotension-hold Entresto and aldactone SGLT2 inhibitors is expensive
Cardiac cath-severely elevated filling pressures wedge pressure 26 mmHg. Indicative of pulmonary vascular congestion. But at the same time [place]ev[place]-Mohsen reading was not aligning with this.
Vevay-Mohsen catheter out
Cardiac output somewhat improved, cardiac index improved
Bumex drip changed to PO Bumex
# Encephalopathy secondary to hypoxia- Improved
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
Nephrology consulted and following as patient needs diuresis
Course of Diamox for metabolic alkalosis
Creat up, Will hold tomorrow am Bumex.
# Permanent atrial fibrillation-continue Toprol and Eliquis
# History of mitral valve repair at [facility] in 2018 and ICD placement
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
# Orthostatic hypotension-Midodrine
# Nonobstructive coronary disease
# Type 2 diabetes-hemoglobin A1c 6.23 December 2024. Continue Januvia, start glipizide. Continue sliding scale coverage
# Hypothyroidism-continue levothyroxine 200 mcg daily
# Hyperlipidemia-continue statin
# History of renal cell carcinoma on the left side-on chemotherapy and radiation treatment at [place] last treatment was December 2024
# History of prostate cancer. Follows up with Dr. Lemus in [place]-continue leuprolide
# Anemia of chronic disease
# Cognitive impairment
# GERD-continue PPI
# Hypoalbuminemia
# DVT prophylaxis-on Eliquis
# Full code
Part of this note was created using voice recognition system. Occasional wrong word or��sound alike� substitutions may have inadvertently occurred due to the inherent limitations of voice recognition software. If noted kindly bring it to my
attention for correction.
Original Note:
Today's Communication/Plan
-
wean O2 AT
Glipizide XL 2.5mg 01/27
Assessment / Plan
Assessment / Plan
Mr. De La Paz is an 89-year-old male with HFrEF due to nonischemic cardiomyopathy (LVEF 35-40%), CKD 3B, permanent AF on Eliquis,, left renal cell carcinoma on chemotherapy and radiation at [place] (last in 12/2024), prostate cancer on leuprolide,
hypothyroidism, NIDDM, radiation cystitis, s/p mitral valve repair, s/p AICD presented to the hospital with BL LE edema and orthopnea. Patient was admitted from Jan 09- with multifactorial shock associated with DEEDEE. Cardiology and Nephrology
following.
CXR 01/23:
Relatively stable examination. Persistent congestive changes, likely congestive heart failure. Mild right perihilar atelectasis.
#Acute Hypoxic Respiratory Insufficiency secondary to Acute on Chronic HFrEF, resolving
s/p ICD placement and MV repair in 2015. Last echo 04/2024 - 20-25% EF. CXR 01/19 showing volume overload vs acute HF. proBNP 18902. Trop x1 0.027. EKG unchanged from prior. Currently on 3L NC from 6L NC in ED. Not on home O2. Unsure per cards re: dry
weight, plan to dig in records and confirm goal weight. On 01/23 morning, nursing concerned about AMS and worsening SOB. On exam, Mr. De La Paz in and out of confusion, answering questions appropriately but unable to keep eyes open. Son at bedside
endorsing this is new. CXR, UA, and transfer to IMU initiated. Cardiology updated, they recommend continuing with diuresis and Midodrine. Given static diuresis, cardiology performed RHC on 01/24 (report above). IV Lasix was stopped and IV Bumex was
started with marked improvement in Mr. De La Paz's SOB and a 6kg water weight loss (~5L off in 24 hrs). He was weaned from 4L NC to 2L NC. 01/25 am, per cards, dc'd IV Bumex and transitioned to PO 1 mg daily.
- Cardiology consulted, follows with Dr. Willam SHOEMAKER
-- s/p IV Lasix 40mg BID��Albumin 12.5% 01/23 with pm Lasix
--- 01/21 and 01/22 am dose held iso hypotension
-- DC Carvedilol 6.25mg BID and start Toprol XL 12.5mg qhs 01/22
-- Midodrine trial 01/22; BP improved s/p 1 dose
-- s/p right heart cath 01/24 and Schwann catheter
---Downgrade to tele from ICU 01/26
--- IV Lasix stopped, IV Bumex 0.5mg/hr started 01/24, dc'd 01/25
--- Continue bumetanide 1 mg PO daily
-- Tubigrips
-- GDMT: Hold Entresto and Spironolactone
-- Daily Wt, IOs and BMP
- Continue supplemental oxygen; HU
- Echo and CXR as above
-- c/f aspiration, speech eval requested again; rec'd NPO prior to RHC; diabetic diet with thin liquids
#DEEDEE on CKD Stage IIIB
Patient with recent DEEDEE last hospitalization. Baseline Cr 1.3. 01/26 Cr 1.6, 01/27 Cr 1.7.
- Nephro consulted for further recs, appreciate recs
--Diamox for evolving met alkalosis
--Accurate I's and O's check postvoid bladder scan if urine output faltered
- Monitor renal function with increased diuretics
- Hold Entresto 1 tab daily and Spironolactone 25mg daily
#AMS 2/2 acute hypoxic respiratory insufficiency vs aspiration vs delirium, resolved
- psych consulted
-- Rec CTM
#Permanent AF
- Increased Eliquis from 2.5mg to 5mg po BID 01/21
- DC Coreg 01/22 per cards
- Start Toprol XL 12.5 qhs
#Essential Hypertension
Multiple episodes of hypotension this hospitalization with fluid overload. Cardiology consulted. Stopped Coreg on 01/22.
- DC Coreg 01/22 per cards
- Start Toprol XL 12.5 qhs
#Anemia of chronic disease
- CTM
#Diabetes Mellitus, Type II
POC been high this admission compared to prior. Unclear why. Pharmacy med review requested. Nephro consulted for SGLT2i consideration; no update. Start Glipizide XL 2.5mg daily 01/27.
- HgbA1c 6.4 - Dec 2024
- Continue Januvia
- Start Glipizide XL 2.5mg 01/27
- Dc'd home glimepiride 2mg daily
- POC and ISS high
#Hypothyroidism
- Home Levothyroxine 200 mcg daily
#History of Left Renal Cell Carcinoma
#History of Prostate Cancer on Leuprolide
Primary�urologist Dr. Lemus in [facility]
Patient has not received chemotherapy or radiation since before his prior admission on Jan 09
DVT proph: Eliquis
Code Status: Full Code; Patient has capacity and reiterated this today. Son at bedside updated.
Diet: Diabetic with thin liquids
Dispo: PT recs skilled rehab SNF
Anticipated Discharge: 24 - 48 hours (pending creatinine downtrend)
Subjective/Interval History
-
Date of Service: January 27, 2025
- This morning, sleeping comfortably in bed with 2L NC, had already eaten breakfast. He feels some fluid in belly but otherwise NAEON.
Objective Data
-
Labs:
Laboratory Results
01/27/25
06:38
WBC 6.1
Hgb 9.1 L
Hct 28.3 L
Plt Count 184
Sodium 135
Potassium 3.6
Chloride 93 L
Carbon Dioxide 37 H
BUN 59 H
Creatinine 1.7 H
Glucose 141 H
Calcium 8.5
Total Bilirubin 1.0
AST 17
ALT 11
Alkaline Phosphatase 72
Vital Signs:
Vital Signs
Temp Pulse Resp BP Pulse Ox
97.9 F 102 14 116/73 92
01/27/25 03:36 01/27/25 03:36 01/27/25 03:36 01/27/25 03:36 01/27/25 04:15
I&O
01/26/25 01/27/25 01/28/25
06:59 06:59 06:59
Intake Total 2452 / 2452 240 / 240
Output Total 2300 / 2300 200 / 200
Balance 152 / 152 40 / 40
Physical Exam
-
General: Well Developed, Well Nourished, No Apparent Distress, Comfortable and Other (on 2L NC)
HEENT: Normocephalic, Atraumatic and Moist Mucous Membranes
Respiratory: Clear to Auscultation
Cardiac: S1/S2 and Irregular Rhythm (AFib)
GI: Soft, Nontender, Normal Bowel Sounds and Distended
Musculoskeletal: No Clubbing, No Cyanosis and No Edema
Neuro: AO x 3
Psych: Calm and Intact Judgement/Insight
[2025-01-27] MEDS: DESENEX/MITRAZOL/ZEASORB 1 APPLIC TOPICAL ×2 (09:52→21:18)
--- NOTE | 2025-01-27 09:58 | W.PN.PUL3 ---
Today's Communication / Plan
-
Doing well, weaning O2 down, encouraged IS
Reconsult PT
Remains on IV diuresis, follow daily weights/IOs
Encouraged OOB to chair
No further recs from our standpoint, we will sign off at this time-pls call with questions
Assessment
-
89yo M with a pmh notable for non-ischemic cardiomyopathy, HFrEF, paroxysmal A-fib (on eliquis), CAD (s/p ICD placement), MV repair, prostate cancer (on leuprolide), left-sided renal cell carcinoma (chemo/radiation at [facility]), T2DM,
hypothyroidism and GERD who presented 01/19 with weight gain, JACQUELYN, & hypoxemia, found to have acute on chronic HFrEF, now s/p right heart catheterization (01/24/2025), which confirmed volume overload. Pt was transferred to the critical care unit for
PA catheter management and diuretics drip on 01/24. Transferred to floors 01/26/25.
Acute hypoxemic respiratory failure, elevated R-sided heart pressures
Acute on chronic HFrEF (LVEF 35-40%)
Chronic kidney disease IIIa/b.
Anemia of chronic disease, improving
Conditions present [employer]
Chronic Afib: eliquis
GERD: pantoprazole PRN
Hypothyroid: levothyroxine
T2DM (HbA1c 6.4 on 01/10/2025): glimepiride (holding), januvia (continuing) + insulin aspart
Prostate ca: leuprolide
Left-sided renal cell carcinoma: chemo/radiation at [facility]
CAD
HLD: 10mg lipitor daily
Plan
Currently 92% on 6L NC
Weaning O2 as tolerated
Eventual home O2 eval
Of note, patient was recently admitted (discharged 01/14/25) for septic shock was thought to be due to left leg cellulitis vs reaction to chemo/radiation. He was discharged on new medication Keflex 500mg q6h through 01/15 (5 day total course s/p Ancef
01/11-01/14). His carvedilol dose was decreased from 25mg BID to 12.5mg BID and Entresto + Spironolactone were held until further management by his breakfast host Dr. Quarles outpatient.
HF: Pt was discharged on 01/14 with instructions to decrease carvedilol from 25mg > 12.5mg bid, hold spironolactone, hold entresto, continue lasix 20mg daily. Bumex IV converted to p.o. on 01/25.
Today: Fluid balance +200ml; weight 95.3kg (dry weight ~94kg). AVSS, O2 sat >95% on 2L. Patient pulled out [place]-Mohsen catheter overnight 01/25. CXR without evidence of pneumothorax.
- Bumetanide 1mg PO daily
- Daily I&Os
- HR control with goal <110
- Continue midodrine 5mg bid
- Wean off O2 NC as tolerated, maintaining O2 sat>90%
- Incentive spirometry
- Cardiology consulted, appreciate recs
Known hx of CKD IIIa/b. eGFR 40-50 range. Pt developed metabolic alkalosis in s/o diuresis this admission. S/p acetazolamide. Cr baseline unknown, seemingly ~1.2.
Cr: 1.3>>1.5>1.6
- Trend Cr
- Replete electrolytes with K>4, Mg>2
- Nephrology consulted, appreciate recs
Hgb 8.8 on admission. MCV 95.7, RDW 20.5%. Plt 220. Ferritin 379.
Today: Hgb 8.8> 9.9>10.1
- Trend H&H, transfuse if hgb<7
- DVT ppx: eliquis (renal dose)
- Diet: low sodium diet w aspiration precaution
- Code: full
Diagnostic Data
Chest X-Ray: 01/26/25- No pneumothorax. Mild right lower lobe atelectasis versus scarring. Improved. Pneumonia not excluded. Tiny loculated right pleural effusion. Improved.
CXR 01/23: persistent changes consistent with heart failure.
Duplex 01/09/25- 1. No evidence of deep venous thrombosis in the visualized left lower extremity as described above.
CT Scan:
Echo: 01/20: LVEF 35-40 %. Moderately RV dilatation. Reduced RV function. Moderate TR. Estimated pulmonary pressure 59 mmHg.
RHC (01/24): pulmonary capillary wedge pressure 26/cardiac output 6.35/cardiac index 2.86
PFT's:
Reports and relevant images were personally reviewed.
Total time spent on this consultation/encounter __51__ minutes which includes review of history, physical exam, medications, laboratory data, personal review of imaging, extensive review of outpatient records, discussion with care team and
respiratory therapy.
Subjective Data
-
Date of Service:
Date of Service: January 27, 2025
Chief Complaint: Pulmonary Follow Up
Subjective:
Improving, transfer to floors
Remains on 6L, weaning down
No new complaints
Feels weak overall
Objective Data
Data Reviewed
Vital Signs / I&O / Oxygen:
Vital Signs
Temp Pulse Resp BP Pulse Ox
97.9 F 102 14 116/73 92
01/27/25 03:36 01/27/25 03:36 01/27/25 03:36 01/27/25 03:36 01/27/25 04:15
Intake and Output
01/26/25 01/27/25 01/28/25
06:59 06:59 06:59
Intake Total 2452 / 2452 240 / 240
Output Total 2300 / 2300 200 / 200
Balance 152 / 152 40 / 40
SaO2 92
Nasal Cannula flow liters per 6
minute
Physical Exam
General: Comfortable and Other (NAD)
HEENT: Normocephalic, Anicteric and Moist Mucous Membranes
Cardiovascular: S1-S2 and Regular Rhythm
Respiratory: Clear and Non-Labored Respirations
GI: Soft, Non Distended and Non Tender
Neurology: Awake, Alert, Oriented and No Motor Deficits
Skin: Warm, Dry and Good Color
Labs/Micro/Reports
Lab Data
01/27/25 06:38
01/27/25 06:38
[2025-01-27] MEDS: DIAMOX 125 MG PO (10:34)
--- NOTE | 2025-01-27 10:40 | CM ---
Addendum entered by Ping Bal 01/27/25 15:10:
CM spoke with sonÓscar, discussed [facility] able to accept, likely stable for d.c tomorrow. Patient and son agreeable to [facility].
TT to therapy for updated PT/OT notes for auth.
Ambulance forms on chart.
Plan; [facility] tomorrow, will require auth, ambulance transport
Original Note:
CM reviewed chart, care ongoing.
CM spoke with sonÓscar, discussed [facility] declined, [facility] inquiring about radiation/chemo.
Per son, chemo has been stopped, radiation currently on hold as patient is too weak.
Updates to SNFs to check bed availability, patient will require insurance auth.
CM will continue to follow for all discharge planning needs.
Plan; SNF pending accepting facility, will need auth. Updated referrals placed.
--- NOTE | 2025-01-27 10:50 | W.PN.CD ---
Today's Communication / Plan
-
-Continue Bumex 80 mg PO daily.
-No further cardiac recommendations at this time; outpatient follow-up with Cardiology.
Impression / Plan
-
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
office in acute on chronic heart failure. He was referred to the ER.
Primary associate professor of theology: Dr. Quarles
#Acute hypoxic respiratory failure
-In the setting of decompensated HFrEF, though he is now diuresed aggressively with persistent O2 requirement.
-Significant improvement in filling pressures and CI with diuresis, but some hypoxia remains. Clearly this is not all related to heart failure.
-Reassess primary pulmonary disease component.
-This may be a chronic issue and he may require oxygen at discharge.
#Nonischemic cardiomyopathy/HFrEF (EF 35-40%)
-Chronic.
-Severe requiring hospitalization.
-ECHO 01/20/25: LVEF 35%. Severe RV dilation.
-Diuresis challenging with orthostatic hypotension in the setting of severe volume overload - Tubigrips added.
-RHC showed borderline CI (1.77 by thermo) with severe filling pressure elevation.
-GDMT as tolerated:
-Diuretics: Bumetanide 1 mg PO daily.
-Beta cameron: Metoprolol succinate 12.5mg HS with holding parameters.
-CARLOS ALBERTO/ARB/ARNI: Likely would not tolerate due to hypotension. Continue to reassess.
-SGLT2 inhibitor: Can consider if approved by nephrology.
-Aldosterone agonist: Limited by BP/renal function.
-Isosorbide/Hydralazine: Not currently indicated.
-ICD: Subcutaneous ICD implanted, does not provide pacing support.
-He appears as compensated as he will ever be.
-Continue Bumex 80 mg PO daily.
#Orthostatic hypotension
-Chronic, stable.
-Continue Midodrine PRN.
#Acute delirium
-Improved; Psychiatry was consulted.
#Atrial fibrillation, permanent
-Remains rate controlled with carvedilol.
-[id number]: Score at least 6 (Heart failure, HTN, age 75 or more, Diabetes Mellitus, Vascular disease).
-Oral Anticoagulation: Apixaban 2.5 mg twice daily (age 89, creatinine >1.5).
#Severe MR
-Chronic, stable.
-s/p surgical repair.
-Mean gradient 4 mmHg by TTE.
-Continue to monitor as outpatient.
#CKD, stage IIIa
-Nephrology following, evolving metabolic alkalosis, course of Diamox.
-Baseline creatinine ~1.3.
-Recommendations as per Nephrology.
#Type 2 diabetes mellitus
-Chronic, with proteinuria.
-Management per primary/nephrology.
#Anemia of chronic disease
DATA:
TTE 01/20/2025:
1. Ejection fraction is 35-40% by Sutton's method of discs. Left ventricular wall motion is diffusely hypokinetic.
2. Right ventricular systolic function is at the lower limits of normal. The right ventricular cavity size is moderately dilated.
3. Severely dilated right atrium.
4. Right atrial size is severely dilated.
5. Aortic valve sclerosis of multiple aortic cusps; but no aortic stenosis.
6. Status post mitral valve repair. Mean gradient 4 mmHg. Trace mitral regurgitation.
7. Moderate tricuspid regurgitation. Estimated pulmonary artery pressure of 59 mmHg assuming a right atrial pressure of 15 mmHg.
8. Compared to a prior transthoracic echocardiogram study from 05/07/2024, there is a slight improvement in LVEF (previously 20-25%). Slightly progressive tricuspid regurgitation is noted with a significant increase in PASP (previously 20-25 mmHg).
[facility], 01/24/2025:
CONCLUSION:
1. Severely elevated filling pressures (PCWP = 26 mmHg at 99.8 kg).
2. Persistent hypoxic respiratory failure requiring supplemental oxygen (4 L nasal cannula).
3. Discrepant cardiac index, 1.77 L/min/m� by thermodilution, 2.86 L/min/m� by Justine equation. Given persistent oxygen requirement, the Justine equation is questionable and is accuracy.
4. Mild, postcapillary pulmonary hypertension (mean PA = 32 mmHg, PCWP = 26 mmHg, cardiac output = 3.92 L/min/m�, PVR = 1.53 Wang units), WHO group 2.
5. Probably normal cardiac power output 0.66 W).
6. Normal Cesar.
Physical Exam
Vital Signs/Labs
Vital Signs
Temp Pulse Resp BP Pulse Ox
98.4 F 87 16 110/62 98
01/27/25 07:30 01/27/25 07:30 01/27/25 07:30 01/27/25 07:30 01/27/25 07:30
01/26/25 01/27/25 01/28/25
06:59 06:59 06:59
Actual Weight 95.3 kg 93.525 kg
01/27/25 06:38
01/27/25 06:38
PT 19.2 Sec (11.4-14.6) H 01/25/25 03:26
INR 1.60 01/25/25 03:26
APTT 38.7 Sec (23.4-35.0) H 01/25/25 03:26
Magnesium 1.8 mg/dl (1.6-2.3) 01/26/25 03:14
01/19/25
15:46
Ubf-W-Qjnegqpdnnw Pept > 85940
Physical Exam
Constitutional: No acute distress and Comfortable
EENT: Anicteric
Cardiovascular: Rhythm & rate is regular, Pedal edema present (Trace), Systolic murmur present (/) and S1S2 is normal
Respiratory: Respiratory effort normal and Rhonchi Present (Bibasilar)
GI: Soft
Neuro/Psych: AO x 3
Other: Skin (Warm, dry)
Data Reviewed
-
Date of Service: January 27, 2025
Echo: Report Reviewed by me (01/20/2025: LVEF 35-40%.)
Labs: Labs Reviewed by me
[2025-01-27 11:59] LABS: Glucose - Point of Care 239 mg/dl (70-99)
[2025-01-27] MEDS: NOVOLOG FLEXPEN-HIGH RESISTANCE 4 UNITS SC (12:31)
[2025-01-27 16:36] LABS: Glucose - Point of Care 139 mg/dl (70-99)
[2025-01-27] MEDS: NOVOLOG FLEXPEN-HIGH RESISTANCE 1 UNITS SC (16:42)
--- NOTE | 2025-01-27 17:40 | W.PN.NEPH.PH ---
Today's Communication / Plan
-
follow labs
cotn bumex
Assessment/Plan
-
Impression:
Congestive heart failure decompensation
Cardiomyopathy EF of 20 to 25%
CKD stage III A (1.4)
Diabetes with associated proteinuria
Atrial fibrillation
History of mitral valve repair
Plan:
cr slightly up with diuresis at 1.7
cont po bumex for now, CXR is better
met alkalosis improving wiht diamox
remain off spironolactone, entresto
BP soft, continue midodrine
-
-
Date of Service: January 27, 2025
CC / HPI / ROS
-
Chief Complaint:
CKD
History of Present Illness:
cr up to 1.7
bicarb down to 37
wt down today
BP soft, on midodrine
diuresing with po bumex for decompensated HF
Review of Systems:
no cp or sob at rest
no n/v
Labs
-
Labs:
WBC 6.1 10^3/uL (4.8-10.8) 01/27/25 06:38
RBC 2.93 10^6/uL (4.70-6.10) L 01/27/25 06:38
Hgb 9.1 g/dL (13.0-18.0) L 01/27/25 06:38
Hct 28.3 % (39.0-52.0) L 01/27/25 06:38
Plt Count 184 10^3/uL (130-400) 01/27/25 06:38
Sodium 135 mmol/L (135-145) 01/27/25 06:38
Potassium 3.6 mmol/L (3.5-5.1) 01/27/25 06:38
Chloride 93 mmol/L (98-107) L 01/27/25 06:38
Carbon Dioxide 37 mmol/L (22-30) H 01/27/25 06:38
BUN 59 mg/dl (9-20) H 01/27/25 06:38
Creatinine 1.7 mg/dL (0.7-1.3) H 01/27/25 06:38
eGFR 38.30 01/27/25 06:38
Glucose 141 mg/dl (70-99) H 01/27/25 06:38
Calcium 8.5 mg/dl (8.4-10.2) 01/27/25 06:38
Phosphorus 4.2 mg/dl (2.5-4.5) 01/26/25 03:14
Vcv-W-Obrwfuwlces Pept > 90738 pg/ml 01/19/25 15:46
Albumin 3.1 g/dl (3.5-5.0) L 01/27/25 06:38
Physical Exam
-
Vital Signs:
Vital Signs
Temp Pulse Resp BP Pulse Ox
97.8 F 91 20 118/67 93
01/27/25 15:00 01/27/25 15:00 01/27/25 15:00 01/27/25 15:00 01/27/25 15:00
Cardiovascular:: Regular rate and rhythm
Respiratory:: Bilateral: Coarse
Lung Excursion:: Normal
Abdomen:: Nontender and Soft
Bowel Sounds:: Normal
Extremity Edema:: +1: Bilateral:
Lucas Catheter: No
[2025-01-27] MEDS: TOPROL XL 12.5 MG PO (21:17)
[2025-01-27 21:28] LABS: Glucose - Point of Care 197 mg/dl (70-99)
[2025-01-28] VITALS: BP 114/73
[2025-01-28 03:14] VITALS: BP 101/64
[2025-01-28 06:00] VITALS: BMI 27.9
[2025-01-28] MEDS: SYNTHROID 200 MCG PO (06:24)
[2025-01-28 07:00] VITALS: BP 96/59
[2025-01-28 07:58] LABS: Glucose - Point of Care 153 mg/dl (70-99)
[2025-01-28] MEDS: NOVOLOG FLEXPEN-HIGH RESISTANCE 2 UNITS SC ×2 (07:58→12:47)
[2025-01-28] MEDS: DESENEX/MITRAZOL/ZEASORB 1 APPLIC TOPICAL (07:59)
[2025-01-28] MEDS: ELIQUIS 2.5 MG PO (07:59)
[2025-01-28] MEDS: LIPITOR 10 MG PO (07:59)
[2025-01-28] MEDS: GLUCOTROL XL (EXTENDED RELEASE) 2.5 MG PO (08:00)
[2025-01-28] MEDS: JANUVIA 50 MG PO (08:00)
[2025-01-28 08:52] LABS: Hematocrit 29.4 % (39.0-52.0); Hemoglobin 9.1 g/dL (13.0-18.0); Mean Corp Hgb Conc. 31.0 g/dL (33.0-37.0); Mean Corpuscular Volume 96.7 fL (80.0-94.0); Nucleated Red Blood Cells % 0 % (-); Platelet Count 174 10^3/uL (130-400); Red Cell Dist. Width 20.4 % (11.5-14.5)
[2025-01-28 09:24] LABS: ALT (SGPT) 12 U/L (0-50); AST (SGOT) 22 U/L (17-59); Albumin 3.2 g/dl (3.5-5.0); Alkaline Phosphatase 76 U/L (38-126); Blood Urea Nitrogen 58 mg/dl (9-20); Calcium 8.7 mg/dl (8.4-10.2); Carbon Dioxide 36 mmol/L (22-30); Chloride 95 mmol/L (98-107); Estimated Creatinine Clearance 37 ml/min; Glucose 137 mg/dl (70-99); Potassium 3.3 mmol/L (3.5-5.1); Sodium 136 mmol/L (135-145); Total Protein 5.4 g/dl (6.3-8.2); eGFR 44.50
--- NOTE | 2025-01-28 09:55 | W.PN.HOSP.TC ---
Addendum entered and electronically signed by Ga Castro MD 01/28/25 14:00:
Seen and examined the patient independently. Plan formulated with the resident-agree. See changes in my documentation.
89-year-old male with shortness of breath and left lower extremity edema and 15 pound weight gain. Patient was admitted to [facility] from 01/09/2025 to 01/14/2025 for septic shock, hypovolemia and cellulitis
Echo 01-20-25-EF 35 to 40%. LV wall motion is diffusely hypokinetic. RV SF is at lower limits of normal. RV is moderately dilated. Severe LA dilated RA, status post MVR, trace MR, moderate TR, PA pressure 59 mmHg
Chest x-ray 01/23/2025-persistent congestive changes likely CHF, atelectasis
He was sitting in a chair and feeling well.
Overnight oxygen saturations noted however he is on 3 L now. He may have sleep apnea
Cardiovascular stones most appreciated
Chest clear to auscultation
Pedal edema, better
# Acute hypoxic respiratory failure due to CHF
Wean oxygen as tolerated-currently on 3 L
# Acute on chronic HFrEF
Nonischemic cardiomyopathy
proBNP-more than 27K
Hypotension improved
Coreg switched to Toprol-XL on 01/22/2025
Continue midodrine
Goal-directed medical therapy difficult secondary to hypotension-hold Entresto and aldactone SGLT2 inhibitors is expensive
Cardiac cath-severely elevated filling pressures wedge pressure 26 mmHg. Indicative of pulmonary vascular congestion. But at the same time [place]Mohsen reading was not aligning with this.
[place]-Mohsen catheter out
Cardiac output somewhat improved, cardiac index improved
Bumex drip changed to PO Bumex
# Encephalopathy secondary to hypoxia- Improved
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
Nephrology consulted and following as patient needs diuresis
Course of Diamox for metabolic alkalosis
Bumex 1 mg daily restarted
Creatinine base is 1.3 today is 1.5
Repeat labs in the rehab
# Permanent atrial fibrillation-continue Toprol and Eliquis
# History of mitral valve repair at [facility] in 2018 and ICD placement
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
# Orthostatic hypotension-Midodrine
# Nonobstructive coronary disease
# Type 2 diabetes-hemoglobin A1c 6.23 December 2024. Continue Januvia, started glipizide. Continue sliding scale coverage
# Hypothyroidism-continue levothyroxine 200 mcg daily
# Hyperlipidemia-continue statin
# History of renal cell carcinoma on the left side-on chemotherapy and radiation treatment at [facility] last treatment was December 2024. Patient has radiation to finish when he gets stronger
# History of prostate cancer. Follows up with Dr. Lemus in [place]-continue leuprolide
# Anemia of chronic disease
# Cognitive impairment
# GERD-continue PPI
# Hypoalbuminemia
# DVT prophylaxis-on Eliquis
# Full code
Case discussed with nephrology at bedside
Discussed with case management
Discussed with his son regarding all the medicines changes. He stated that patient is supposed to follow-up with [facility] when he is stronger to complete the radiation treatments.
Discussed about discharge today
Total discharge coordination time more than 30 minutes
Part of this note was created using voice recognition system. Occasional wrong word or��sound alike� substitutions may have inadvertently occurred due to the inherent limitations of voice recognition software. If noted kindly bring it to my
attention for correction.
Original Note:
Today's Communication/Plan
-
bumex 1mg PO daily
DC to [place] today
wean off 3LNC at [facility]
Assessment / Plan
Assessment / Plan
Mr. De La Paz is an 89-year-old male with HFrEF due to nonischemic cardiomyopathy (LVEF 35-40%), CKD 3B, permanent AF on Eliquis,, left renal cell carcinoma on chemotherapy and radiation at [facility] (last in 12/2024), prostate cancer on leuprolide,
hypothyroidism, NIDDM, radiation cystitis, s/p mitral valve repair, s/p AICD presented to the hospital with BL LE edema and orthopnea. Patient was admitted from Jan 09- with multifactorial shock associated with DEEDEE. Cardiology and Nephrology
following.
CXR 01/23:
Relatively stable examination. Persistent congestive changes, likely congestive heart failure. Mild right perihilar atelectasis.
#Acute Hypoxic Respiratory Insufficiency secondary to Acute on Chronic HFrEF, resolving
s/p ICD placement and MV repair in 2015. Last echo 04/2024 - 20-25% EF. CXR 01/19 showing volume overload vs acute HF. proBNP 15983. Trop x1 0.027. EKG unchanged from prior. Currently on 3L NC from 6L NC in ED. Not on home O2. Unsure per cards re: dry
weight, plan to dig in records and confirm goal weight. On 01/23 morning, nursing concerned about AMS and worsening SOB. On exam, Mr. De La Paz in and out of confusion, answering questions appropriately but unable to keep eyes open. Son at bedside
endorsing this is new. CXR, UA, and transfer to IMU initiated. Cardiology updated, they recommend continuing with diuresis and Midodrine. Given static diuresis, cardiology performed RHC on 01/24 (report above). IV Lasix was stopped and IV Bumex was
started with marked improvement in Mr. De La Paz's SOB and a 6kg water weight loss (~5L off in 24 hrs). He was weaned from 4L NC to 2L NC. 01/25 am, per cards, dc'd IV Bumex and transitioned to PO 1 mg daily.
- Cardiology consulted, follows with Dr. Willam SHOEMAKER
-- s/p IV Lasix 40mg BID��Albumin 12.5% 01/23 with pm Lasix
--- 01/21 and 01/22 am dose held iso hypotension
-- DC Carvedilol 6.25mg BID and start Toprol XL 12.5mg qhs 01/22
-- Midodrine trial 01/22; BP improved s/p 1 dose
-- s/p right heart cath 01/24 and Schwann catheter
---Downgrade to tele from ICU 01/26
--- IV Lasix stopped, IV Bumex 0.5mg/hr started 01/24, dc'd 01/25
--- Continue bumetanide 1 mg PO daily
-- Tubigrips
-- GDMT: Hold Entresto and Spironolactone
-- Daily Wt, IOs and BMP
- Continue supplemental oxygen; on 3L NC, HU at [facility]
- Echo and CXR as above
-- c/f aspiration, speech eval requested again; rec'd NPO prior to RHC; diabetic diet with thin liquids
#DEEDEE on CKD Stage IIIB
Patient with recent DEEDEE last hospitalization. Baseline Cr 1.3. 01/26 Cr 1.6, 01/27 Cr 1.7, 01/28 Cr 1.5.
- Nephro consulted for further recs, rec continuing Bumex 1mg PO
--s/p Diamox for evolving met alkalosis
--Accurate I's and O's check postvoid bladder scan if urine output faltered
- Monitor renal function with increased diuretics
- Hold Entresto 1 tab daily and Spironolactone 25mg daily
#AMS 2/2 acute hypoxic respiratory insufficiency vs aspiration vs delirium, resolved
- psych consulted
-- Rec CTM
#Permanent AF
- Increased Eliquis from 2.5mg to 5mg po BID 01/21
- DC Coreg 01/22 per cards
- Toprol XL 12.5 qhs
#Essential Hypertension
Multiple episodes of hypotension this hospitalization with fluid overload. Cardiology consulted. Stopped Coreg on 01/22.
- DC Coreg 01/22 per cards
- Toprol XL 12.5 qhs
#Anemia of chronic disease
- CTM
#Diabetes Mellitus, Type II
POC been high this admission compared to prior. Unclear why. Pharmacy med review requested. Nephro consulted for SGLT2i consideration; no update. Start Glipizide XL 2.5mg daily 01/27.
- HgbA1c 6.4 - Dec 2024
- Continue Januvia
- Start Glipizide XL 2.5mg 01/27
- Dc'd home glimepiride 2mg daily
- POC and ISS high
#Hypothyroidism
- Home Levothyroxine 200 mcg daily
#History of Left Renal Cell Carcinoma
#History of Prostate Cancer on Leuprolide
Primary�urologist Dr. Lemus in [facility]
Patient has not received chemotherapy or radiation since before his prior admission on Jan 09
DVT proph: Eliquis
Code Status: Full Code; Patient has capacity and reiterated this today. Son at bedside updated.
Diet: Diabetic with thin liquids
Dispo: PT recs skilled rehab [facility], [place] to [facility] today
Anticipated Discharge: Within 24 hours
Subjective/Interval History
-
Date of Service: January 28, 2025
- This morning, he's sleeping comfortably in bed on 4L NC. Upon wakening, he states he feels good and ready to go to SNF when able.
Objective Data
-
Labs:
Laboratory Results
01/28/25
07:39
WBC 6.3
Hgb 9.1 L
Hct 29.4 L
Plt Count 174
Sodium 136
Potassium 3.3 L
Chloride 95 L
Carbon Dioxide 36 H
BUN 58 H
Creatinine 1.5 H
Glucose 137 H
Calcium 8.7
Total Bilirubin 1.2
AST 22
ALT 12
Alkaline Phosphatase 76
Vital Signs:
Vital Signs
Temp Pulse Resp BP Pulse Ox
98.0 F 81 18 96/59 93
01/28/25 07:00 01/28/25 07:00 01/28/25 07:00 01/28/25 07:00 01/28/25 07:00
I&O
01/27/25 01/28/25 01/29/25
06:59 06:59 06:59
Intake Total 240 / 240 484 / 484
Output Total 200 / 200
Balance 40 / 40 484 / 484
Physical Exam
-
General: Well Developed, Well Nourished, No Apparent Distress, Comfortable, Appears Chronically Ill and Other (on 3L NC)
HEENT: Normocephalic, Atraumatic and Moist Mucous Membranes
Respiratory: Clear to Auscultation
Cardiac: Regular Rhythm and S1/S2
GI: Soft, Nontender and Nondistended
Musculoskeletal: No Clubbing, No Cyanosis and No Edema
Skin: Warm
Neuro: AO x 3
Psych: Calm and Intact Judgement/Insight
[2025-01-28] MEDS: KCL 40 MEQ PO (10:12)
[2025-01-28 10:36] VITALS: BP 102/57; PULSE 75; O2SAT 92
[2025-01-28 10:44] VITALS: BP 102/57; PULSE 73; O2SAT 93
[2025-01-28 11:00] VITALS: BP 101/62
--- NOTE | 2025-01-28 12:33 | W.PN.NEPH.PH ---
Today's Communication / Plan
-
cont po bumex
Assessment/Plan
-
Impression:
Congestive heart failure decompensation
Cardiomyopathy EF of 20 to 25%
CKD stage III A (1.4)
Diabetes with associated proteinuria
Atrial fibrillation
History of mitral valve repair
Plan:
continue bumex
follow BMP
for SNF
-
-
Date of Service: January 28, 2025
CC / HPI / ROS
-
Chief Complaint:
CKD
History of Present Illness:
Cr 1.5 better
O2 sat stable
BP soft, stable on midodrine
diuresing with po bumex for decompensated HF
Review of Systems:
no cp or sob at rest
no n/v
Labs
-
Labs:
WBC 6.3 10^3/uL (4.8-10.8) 01/28/25 07:39
RBC 3.04 10^6/uL (4.70-6.10) L 01/28/25 07:39
Hgb 9.1 g/dL (13.0-18.0) L 01/28/25 07:39
Hct 29.4 % (39.0-52.0) L 01/28/25 07:39
Plt Count 174 10^3/uL (130-400) 01/28/25 07:39
Sodium 136 mmol/L (135-145) 01/28/25 07:39
Potassium 3.3 mmol/L (3.5-5.1) L 01/28/25 07:39
Chloride 95 mmol/L (98-107) L 01/28/25 07:39
Carbon Dioxide 36 mmol/L (22-30) H 01/28/25 07:39
BUN 58 mg/dl (9-20) H 01/28/25 07:39
Creatinine 1.5 mg/dL (0.7-1.3) H 01/28/25 07:39
eGFR 44.50 01/28/25 07:39
Glucose 137 mg/dl (70-99) H 01/28/25 07:39
Calcium 8.7 mg/dl (8.4-10.2) 01/28/25 07:39
Phosphorus 4.2 mg/dl (2.5-4.5) 01/26/25 03:14
Gqr-Z-Oaqomvzglwd Pept > 72835 pg/ml 01/19/25 15:46
Albumin 3.2 g/dl (3.5-5.0) L 01/28/25 07:39
Physical Exam
-
Vital Signs:
Vital Signs
Temp Pulse Resp BP Pulse Ox
98.0 F 81 18 96/59 93
01/28/25 07:00 01/28/25 07:00 01/28/25 07:00 01/28/25 07:00 01/28/25 07:00
Cardiovascular:: Regular rate and rhythm
Respiratory:: Bilateral: Coarse
Lung Excursion:: Normal
Abdomen:: Nontender and Soft
Bowel Sounds:: Normal
Extremity Edema:: +1: Bilateral:
[2025-01-28 12:41] LABS: Glucose - Point of Care 192 mg/dl (70-99)
--- NOTE | 2025-01-28 13:13 | CM ---
Addendum entered by Ping Bal 01/28/25 13:30:
Patient scheduled for 2:30 p.m. transport, son Óscar updated.
Sharon at [facility] updated with transport time.
Original Note:
CM reviewed, patient for d.c today
CM spoke with [facility], auth approved 01/28-02/01, NRD 02/01, call for updated [phone], auth #[id number], ambulance auth #[id number].
KIMANI spoke with MARY Herrera at [facility], provided auth.
Patient seen bedside, aware of plan for d/c, will require ambulance transport, remains on O2.
IMM verbally reviewed, provided with copy, placed in chart.
Plan; [facility], ambulance transport
[facility]
Report: [phone]
[2025-01-28] MEDS: BUMEX 1 MG PO (13:47)
--- NOTE | 2025-01-28 16:35 | W.DCSUMMARY ---
Discharge Summary
Discharge Data
Date of Admission: 01/19/25
Date of Discharge: 01/28/25
-
Pending Results: No
Hospital Course
Discharging Physician : Ga Rothman
Disposition : [facility] ([place]
Principal Discharge diagnosis : Acute hypoxic respiratory failure 2/2 HFrEF, DEEDEE on CKD3A
Chronic Discharge diagnosis :
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
Non-Ischemic Cardiomyopathy
Permanent Atrial Fibrillation
Essential Hypertension
Hyperlipidemia
Diabetes Mellitus, Type II
CKD Stage IIIB
Anemia of Chronic Disease
Hypothyroidism
Left Renal Cell Carcinoma
Prostate Cancer
Bladder Cancer
Hospital Course : Mr. De La Paz is an 89 with PMH as above and a recent hospitalization 01/09-01/14 for multifactorial shock and DEEDEE who presented with LE edema, 15lb weight gain, and orthopnea. At time of discharge during the prior hospitalization,
his Entresto and spironolactone remained on hold, and his Lasix dose was decreased to 20mg MWF. His hospital course by problem is below. He was discharged to [facility] ([place] on 3LNC and with new medications Bumex 1mg daily, glipizide XL 2.5mg daily,
metop succ 12.5mg hs, midodrine 5mg BID, miralax and senna. His coreg, lasix, glimperide, entresto, and spironolactone were dc'd. He was instructed to follow up with his PCP within a week and has scheduled follow-up with Cardiology on 02/04 at
1:40pm. His oxygen will need to be weaned to RA at [facility].
1. Acute Hypoxic Respiratory Insufficiency secondary to Acute on Chronic HFrEF
s/p ICD placement and MV repair in 2015. Last echo 01/20 35-40% EF. CXR 01/19 showing volume overload vs acute HF. proBNP 22726. Trop x1 0.027. EKG unchanged from prior. Not on home O2. Dry weight: 210lbs. Cardiology following given inability to
sufficiently diurese with IV Lasix and hypotension. Given static diuresis, cardiology performed RHC on 01/24 (report below). IV Lasix was stopped and IV Bumex was started with marked improvement in Mr. De La Paz's SOB and a 6kg water weight loss (~5L
off in 24 hrs). He was weaned from 4L NC to 3L NC. Of note, he is more prone to desat overnight than during the day.
- Cardiology consulted, follows with Dr. Willam SHOEMAKER
-- s/p IV Lasix 40mg BID��Albumin 12.5% 01/23 with pm Lasix
-- DC'd home Carvedilol 6.25mg BID
-- Start Toprol XL 12.5mg qhs and Midodrine BID 01/22
-- s/p right heart cath 01/24 and Schwann catheter; moved up to ICU d/t Schwann, downgraded to tele 01/26
-- IV Bumex 0.5mg/hr started 01/24-01/25, 6kg weight loss in 24 hours
--- Continue bumetanide 1 mg PO daily
-- GDMT: HOLD Entresto and Spironolactone
- Continue supplemental oxygen; on 3L NC, HU at SNF
-- c/f aspiration, speech eval requested again; diabetic diet with thin liquids
2. DEEDEE on CKD Stage IIIB
Patient with recent DEEDEE last hospitalization. Baseline Cr 1.3. 01/26 Cr 1.6, 01/27 Cr 1.7, 01/28 Cr 1.5.
- Nephro consulted for further recs, rec continuing Bumex 1mg PO and CMP check 1 week after discharge
--s/p Diamox for evolving met alkalosis
- Hold Entresto 1 tab daily and Spironolactone 25mg daily
3. AMS 2/2 acute hypoxic respiratory insufficiency vs aspiration vs delirium, resolved
- Psych consulted
-- Rec CTM, no need for intervention at this time
4. Permanent AF
- Increased Eliquis from 2.5mg to 5mg po BID 01/21
- DC Coreg 01/22 per cards
- Toprol XL 12.5 qhs
5. Essential Hypertension
Multiple episodes of hypotension this hospitalization with fluid overload. Cardiology consulted. Stopped Coreg on 01/22.
- DC Coreg 01/22 per cards
- Toprol XL 12.5 qhs
6. Anemia of chronic disease
- CTM
7. Diabetes Mellitus, Type II
POC been high this admission compared to prior. Unclear why. Pharmacy med review requested. Insurance doesn't cover SGLT2i.
- HgbA1c 6.4 - Dec 2024
- Continue Januvia
- Start Glipizide XL 2.5mg 01/27
- Dc'd home glimepiride 2mg daily
- POC and ISS high
8. Hypothyroidism
- Home Levothyroxine 200 mcg daily
9. History of Left Renal Cell Carcinoma
#History of Prostate Cancer on Leuprolide
Primary�urologist Dr. Lemus in [facility]
Patient has not received chemotherapy or radiation since before his prior admission on Jan 09
Important imaging findings :
CXR 01/28:
Hazy bibasilar opacities most consistent with small pleural effusions and/or airspace consolidation/atelectasis.
Cardiomegaly.
CXR 01/26:
Lines tubes as described above.
No pneumothorax.
Mild right lower lobe atelectasis versus scarring. Improved. Pneumonia not excluded.
Tiny loculated right pleural effusion. Improved.
CXR 01/23:
Relatively stable examination. Persistent congestive changes, likely congestive heart failure. Mild right perihilar atelectasis.
Echo 01/20:
1. Ejection fraction is 35-40% by Sutton's method of discs. Left ventricular wall motion is diffusely hypokinetic.
2. Right ventricular systolic function is at the lower limits of normal. The right ventricular cavity size is moderately dilated.
3. Severely dilated right atrium.
4. Right atrial size is severely dilated.
5. Aortic valve sclerosis of multiple aortic cusps; but no aortic stenosis.
6. Status post mitral valve repair. Mean gradient 4 mmHg. Trace mitral regurgitation.
7. Moderate tricuspid regurgitation. Estimated pulmonary artery pressure of 59 mmHg assuming a right atrial pressure of 15 mmHg.
8. Compared to a prior transthoracic echocardiogram study from 05/07/2024, there is a slight improvement in LVEF (previously 20-25%). Slightly progressive tricuspid regurgitation is noted with a significant increase in PASP (previously 20-25 mmHg).
Procedure findings :
CONCLUSION:
1. Severely elevated filling pressures (PCWP = 26 mmHg at 99.8 kg).
2. Persistent hypoxic respiratory failure requiring supplemental oxygen (4 L nasal cannula).
3. Discrepant cardiac index, 1.77 L/min/m� by thermodilution, 2.86 L/min/m� by Justine equation. Given persistent oxygen requirement, the Justine equation is questionable and is accuracy.
4. Mild, postcapillary pulmonary hypertension (mean PA = 32 mmHg, PCWP = 26 mmHg, cardiac output = 3.92 L/min/m�, PVR = 1.53 Wang units), WHO group 2.
5. Probably normal cardiac power output 0.66 W).
6. Normal Cesar.
RECOMMENDATIONS:
1. Expectant management after right heart catheterization via right internal jugular approach.
2. Discontinue furosemide 40 mg IV daily. Start bumetanide 0.5 mg/h drip.
3. Consider addition of inotropic agents, such as milrinone 0.125 mcg/kg/min to improve forward flow and decongest the lungs.
Arnulfo Weinstein D.O., FACC, FACP
Discharge Plan
-
Patient Disposition: Intermediate/SNF
Discharge Diagnosis/Procedures: Acute hypoxic respiratory failure 2/2 HFrEF
DEEDEE on CKD3A
T2D
Non-Ischemic Cardiomyopathy
Permanent Atrial Fibrillation
Essential Hypertension
Hyperlipidemia
Diabetes Mellitus, Type II
CKD Stage IIIB
Anemia of Chronic Disease
Hypothyroidism
Left Renal Cell Carcinoma
Prostate Cancer
Bladder Cancer
Condition: Good
Diet: 2 Gram Sodium and Diabetic, Carb Controlled
Additional Diets: 50 ounce fluid restriction
Activity: As tolerated
Driving Restrictions: As prior to admission
Bathing Restrictions: None
Blood Work: CBC w diff and CMP in one week. BMP 3-4 days
Specialty Instructions: Weigh Daily- Call MD for wt gain/loss 3 lbs overnight/5 lbs in 1 week
Activity Restrictions/Additional Instructions:
Follow-up with Ovi Hernandez for renal cell carcinoma
Elastic compression stockings for both legs
Workup of anemia. Follow-up with PCP
Incentive spirometry to be used.
Wean Oxygen as tolerated
We recommend that you get sleep study as outpatient. Follow-up with lung doctor to get this completed
Instructions: *CBC Heart Failure Instructions
Referrals:
Jemal Garcia MD [Active, Pulmonary Medicine]
Referral Note: Sleep study
Elvira Castro CRNP [Specified Professional Personl, Cardiology] - 02/04/25 1:40 pm
Vitaly Landin MD [Family Provider, Internal Medicine] - in less than 1 week
Referral Note: Follow-up regarding this hospitalization, weight check for fluid retention, and creatinine.
Additional Discharge Medication Instructions: Stop glimepiride. Stop spironolactone, Entresto, Lasix, carvedilol. Your heart medicines will be reviewed with lead programmer analyst next admission to see if anything needs to be restarted
Prescriptions:
New
midodrine 5 mg Tablet
5 mg PO BID 60 Days Qty: 120 0RF
glipizide 2.5 mg Tablet Extended Release 24hr
2.5 mg PO DAILY 60 Days Qty: 60 0RF
bumetanide 1 mg Tablet
1 mg PO DAILY 60 Days Qty: 60 0RF
sennosides-docusate sodium [Senna Plus] 8.6-50 mg Tablet
1 tab PO DAILYPRN PRN (Reason: constipation) 60 Days Qty: 60 0RF
polyethylene glycol 3350 17 gram Powder In Packet
17 g PO DAILYPRN PRN (Reason: constipation) 60 Days Qty: 100 0RF
metoprolol succinate 25 mg Tablet Extended Release 24 Hr
12.5 mg PO HS 60 Days Qty: 30 0RF
Continued
atorvastatin [Lipitor] 10 MG tablet
10 mg PO DAILY
levothyroxine 200 MCG tablet
200 mcg PO DAILY
leuprolide 1 MG/0.2 ML kit
5 mg SQ [id number]
omeprazole magnesium [Prilosec OTC] 20 MG tablet,delayed release (DR/EC)
20 mg PO DAILYPRN PRN (Reason: heartburn)
Januvia 50 MG tablet
50 mg PO DAILY
Eliquis 2.5 mg Tablet
2.5 mg PO BID
ondansetron HCl 8 mg tablet
8 mg PO Q8HPRN PRN (Reason: n/v)
prochlorperazine maleate 10 mg tablet
10 mg PO Q6HPRN PRN (Reason: n/v)
coenzyme Q10 [CoQ-10] 100 mg Capsule
100 mg PO DAILY
Discontinued
glimepiride 2 MG tablet
2 mg PO DAILY
spironolactone 25 mg Tablet
25 mg PO DAILY
sacubitril-valsartan [Entresto] 97-103 mg Tablet
1 tab PO BID
carvedilol 12.5 mg Tablet
12.5 mg PO BID 30 Days Qty: 60 0RF
furosemide 20 mg Tablet
20 mg PO MoWeFr@0800 30 Days Qty: 13 0RF
Discharge Orders:
Discharge Patient (As Directed); Ordered 01/28/25
Ordered By: Ga Castro
Discharge Date and Time
Discharge Date/Time: 01/28/25 14:51
Print Language: MOROCCAN
--- NOTE | 2025-01-31 11:27 | W.HF.CON ---
Heart Failure
- LV Function
Left ventricular function study result: LV Ejection fraction </= 35%
Ejection Fraction Percentage: 35
- ARNI
Patient already on ARNI: No
Heart Failure ARNI Contraindication: Acute Renal Failure, Hypotension
- ACEI/ARB
Patient already on ACEI/ARB: No
Heart Failure ACEI/ARB Contraindication: Acute Renal Failure, Hypotension
- Beta Юлия
Patient already on Evidence Based Beta Юлия: Yes
- Mineralocorticord Receptor Antagonist
Patient already on MRA: No
Heart Failure MRA Contraindication: Acute Renal Insufficiency, Hypotension
- SGLT-2 Inhibitor
Patient already on SGLT-2 Inhibitor: No
Heart Failure SGLT-2 Inhibitor Contraindication: Patient Refusal (UTI)
- Afib Anticoagulation
Patient already on Anticoagulation for Afib: Yes
- NYHA CHF Classification
NYHA CHF Classification Level: Class III - Symptoms w/ min exertion, interferes w/ nml daily activity
- ACC/AHA Stage
ACC/AHA Stage: Stage C: Symptomatic Heart Failure
== END 2025-01-28 14:51 | DRG 286 ==
LOC: 4 WEST ACU 18:05
PROVIDERS: Internal Medicine; Internal Medicine Cardiovascular Disease; Nurse Practitioner Primary Care; Physician Assistant Medical; Student in an Organized Health Care Education/Training Program; ADMITTING PHYSICIAN Internal Medicine; ATTENDING PHYSICIAN Hospitalist; CONSULT PHYSICIAN Psychiatry & Neurology Psychiatry; CONSULT PHYSICIAN Specialist; EMERGENCY PHYSICIAN Emergency Medicine; FAMILY PHYSICIAN Internal Medicine; OTHER PHYSICIAN Internal Medicine Cardiovascular Disease; OTHER PHYSICIAN Internal Medicine Critical Care Medicine
PROC: 4A023N6 Measurement of Cardiac Sampling and Pressure, Right Heart, Percutaneous Approach (ICD-10-PCS; 2025-01-24)
DX: I13.0 Hypertensive heart and chronic kidney disease with heart failure and stage 1 through stage 4 chronic kidney disease, or unspecified chronic kidney disease (principal); G92.8 Other toxic encephalopathy; J96.01 Acute respiratory failure with hypoxia; I50.23 Acute on chronic systolic (congestive) heart failure; N17.9 Acute kidney failure, unspecified; I48.21 Permanent atrial fibrillation; J98.11 Atelectasis; E87.3 Alkalosis; I42.8 Other cardiomyopathies; N18.32 Chronic kidney disease, stage 3b; E78.00 Pure hypercholesterolemia, unspecified; E11.22 Type 2 diabetes mellitus with diabetic chronic kidney disease; D63.1 Anemia in chronic kidney disease; E03.9 Hypothyroidism, unspecified; Z85.528 Personal history of other malignant neoplasm of kidney; Z85.46 Personal history of malignant neoplasm of prostate; Z85.51 Personal history of malignant neoplasm of bladder; Z79.899 Other long term (current) drug therapy; Z96.651 Presence of right artificial knee joint; Z87.891 Personal history of nicotine dependence; Z79.890 Hormone replacement therapy; Z79.01 Long term (current) use of anticoagulants; Z79.84 Long term (current) use of oral hypoglycemic drugs; Z82.49 Family history of ischemic heart disease and other diseases of the circulatory system; Z95.810 Presence of automatic (implantable) cardiac defibrillator; K21.9 Gastro-esophageal reflux disease without esophagitis; I25.10 Atherosclerotic heart disease of native coronary artery without angina pectoris; I27.20 Pulmonary hypertension, unspecified
CPT/HCPCS: 71045; 71046; 80048; 80053; 82040; 82962; 83735; 83880; 84100; 84484; 85025; 85027; 85610; 85730; 92526; 92610; 93005; 93306; 93503; 96374; 97110; 97116; 97163; 97167; 97530; 97535; 99285; J1939; P9047

== ENCOUNTER → 2025-01-31 09:49 | Outpatient (REF) | payer OTHER, SELFPAY ==
[2025-01-31 11:25] LABS: Hematocrit 29.4 % (39.0-52.0); Hemoglobin 9.0 g/dL (13.0-18.0); Mean Corp Hgb Conc. 30.6 g/dL (33.0-37.0); Mean Corpuscular Volume 96.4 fL (80.0-94.0); Platelet Count 157 10^3/uL (130-400); Red Cell Dist. Width 20.1 % (11.5-14.5)
[2025-01-31 11:48] LABS: Blood Urea Nitrogen 58 mg/dl (9-20); Calcium 8.7 mg/dl (8.4-10.2); Carbon Dioxide 33 mmol/L (22-30); Chloride 98 mmol/L (98-107); Glucose 147 mg/dl (70-99); Potassium 3.4 mmol/L (3.5-5.1); Sodium 138 mmol/L (135-145); eGFR 44.50
== END ==
LOC: OLABP 09:49
PROVIDERS: ATTENDING PHYSICIAN Family Medicine
DX: I50.30 Unspecified diastolic (congestive) heart failure (principal); J96.01 Acute respiratory failure with hypoxia; I48.91 Unspecified atrial fibrillation; R09.02 Hypoxemia; C64.9 Malignant neoplasm of unspecified kidney, except renal pelvis; D64.9 Anemia, unspecified; E03.9 Hypothyroidism, unspecified; E11.9 Type 2 diabetes mellitus without complications; E78.5 Hyperlipidemia, unspecified; E88.09 Other disorders of plasma-protein metabolism, not elsewhere classified; G93.40 Encephalopathy, unspecified; I10 Essential (primary) hypertension; I42.8 Other cardiomyopathies; N30.41 Irradiation cystitis with hematuria; K21.9 Gastro-esophageal reflux disease without esophagitis; N17.9 Acute kidney failure, unspecified
CPT/HCPCS: 36415; 80048; 85027

== ENCOUNTER → 2025-02-08 13:11 | Outpatient (REF) | payer OTHER, SELFPAY ==
[2025-02-08 13:42] LABS: Hematocrit 29.5 % (39.0-52.0); Hemoglobin 8.9 g/dL (13.0-18.0); Mean Corp Hgb Conc. 30.2 g/dL (33.0-37.0); Mean Corpuscular Volume 98.0 fL (80.0-94.0); Nucleated Red Blood Cells % 0 % (-); Platelet Count 218 10^3/uL (130-400); Red Cell Dist. Width 19.1 % (11.5-14.5)
[2025-02-08 14:11] LABS: Blood Urea Nitrogen 37 mg/dl (9-20); Calcium 8.9 mg/dl (8.4-10.2); Carbon Dioxide 38 mmol/L (22-30); Chloride 100 mmol/L (98-107); Glucose 124 mg/dl (70-99); Potassium 4.8 mmol/L (3.5-5.1); Sodium 140 mmol/L (135-145); eGFR 58.17
== END ==
LOC: OLABP 13:11
PROVIDERS: ATTENDING PHYSICIAN Family Medicine
DX: I50.30 Unspecified diastolic (congestive) heart failure (principal); I48.91 Unspecified atrial fibrillation; R09.02 Hypoxemia; C64.9 Malignant neoplasm of unspecified kidney, except renal pelvis; D64.9 Anemia, unspecified; E03.9 Hypothyroidism, unspecified; E11.9 Type 2 diabetes mellitus without complications; E78.5 Hyperlipidemia, unspecified; E88.09 Other disorders of plasma-protein metabolism, not elsewhere classified; G93.40 Encephalopathy, unspecified; I10 Essential (primary) hypertension
CPT/HCPCS: 36415; 80048; 85025

== ENCOUNTER → 2025-02-15 10:22 | Outpatient (REF) | payer OTHER, SELFPAY ==
[2025-02-15 11:02] LABS: Hematocrit 31.9 % (39.0-52.0); Hemoglobin 9.6 g/dL (13.0-18.0); Mean Corp Hgb Conc. 30.1 g/dL (33.0-37.0); Mean Corpuscular Volume 95.2 fL (80.0-94.0); Nucleated Red Blood Cells % 0 % (-); Platelet Count 147 10^3/uL (130-400); Red Cell Dist. Width 18.3 % (11.5-14.5)
== END ==
LOC: OLABP 10:22
PROVIDERS: ATTENDING PHYSICIAN Family Medicine
DX: I48.91 Unspecified atrial fibrillation (principal); R09.02 Hypoxemia; C64.9 Malignant neoplasm of unspecified kidney, except renal pelvis; D64.9 Anemia, unspecified; E03.9 Hypothyroidism, unspecified; E11.9 Type 2 diabetes mellitus without complications; E78.5 Hyperlipidemia, unspecified; E88.09 Other disorders of plasma-protein metabolism, not elsewhere classified; I10 Essential (primary) hypertension
CPT/HCPCS: 36415; 85025

== ENCOUNTER → 2025-02-16 09:17 | Outpatient (REF) | payer OTHER, SELFPAY ==
[2025-02-16 11:04] LABS: Blood Urea Nitrogen 33 mg/dl (9-20); Calcium 9.1 mg/dl (8.4-10.2); Carbon Dioxide 39 mmol/L (22-30); Chloride 93 mmol/L (98-107); Glucose 146 mg/dl (70-99); Potassium 4.4 mmol/L (3.5-5.1); Sodium 134 mmol/L (135-145); eGFR 58.17
== END ==
LOC: OLABPG 09:17
PROVIDERS: ATTENDING PHYSICIAN Family Medicine
DX: I50.30 Unspecified diastolic (congestive) heart failure (principal); J96.01 Acute respiratory failure with hypoxia; I48.91 Unspecified atrial fibrillation; R09.02 Hypoxemia; C64.9 Malignant neoplasm of unspecified kidney, except renal pelvis; D64.9 Anemia, unspecified; E03.9 Hypothyroidism, unspecified; E11.9 Type 2 diabetes mellitus without complications; E78.5 Hyperlipidemia, unspecified; E88.09 Other disorders of plasma-protein metabolism, not elsewhere classified; G93.40 Encephalopathy, unspecified; I10 Essential (primary) hypertension; I42.8 Other cardiomyopathies; I95.1 Orthostatic hypotension; N30.41 Irradiation cystitis with hematuria; N18.31 Chronic kidney disease, stage 3a; N17.9 Acute kidney failure, unspecified; K21.9 Gastro-esophageal reflux disease without esophagitis
CPT/HCPCS: 36415; 80048